=== PATIENT | male | born 1975 | race Caucasian/White ===

== ENCOUNTER 2016-07-07 20:43 | Emergency (ER) | payer OTHER ==
[~2016-07-07] VITALS: Ht 180.3 cm; Wt 119.0 kg
[~2016-07-07 20:43] MED LIST: AMPH10TA2 PO; BUPR8MIS SL; CLON1TAB3 PO; DIPH25CA65 PO; IBUP-1427 PO; LISI-461 PO; MELA1CAP9 PO; MULT-506 PO; ONDA8TAB6 PO; VENL150C PO
[2016-07-07 20:49] VITALS: TEMP 36.8; Ht 180.3 cm; Wt 119.0 kg
[2016-07-07 21:26] VITALS: O2SAT 100
[2016-07-07] MEDS ORDERED: MIRT30TA3 PO (21:29)
[2016-07-07] MEDS ORDERED: BUPR-83 PO (21:29)
[2016-07-07] MEDS ORDERED: HYDR50TA3 PO (21:29)
[2016-07-07] MEDS ORDERED: LISI-725 PO (21:29)
--- NOTE | 2016-07-07 21:31 | DIAGNOSTIC IMAGING REPORT ---
SINGLE VIEW CHEST CLINICAL HISTORY: Hypertension. FINDINGS: An AP, portable, upright chest radiograph is compared to study dated 08/20/2015. The examination is degraded by portable technique, large body habitus, and patient rotation. The cardiac silhouette is top normal for projection. The lungs and pleural spaces are clear noting minimal bibasilar atelectasis. No pneumothorax is seen. The bony thorax is grossly intact. IMPRESSION: No active disease in the chest. Electronically signed by: Jluis Jeff M.D. 07/07/2016 9:30 PM Dictated Date/Time: 07/07/2016 9:29 PM
[2016-07-07 22:10] LABS: BASO % 0.7 %; BASO ABS # 0.04 K/uL (0-0.2); COMPLETE YES; EOS % 4.9 %; HEMATOCRIT 40.3 % (42-52); IG% 0.7 %; LYMPH % 30.5 %; LYMPH ABS # 1.81 K/uL (1.2-3.4); MEAN CELL VOLUME 89.4 fL (80-100); MEAN CORPUSCULAR HEMOGLOBIN 29.9 pg (25-34); MEAN CORPUSCULAR HGB CONC 33.5 g/dl (32-36); MEAN PLATELET VOLUME 12.2 fL (7.4-10.4); MONO % 8.9 %; NEUT % 54.3 %; PLATELET COUNT 157 K/uL (130-400); RED BLOOD COUNT 4.51 M/uL (4.7-6.1); WHITE BLOOD COUNT 5.94 K/uL (4.8-10.8)
[2016-07-07 22:35] LABS: ALT/SGPT 74 U/L (12-78); BLOOD UREA NITROGEN 14 mg/dl (7-18); BUN/CREATININE RATIO 13.7 (10-20); CALCIUM 8.8 mg/dl (8.5-10.1); CARBON DIOXIDE 28 mmol/L (21-32); CHLORIDE 104 mmol/L (98-107); CREATININE 0.99 mg/dl (0.60-1.40); GLUCOSE 117 mg/dl (70-99)
[2016-07-07 22:39] LABS: POTASSIUM 4.1 mmol/L (3.5-5.1); SODIUM 141 mmol/L (136-145)
[2016-07-07 22:40] LABS: INR 0.9 (0.9-1.1); PARTIAL THROMBOPLASTIN RATIO 0.8; PROTHROMBIN TIME (PATIENT) 9.7 SECONDS (9.0-12.0)
[2016-07-07 22:41] LABS: ALKALINE PHOSPHATASE 88 U/L (45-117)
[2016-07-07 22:42] LABS: MANUAL MICROSCOPIC REQUIRED? NO; URINE APPEARANCE CLEAR (CLEAR); URINE BILIRUBIN NEG (NEG); URINE COLOR YELLOW; URINE NITRITE NEG (NEG); URINE SPECIFIC GRAVITY 1.015 (1.000-1.030); UROBILINOGEN NEG (NEG)
[2016-07-07 22:43] LABS: AST/SGOT 42 U/L (15-37)
[2016-07-07 22:47] LABS: REVIEW REQ? NO
[2016-07-07 23:32] VITALS: BP 162/99; PULSE 102; O2SAT 96
--- NOTE | 2016-07-07 23:33 | EMERGENCY ROOM VISIT NOTE ---
History Report prepared by Mitchell: Massiel Sol Under the Supervision of: Dr. Markell Sandoval M.D. First contact with patient: 21:04 Chief Complaint: HYPERTENSION Stated Complaint: HIGH BLOOD PRESSURE,RETAINING WATER/FLUIDS,NUMBNES History of Present Illness The patient is a 41 year old male who presents to the Emergency Room with complaints of constant hypertension for the past few months. The patient was incarcerated for the past 4 months and while he was there he states that he was eating a high sodium diet. He was diagnosed with hypertension and started on Lisinopril. The patient has been home for a week now. Yesterday he noticed swelling to his bilateral ankles. Today this swelling was much worse and spreading into his calves. He notes that he has gained 15 pounds over the past week. He feels like he is retaining water. He also notes headaches and generalized fatigue. He went to Urgent Care earlier today and was started on Hydrochlorothiazide. 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 Review of Systems See HPI for pertinent positives & negatives. A total of 10 systems reviewed and were otherwise negative. Past Medical & Surgical Medical Problems: (1) ADH disorder (2) Anxiety (3) Drug Mental Disorder Nec (4) Drug Withdrawal (5) H/O drug abuse Surgical Problems: (1) No significant past surgical history Family History Diabetes mellitus FH: cancer Hypertension Social History Smoking Status: Never Smoker Drug Use: cocaine, heroin, other Marital Status: in relationship Housing Status: lives with significant other Occupation Status: unemployed Current/Historical Medications Scheduled Buprenorphine Hcl-Naloxone Hcl (Suboxone 8-2 Mg), 8 MG SL BID Bupropion (Wellbutrin), 100 MG PO TID Clonidine Hcl (Catapres), 1 TAB PO BID Hydrochlorothiazide (Hctz), 50 MG PO DAILY Lisinopril (Zestril), 20 MG PO DAILY Mirtazapine (Remeron), 30 MG PO HS Venlafaxine Hcl (Effexor Xr), 150 MG PO DAILY Allergies Coded Allergies: No Known Allergies (Unverified , 08/31/15) Physical Exam Vital Signs Date Time Temp Pulse Resp B/P Pulse Ox O2 Delivery O2 Flow Rate FiO2 07/07/16 23:32 102 18 162/99 96 Room Air 07/07/16 22:44 106 18 157/85 96 Room Air 07/07/16 21:26 100 Room Air 07/07/16 21:25 100 Room Air 07/07/16 20:49 36.8 105 18 169/95 100 Room Air Physical Exam GENERAL: Patient is a healthy-appearing well-nourished 41 year old male. HEAD: Normocephalic atraumatic EYES: Ocular movements intact pupils equal and react to light OROPHARYNX mucous membranes are moist no exudates present no erythema or edema present NECK: Supple no nuchal rigidity CHEST: Good equal expansion LUNGS: Clear and equal to auscultation CARDIAC: Normal S1 and S2 ABDOMEN: Soft nontender no guarding BACK: No CVA tenderness EXTREMITIES: No pain upon palpation normal muscle strength in all groups. Bilateral lower extremity edema. NEURO: Patient is following commands is answering questions appropriately. Alert and oriented x3 Cranial Nerves 2-12 grossly intact Medical Decision & Procedures ER Provider Diagnostic Interpretation: Radiology results as stated below per my review and radiologist interpretation: SINGLE VIEW CHEST CLINICAL HISTORY: Hypertension. FINDINGS: An AP, portable, upright chest radiograph is compared to study dated 08/20/2015. The examination is degraded by portable technique, large body habitus, and patient rotation. The cardiac silhouette is top normal for projection. The lungs and pleural spaces are clear noting minimal bibasilar atelectasis. No pneumothorax is seen. The bony thorax is grossly intact. IMPRESSION: No active disease in the chest. Electronically signed by: Jluis Jeff M.D. 07/07/2016 9:30 PM Dictated Date/Time: 07/07/2016 9:29 PM US VENOUS BILATERAL LOWER EXTREMITIES: No evidence of DVT within the right or left lower extremity. Radiologist: Too Mendez MD Laboratory Results 07/07/16 21:54 Red Blood Count 4.51, Mean Corpuscular Volume 89.4, Mean Corpuscular Hemoglobin 29.9, Mean Corpuscular Hemoglobin Concent 33.5, Mean Platelet Volume 12.2, Neutrophils (%) (Auto) 54.3, Lymphocytes (%) (Auto) 30.5, Monocytes (%) (Auto) 8.9, Eosinophils (%) (Auto) 4.9, Basophils (%) (Auto) 0.7, Neutrophils # (Auto) 3.23, Lymphocytes # (Auto) 1.81, Monocytes # (Auto) 0.53, Eosinophils # (Auto) 0.29, Basophils # (Auto) 0.04 07/07/16 21:54 Test 07/07/16 21:40 07/07/16 21:54 Urine Color YELLOW Urine Appearance CLEAR (CLEAR) Urine pH 6.0 (4.5-7.5) Urine Specific Echo 1.015 (1.000-1.030) Urine Protein NEG (NEG) Urine Glucose (UA) NEG (NEG) Urine Ketones NEG (NEG) Urine Occult Blood NEG (NEG) Urine Nitrite NEG (NEG) Urine Bilirubin NEG (NEG) Urine Urobilinogen NEG (NEG) Urine Leukocyte Esterase NEG (NEG) White Blood Count 5.94 K/uL (4.8-10.8) Red Blood Count 4.51 M/uL (4.7-6.1) Hemoglobin 13.5 g/dL (14.0-18.0) Hematocrit 40.3 % (42-52) Mean Corpuscular Volume 89.4 fL (80-100) Mean Corpuscular Hemoglobin 29.9 pg (25-34) Mean Corpuscular Hemoglobin Concent 33.5 g/dl (32-36) Platelet Count 157 K/uL (130-400) Mean Platelet Volume 12.2 fL (7.4-10.4) Neutrophils (%) (Auto) 54.3 % Lymphocytes (%) (Auto) 30.5 % Monocytes (%) (Auto) 8.9 % Eosinophils (%) (Auto) 4.9 % Basophils (%) (Auto) 0.7 % Neutrophils # (Auto) 3.23 K/uL (1.4-6.5) Lymphocytes # (Auto) 1.81 K/uL (1.2-3.4) Monocytes # (Auto) 0.53 K/uL (0.11-0.59) Eosinophils # (Auto) 0.29 K/uL (0-0.5) Basophils # (Auto) 0.04 K/uL (0-0.2) RDW Standard Deviation 44.3 fL (36.4-46.3) RDW Coefficient of Variation 13.5 % (11.5-14.5) Immature Granulocyte % (Auto) 0.7 % Immature Granulocyte # (Auto) 0.04 K/uL (0.00-0.02) Prothrombin Time 9.7 SECONDS (9.0-12.0) Prothromb Time International Ratio 0.9 (0.9-1.1) Activated Partial Thromboplast Time 20.3 SECONDS (21.0-31.0) Partial Thromboplastin Ratio 0.8 Anion Gap 9.0 mmol/L (3-11) Est Creatinine Clear Calc Drug Dose 131.4 ml/min Estimated GFR () 110.7 Estimated GFR (Non- 95.5 BUN/Creatinine Ratio 13.7 (10-20) Calcium Level 8.8 mg/dl (8.5-10.1) Total Bilirubin 0.2 mg/dl (0.2-1) Direct Bilirubin < 0.1 mg/dl (0-0.2) Aspartate Amino Transf (AST/SGOT) 42 U/L (15-37) Alanine Aminotransferase (ALT/SGPT) 74 U/L (12-78) Alkaline Phosphatase 88 U/L (45-117) Pro-B-Type Natriuretic Peptide 18 pg/ml (0-450) Total Protein 6.9 gm/dl (6.4-8.2) Albumin 3.4 gm/dl (3.4-5.0) Lipase 107 U/L (73-393) Thyroid Stimulating Hormone (TSH) 2.150 uIu/ml (0.300-4.500) Labs reviewed by ED physician. Medications Administered Medications (Trade) Dose Ordered Sig/John Route Start Time Stop Time Status Last Admin Dose Admin Clonidine HCl (Catapres Tab) 0.1 mg NOW STAT PO 07/07/16 23:47 07/07/16 23:48 DC 07/07/16 23:58 0.1 MG Clonidine HCl (Catapres Tab) 0.1 mg NOW STAT PO 07/07/16 23:47 07/07/16 23:48 DC 07/07/16 23:58 0.1 MG Clonidine HCl (Catapres Tab) 0.1 mg NOW STAT PO 07/07/16 23:47 07/07/16 23:48 DC 07/07/16 23:58 0.1 MG ECG Indication: other Rate (beats per minute): 98 Rhythm: normal sinus Findings: no acute ischemic change, no ectopy, other (anterior infarct) ED Course 2103: Past medical records reviewed. The patient was evaluated in room B10. A complete history and physical examination was performed. 2343: I reassessed the patient at this time. He is feeling better and resting comfortably. I discussed the results and treatment plan with the patient. I answered all pertaining questions that he had. He expressed understanding and verbalized agreement. The patient will be discharged home. 2347: Clonidine HCl 0.1 mg PO, Clonidine HCl 0.1 mg PO, Clonidine HCl 0.1 mg PO Medical Decision Differential diagnosis: Etiologies such as benign hypertension, hypertensive emergency, cardiovascular pathology, pheochromocytoma, electrolyte abnormality, renal disease, endorgan damage, as well as others were entertained. This is a 41-year-old male who presents emergency department complaining of hypertension. The patient has been on Catapres reports that he had recently been taken off it. I suspect he has been having rebound hypertension due to this. For this reason the patient was given Catapres in the emergency department. He was given a short-term prescription for however stressed the need for follow-up with the patient's primary care physician. Patient has a normal normal ultrasounds of his legs and has no evidence of congestive heart failure on x-ray or laboratory work. Patient and significant other were in agreement with the treatment plan. Impression Primary Impression: Hypertension Scribe Attestation The scribe's documentation has been prepared under my direction and personally reviewed by me in its entirety. I confirm that the note above accurately reflects all work, treatment, procedures, and medical decision making performed by me. Departure Information Dispostion Home / Self-Care Prescriptions Clonidine Hcl (CATAPRES) 0.1 Mg Tab 1 TAB PO BID for 10 Days, #20 TAB Prov: Markell Sandoval MD 07/07/16 Referrals No Doctor, Assigned (PCP) Forms HOME CARE DOCUMENTATION FORM, IMPORTANT VISIT INFORMATION, WORK / SCHOOL INSTRUCTIONS Patient Instructions ED Hypertension Conf Out Of Control, My [facility] Additional Instructions NEED FOLLOW UP WITH A PCP You have been examined and treated today on an emergency basis only. This is not a substitute for, or an effort to provide, complete comprehensive medical care. It is impossible to recognize and treat all injuries or illnesses in a single emergency department visit. It is therefore important that you follow up closely with your PCP. Call as soon as possible for an appointment. Thank you for your time and consideration. I look forward to speaking with you again soon. Please don't hesitate to call us if you have any questions. Problem Qualifiers Primary Impression: Hypertension Hypertension type: essential hypertension Qualified Codes: I10 - Essential ( primary) hypertension
[2016-07-07] MEDS ORDERED: CLONIDINE HCL 0.1 MG TAB PO STA ×3 (23:47)
[2016-07-07] MEDS ORDERED: CLON0.1T12 PO (23:50)
--- NOTE | 2016-07-08 06:43 | DIAGNOSTIC IMAGING REPORT ---
BILATERAL LOWER EXTREMITY VENOUS DOPPLER CLINICAL HISTORY: Bilateral leg swelling. COMPARISON STUDY: No previous studies for comparison. TECHNIQUE: Sonography of the deep venous system of the bilateral lower extremities was performed. Compression and augmentation were evaluated. FINDINGS: The bilateral common femoral, superficial femoral and popliteal veins were compressible. Augmentation was normal. Flow was shown within the deep calf vessels. IMPRESSION: No evidence of deep venous thrombus within the bilateral lower extremities. Electronically signed by: Oliver Farley M.D. 07/08/2016 6:41 AM Dictated Date/Time: 07/08/2016 6:41 AM
== END 2016-07-08 00:04 | disposition home or self-care (01) ==
LOC: C.EDB 20:44
DX: I10 Essential (primary) hypertension (principal); F41.9 Anxiety disorder, unspecified; Z83.3 Family history of diabetes mellitus; Z82.49 Family history of ischemic heart disease and other diseases of the circulatory system; Z79.899 Other long term (current) drug therapy

== ENCOUNTER 2016-10-19 11:27 | Emergency (ER) | payer OTHER ==
[~2016-10-19] VITALS: Ht 180.3 cm; Wt 113.0 kg
[~2016-10-19 11:27] MED LIST changes: -AMPH10TA2 PO; +BUPR-83 PO; +CLON0.1T12 PO; -CLON1TAB3 PO; -DIPH25CA65 PO; +HYDR50TA3 PO; -IBUP-1427 PO; -LISI-461 PO; +LISI-725 PO; -MELA1CAP9 PO; +MIRT30TA3 PO; -MULT-506 PO; -ONDA8TAB6 PO
[2016-10-19 11:30] VITALS: TEMP 36.7; Ht 180.3 cm; Wt 113.0 kg
[2016-10-19] MEDS ORDERED: KETOROLAC TROMETHAMINE 30 MG/ML VIAL IM STA (12:52)
[2016-10-19] MEDS ORDERED: DIAZEPAM INJ 5 MG/ML 2 ML CARP IM STA (12:52)
--- NOTE | 2016-10-19 12:55 | EMERGENCY ROOM VISIT NOTE ---
ED Visit Note First contact with patient: 11:45 CHIEF COMPLAINT: Low back pain HISTORY OF PRESENT ILLNESS: This 41-year-old male patient presents to the emergency department with his complaining of pain in the low back which began yesterday afternoon patient states he has been constipated lately, was straining to move his bowels when he felt a pop in the left side of his back with some pain that he describes "like a taser shock to me." He states the pain has gotten progressively worse, radiating down his buttock and into his left lateral thigh. The pain was gradual in onset, is now constant and worse with movement. The patient notes the pain as burning, aching and a 8/10. The patient has taken ibuprofen with minimal relief of the pain. The patient denies any loss of control of their bowel or bladder functions. There has been no leg numbness or weakness, and no change in sensation. No nausea or vomiting or abdominal pain. No chest pain or shortness of breath. The patient has not had prior back injuries. No dysuria or increased urinary frequency. Patient has been ambulatory. Patient has past history of IV heroin abuse, currently treated with Suboxone. He denies any relapse of IV drug abuse. REVIEW OF SYSTEMS: A review of systems was performed with positives and pertinent negatives listed in the history of present illness. All other systems were reviewed and are negative. ALLERGIES: None MEDICATIONS: See chart PMH: See chart SOCIAL HISTORY: See chart PHYSICAL EXAM: VITALS: Vitals are noted on the nurse's note and reviewed by myself. Vital signs stable. GENERAL: Pleasant and cooperative, in no acute distress, nondiaphoretic, well- developed well-nourished. SKIN: The skin was without rashes, erythema, edema, or bruising. Capillary refill less than 2 seconds. NECK: Supple without nuchal rigidity. No cervical spine tenderness. No paraspinous muscle tenderness. HEART: Regular rate and rhythm without murmurs gallops or rubs. LUNGS: Clear to auscultation bilaterally without wheezes, rales or rhonchi. ABDOMEN: Positive bowel sounds x 4. Normal tympanic percussion. Soft, nontender, without masses or organomegaly. Watt sign negative. MUSCULOSKELETAL: No muscle atrophy, erythema, or edema noted of the back. There is no tenderness over the lumbar spinous processes. There is moderate tenderness over the lateral paraspinous muscles of the left lumbar spine. There is no tenderness over the thoracic spine paraspinous muscles. There are moderate muscle spasms present. The patient is slow to move around with maximum tenderness with bending over. Positive left straight leg raise test. NEURO: Patient was alert and oriented to person place and time. Normal sensation to light and sharp touch. Deep tendon reflexes 2+ in the lower extremities. Dorsalis pedis pulse 2+ bilaterally. Strength 5/5 and equal in the bilateral lower extremities. Patient pacing around the room, normal gait noted. EMERGENCY DEPARTMENT COURSE: I examined the patient. Differential diagnosis includes back sprain, strain, muscle spasm, disc herniation; less likely cauda equina, I do not suspect traumatic injury or epidural abscess. Patient has notable muscle spasm of the left lateral lumbar musculature, tender to palpation. No midline spinal tenderness, step-offs, crepitus. Normal neuro exam, normal strength and sensation in both legs, normal reflexes bilaterally, no saddle numbness, normal gait. Patient's pain brought on while straining to have a bowel movement, no significant trauma. I suspect straining of the muscle wall of the left side of the back. Patient treated with IM Toradol and Valium, with good improvement in his symptoms. Patient was provided with small Rx of Valium and instructed to follow closely with his PCP for follow up, he verbalized understanding and agreement. Problem List Medical Problems: (1) ADH disorder Status: Chronic (2) Anxiety Status: Chronic (3) H/O drug abuse Status: Chronic Surgical Problems: (1) No significant past surgical history Status: Chronic Current/Historical Medications Scheduled Buprenorphine Hcl-Naloxone Hcl (Suboxone 8-2 Mg), 8 MG SL BID Clonidine Hcl (Catapres), 1 TAB PO BID Diazepam (Valium), 5 MG PO QID Hydrochlorothiazide (Hctz), 50 MG PO DAILY Lisinopril (Zestril), 20 MG PO DAILY Allergies Coded Allergies: No Known Allergies (Unverified , 08/31/15) Vital Signs Date Time Temp Pulse Resp B/P Pulse Ox O2 Delivery O2 Flow Rate FiO2 10/19/16 13:46 89 18 109/62 98 10/19/16 11:30 36.7 100 16 134/81 98 Room Air Medications Administered Medications (Trade) Dose Ordered Sig/John Route Start Time Stop Time Status Last Admin Dose Admin Diazepam (Valium Inj) 10 mg NOW STAT IM 10/19/16 12:52 10/19/16 12:54 DC 10/19/16 13:05 10 MG Ketorolac Tromethamine (Toradol Inj) 60 mg STK-MED ONCE .ROUTE 10/19/16 13:01 10/19/16 13:02 DC 10/19/16 13:05 60 MG Departure Information Impression Primary Impression: Left-sided low back pain with sciatica Dispostion Home / Self-Care Condition GOOD Prescriptions Diazepam (Valium) 5 Mg Tab 5 MG PO QID for 3 Days, #12 TAB Prov: Teresa Marquez Lily, RECORDS MANAGEMENT MANAGER 10/19/16 Referrals No Doctor, Assigned (PCP) Patient Instructions My [facility] [employer] Additional Instructions Rest off your feet for 1 to 2 days, ice for 24 hrs then heat to the low back. See your own doctor or an orthopedist in 5-7 days if you are not improving. Ibuprofen 800 mg and Tylenol 1000 mg every 8 hours if needed for the pain. Valium every 6-8 hours as needed for muscle spasm. No driving or alcohol use while you are taking the Valium. Please return to the ER for any worsening problems, including problems with bowel or bladder function or if loss of sensation/movement of lower extremities. Work Instructions Return To Work: 2 days Specific Date: 10/21/2016 Additional Work Instructions: No restrictions Problem Qualifiers Primary Impression: Left-sided low back pain with sciatica Chronicity: acute Sciatica laterality: sciatica of left side Qualified Codes: M54.42 - Lumbago with sciatica, left side
[2016-10-19] MEDS ORDERED: KETOROLAC TROMETHAMINE 60 MG/2 ML VIAL ONE (13:01)
[2016-10-19] MEDS ORDERED: DIAZ-165 PO (13:37)
[2016-10-19 13:46] VITALS: BP 109/62; PULSE 89; O2SAT 98
== END 2016-10-19 13:48 | disposition home or self-care (01) ==
LOC: C.EDB 11:28 → C.EDD 13:48
DX: M54.42 Lumbago with sciatica, left side (principal); K59.00 Constipation, unspecified; F11.21 Opioid dependence, in remission; F90.9 Attention-deficit hyperactivity disorder, unspecified type; F41.9 Anxiety disorder, unspecified

== ENCOUNTER 2016-10-27 09:58 | Emergency (ER) | payer OTHER ==
[~2016-10-27] VITALS: Ht 180.3 cm; Wt 115.6 kg
[~2016-10-27 09:58] MED LIST changes: -BUPR-83 PO; -MIRT30TA3 PO; -VENL150C PO
[2016-10-27 10:01] VITALS: TEMP 36.7; Ht 180.3 cm; Wt 115.6 kg
[2016-10-27] MEDS ORDERED: KETOROLAC TROMETHAMINE 60 MG/2 ML VIAL IM STA (10:33)
--- NOTE | 2016-10-27 11:40 | DIAGNOSTIC IMAGING REPORT ---
LUMBAR SPINE 3 VIEWS HISTORY: lower back pain COMPARISON: None. FINDINGS: There is no fracture. No subluxation. Disc spaces are preserved. There is small endplate osteophytes seen throughout the lumbar spine. IMPRESSION: No fracture or subluxation within the lumbar spine. Minor degenerative changes. Electronically signed by: Gerhard Levy M.D. 10/27/2016 11:39 AM Dictated Date/Time: 10/27/2016 11:35 AM
[2016-10-27 11:41] VITALS: BP 145/74; PULSE 89; O2SAT 100
--- NOTE | 2016-10-27 15:35 | EMERGENCY ROOM VISIT NOTE ---
History Report prepared by Mitchell: Arnulfo Mathur Under the Supervision of: Dr. Patrice Pardo D.O. First contact with patient: 10:08 Chief Complaint: BACK PAIN Stated Complaint: BACK PAIN History of Present Illness The patient is a 41 year old male who presents to the Emergency Room with complaints of worsening low back pain that started yesterday. He says that he had been having back pain last week, and was seen here and was told it may be a pulled muscle. The patient states that the area was sore all week, but then yesterday he was picking something up off the back of a truck, and he felt like his lower back was going to collapse. Ever since then, he says that he has had 5 times worse pain than when he was here last week. The patient adds that he has had to push to urinate, and he has not had a bowel movement in 3 days. The patient notes that he has had back pain in the same spot before, but never this bad. He denies any fevers, or weakness/numbness in his legs. The patient denies any IV drug use. Pt is able to ambulate without difficulty. No fevers. Source of History: patient Onset: Yesterday Position: back (lower) Symptom Intensity: 5 times worse than when seen here last week Timing: worsening Associated Symptoms: + urinary symptoms (has to push to urinate), No fevers , No weakness (in legs), No numbness (in legs) Note: Associated symptoms: Low back pain for past week, but worsened yesterday. Unable to pass bowel movements for 3 days. Review of Systems See HPI for pertinent positives & negatives. A total of 10 systems reviewed and were otherwise negative. Past Medical & Surgical Medical Problems: (1) ADH disorder (2) Anxiety (3) Drug Mental Disorder Nec (4) Drug Withdrawal (5) H/O drug abuse Surgical Problems: (1) No significant past surgical history Family History Diabetes mellitus FH: cancer Hypertension Social History Smoking Status: Never Smoker Drug Use: cocaine, heroin, other Marital Status: in relationship Housing Status: lives with significant other Occupation Status: unemployed Current/Historical Medications Scheduled Buprenorphine Hcl-Naloxone Hcl (Suboxone 8-2 Mg), 8 MG SL BID Clonidine Hcl (Catapres), 1 TAB PO BID Hydrochlorothiazide (Hctz), 50 MG PO DAILY Lisinopril (Zestril), 20 MG PO DAILY Allergies Coded Allergies: No Known Allergies (Unverified , 10/27/16) Physical Exam Vital Signs Date Time Temp Pulse Resp B/P (MAP) Pulse Ox O2 Delivery O2 Flow Rate FiO2 10/27/16 11:41 89 16 145/74 100 Room Air 10/27/16 10:01 36.7 125 18 96 Room Air Physical Exam GENERAL: sitting up in bed, disheveled, no acute distress, nontoxic EYE EXAM: normal conjunctiva OROPHARYNX: no exudate, no erythema, lips, buccal mucosa, and tongue normal and mucous membranes are moist NECK: supple, no nuchal rigidity, no adenopathy, non-tender LUNGS: Clear to auscultation. Normal chest wall mechanics HEART: no murmurs, S1 normal and S2 normal ABDOMEN: abdomen soft, non-tender, normo-active bowel sounds, no masses, no rebound or guarding. BACK: Acute reproducible tenderness in lower lumbar paraspinal region tracking up to left SI joint. SKIN: no rashes and no bruising UPPER EXTREMITIES: upper extremities are grossly normal. LOWER EXTREMITIES: Flexion extension of hip, knee, ankle, and EHL 5/5 bilaterally. Able to walk on heels and toes. RECTAL: Good rectal tone. NEURO EXAM: Normal sensorium, cranial nerves II-XII grossly intact, normal speech, no gross weakness of arms. Medical Decision & Procedures ER Provider Diagnostic Interpretation: X-ray results as stated below per my review and the radiologist's interpretation : LUMBAR SPINE 3 VIEWS HISTORY: lower back pain COMPARISON: None. FINDINGS: There is no fracture. No subluxation. Disc spaces are preserved. There is small endplate osteophytes seen throughout the lumbar spine. IMPRESSION: No fracture or subluxation within the lumbar spine. Minor degenerative changes. Electronically signed by: Gerhard Levy M.D. 10/27/2016 11:39 AM Dictated Date/Time: 10/27/2016 11:35 AM Medications Administered Medications (Trade) Dose Ordered Sig/John Route Start Time Stop Time Status Last Admin Dose Admin Ketorolac Tromethamine (Toradol Inj) 60 mg NOW STAT IM 10/27/16 10:33 10/27/16 10:35 DC 10/27/16 11:00 60 MG ED Course ED COURSE: Vital signs were reviewed and showed hypertensive vitals. The patients medical record was reviewed The above diagnostic studies were performed and reviewed. ED treatments and interventions as stated above. 1023: The patient was evaluated in room A9B. A complete history and physical examination was performed. 1033: Ordered Toradol Inj 60 mg IM. 1045: Post-void residual was 8 ml's. 1145: Upon reevaluation, the patient is resting.I discussed my findings with the patient and he understands and agrees with the treatment plan. Based on the patients age, coexisting illnesses, exam and lab findings the decision to treat as an outpatient was made. The patient remained stable while under my care. The patient appeared well at the time of discharge. Medical Decision Differential diagnoses includes but is not limited to lumbar radiculopathy, muscle strain, facture, cauda equina, mass, and disc herniation. Medication Reconciliation: I attest that I have personally reviewed the patient' s current medication list. Blood pressure screening: Patient was found to have an elevated blood pressure and was referred to their primary doctor for recheck and further treatment. Patient is a 41-year-old male who presents the ER for left lower back pain which is acutely reproducible on exam. Appears to be muscle skeletal. He is completely neurologically intact. Able to ambulate without difficulty. Able to walk on heels and toes. Patellar and Achilles reflexes are intact. X-rays of the back showed no acute pathology. Patient was given IM Toradol and discharged to take Tylenol and Motrin. He had good rectal tone. There is no signs of cauda equina. Discussed with Pt concerning signs and symptoms to watch out for. Pt was instructed to follow up with their PCP and discussed with the patient their option to return to the ED at anytime for persistent or worsening symptoms. The appropriate anticipatory guidance and out-patient management, including indications for return to the emergency department, were explained at length to the patient and understood. Impression Primary Impression: Back pain Scribe Attestation The scribe's documentation has been prepared under my direction and personally reviewed by me in its entirety. I confirm that the note above accurately reflects all work, treatment, procedures, and medical decision making performed by me. Departure Information Dispostion Home / Self-Care Referrals No Doctor, Assigned (PCP) Patient Instructions Back Pain - [facility], My [facility] Additional Instructions Please follow up with your primary care doctor with in the next 24 hours. Any worsening of your symptoms, please return to the ED immediately. This includes fevers greater than 100.4, weakness or numbness in your legs, numbness in your groin, unable to urinate, unable to move your bowels, or any other concerning signs or symptoms from your standpoint. Please use Motrin Tylenol as needed for pain. Problem Qualifiers Primary Impression: Back pain Back pain location: back pain in unspecified location Chronicity: acute Back pain laterality: bilateral Qualified Codes: M54.9 - Dorsalgia, unspecified
== END 2016-10-27 12:03 | disposition home or self-care (01) ==
LOC: C.EDB 09:59 → C.EDA 12:03
DX: M54.5 Low back pain (principal); F41.9 Anxiety disorder, unspecified; F90.9 Attention-deficit hyperactivity disorder, unspecified type; Z79.899 Other long term (current) drug therapy; Z83.3 Family history of diabetes mellitus; Z80.9 Family history of malignant neoplasm, unspecified; Z82.49 Family history of ischemic heart disease and other diseases of the circulatory system

== ENCOUNTER 2017-01-08 01:50 | Emergency (ER) | payer OTHER ==
[~2017-01-08] VITALS: Ht 180.3 cm; Wt 119.7 kg
[2017-01-08 01:55] VITALS: TEMP 36.4; Ht 180.3 cm; Wt 119.7 kg
[2017-01-08] MEDS ORDERED: DiphenhydrAMINE HCL 50 MG/ML VIAL IV STA (02:06)
[2017-01-08] MEDS ORDERED: METOCLOPRAMIDE HCL INJ 5 MG/ML 2 ML VIAL IV STA (02:06)
[2017-01-08] MEDS ORDERED: SODIUM CHLORIDE 0.9% 1000ML 1,000 ML IV STA (02:06)
[2017-01-08] MEDS ORDERED: DICYCLOMINE HCL 20 MG TAB PO STA (02:06)
--- NOTE | 2017-01-08 02:16 | EMERGENCY ROOM VISIT NOTE ---
History Report prepared by Mitchell: Susi Judge Under the Supervision of: Dr. Erick Reid M.D. First contact with patient: 02:01 Chief Complaint: ALLERGIC REACTION Stated Complaint: ALLERGIC REACTION- MILK [place] Nursing Triage Summary: Patient ambulatory to triage with a steady and upright gait, states "I took some MOM to move my bowels and immediately, I started to have really bad abdominal cramps. I was in the bathroom trying to go for about 6 hours and was finally able to go. I was vomiting and nauseated. I got towels out and laid on the bathroom floor. I got to the point where I was dry heaving. My abdominal cramps are out of this world. I still feel like I need to move my bowels but I can't." History of Present Illness The patient is a 42 year old male who presents to the Emergency Room with complaints of an episode of an allergic reaction starting 8 hours ago. The patient states that he took MOM to have a bowel movement because he normally has one daily. He states that 20 minutes after taking it, he started having stomach cramping and vomiting. He currently rates his pain as a 10/10 in severity. He reports that he has been constantly vomiting and can't sleep because of it. The patient reports that he Googled it and noticed it was possibly a severe allergic reaction to the MOM, so he decided to come to the ED. He notes that he has had a bowel movement since taking it. The patient complains of a fever. He denies abdominal surgeries. He notes every time he takes MOM he becomes sick, but never to this extent. Source of History: patient Onset: 8 hours ago Position: other (global) Symptom Intensity: 10/10 Quality: cramping Timing: other (episode) Associated Symptoms: + fevers, + vomiting Note: The patient denies any abdominal surgeries. Review of Systems See HPI for pertinent positives & negatives. A total of 10 systems reviewed and were otherwise negative. Past Medical & Surgical Medical Problems: (1) ADH disorder (2) Anxiety (3) Drug Mental Disorder Nec (4) Drug Withdrawal (5) H/O drug abuse Surgical Problems: (1) No significant past surgical history Family History Diabetes mellitus FH: cancer Hypertension Social History Smoking Status: Never Smoker Drug Use: cocaine, heroin, other Marital Status: in relationship Housing Status: lives with significant other Occupation Status: unemployed Current/Historical Medications Scheduled Buprenorphine Hcl-Naloxone Hcl (Suboxone 8-2 Mg), 8 MG SL BID Hydrochlorothiazide (Hctz), 50 MG PO DAILY Lisinopril (Zestril), 20 MG PO DAILY Scheduled PRN Clonidine Hcl (Catapres), 1 TAB PO BID PRN for Hypertension Allergies Coded Allergies: Magnesium Hydroxide (Verified Adverse Reaction, Severe, GI SYMPTOMS, ) Physical Exam Vital Signs Date Time Temp Pulse Resp B/P (MAP) Pulse Ox O2 Delivery O2 Flow Rate FiO2 01/08/17 05:10 61 18 123/78 99 01/08/17 03:11 76 18 120/70 94 Room Air 01/08/17 01:55 100 Room Air 01/08/17 01:55 36.4 84 16 120/77 100 Room Air Physical Exam GENERAL: Patient is well appearing and in minimal distress. HEENT: No acute trauma, normocephalic atraumatic, mucous membranes moist, no nasal congestion, no scleral icterus. NECK: No stridor, no adenopathy, no meningismus, trachea is midline. LUNGS: No dyspnea. Clear to auscultation and equal bilaterally. No wheeze, no rhonchi. HEART: Regular rate and rhythm. No murmurs, rubs, gallops appreciated. ABDOMEN: Soft, nontender, bowel sounds positive, no masses appreciated, no peritonitis. BACK: No midline tenderness, no CVA tenderness EXTREMITIES: Normal motion all extremities, no cyanosis, no edema. NEUROLOGIC: Alert and oriented, no acute motor or sensory deficits, no focal weakness, cranial nerves grossly intact. SKIN: No rash, no jaundice, no diaphoresis. Medical Decision & Procedures ER Provider Diagnostic Interpretation: Radiology results and stated below per my review and radiologist interpretation: 4 VIEW ABDOMINAL OBSTRUCTION SERIES X-RAY: Findings: The results were interpreted by me. No evidence of acute obstruction. Stool present throughout the colon. No free air. CT ABDOMEN & PELVIS: Comparison with CT abdomen pelvis 08/02/11. Colitis involving the transverse colon, splenic flexure, descending colon, and sigmoid colon extending to the rectum. Consider infectious or inflammatory etiologies. No appendicitis or bowel obstruction. No free air or free fluid. Pancreas, kidneys, and gallbladder are normal. Radiologist: Ervin Colón M.D. Study ready at 03:35 and initial results transmitted at 04:45. Laboratory Results 8/15/17 02:28 Red Blood Count 4.42, Mean Corpuscular Volume 89.8, Mean Corpuscular Hemoglobin 30.3, Mean Corpuscular Hemoglobin Concent 33.8, Mean Platelet Volume 12.3, Neutrophils (%) (Auto) 79.6, Lymphocytes (%) (Auto) 11.4, Monocytes (%) (Auto) 7.1, Eosinophils (%) (Auto) 1.4, Basophils (%) (Auto) 0.3, Neutrophils # (Auto) 8.00, Lymphocytes # (Auto) 1.15, Monocytes # (Auto) 0.71, Eosinophils # (Auto) 0.14, Basophils # (Auto) 0.03 01/08/17 02:28 Test 01/08/17 02:28 01/08/17 03:14 White Blood Count 10.05 K/uL (4.8-10.8) Red Blood Count 4.42 M/uL (4.7-6.1) Hemoglobin 13.4 g/dL (14.0-18.0) Hematocrit 39.7 % (42-52) Mean Corpuscular Volume 89.8 fL (80-100) Mean Corpuscular Hemoglobin 30.3 pg (25-34) Mean Corpuscular Hemoglobin Concent 33.8 g/dl (32-36) Platelet Count 171 K/uL (130-400) Mean Platelet Volume 12.3 fL (7.4-10.4) Neutrophils (%) (Auto) 79.6 % Lymphocytes (%) (Auto) 11.4 % Monocytes (%) (Auto) 7.1 % Eosinophils (%) (Auto) 1.4 % Basophils (%) (Auto) 0.3 % Neutrophils # (Auto) 8.00 K/uL (1.4-6.5) Lymphocytes # (Auto) 1.15 K/uL (1.2-3.4) Monocytes # (Auto) 0.71 K/uL (0.11-0.59) Eosinophils # (Auto) 0.14 K/uL (0-0.5) Basophils # (Auto) 0.03 K/uL (0-0.2) RDW Standard Deviation 43.4 fL (36.4-46.3) RDW Coefficient of Variation 13.2 % (11.5-14.5) Immature Granulocyte % (Auto) 0.2 % Immature Granulocyte # (Auto) 0.02 K/uL (0.00-0.02) Anion Gap 4.0 mmol/L (3-11) Est Creatinine Clear Calc Drug Dose 117.5 ml/min Estimated GFR () 96.8 Estimated GFR (Non- 83.5 BUN/Creatinine Ratio 14.4 (10-20) Calcium Level 9.3 mg/dl (8.5-10.1) Total Bilirubin 0.4 mg/dl (0.2-1) Direct Bilirubin < 0.1 mg/dl (0-0.2) Aspartate Amino Transf (AST/SGOT) 26 U/L (15-37) Alanine Aminotransferase (ALT/SGPT) 41 U/L (12-78) Alkaline Phosphatase 102 U/L (45-117) Total Protein 7.7 gm/dl (6.4-8.2) Albumin 3.8 gm/dl (3.4-5.0) Lipase 90 U/L (73-393) Urine Color YELLOW Urine Appearance CLEAR (CLEAR) Urine pH 7.5 (4.5-7.5) Urine Specific [place] 1.018 (1.000-1.030) Urine Protein NEG (NEG) Urine Glucose (UA) NEG (NEG) Urine Ketones NEG (NEG) Urine Occult Blood NEG (NEG) Urine Nitrite NEG (NEG) Urine Bilirubin NEG (NEG) Urine Urobilinogen NEG (NEG) Urine Leukocyte Esterase NEG (NEG) Urine WBC (Auto) 0 /hpf (0-5) Urine RBC (Auto) 0-4 /hpf (0-4) Urine Hyaline Casts (Auto) 0 /lpf (0-5) Urine Epithelial Cells (Auto) 0-5 /lpf (0-5) Urine Bacteria (Auto) NEG (NEG) Laboratory results as reviewed by me. Medications Administered Medications (Trade) Dose Ordered Sig/John Route Start Time Stop Time Status Last Admin Dose Admin Sodium Chloride 1,000 ml @ 999 mls/hr Q1H1M STAT IV 01/08/17 02:06 01/08/17 03:06 DC 01/08/17 02:27 999 MLS/HR Dicyclomine HCl (Bentyl Tab) 20 mg NOW STAT PO 01/08/17 02:06 01/08/17 02:09 DC 01/08/17 02:40 20 MG Metoclopramide HCl (Reglan Inj) 10 mg NOW STAT IV 01/08/17 02:06 01/08/17 02:09 DC 01/08/17 02:28 10 MG Diphenhydramine HCl (Benadryl Inj) 25 mg NOW STAT IV 01/08/17 02:06 01/08/17 02:09 DC 01/08/17 02:27 25 MG Promethazine HCl (Phenergan 25MG Home Pack) 1 homepack UD ONCE PO 01/08/17 05:00 01/08/17 05:01 DC 01/08/17 05:07 1 HOMEPACK ED Course 0202: The patient was evaluated in room A11B. A complete history and physical exam was performed. 0206: Ordered Benadryl Inj 25 mg IV, Reglan Inj 10 mg IV, Bentyl Tab 20 mg PO, NSS 1000 ml @ 999 mls/hr IV. 0308: I reevaluated the patient and his lower abdomen still hurts even thought he was sleeping on evaluation. After discussing the risks of a Cat Scan, the patient wishes to continue. 0451: Discussed the patient's case with Dr. Radha CUMMINGS. He states he will follow up with him as an outpatient. 0456: Reevaluated the patient. The patient is comfortable with following up with GI and I advised him to stick to a light diet while increasing his fluid intake. Discussed results and discharge instructions: He verbalized understanding and agreement. The patient is ready for discharge. 0500: Ordered Promethazine HCl 1 homepack PO. Medical Decision Differential: Gastroenteritis, Food Borne, Esophageal Perforation, , Electrolyte Abnormality, Dehydration, Intraabdominal Infection, UTI/ Pyelonephritis, Bowel Obstruction, Biliary Pathology, amongst other pathology entertained. 42 yr old male with chronic bowel issues who notes he regularly takes MOM, but that it almost always makes him sick. This afternoon with much worse response than usual with diffuse lower abdominal pain, vomiting and diaphoresis. Given above and much more comfortable. Xrays unremarkable. Labs unremarkable with normal WBC. Patient awoken and still saying quite some discomfort. With continued pain felt further imaging warranted and patient wishing CT abdo/pelv. CT with diffuse colitis though no surgical findings. Exam without peritonitis. Patient notes chronic abdo issues and that he often feels constipated even though if no stool. I suspect he has underlying bowel inflammatory disease. He has had no diarrhea, fevers, wbc elevation nor tachycardia thus I think it less likely this is infectious, and regardless would not what to start abx without clear indication of what we'd be treating. No BM while here. Reviewed with GI who will follow up with him as outpatient. Reviewed with patient who agrees to outpt management. Stressed symptoms requiring RTED. Blood Pressure Screening Patient's blood pressure: Normal blood pressure Consults Time Called: [phone] Consulting Physician: Dr. Radha CUMMINGS Returned Call: [phone] Discussed the patient's case with Dr. Radha CUMMINGS. He states he will follow up with him as an outpatient. Impression Primary Impression: Colitis, acute Scribe Attestation The scribe's documentation has been prepared under my direction and personally reviewed by me in its entirety. I confirm that the note above accurately reflects all work, treatment, procedures, and medical decision making performed by me. Departure Information Dispostion Home / Self-Care Referrals Adi Augustine MD Forms HOME CARE DOCUMENTATION FORM, IMPORTANT VISIT INFORMATION Patient Instructions My [facility] Additional Instructions You were found to have Colitis. This is inflammation of your large bowel and can be for a variety of reasons. Keep to a light diet over the next few days, with increased fluids. Avoid spicy foods, large amounts of caffeine, alcohol, and fatty foods. Use Tylenol as needed for discomfort and Phenergan if needed for nausea. Return if worsening vomiting, pain, fevers, blood in stool, or other concerning symptoms. Follow up with Gastroenterology for further evaluation and treatment.
[2017-01-08] MEDS ORDERED: CLON0.1T12 PO (02:22)
[2017-01-08 02:39] LABS: BASO % 0.3 %; BASO ABS # 0.03 K/uL (0-0.2); COMPLETE YES; EOS % 1.4 %; HEMATOCRIT 39.7 % (42-52); IG% 0.2 %; LYMPH % 11.4 %; LYMPH ABS # 1.15 K/uL (1.2-3.4); MEAN CELL VOLUME 89.8 fL (80-100); MEAN CORPUSCULAR HEMOGLOBIN 30.3 pg (25-34); MEAN CORPUSCULAR HGB CONC 33.8 g/dl (32-36); MEAN PLATELET VOLUME 12.3 fL (7.4-10.4); MONO % 7.1 %; NEUT % 79.6 %; PLATELET COUNT 171 K/uL (130-400); RED BLOOD COUNT 4.42 M/uL (4.7-6.1); WHITE BLOOD COUNT 10.05 K/uL (4.8-10.8)
[2017-01-08 02:58] LABS: ALT/SGPT 41 U/L (12-78); AST/SGOT 26 U/L (15-37); BLOOD UREA NITROGEN 16 mg/dl (7-18); BUN/CREATININE RATIO 14.4 (10-20); CALCIUM 9.3 mg/dl (8.5-10.1); CARBON DIOXIDE 32 mmol/L (21-32); CHLORIDE 101 mmol/L (98-107); GLUCOSE 96 mg/dl (70-99); POTASSIUM 4.3 mmol/L (3.5-5.1); SODIUM 137 mmol/L (136-145)
[2017-01-08 03:01] LABS: ALKALINE PHOSPHATASE 102 U/L (45-117)
[2017-01-08] MEDS ORDERED: OPTIRAY 320 IV PRN (03:15)
[2017-01-08 03:23] LABS: MANUAL MICROSCOPIC REQUIRED? NO; REVIEW REQ? NO; URINE APPEARANCE CLEAR (CLEAR); URINE BILIRUBIN NEG (NEG); URINE COLOR YELLOW; URINE EPITHELIAL CELL AUTO 0-5 /lpf (0-5); URINE NITRITE NEG (NEG); URINE PH 7.5 (4.5-7.5); URINE SPECIFIC GRAVITY 1.018 (1.000-1.030); UROBILINOGEN NEG (NEG); ZZUR CULT IF INDIC CLEAN CATCH NO
[2017-01-08] MEDS ORDERED: PHENERGAN 25MG HOMEPACK PO ONE (05:00)
[2017-01-08 05:10] VITALS: BP 123/78; PULSE 61; O2SAT 99
--- NOTE | 2017-01-08 07:12 | DIAGNOSTIC IMAGING REPORT ---
CHEST AND ABDOMEN 2 VIEWS HISTORY: vomiting post laxative use COMPARISON: Chest 07/07/2016. FINDINGS: The lungs are clear. The cardiomediastinal silhouette is within normal limits. There is no pneumoperitoneum or pneumatosis. The bowel gas pattern is unremarkable. No evidence for bowel obstruction. No pathologic calcifications. IMPRESSION: No acute cardiopulmonary process. No evidence for bowel obstruction. Electronically signed by: Gerhard Levy M.D. 01/08/2017 7:11 AM Dictated Date/Time: 01/08/2017 7:10 AM
--- NOTE | 2017-01-08 07:28 | DIAGNOSTIC IMAGING REPORT ---
CT SCAN OF THE ABDOMEN AND PELVIS WITH IV CONTRAST CLINICAL HISTORY: Lower abdominal pain. Nausea and vomiting. COMPARISON STUDY: Abdominal CT dated 08/02/2011. TECHNIQUE: Following the IV administration of 119 cc of Optiray 320, CT scan of the abdomen and pelvis is performed from the lung bases to the proximal femora. Images are reviewed in the axial, sagittal, and coronal planes. IV contrast was administered without complication. Automated dose control exposure was utilized. A dose lowering technique was utilized adhering to the principles of ALARA. CT DOSE: 1229.88 mGy.cm FINDINGS: Lung bases: The heart is normal in size and without pericardial effusion. The lung bases are clear noting dependent atelectasis. There is a tiny hiatal hernia. Liver: The contrast-enhanced liver is enlarged, measuring 20.2 cm in length. The liver is otherwise normal in contour and attenuation. There is no intrahepatic biliary ductal dilatation. The hepatic veins and portal veins are patent. Gallbladder: Unremarkable. Spleen: The spleen is enlarged, measuring 14.2 cm in length. Pancreas: Atrophic for age. Adrenal glands: Unremarkable. Kidneys: The contrast enhanced kidneys are normal in size and without hydronephrosis. The kidneys enhance symmetrically. Abdominal vasculature: The abdominal aorta is normal in course and caliber. Bowel: The small bowel and colon are normal in course and caliber. Submucosal fat deposition is noted throughout the colon. There is mild mucosal edema seen involving the descending colon with faint pericolonic infiltration. The appearance is consistent with a mild colitis. The appendix is well-visualized and normal. Peritoneum: There is no intraperitoneal free air or abdominal ascites. There is a fat-containing umbilical hernia. Lymphadenopathy: None. Pelvic viscera: The bladder, prostate, and seminal vesicles are normal as imaged. There is a tiny fat-containing left inguinal hernia. Skeletal structures: No lytic or blastic lesions are seen. IMPRESSION: 1. Findings are consistent with a mild colitis of the left colon, likely on an infectious/inflammatory basis in this age group. 2. Hepatosplenomegaly. Electronically signed by: Jluis Jeff M.D. 01/08/2017 7:27 AM Dictated Date/Time: 01/08/2017 7:09 AM
[2017-01-08] MEDS ORDERED: BUPR-83 PO (17:41)
[2017-01-08] MEDS ORDERED: ALPR-411 PO (17:41)
[2017-01-08] MEDS ORDERED: VENL150C56 PO (17:41)
[2017-01-08] MEDS ORDERED: DICY20TA35 PO (19:35)
[2017-01-08] MEDS ORDERED: TRAM-10 PO (19:35)
[2017-01-08] MEDS ORDERED: SENN8.6C PO (19:53)
[2017-01-08] MEDS ORDERED: ONDA4TAB10 SL (19:53)
== END 2017-01-08 05:10 | disposition home or self-care (01) ==
LOC: C.EDB 01:51 → C.EDA 05:10
DX: K52.9 Noninfective gastroenteritis and colitis, unspecified (principal); F90.9 Attention-deficit hyperactivity disorder, unspecified type; F41.9 Anxiety disorder, unspecified; Z87.898 Personal history of other specified conditions; Z83.3 Family history of diabetes mellitus; Z80.9 Family history of malignant neoplasm, unspecified; Z82.49 Family history of ischemic heart disease and other diseases of the circulatory system; Z79.899 Other long term (current) drug therapy

== ENCOUNTER 2017-01-08 16:28 | Emergency (ER) | payer OTHER ==
[~2017-01-08] VITALS: Ht 180.3 cm; Wt 119.6 kg
[2017-01-08 16:40] VITALS: TEMP 36.7; Ht 180.3 cm; Wt 119.6 kg
[2017-01-08] MEDS ORDERED: VENL150C56 PO (17:41)
[2017-01-08] MEDS ORDERED: BUPR-83 PO (17:41)
[2017-01-08] MEDS ORDERED: ALPR-411 PO (17:41)
[2017-01-08] MEDS ORDERED: GI COCKTAIL PO STA (17:43)
[2017-01-08] MEDS ORDERED: SODIUM CHLORIDE 0.9% 1000ML 1,000 ML IV STA (17:43)
[2017-01-08] MEDS ORDERED: ONDANSETRON INJ 2 MG/ML 2 ML VIAL IV STA (17:43)
[2017-01-08] MEDS ORDERED: DICYCLOMINE HCL 10 MG/ML 2 ML AMP IM ONE (17:45)
[2017-01-08] MEDS ORDERED: ALUMINUM/MAGNESIUM SUSP 30 ML UDC ONE (18:31)
[2017-01-08] MEDS ORDERED: LIDOCAINE HCL 2% VISC SOLN 20 ML UDC ONE (18:31)
--- NOTE | 2017-01-08 18:33 | EMERGENCY ROOM VISIT NOTE ---
History Report prepared by Mitchell: Polly Loaiza Under the Supervision of: Dr. Chele Harris M.D. First contact with patient: 17:12 Chief Complaint: RECTAL BLEEDING Stated Complaint: STOMACH PAIN, RECTAL BLEEDING SEVERE Nursing Triage Summary: Pt verbalizes he was here last evening with severe stomach cramps, discharged and told upon discharge if he develops any blood in his stool to return. Today, pt developed rectal bleeding bright red in color and abdominal pain has been consistent since last evening. Abdominal pain 10/10. Vomiting for 24hrs, denies hematemesis. History of Present Illness The patient is a 42 year old white male with a past medical history of hemorrhoids and hypertension who presents to the ED with a cc of persistent rectal bleeding beginning this morning. Positive abdominal pain, nausea, dry heaving, and vomiting. He currently rates his discomfort as a 10/10 in severity. The patient states that he was evaluated last night for his abdominal pain and was told if he developed rectal bleeding he should return. He states that today he noticed bleeding from his rectum persistently. The patient states that his last colonoscopy was four years ago. He denies previous abdominal surgeries. Source of History: patient Onset: this morning Position: other (rectal) Symptom Intensity: 10/10 Quality: other (bleeding) Timing: other (persistent) Associated Symptoms: + nausea, + vomiting, + abdominal pain Review of Systems See HPI for pertinent positives and negatives. A total of ten systems were reviewed and were otherwise negative. Past Medical & Surgical Medical Problems: (1) ADH disorder (2) Anxiety (3) Drug Mental Disorder Nec (4) Drug Withdrawal (5) H/O drug abuse Surgical Problems: (1) No significant past surgical history Family History Diabetes mellitus FH: cancer Hypertension Social History Smoking Status: Never Smoker Drug Use: cocaine, heroin, other Marital Status: in relationship Housing Status: lives with significant other Occupation Status: unemployed Current/Historical Medications Scheduled Alprazolam (Xanax), 0.5 MG PO BID Buprenorphine Hcl-Naloxone Hcl (Suboxone 8-2 Mg), 8 MG SL BID Bupropion (Wellbutrin), 100 MG PO DAILY Clonidine Hcl (Catapres), 1 TAB PO BID Dicyclomine Hcl (Bentyl), 1 TAB PO TID Hydrochlorothiazide (Hctz), 50 MG PO DAILY Lisinopril (Zestril), 20 MG PO DAILY Ondasetron Odt (Zofran Odt), 4 MG SL Q6H Sennosides (Senna), 1 TAB PO QD Venlafaxine Hcl (Effexor Extended Rel), 150 MG PO DAILY Scheduled PRN Tramadol (Ultram), 50 MG PO Q8H PRN for Pain Allergies Coded Allergies: Magnesium Hydroxide (Verified Adverse Reaction, Severe, GI SYMPTOMS, ) Physical Exam Vital Signs Date Time Temp Pulse Resp B/P (MAP) Pulse Ox O2 Delivery O2 Flow Rate FiO2 01/08/17 20:26 83 18 112/74 99 01/08/17 19:31 79 18 120/70 99 Room Air 01/08/17 19:30 76 01/08/17 18:36 83 16 106/69 96 Room Air 01/08/17 16:40 36.7 105 18 113/69 97 Room Air Physical Exam GENERAL: Awake, alert, well-appearing, NAD HENT: Normocephalic, atraumatic. EYES: Normal conjunctiva. Sclera non-icteric. NECK: Supple. No nuchal rigidity. FROM. RESPIRATORY: CTAB, no rhonchi, wheezing, crackles CARDIAC: RRR, no MRG ABDOMEN: RLQ, LLQ, and suprapubic tend to palpation. Negative obturators and Psoas signs. No CVA tenderness. Soft, ND, BS+ MSK: No chest wall TTP, no LE edema NEURO: GCS 15, CN 2-12 intact, moves all 4s on command SKIN: No rash or jaundice noted. Medical Decision & Procedures Laboratory Results 01/08/17 18:25 Red Blood Count 4.18, Mean Corpuscular Volume 89.2, Mean Corpuscular Hemoglobin 30.9, Mean Corpuscular Hemoglobin Concent 34.6, Mean Platelet Volume 12.4, Neutrophils (%) (Auto) 70.1, Lymphocytes (%) (Auto) 19.2, Monocytes (%) (Auto) 8.3, Eosinophils (%) (Auto) 1.9, Basophils (%) (Auto) 0.3, Neutrophils # (Auto) 6.42, Lymphocytes # (Auto) 1.76, Monocytes # (Auto) 0.76, Eosinophils # (Auto) 0.17, Basophils # (Auto) 0.03 01/08/17 18:25 Test 01/08/17 17:50 01/08/17 18:25 01/08/17 18:26 Urine Color YELLOW Urine Appearance CLEAR (CLEAR) Urine pH 5.0 (4.5-7.5) Urine Specific [place] 1.020 (1.000-1.030) Urine Protein NEG (NEG) Urine Glucose (UA) NEG (NEG) Urine Ketones NEG (NEG) Urine Occult Blood NEG (NEG) Urine Nitrite NEG (NEG) Urine Bilirubin NEG (NEG) Urine Urobilinogen NEG (NEG) Urine Leukocyte Esterase NEG (NEG) White Blood Count 9.16 K/uL (4.8-10.8) Red Blood Count 4.18 M/uL (4.7-6.1) Hemoglobin 12.9 g/dL (14.0-18.0) Hematocrit 37.3 % (42-52) Mean Corpuscular Volume 89.2 fL (80-100) Mean Corpuscular Hemoglobin 30.9 pg (25-34) Mean Corpuscular Hemoglobin Concent 34.6 g/dl (32-36) Platelet Count 156 K/uL (130-400) Mean Platelet Volume 12.4 fL (7.4-10.4) Neutrophils (%) (Auto) 70.1 % Lymphocytes (%) (Auto) 19.2 % Monocytes (%) (Auto) 8.3 % Eosinophils (%) (Auto) 1.9 % Basophils (%) (Auto) 0.3 % Neutrophils # (Auto) 6.42 K/uL (1.4-6.5) Lymphocytes # (Auto) 1.76 K/uL (1.2-3.4) Monocytes # (Auto) 0.76 K/uL (0.11-0.59) Eosinophils # (Auto) 0.17 K/uL (0-0.5) Basophils # (Auto) 0.03 K/uL (0-0.2) RDW Standard Deviation 43.8 fL (36.4-46.3) RDW Coefficient of Variation 13.4 % (11.5-14.5) Immature Granulocyte % (Auto) 0.2 % Immature Granulocyte # (Auto) 0.02 K/uL (0.00-0.02) Anion Gap 3.0 mmol/L (3-11) Est Creatinine Clear Calc Drug Dose 130.5 ml/min Estimated GFR () 110.0 Estimated GFR (Non- 94.9 BUN/Creatinine Ratio 11.3 (10-20) Calcium Level 9.1 mg/dl (8.5-10.1) Total Bilirubin 0.2 mg/dl (0.2-1) Direct Bilirubin < 0.1 mg/dl (0-0.2) Aspartate Amino Transf (AST/SGOT) 20 U/L (15-37) Alanine Aminotransferase (ALT/SGPT) 34 U/L (12-78) Alkaline Phosphatase 92 U/L (45-117) Total Protein 7.1 gm/dl (6.4-8.2) Albumin 3.5 gm/dl (3.4-5.0) Lipase 85 U/L (73-393) Bedside Lactic Acid Venous 0.85 mmol/L (0.90-1.70) Laboratory results reviewed by me Medications Administered Medications (Trade) Dose Ordered Sig/John Route Start Time Stop Time Status Last Admin Dose Admin Ondansetron HCl (Zofran Inj) 4 mg NOW STAT IV 01/08/17 17:43 01/08/17 17:47 DC 01/08/17 18:34 4 MG Miscellaneous Medication (Gi Cocktail) 24 ml ONE STAT PO 01/08/17 17:43 01/08/17 17:47 DC 01/08/17 17:43 24 ML Dicyclomine HCl (Bentyl Inj) 20 mg NOW ONCE IM 01/08/17 17:45 01/08/17 17:47 DC 01/08/17 18:34 20 MG Sodium Chloride 1,000 ml @ 999 mls/hr Q1H1M STAT IV 01/08/17 17:43 01/08/17 18:43 DC 01/08/17 18:34 999 MLS/HR Metoclopramide HCl (Reglan Tab) 10 mg ONE STAT PO 01/08/17 19:48 01/08/17 19:52 DC 01/08/17 20:01 10 MG Acetaminophen (Tylenol Tab) 650 mg NOW STAT PO 01/08/17 19:48 01/08/17 19:52 DC 01/08/17 20:02 650 MG Ondansetron HCl (ZOFRAN ODT 4MG Home Pack) 1 homepack UD ONCE PO 01/08/17 20:00 01/08/17 20:01 DC 01/08/17 20:04 1 HOMEPACK Tramadol HCl (Ultram Home Pack) 1 homepack UD ONCE PO 01/08/17 20:00 01/08/17 20:01 DC 01/08/17 20:03 1 HOMEPACK ED Course 1732: The patient was evaluated in room B3B. A complete history and physical exam was performed. 1937: I reevaluated the patient and he is doing well. I discussed the exam findings with him and I discussed the treatment plan. He verbalized complete understanding and agreement. He is ready to go home. Medical Decision Triage Nursing notes reviewed. The patient's presentation and history were concerning for inflammatory bowel disease, Crohn's disease, colitis, infection, AVM, coagulopathy. The patient is a 42 year old white male with a past medical history of hemorrhoids and hypertension who presents to the ED with a cc of persistent rectal bleeding beginning this morning. Positive abdominal pain, nausea, dry heaving, and vomiting. Of note patient was recently seen earlier today. Return if he had blood in his stools. Patient noted that he had blood in the toilet bowl. Patient denied any shortness of breath and presyncope or syncope. Patient does not take any blood thinning medications. Patient has no prior history of inflammatory bowel disease in his family. We discussed that in taking the Suboxone may be related to his tenesmus. Patient's abdominal pain was mild. Patient had a negative UA. Patient's hemoglobin is fairly stable though not have any elevations in his white blood cell count. Stool studies were ordered however the patient did have a bowel movement here. Patient's pain was improved. Patient did have a CT of the abdomen and pelvis yesterday and given no major changes in his laboratory studies decision was made not to obtain additional imaging at this time. Patient's lactate was also normal. Patient was able to tolerate by mouth at the bedside in [place] improved. Patient was told again to follow-up with Dr. Sotelo screw supervisor who was called for follow up earlier this AM. Patient was told to increase his hydration as well as take senna and docusate and increase fiber in his diet. Patient was told that if he is unable to tolerate by mouth Albert for shortness of breath, syncope or profoundly return to the emergency department. Patient plan of care and patient was discharged home. Medication Reconcilliation Current Medication List: was personally reviewed by me Blood Pressure Screening Patient's blood pressure: Normal blood pressure Blood pressure disposition: Did not require urgent referral Impression Primary Impression: Constipation Additional Impressions: Colitis Abdominal pain Scribe Attestation The scribe's documentation has been prepared under my direction and personally reviewed by me in its entirety. I confirm that the note above accurately reflects all work, treatment, procedures, and medical decision making performed by me. Departure Information Dispostion Home / Self-Care Prescriptions Sennosides (SENNA) 8.6 Mg Cap 1 TAB PO QD, #15 TAB Prov: Chele Harris M.D. 01/08/17 Ondasetron Odt (ZOFRAN ODT) 4 Mg Tab 4 MG SL Q6H for Nausea, #6 TAB Prov: Chele Harris M.D. 01/08/17 Dicyclomine Hcl (BENTYL) 20 Mg Tab 1 TAB PO TID for 30 Days, #15 TAB Prov: Chele Harris M.D. 01/08/17 Tramadol (Ultram) 50 Mg Tab 50 MG PO Q8H Y for Pain, #14 TAB Prov: Chele Harris M.D. 01/08/17 Referrals No Doctor, Assigned (PCP) Adi Augustine MD Forms HOME CARE DOCUMENTATION FORM, IMPORTANT VISIT INFORMATION, WORK / SCHOOL INSTRUCTIONS Patient Instructions Abdominal Pain, Diet High Fiber, ED Constipation, My [facility] Additional Instructions Please return to the emergency department if you have worsening or recurrent symptoms not amenable to at-home treatment. Please call for a follow-up appointment with her primary care physician. Please take your medications as prescribed. If you have other concerns and/or complaints please feel free to also call your primary care physician's office or return the ED for further evaluation, management, and treatment. Work Instructions Return To Work: 1 day Specific Date: 01/10/17 Problem Qualifiers Primary Impression: Constipation Constipation type: unspecified constipation type Qualified Codes: K59.00 - Constipation, unspecified Additional Impressions: Abdominal pain Abdominal location: lower abdomen, unspecified Qualified Codes: R10.30 - Lower abdominal pain, unspecified
[2017-01-08 18:42] LABS: BASO % 0.3 %; BASO ABS # 0.03 K/uL (0-0.2); COMPLETE YES; EOS % 1.9 %; HEMATOCRIT 37.3 % (42-52); IG% 0.2 %; LYMPH % 19.2 %; LYMPH ABS # 1.76 K/uL (1.2-3.4); MEAN CELL VOLUME 89.2 fL (80-100); MEAN CORPUSCULAR HEMOGLOBIN 30.9 pg (25-34); MEAN CORPUSCULAR HGB CONC 34.6 g/dl (32-36); MEAN PLATELET VOLUME 12.4 fL (7.4-10.4); MONO % 8.3 %; NEUT % 70.1 %; PLATELET COUNT 156 K/uL (130-400); RED BLOOD COUNT 4.18 M/uL (4.7-6.1); WHITE BLOOD COUNT 9.16 K/uL (4.8-10.8)
[2017-01-08 18:45] LABS: URINE APPEARANCE CLEAR (CLEAR); URINE BILIRUBIN NEG (NEG); URINE COLOR YELLOW; URINE NITRITE NEG (NEG); UROBILINOGEN NEG (NEG); ZZUR CULT IF INDIC CLEAN CATCH NO
[2017-01-08 18:46] LABS: MANUAL MICROSCOPIC REQUIRED? NO; REVIEW REQ? NO
[2017-01-08 19:00] LABS: ALT/SGPT 34 U/L (12-78); BLOOD UREA NITROGEN 11 mg/dl (7-18); BUN/CREATININE RATIO 11.3 (10-20); CALCIUM 9.1 mg/dl (8.5-10.1); CARBON DIOXIDE 33 mmol/L (21-32); CHLORIDE 102 mmol/L (98-107); CREATININE 0.99 mg/dl (0.60-1.40); GLUCOSE 85 mg/dl (70-99); POTASSIUM 3.8 mmol/L (3.5-5.1); SODIUM 138 mmol/L (136-145)
[2017-01-08 19:02] LABS: ALKALINE PHOSPHATASE 92 U/L (45-117); AST/SGOT 20 U/L (15-37)
[2017-01-08] MEDS ORDERED: DICY20TA35 PO (19:35)
[2017-01-08] MEDS ORDERED: TRAM-10 PO (19:35)
[2017-01-08] MEDS ORDERED: ACETAMINOPHEN 325 MG TAB PO STA (19:48)
[2017-01-08] MEDS ORDERED: METOCLOPRAMIDE HCL 10 MG TAB PO STA (19:48)
[2017-01-08] MEDS ORDERED: ONDA4TAB10 SL (19:53)
[2017-01-08] MEDS ORDERED: SENN8.6C PO (19:53)
[2017-01-08] MEDS ORDERED: TRAMADOL HCL 50 MG HOME PACK PO ONE (20:00)
[2017-01-08] MEDS ORDERED: ONDANSETRON HOME PACK 4MG OD TAB PO ONE (20:00)
[2017-01-08 20:26] VITALS: BP 112/74; PULSE 83; O2SAT 99
== END 2017-01-08 20:26 | disposition home or self-care (01) ==
LOC: C.EDB 16:29
DX: K59.00 Constipation, unspecified (principal); K52.9 Noninfective gastroenteritis and colitis, unspecified; R10.30 Lower abdominal pain, unspecified; K62.5 Hemorrhage of anus and rectum; R11.2 Nausea with vomiting, unspecified; F41.9 Anxiety disorder, unspecified; Z79.899 Other long term (current) drug therapy; Z82.49 Family history of ischemic heart disease and other diseases of the circulatory system; Z83.3 Family history of diabetes mellitus

== ENCOUNTER 2017-05-22 10:47 | Emergency (ER) | payer OTHER ==
[~2017-05-22] VITALS: Ht 180.3 cm; Wt 114.5 kg
[~2017-05-22 10:47] MED LIST changes: +ALPR-411 PO; +BUPR-83 PO; +ONDA4TAB10 SL; +SENN8.6C PO; +TRAM-10 PO; +VENL150C56 PO
[2017-05-22 10:50] VITALS: TEMP 36.6; Ht 180.3 cm; Wt 114.5 kg
[2017-05-22] MEDS ORDERED: MoRPHine SULFATE 4 MG/ML 1 ML CARP\\VIAL IV STA (12:01)
[2017-05-22] MEDS: ACETAMINOPHEN 500 MG TAB PO STA ×2 (12:01→12:22)
[2017-05-22] MEDS ORDERED: ONDANSETRON INJ 2 MG/ML 2 ML VIAL IV STA (12:01)
[2017-05-22] MEDS ORDERED: KETOROLAC TROMETHAMINE 30 MG/ML VIAL IV STA (12:01)
[2017-05-22 12:14] LABS: BASO % 0.6 %; BASO ABS # 0.07 K/uL (0-0.2); COMPLETE YES; EOS % 1.6 %; HEMATOCRIT 35.3 % (42-52); IG% 0.3 %; LYMPH % 25.9 %; LYMPH ABS # 3.06 K/uL (1.2-3.4); MEAN CELL VOLUME 87.2 fL (80-100); MEAN CORPUSCULAR HEMOGLOBIN 29.6 pg (25-34); MEAN PLATELET VOLUME 11.6 fL (7.4-10.4); MONO % 9.5 %; NEUT % 62.1 %; PLATELET COUNT 209 K/uL (130-400); RED BLOOD COUNT 4.05 M/uL (4.7-6.1); WHITE BLOOD COUNT 11.83 K/uL (4.8-10.8)
--- NOTE | 2017-05-22 12:33 | EMERGENCY ROOM VISIT NOTE ---
History Report prepared by Mitchell: Sofia Keys Under the Supervision of: Dr. Chele Harris M.D. First contact with patient: 12:00 Chief Complaint: INFECTION Stated Complaint: INFECTION ON TOP OF R FOOT,SEVERE PAIN Nursing Triage Summary: PT states two days ago was using a "metal grinder and working on metal, a piece of the metal got stuck in the top of my right foot. I pulled it out and tried to drain the area, it has just gotten worse and worse the pain is awful and it is swollen and red and I have had a fever on and off." PT right foot very swollen, red and warm to touch, hard bump noted, no drainage from area at this time. History of Present Illness The patient is a 42 year old male with a past medical history of hypertension who presents to the ED with a cc of a persistent right foot infection beginning 3 days ago. The patient notes that he noticed some puss coming from his foot. Positive right foot pain. Negative IV drugs, noting he does occasionally smoke marijuana and meth. Source of History: patient Onset: 3 days ago Position: foot (right) Quality: other (leg infection ) Timing: other (persistent) Review of Systems See HPI for pertinent positives and negatives. A total of ten systems were reviewed and were otherwise negative. Past Medical & Surgical Medical Problems: (1) ADH disorder (2) Anxiety (3) Drug Mental Disorder Nec (4) Drug Withdrawal (5) H/O drug abuse Surgical Problems: (1) No significant past surgical history Family History Diabetes mellitus FH: cancer Hypertension Social History Smoking Status: Never Smoker Drug Use: cocaine, heroin, other Marital Status: in relationship Housing Status: lives with significant other Occupation Status: unemployed Current/Historical Medications Scheduled Alprazolam (Xanax), 0.5 MG PO BID Bupropion (Wellbutrin), 100 MG PO DAILY Cephalexin Monohydrate (Keflex), 500 MG PO QID Clindamycin Hcl (Cleocin), 450 MG PO TID Clonidine Hcl (Catapres), 1 TAB PO BID Hydrochlorothiazide (Hctz), 50 MG PO DAILY Lisinopril (Zestril), 20 MG PO DAILY Venlafaxine Hcl (Effexor Extended Rel), 150 MG PO DAILY Miscellaneous Medications Buprenorphine Hcl-Naloxone Hcl (Suboxone 8-2 Mg), 8 MG SL Allergies Coded Allergies: Magnesium Hydroxide (Verified Adverse Reaction, Severe, GI SYMPTOMS, 05/22) Physical Exam Vital Signs Date Time Temp Pulse Resp B/P (MAP) Pulse Ox O2 Delivery O2 Flow Rate FiO2 05/22/17 15:00 110 20 143/79 93 05/22/17 13:07 106 05/22/17 13:04 120 18 121/75 96 Room Air 05/22/17 10:50 36.6 120 18 138/90 98 Room Air Physical Exam GENERAL: Awake, alert, well-appearing, NAD HENT: Normocephalic, atraumatic. EYES: Normal conjunctiva. Sclera non-icteric. NECK: Supple. No nuchal rigidity. FROM. RESPIRATORY: CTAB, no rhonchi, wheezing, crackles CARDIAC: Tachycardic rate, irregular rhythm. No MRG ABDOMEN: Soft, NTND, BS+ MSK: No chest wall TTP, no LE edema NEURO: GCS 15, CN 2-12 intact, moves all 4s on command SKIN: 3 by 2cm of blanching erythema, calor, and TTP over right distal foot proximal to toes. No rash or jaundice noted. Medical Decision & Procedures ER Provider Diagnostic Interpretation: Radiology results as stated below per my review and radiologist interpretation: R FOOT MIN 3 VIEWS ROUTINE CLINICAL HISTORY: 42 years-old Male presenting with cellulitis. TECHNIQUE: Frontal, oblique, and lateral views of the right foot were obtained. COMPARISON: 08/25/2006. FINDINGS: Soft tissue swelling over the dorsum of the forefoot. No radiographic evidence of periosteal reaction or osseous erosion suggest osteomyelitis. No acute fracture or malalignment. No subcutaneous emphysema. IMPRESSION: Soft tissue swelling over the dorsum of the forefoot could be compatible with cellulitis. No radiographic evidence of osteomyelitis. Electronically signed by: Antwon Up M.D. 05/22/2017 12:54 PM Dictated Date/Time: 05/22/2017 12:52 PM Laboratory Results 05/22/17 12:01 Red Blood Count 4.05, Mean Corpuscular Volume 87.2, Mean Corpuscular Hemoglobin 29.6, Mean Corpuscular Hemoglobin Concent 34.0, Mean Platelet Volume 11.6, Neutrophils (%) (Auto) 62.1, Lymphocytes (%) (Auto) 25.9, Monocytes (%) (Auto) 9.5, Eosinophils (%) (Auto) 1.6, Basophils (%) (Auto) 0.6, Neutrophils # (Auto) 7.36, Lymphocytes # (Auto) 3.06, Monocytes # (Auto) 1.12, Eosinophils # (Auto) 0.19, Basophils # (Auto) 0.07 05/22/17 12:01 Test 05/22/17 12:01 05/22/17 12:30 White Blood Count 11.83 K/uL (4.8-10.8) Red Blood Count 4.05 M/uL (4.7-6.1) Hemoglobin 12.0 g/dL (14.0-18.0) Hematocrit 35.3 % (42-52) Mean Corpuscular Volume 87.2 fL (80-100) Mean Corpuscular Hemoglobin 29.6 pg (25-34) Mean Corpuscular Hemoglobin Concent 34.0 g/dl (32-36) Platelet Count 209 K/uL (130-400) Mean Platelet Volume 11.6 fL (7.4-10.4) Neutrophils (%) (Auto) 62.1 % Lymphocytes (%) (Auto) 25.9 % Monocytes (%) (Auto) 9.5 % Eosinophils (%) (Auto) 1.6 % Basophils (%) (Auto) 0.6 % Neutrophils # (Auto) 7.36 K/uL (1.4-6.5) Lymphocytes # (Auto) 3.06 K/uL (1.2-3.4) Monocytes # (Auto) 1.12 K/uL (0.11-0.59) Eosinophils # (Auto) 0.19 K/uL (0-0.5) Basophils # (Auto) 0.07 K/uL (0-0.2) RDW Standard Deviation 40.3 fL (36.4-46.3) RDW Coefficient of Variation 12.6 % (11.5-14.5) Immature Granulocyte % (Auto) 0.3 % Immature Granulocyte # (Auto) 0.03 K/uL (0.00-0.02) Anion Gap 8.0 mmol/L (3-11) Est Creatinine Clear Calc Drug Dose 112.8 ml/min Estimated GFR () 94.7 Estimated GFR (Non- 81.7 BUN/Creatinine Ratio 20.8 (10-20) Calcium Level 9.0 mg/dl (8.5-10.1) Total Bilirubin 0.8 mg/dl (0.2-1) Direct Bilirubin 0.2 mg/dl (0-0.2) Aspartate Amino Transf (AST/SGOT) 27 U/L (15-37) Alanine Aminotransferase (ALT/SGPT) 31 U/L (12-78) Alkaline Phosphatase 85 U/L (45-117) Total Protein 7.8 gm/dl (6.4-8.2) Albumin 3.8 gm/dl (3.4-5.0) Lipase 105 U/L (73-393) Urine Color YELLOW Urine Appearance CLEAR (CLEAR) Urine pH 5.0 (4.5-7.5) Urine Specific [place] 1.025 (1.000-1.030) Urine Protein NEG (NEG) Urine Glucose (UA) NEG (NEG) Urine Ketones NEG (NEG) Urine Occult Blood NEG (NEG) Urine Nitrite NEG (NEG) Urine Bilirubin NEG (NEG) Urine Urobilinogen NEG (NEG) Urine Leukocyte Esterase NEG (NEG) Laboratory results reviewed by me Medications Administered Medications (Trade) Dose Ordered Sig/John Route Start Time Stop Time Status Last Admin Dose Admin Ondansetron HCl (Zofran Inj) 4 mg NOW STAT IV 05/22/17 12:01 05/22/17 12:02 DC 05/22/17 12:21 4 MG Ketorolac Tromethamine (Toradol Inj) 30 mg NOW STAT IV 05/22/17 12:01 05/22/17 12:02 DC 05/22/17 12:21 30 MG Acetaminophen (Tylenol Tab) 1,000 mg NOW STAT PO 05/22/17 12:01 05/22/17 12:02 DC 05/22/17 12:01 1,000 MG Morphine Sulfate (MoRPHine SULFATE INJ) 4 mg NOW STAT IV 05/22/17 12:01 05/22/17 12:02 DC 05/22/17 12:21 4 MG Clindamycin Phosphate 900 mg/ Dextrose 106 ml @ 100 mls/hr ONE ONCE IV 05/22/17 12:45 05/22/17 13:48 DC 05/22/17 13:01 100 MLS/HR Cephalexin Monohydrate (Keflex Cap) 500 mg NOW ONCE PO 05/22/17 12:45 05/22/17 12:46 DC 05/22/17 13:00 500 MG Diphtheria/ Pertussis/Tetanus Vacc (Adacel Inj) 0.5 ml ONCE ONCE IM. 05/22/17 13:30 05/22/17 13:31 DC 05/22/17 15:00 0.5 ML Potassium Chloride (Klor-Con M10) 40 meq STK-MED ONCE .ROUTE 05/22/17 14:51 05/22/17 14:52 DC 05/22/17 14:59 40 MEQ ECG Indication: other (foot infection) Rate (beats per minute): 107 Rhythm: sinus tachycardia Findings: other (normal intervals and axis, no other STS changes or TWI) ED Course 1227: The patient was evaluated in room C11. A complete history and physical exam was performed. Encountered for smoking cessation counseling. 1321: I reevaluated the patient, who was resting comfortably. 1410: I reevaluated the patient. Discussed results and discharge instructions: He verbalized understanding and agreement. The patient is ready for discharge. Medical Decision The patient is a 42 year old male with a past medical history of hypertension who presents to the ED with a cc of a persistent right foot infection beginning 3 days ago. Differential diagnosis: Etiologies such as cellulitis, abscess, MRSA infection, DVT, necrotizing fasciitis, dermatitis, drug eruption, as well as others were entertained. Patient was seen and evaluated the bedside. Patient states that he was using a metal grinder when something may have struck his right foot. Patient noted a fair amount of pain and redness. Patient states he did try to inject a syringe and remove anything that was in the subcutaneous tissue. Patient denies removing anything. Patient does have a known history of meth use. Patient denies any IV drug abuse. Patient did have blood work that was completed along with an EKG and foot film. Foot film was negative for osteo-. Patient white blood cell count of 11. Patient did have potassium 2.8 which was repleted. Patient' s urinalysis negative. Patient was given Adacel. Patient's EKG showed normal sinus rhythm with a rate of 107 without any ischemic changes. I believe the patient is suitable for outpatient follow-up and treatment. Patient was given by mouth antibiotics as an outpatient. Patient was given strict return precautions and follow-up instructions. Patient was given strict follow-up, discharge, and return precautions. All questions were answered. Patient was deemed suitable for outpatient follow-up at this time. Patient agreed with the plan of care and was safely discharged home. Medication Reconcilliation Current Medication List: was personally reviewed by me Blood Pressure Screening Patient's blood pressure: Elevated blood pressure Blood pressure disposition: Referred to PCP Impression Primary Impression: Anemia Additional Impressions: Hypokalemia Cellulitis of foot Scribe Attestation The scribe's documentation has been prepared under my direction and personally reviewed by me in its entirety. I confirm that the note above accurately reflects all work, treatment, procedures, and medical decision making performed by me. Departure Information Dispostion Home / Self-Care Prescriptions Cephalexin Monohydrate (Keflex) 500 Mg Cap 500 MG PO QID for 7 Days, #28 CAP Prov: Chele Harris M.D. 05/22/17 Clindamycin Hcl (CLEOCIN) 150 Mg Cap 450 MG PO TID for 7 Days, #63 CAP Prov: Chele Harris M.D. 05/22/17 Referrals Ang Stover M.D. (PCP) Forms HOME CARE DOCUMENTATION FORM, IMPORTANT VISIT INFORMATION, WORK / SCHOOL INSTRUCTIONS Patient Instructions Cellulitis Dc, ED Drug Abuse General, ED Smoking Cessation, [facility] Additional Instructions Please return to the emergency department if you have worsening or recurrent symptoms not amenable to at-home treatment. Please call for a follow-up appointment with her primary care physician. Please take your medications as prescribed. If you have other concerns and/or complaints please feel free to also call your primary care physician's office or return the ED for further evaluation, management, and treatment. Please follow-up with her primary care physician. He may try warm soaks to the area. Please do not try to open the area. Continue to take her antibiotics as prescribed. Please consider absence from substance abuse as well as tobacco. You received narcotic or benzodiazepene medication while in the emergency room today. This is an addictive medication that may cause drowziness as well as constipation. Do not drive, operate heavy machinery, or drink alcohol under the influence of this medication. You may take 600 mg Ibuprofen every 6 hours as needed for pain with food for no more than 2 consecutive days. You may take tylenol 1000 mg every 6 hours as needed for pain. You may take motrin and tylenol separately or at the same time. Take your medications as prescribed. If taking an antibiotic consider taking a probiotic and/or eating yogurt, but at the least, please take with food as it can cause upset stomach. You have been examined and treated today on an emergency basis only. This is not a substitute for, or an effort to provide, complete comprehensive medical care. It is impossible to recognize and treat all injuries or illnesses in a single emergency department visit. It is therefore important that you follow up closely with [facility], your PCP, and/or your specialist(s). Call as soon as possible for an appointment. Thank you for your time and consideration. I look forward to speaking with you again soon. Please don't hesitate to call us if you have any questions. Problem Qualifiers Primary Impression: Anemia Anemia type: unspecified type Qualified Codes: D64.9 - Anemia, unspecified
[2017-05-22 12:35] LABS: BUN/CREATININE RATIO 20.8 (10-20); CREATININE 1.12 mg/dl (0.60-1.40); POTASSIUM 2.8 mmol/L (3.5-5.1)
[2017-05-22] MEDS ORDERED: CEPHALEXIN MONOHYDRATE 250 MG CAP PO ONE (12:45)
[2017-05-22] MEDS ORDERED: CLINDAMYCIN IV 900 MG in DEXTROSE 5% 100ML 100 ML IV ONE (12:45)
--- NOTE | 2017-05-22 12:55 | DIAGNOSTIC IMAGING REPORT ---
R FOOT MIN 3 VIEWS ROUTINE CLINICAL HISTORY: 42 years-old Male presenting with cellulitis. TECHNIQUE: Frontal, oblique, and lateral views of the right foot were obtained. COMPARISON: 08/25/2006. FINDINGS: Soft tissue swelling over the dorsum of the forefoot. No radiographic evidence of periosteal reaction or osseous erosion suggest osteomyelitis. No acute fracture or malalignment. No subcutaneous emphysema. IMPRESSION: Soft tissue swelling over the dorsum of the forefoot could be compatible with cellulitis. No radiographic evidence of osteomyelitis. Electronically signed by: Antwon Up M.D. 05/22/2017 12:54 PM Dictated Date/Time: 05/22/2017 12:52 PM
[2017-05-22 13:05] LABS: URINE APPEARANCE CLEAR (CLEAR); URINE BILIRUBIN NEG (NEG); URINE COLOR YELLOW; URINE NITRITE NEG (NEG); URINE SPECIFIC GRAVITY 1.025 (1.000-1.030); UROBILINOGEN NEG (NEG); ZZUR CULT IF INDIC CLEAN CATCH NO
[2017-05-22 13:15] LABS: MANUAL MICROSCOPIC REQUIRED? NO; REVIEW REQ? NO
[2017-05-22] MEDS ORDERED: POTASSIUM CHLORIDE 20 MEQ TABCR PO STA (13:22)
[2017-05-22] MEDS ORDERED: DIPHTHERIA/TETANUS/PERTUSSIS 0.5 ML SYR/VIAL IM. ONE (13:30)
[2017-05-22] MEDS ORDERED: CLIN150C PO (14:04)
[2017-05-22] MEDS ORDERED: CEPH500C PO (14:04)
[2017-05-22] MEDS ORDERED: POTASSIUM CHLORIDE 10 MEQ TABCR ONE (14:51)
[2017-05-22 15:00] VITALS: BP 143/79; PULSE 110; O2SAT 93
== END 2017-05-22 15:00 | disposition home or self-care (01) ==
LOC: C.EDB 10:48 → C.EDC 15:00
DX: D64.9 Anemia, unspecified (principal); E87.6 Hypokalemia; L03.115 Cellulitis of right lower limb; I10 Essential (primary) hypertension; F12.10 Cannabis abuse, uncomplicated; F15.10 Other stimulant abuse, uncomplicated; F14.10 Cocaine abuse, uncomplicated; F11.10 Opioid abuse, uncomplicated; F90.9 Attention-deficit hyperactivity disorder, unspecified type; F41.9 Anxiety disorder, unspecified; Z83.3 Family history of diabetes mellitus; Z82.49 Family history of ischemic heart disease and other diseases of the circulatory system; Z23 Encounter for immunization

== ENCOUNTER 2017-05-25 14:28 | Inpatient (IN) | payer OTHER ==
[~2017-05-25] VITALS: Ht 180.3 cm; Wt 95.0 kg
[~2017-05-25 14:28] MED LIST changes: +CEPH500C PO; +CLIN150C PO; -ONDA4TAB10 SL; -SENN8.6C PO; -TRAM-10 PO
[2017-05-25] MEDS ORDERED: LORAZEPAM 2 MG/ML 1 ML VIAL IV STA ×2 (14:40→16:32)
[2017-05-25] MEDS ORDERED: VANCOMYCIN 1GM/270ML NSS IV STA (14:40)
[2017-05-25] MEDS ORDERED: CEFEPIME IV 2,000 MG in DEXTROSE 5% 100ML 100 ML IV STA (14:40)
[2017-05-25] MEDS ORDERED: ONDANSETRON INJ 2 MG/ML 2 ML VIAL IV STA (14:40)
[2017-05-25] MEDS ORDERED: SODIUM CHLORIDE 0.9% 1000ML 1,000 ML IV ONE (14:40)
[2017-05-25] MEDS ORDERED: GELATIN SPONGE 12-7MM ONE (14:54)
--- NOTE | 2017-05-25 14:54 | EMERGENCY ROOM VISIT NOTE ---
History Report prepared by Mitchell: Ayaz Diaz Under the Supervision of: Dr. Jluis Hunter M.D. First contact with patient: 14:36 Chief Complaint: INFECTION Stated Complaint: RIGHT FOOT INFECTION,CUT OFF TIP OF FINGER Nursing Triage Summary: pt is here with right foot pain and lac to left finger pt states that his foot is infected History of Present Illness The patient is a 42 year old male who presents to the Emergency Room with complaints of worsening right foot pain that began 6 days ago. He rates his pain as a 10/10 in severity. The patient states that 6 days ago he went into the garage with his sandals on. He reports that the next day his right foot became red and swollen. The patient states that he noticed pus was in the reddened area, which caused him to use a needle to pop it. He reports that he put a sock on and notes that the foot worsened and he has been experiencing fevers. The patient states that four days ago, he came here to the ED and was put on antibiotics. He reports that he also went to the [facility] where they gave him stronger antibiotics. The patient states that they told him , that if the foot worsened, he needs to come to the ED. He states that he has been taking Bactrim, Clindamycin, and Keflex. The patient states that the antibiotics have been causing him to experience diarrhea. The patient states that his foot still worsened this morning and the redness spread. He states that he was cutting paper and was nervous about his foot, which caused him to cut his second finger on his left hand two hours ago. The patient states that his finger is bleeding but is not currently painful. He states that his tetanus is up to date. Source of History: patient Onset: 6 days ago Position: foot (right) Symptom Intensity: 10/10 Quality: other (red and swollen) Timing: worsening Modifying Factors (Relieving): other (Keflex, Clindamyocin, Bactrim) Associated Symptoms: + fevers, + diarrhea, No chills Review of Systems See HPI for pertinent positives & negatives. A total of 10 systems reviewed and were otherwise negative. Past Medical & Surgical Medical Problems: (1) ADH disorder (2) Anxiety (3) Drug Mental Disorder Nec (4) Drug Withdrawal (5) H/O drug abuse Surgical Problems: (1) No significant past surgical history Family History Diabetes mellitus FH: cancer Hypertension Social History Smoking Status: Never Smoker Drug Use: cocaine, heroin, other Marital Status: in relationship Housing Status: lives with significant other Occupation Status: unemployed Current/Historical Medications Scheduled Bupropion (Wellbutrin), 100 MG PO DAILY Cephalexin Monohydrate (Keflex), 500 MG PO QID Clindamycin Hcl (Cleocin), 450 MG PO TID Clonidine Hcl (Catapres), 0.3 MG PO BID Hydrochlorothiazide (Hctz), 50 MG PO DAILY Lisinopril (Zestril), 20 MG PO DAILY Venlafaxine Hcl (Effexor Extended Rel), 150 MG PO Q2D Venlafaxine Hcl (Effexor Xr), 1 CAP PO Q2D Allergies Coded Allergies: Uncoded Nonscreenable Allergen (Verified Allergy, Unknown, WOOL CAUSES HIVES, 05/25/17) Magnesium Hydroxide (Verified Adverse Reaction, Severe, GI SYMPTOMS, 05/25) Physical Exam Vital Signs Date Time Temp Pulse Resp B/P (MAP) Pulse Ox O2 Delivery O2 Flow Rate FiO2 05/25/17 16:37 124 05/25/17 16:22 122 17 153/88 97 Room Air 05/25/17 15:41 98 Room Air 05/25/17 14:30 36.9 144 16 156/74 98 Physical Exam GENERAL: Patient is in no acute distress. Anxious. HEENT: No acute trauma, normocephalic atraumatic, mucous membranes moist, no nasal congestion, no scleral icterus. NECK: No stridor, no adenopathy, no meningismus, trachea is midline. LUNGS: Clear to auscultation bilaterally, no wheeze, no rhonchi, breath sounds equal. HEART: Tachycardic, regular, no murmur. ABDOMEN: Soft, nontender, bowel sounds positive, no hernias, no peritonitis. EXTREMITIES: Evulsion of skin to the very distal second left finger along the radial aspect. No laceration that can be repaired. No major nail involvement. Oozing venous blood. Right foot and leg is edematous compared to the left. There is erythema about the foot especially in the area of the first MTP. Redness is spreading up his leg. No drainage. Warmth present. NEUROLOGIC: Oriented x 3, no acute motor or sensory deficits, no focal weakness. SKIN: No rash, no jaundice, no diaphoresis. Medical Decision & Procedures ER Provider Diagnostic Interpretation: Radiology results as stated below per my review and radiologist interpretation: R LOWER EXTREMITY WITHOUT CLINICAL HISTORY: 42 years-old Male presenting with poss osteo foot--no response antibiotics. TECHNIQUE: Multidetector CT of the right foot was performed without the use of intravenous contrast. IV contrast: None. A dose lowering technique was used consistent with the principles of ALARA (as low as reasonably achievable). COMPARISON: Plain radiographs of the right foot from 05/22/2017. CT DOSE (mGy.cm): The estimated cumulative dose is 237.55 mGy.cm. FINDINGS: Belly Dump Driver topogram: Unremarkable. Diffuse subcutaneous infiltration and swelling along the dorsum of the foot extending from the forefoot to the ankle. Allowing for noncontrast technique, no focal fluid collection is apparent. The deeper fascial planes are largely spared. No osseous erosion or periosteal reaction. No focal osteopenia. No acute fracture or malalignment. No degenerative change. IMPRESSION: No CT evidence of osteomyelitis. Diffuse soft tissue swelling could represent cellulitis in the appropriate clinical setting. If there is continuing clinical concern for osteomyelitis, MR is more sensitive for this diagnosis. Electronically signed by: Antwon Up M.D. 05/25/2017 4:20 PM Dictated Date/Time: 05/25/2017 4:16 PM CHEST ONE VIEW PORTABLE CLINICAL HISTORY: 42 years-old Male presenting with Sepsis. TECHNIQUE: Portable upright AP view of the chest was obtained. COMPARISON: 01/08/2017. FINDINGS: Cardiomediastinal silhouette normal. Lungs and pleural spaces clear. Osseous structures normal. Upper abdomen normal. IMPRESSION: 1. No acute cardiopulmonary disease. Electronically signed by: Antwon Up M.D. 05/25/2017 3:29 PM Dictated Date/Time: 05/25/2017 3:28 PM Laboratory Results 05/25/17 15:36 Red Blood Count 3.69, Mean Corpuscular Volume 86.4, Mean Corpuscular Hemoglobin 29.8, Mean Corpuscular Hemoglobin Concent 34.5, Mean Platelet Volume 11.7, Neutrophils (%) (Auto) 77.8, Lymphocytes (%) (Auto) 12.8, Monocytes (%) (Auto) 8.0, Eosinophils (%) (Auto) 0.7, Basophils (%) (Auto) 0.3, Neutrophils # (Auto) 8.79, Lymphocytes # (Auto) 1.45, Monocytes # (Auto) 0.90, Eosinophils # (Auto) 0.08, Basophils # (Auto) 0.03 05/25/17 15:00 Test 05/25/17 15:00 05/25/17 15:36 05/25/17 15:40 Prothrombin Time 10.1 SECONDS (9.0-12.0) Prothromb Time International Ratio 1.0 (0.9-1.1) Activated Partial Thromboplast Time 27.4 SECONDS (21.0-31.0) Partial Thromboplastin Ratio 1.1 Anion Gap 6.0 mmol/L (3-11) Est Creatinine Clear Calc Drug Dose 112.1 ml/min Estimated GFR () 104.8 Estimated GFR (Non- 90.4 BUN/Creatinine Ratio 15.4 (10-20) Calcium Level 9.0 mg/dl (8.5-10.1) Total Bilirubin 0.2 mg/dl (0.2-1) Aspartate Amino Transf (AST/SGOT) 16 U/L (15-37) Alanine Aminotransferase (ALT/SGPT) 26 U/L (12-78) Alkaline Phosphatase 82 U/L (45-117) Total Protein 7.6 gm/dl (6.4-8.2) Albumin 3.2 gm/dl (3.4-5.0) Globulin 4.4 gm/dl (2.5-4.0) Albumin/Globulin Ratio 0.7 (0.9-2) White Blood Count 11.29 K/uL (4.8-10.8) Red Blood Count 3.69 M/uL (4.7-6.1) Hemoglobin 11.0 g/dL (14.0-18.0) Hematocrit 31.9 % (42-52) Mean Corpuscular Volume 86.4 fL (80-100) Mean Corpuscular Hemoglobin 29.8 pg (25-34) Mean Corpuscular Hemoglobin Concent 34.5 g/dl (32-36) Platelet Count 195 K/uL (130-400) Mean Platelet Volume 11.7 fL (7.4-10.4) Neutrophils (%) (Auto) 77.8 % Lymphocytes (%) (Auto) 12.8 % Monocytes (%) (Auto) 8.0 % Eosinophils (%) (Auto) 0.7 % Basophils (%) (Auto) 0.3 % Neutrophils # (Auto) 8.79 K/uL (1.4-6.5) Lymphocytes # (Auto) 1.45 K/uL (1.2-3.4) Monocytes # (Auto) 0.90 K/uL (0.11-0.59) Eosinophils # (Auto) 0.08 K/uL (0-0.5) Basophils # (Auto) 0.03 K/uL (0-0.2) RDW Standard Deviation 39.6 fL (36.4-46.3) RDW Coefficient of Variation 12.4 % (11.5-14.5) Immature Granulocyte % (Auto) 0.4 % Immature Granulocyte # (Auto) 0.04 K/uL (0.00-0.02) Bedside Lactic Acid Venous 1.04 mmol/L (0.90-1.70) Laboratory results reviewed by me. Medications Administered Medications (Trade) Dose Ordered Sig/John Route Start Time Stop Time Status Last Admin Dose Admin Sodium Chloride 1,000 ml @ 999 mls/hr Q1H1M ONCE IV 05/25/17 14:40 05/25/17 15:40 DC 05/25/17 14:40 999 MLS/HR Vancomycin HCl (Vancomycin 1gm/ 270ml Nss) 1 gm ONE STAT IV 05/25/17 14:40 05/25/17 14:45 DC 05/25/17 14:40 1 GM Cefepime HCl 2000 mg/Dextrose 112.5 ml @ 200 mls/hr ONE STAT IV 05/25/17 14:40 05/25/17 15:13 DC 05/25/17 14:40 200 MLS/HR Morphine Sulfate (MoRPHine SULFATE INJ) 4 mg Q15M PRN IV 05/25/17 14:45 05/25/17 18:16 DC 05/25/17 16:25 4 MG Ondansetron HCl (Zofran Inj) 4 mg NOW STAT IV 05/25/17 14:40 05/25/17 14:45 DC 05/25/17 14:40 4 MG Lorazepam (Ativan Inj) 0.5 mg NOW STAT IV 05/25/17 14:40 05/25/17 14:45 DC 05/25/17 14:40 0.5 MG Gelatin (Surgifoam Sponge 12-7MM (SMALL)) 1 ea STK-MED ONCE .ROUTE 05/25/17 14:54 05/25/17 14:55 DC 05/25/17 14:54 1 EA Sodium Chloride 1,000 ml @ 999 mls/hr Q1H1M STAT IV 05/25/17 16:25 05/25/17 17:25 DC 05/25/17 16:25 999 MLS/HR Lorazepam (Ativan Inj) 1 mg NOW STAT IV 05/25/17 16:32 05/25/17 16:33 DC 05/25/17 16:38 1 MG Ketorolac Tromethamine (Toradol Inj) 30 mg Q6H PRN IV 05/25/17 16:45 05/26/17 23:45 05/25/17 17:50 30 MG ECG Indication: tachycardia Rate (beats per minute): 123 Rhythm: sinus tachycardia Findings: no acute ischemic change, no ectopy ED Course 1437: The patient was evaluated in room A09B. A complete history and physical exam was performed. 1440: Ordered Ativan Injection 0.5 mg IV, Zofran Injection 4 mg IV, Cefepime HCl 2000 mg/Dextrose 112.5 ml @ 200 mls/hr IV, Vancomycin HCl 1 gm IV, Sodium Chloride 1000 ml @ 999 mls/hr IV. 1445: Ordered Morphine Sulfate 4 mg IV. 1454: Ordered Gelatin 1 each IV. 1622: Reevaluated the patient. Discussed results and treatment plan. He agrees to the plan and will be further evaluated. 1625: Ordered Sodium Chloride 1000 ml @ 999 mls/hr IV. 1632: Ordered Ativan Injection 1 mg IV. 1635: I discussed the patient's case with Dr. Ruiz, [facility] Hospitalist. He understands the patient's condition and agrees to accept the patient. The patient will be further evaluated. Medical Decision The patient is a 42 year old male who presents to the Emergency Room with complaints of worsening right foot pain that began 6 days ago. Differential diagnoses considered include sepsis, osteomyelitis, bacteremia, anemia, electrolyte imbalance, dehydration, and failed outpatient treatment. There is a mild leukocytosis, this is consistent with infection. A mild anemia was also noted. No significant electrolyte abnormality, kidney failure or hepatitis. Lactic acid level was not elevated making severe sepsis less likely. Chest film did not show pneumonia. Blood cultures are pending. Right foot CT did not show evidence for osteomyelitis, cellulitis was noted. The patient is failing outpatient treatment for his right foot cellulitis. He did receive IV saline, IV morphine and IV Zofran. He was given IV cefepime and IV vancomycin. He received some IV Ativan for anxiety. The patient requires a hospital stay. He may require surgical intervention if not improving on IV antibiotics. His heart rate has improved somewhat with treatment although he remains tachycardic. I spoke to the patient and case management. The on-call hospitalist was consulted. Of note, the injury to the left second finger is an avulsion injury, this should heal spontaneously, no reason for suturing. Medication Reconcilliation Current Medication List: was personally reviewed by me Blood Pressure Screening Patient's blood pressure: Elevated blood pressure Blood pressure disposition: Elevated BP felt to be situational Consults Time Called: 1635 Consulting Physician: Dr. Ruiz, [facility] Hospitalist Returned Call: 1635 I discussed the patient's case with Dr. Ruiz, [facility] Hospitalist. He understands the patient's condition and agrees to accept the patient. The patient will be further evaluated. Impression Primary Impression: Cellulitis of right foot Additional Impressions: Failure of outpatient treatment SIRS (systemic inflammatory response syndrome) Scribe Attestation The scribe's documentation has been prepared under my direction and personally reviewed by me in its entirety. I confirm that the note above accurately reflects all work, treatment, procedures, and medical decision making performed by me. Departure Information Dispostion Being Evaluated By Hospitalist Referrals Ang Stover M.D. (PCP) Patient Instructions My [facility] Problem Qualifiers
[2017-05-25] MEDS: MoRPHine SULFATE 4 MG/ML 1 ML CARP\\VIAL IV PRN ×2 (15:09→16:25)
--- NOTE | 2017-05-25 15:30 | DIAGNOSTIC IMAGING REPORT ---
CHEST ONE VIEW PORTABLE CLINICAL HISTORY: 42 years-old Male presenting with Sepsis. TECHNIQUE: Portable upright AP view of the chest was obtained. COMPARISON: 01/08/2017. FINDINGS: Cardiomediastinal silhouette normal. Lungs and pleural spaces clear. Osseous structures normal. Upper abdomen normal. IMPRESSION: 1. No acute cardiopulmonary disease. Electronically signed by: Antwon Up M.D. 05/25/2017 3:29 PM Dictated Date/Time: 05/25/2017 3:28 PM
[2017-05-25 15:53] LABS: PTT PATIENT 27.4 SECONDS (21.0-31.0)
[2017-05-25 15:59] LABS: BASO % 0.3 %; BASO ABS # 0.03 K/uL (0-0.2); EOS % 0.7 %; EOS ABS # 0.08 K/uL (0-0.5); HEMATOCRIT 31.9 % (42-52); IG# 0.04 K/uL (0.00-0.02); LYMPH % 12.8 %; LYMPH ABS # 1.45 K/uL (1.2-3.4); MEAN CELL VOLUME 86.4 fL (80-100); MEAN CORPUSCULAR HEMOGLOBIN 29.8 pg (25-34); MEAN CORPUSCULAR HGB CONC 34.5 g/dl (32-36); MEAN PLATELET VOLUME 11.7 fL (7.4-10.4); NEUT % 77.8 %; NEUT ABS # 8.79 K/uL (1.4-6.5); PLATELET COUNT 195 K/uL (130-400); RED CELL DISTRIBUTION WIDTH CV 12.4 % (11.5-14.5); RED CELL DISTRIBUTION WIDTH SD 39.6 fL (36.4-46.3); WHITE BLOOD COUNT 11.29 K/uL (4.8-10.8)
[2017-05-25 16:04] LABS: ALBUMIN 3.2 gm/dl (3.4-5.0); CREATININE 1.03 mg/dl (0.60-1.40); POTASSIUM 3.2 mmol/L (3.5-5.1)
[2017-05-25 16:06] LABS: TOTAL PROTEIN 7.6 gm/dl (6.4-8.2)
--- NOTE | 2017-05-25 16:21 | DIAGNOSTIC IMAGING REPORT ---
R LOWER EXTREMITY WITHOUT CLINICAL HISTORY: 42 years-old Male presenting with poss osteo foot--no response antibiotics. TECHNIQUE: Multidetector CT of the right foot was performed without the use of intravenous contrast. IV contrast: None. A dose lowering technique was used consistent with the principles of ALARA (as low as reasonably achievable). COMPARISON: Plain radiographs of the right foot from 05/22/2017. CT DOSE (mGy.cm): The estimated cumulative dose is 237.55 mGy.cm. FINDINGS: Dulser topogram: Unremarkable. Diffuse subcutaneous infiltration and swelling along the dorsum of the foot extending from the forefoot to the ankle. Allowing for noncontrast technique, no focal fluid collection is apparent. The deeper fascial planes are largely spared. No osseous erosion or periosteal reaction. No focal osteopenia. No acute fracture or malalignment. No degenerative change. IMPRESSION: No CT evidence of osteomyelitis. Diffuse soft tissue swelling could represent cellulitis in the appropriate clinical setting. If there is continuing clinical concern for osteomyelitis, MR is more sensitive for this diagnosis. Electronically signed by: Antwon Up M.D. 05/25/2017 4:20 PM Dictated Date/Time: 05/25/2017 4:16 PM
[2017-05-25] MEDS ORDERED: SODIUM CHLORIDE 0.9% 1000ML 1,000 ML IV STA (16:25)
[2017-05-25] MEDS ORDERED: CLON0.3T PO (16:30)
[2017-05-25] MEDS ORDERED: VENL75CA PO (16:30)
--- NOTE | 2017-05-25 16:42 | History and Physical ---
History & Physical Date & Time of Service: May 25, 2017 at 16:35 Chief Complaint: Right Foot Infection,[place] Tip Of Finger Primary Care Physician: Ang Stover M.D. History of Present Illness Source: patient 42 y/o M Hx opiate abuse, depression, HTN - developed pain and swelling of the dorsal aspect of his R foot 5 days prior following trauma. He states that he had tried to pop an apparent blister with a needle when it first occurred. He presented to the ER 05/22 and was initially placed on Keflex and DCd. He visited [facility] 2 days later and was placed on Clindamycin. Despite antibiotic use, the pain and swelling have progressed and the inflammation has spread. The pt denies rigors or fevers. He denies any recent IV drug use. Incidentally, while making food today, he cut the tip of his L mid finger, although this does not appear infected. Past Medical/Surgical History 1) Opiate abuse - IVDU - states he recently DCd Suboxone therapy 2) Hypertension 3) Questionable history of hep C - this is listed in the record - not confirmed by labs - pt states he had an elevation in his LFTs which returned to normal and was not due to hepatitis 4) Depression Family History Diabetes mellitus FH: cancer Hypertension Social History Smoking Status: Never Smoker Drug Use: cocaine, heroin, other Marital Status: in relationship Housing status: lives alone Occupational Status: unemployed Immunizations History of Influenza Vaccine: No History of Tetanus Vaccine?: Unknown History of Pneumococcal: No History of Hepatitis B Vaccine: No Multi-Drug Resistant Organisms History of MDRO: No Allergies Coded Allergies: Uncoded Nonscreenable Allergen (Verified Allergy, Unknown, WOOL CAUSES HIVES, 05/25/17) Magnesium Hydroxide (Verified Adverse Reaction, Severe, GI SYMPTOMS, 05/25) Home Medications Scheduled Bupropion (Wellbutrin), 100 MG PO DAILY Cephalexin Monohydrate (Keflex), 500 MG PO QID Clindamycin Hcl (Cleocin), 450 MG PO TID Clonidine Hcl (Catapres), 0.3 MG PO BID Hydrochlorothiazide (Hctz), 50 MG PO DAILY Lisinopril (Zestril), 20 MG PO DAILY Venlafaxine Hcl (Effexor Extended Rel), 150 MG PO Q2D Venlafaxine Hcl (Effexor Xr), 1 CAP PO Q2D Review of Systems Constitutional: No fever, No chills Eyes: No worsening of vision ENT: No hearing loss, No nasal symptoms Respiratory: No cough, No sputum, No wheezing Cardiovascular: No chest pain Abdomen: No pain Musculoskeletal: + problem reported (Pain in toe ), No joint pain Genitourinary - Male: No hematuria, No dysuria Neurologic: No memory loss, No paralysis, No weakness Psychiatric: No depression symptoms Endocrine: No fatigue Hematologic / Lymphatic: No abnormal bleeding/bruising Integumentary: + problem reported (redness, infalmmation and pain of the dorsal aspect of the R foot - cut of tip of finger on L hand) Physical Exam Vital Signs Date Time Temp Pulse Resp B/P (MAP) Pulse Ox O2 Delivery O2 Flow Rate FiO2 05/25/17 16:22 122 17 153/88 97 Room Air 05/25/17 15:41 98 Room Air 05/25/17 14:30 36.9 144 16 156/74 98 General Appearance: WD/WN, no apparent distress Head: normocephalic Eyes: normal inspection ENT: normal ENT inspection, pharynx normal Neck: supple, no JVD Respiratory/Chest: chest non-tender, lungs clear, normal breath sounds Cardiovascular: regular rate, rhythm, no edema, no gallop Abdomen/GI: normal bowel sounds, non tender, soft Back: normal inspection, no CVA tenderness Extremities/Musculoskelatal: no calf tenderness, normal capillary refill, + pertinent finding (Cellulitis and apparent abscess of dorsal aspect of R foot - significant pain to palpation - extends to ankle medially and laterally) Neurologic/Psych: 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 as tested, no motor/sensory deficits, alert Skin: + pertinent finding (Cellulitis and apparent abscess of dorsal aspect of R foot - significant pain to palpation - extends to ankle medially and laterally ) Diagnostics Laboratory Results Results Past 24 Hours Test 05/25/17 15:00 05/25/17 15:36 05/25/17 15:40 Range/Units Prothrombin Time 10.1 9.0-12.0 SECONDS Prothromb Time International Ratio 1.0 0.9-1.1 Activated Partial Thromboplast Time 27.4 21.0-31.0 SECONDS Partial Thromboplastin Ratio 1.1 Sodium Level 134 136-145 mmol/L Potassium Level 3.2 3.5-5.1 mmol/L Chloride Level 98 98-107 mmol/L Carbon Dioxide Level 30 21-32 mmol/L Anion Gap 6.0 3-11 mmol/L Blood Urea Nitrogen 16 7-18 mg/dl Creatinine 1.03 0.60-1.40 mg/dl Est Creatinine Clear Calc Drug Dose 112.1 ml/min Estimated GFR () 104.8 Estimated GFR (Non- 90.4 BUN/Creatinine Ratio 15.4 10-20 Random Glucose 102 70-99 mg/dl Calcium Level 9.0 8.5-10.1 mg/dl Total Bilirubin 0.2 0.2-1 mg/dl Aspartate Amino Transf (AST/SGOT) 16 15-37 U/L Alanine Aminotransferase (ALT/SGPT) 26 12-78 U/L Alkaline Phosphatase 82 45-117 U/L Total Protein 7.6 6.4-8.2 gm/dl Albumin 3.2 3.4-5.0 gm/dl Globulin 4.4 2.5-4.0 gm/dl Albumin/Globulin Ratio 0.7 0.9-2 White Blood Count 11.29 4.8-10.8 K/uL Red Blood Count 3.69 4.7-6.1 M/uL Hemoglobin 11.0 14.0-18.0 g/dL Hematocrit 31.9 42-52 % Mean Corpuscular Volume 86.4 80-100 fL Mean Corpuscular Hemoglobin 29.8 25-34 pg Mean Corpuscular Hemoglobin Concent 34.5 32-36 g/dl Platelet Count 195 130-400 K/uL Mean Platelet Volume 11.7 7.4-10.4 fL Neutrophils (%) (Auto) 77.8 % Lymphocytes (%) (Auto) 12.8 % Monocytes (%) (Auto) 8.0 % Eosinophils (%) (Auto) 0.7 % Basophils (%) (Auto) 0.3 % Neutrophils # (Auto) 8.79 1.4-6.5 K/uL Lymphocytes # (Auto) 1.45 1.2-3.4 K/uL Monocytes # (Auto) 0.90 0.11-0.59 K/uL Eosinophils # (Auto) 0.08 0-0.5 K/uL Basophils # (Auto) 0.03 0-0.2 K/uL RDW Standard Deviation 39.6 36.4-46.3 fL RDW Coefficient of Variation 12.4 11.5-14.5 % Immature Granulocyte % (Auto) 0.4 % Immature Granulocyte # (Auto) 0.04 0.00-0.02 K/uL Bedside Lactic Acid Venous 1.04 0.90-1.70 mmol/L Microbiology Results 05/25/17 Blood Culture, Received Pending 05/25/17 Blood Culture, Received Pending Diagnostic Radiology CT foot: No CT evidence of osteomyelitis. Diffuse soft tissue swelling could represent cellulitis in the appropriate clinical setting. If there is continuing clinical concern for osteomyelitis, MR is more sensitive for this diagnosis. Impression Assessment and Plan 42 y/o M Hx opiate abuse, depression, HTN - developed pain and swelling of the dorsal aspect of his R foot 5 days prior following trauma. He states that he had tried to pop an apparent blister with a needle when it first occurred. He presented to the ER 05/22 and was initially placed on Keflex and DCd. He visited [facility] 2 days later and was placed on Clindamycin. Despite antibiotic use, the pain and swelling have progressed and the inflammation has spread. The pt denies rigors or fevers. He denies any recent IV drug use. Incidentally, while making food today, he cut the tip of his L mid finger, although this does not appear infected. 1) Cellulitis and abscess of dorsal aspect of R foot - placed on Vanc and Ceftriaxone - area delineated - ortho service contacted as the pt may require debridement. NPO after midnight. 2) Depression - cont Venlafaxine, Bupropion. 3) HTN - cont Clonidine, Lisinopril, HCTZ. 4) Opiate abuse - it would be prudent to avoid narcotic use in this pt as possible - he states he does not currently take any drugs and recently DCd Suboxone therapy. Full code, Heparin prophylaxis - hold AM dose Total time for this admit including review of labs, meds, imaging, records - discussion with pt and ER attending - 33 min Level of Care Med/Surg Resuscitation Status FULL RESUSCITATION VTE Prophylaxis Given or contraindicated: Unfractionated heparin SQ
[2017-05-25] MEDS ORDERED: TRAMADOL HCL 50 MG TAB PO PRN (17:15)
[2017-05-25] MEDS ORDERED: HEPARIN SOD 5000 UNIT/0.5 ML CARP SQ SCH (17:15)
[2017-05-25] MEDS ORDERED: ALUMINUM/MAGNESIUM/SIMETH (MAALOX MAX) 30 ML UDC PO PRN (17:15)
[2017-05-25] MEDS ORDERED: POLYETHYLENE (MIRALAX) 17 GM PACK PO PRN (17:15)
[2017-05-25] MEDS ORDERED: ACETAMINOPHEN 325 MG TAB PO PRN (17:15)
[2017-05-25] MEDS: KETOROLAC TROMETHAMINE 30 MG/ML VIAL IV PRN ×2 (17:50→23:51)
[2017-05-25 18:15] VITALS: BP 133/77; PULSE 122; TEMP 37.5; O2SAT 97
[2017-05-25] MEDS ORDERED: IV FLUIDS COMPLETED PRN (18:15)
[2017-05-25] MEDS ORDERED: VANCOMYCIN CONSULT ACTIVE PRN (18:30)
[2017-05-25] MEDS ORDERED: VANCOMYCIN INJ 1,500 MG in SODIUM CHLORIDE 0.9% 500ML 500 ML IV SCH (18:30)
[2017-05-25 18:37] VITALS: BP 133/77; PULSE 122; TEMP 37.5; O2SAT 97; Ht 180.3 cm; Wt 95.0 kg
[2017-05-25] MEDS ORDERED: HEPARIN SOD 5000 UNIT/0.5 ML CARP SQ ONE (19:00)
[2017-05-25] MEDS: NSS + 20MEQ KCL 1000ML 1,000 ML IV SCH (19:24)
--- NOTE | 2017-05-25 19:31 | Pharmacy Progress Note ---
Pharmacy Abx Initial Consult Date of Service May 25, 2017. Pharmacy Dosing Scope Date of Consult: 05/25/17 Consultation requested by: Dr. Ruiz Pharmacy is consulted to initiate Vancomycin IV dosing therapy for cellulitis, order appropriate labs and adjust drug dose/frequency. Subjective The patient is a 42 year old male admitted on May 25, 2017 at 17:13. Objective Height (Feet): 5 Height (Inches): 11.00 Weight (Kilograms): 95.000 Vital Signs (Past 12Hrs) Vital Signs Past 12 Hours Date Time Temp Pulse Resp B/P (MAP) Pulse Ox O2 Delivery O2 Flow Rate FiO2 05/25/17 18:37 37.5 122 18 133/77 97 Room Air 05/25/17 17:28 135 20 153/88 95 Room Air 05/25/17 16:37 124 05/25/17 16:22 122 17 153/88 97 Room Air 05/25/17 15:41 98 Room Air 05/25/17 14:30 36.9 144 16 156/74 98 Lab Results (24Hrs) Laboratory Tests (24 Hours) Test 05/25/17 15:36 White Blood Count 11.29 K/uL (4.8-10.8) H Red Blood Count 3.69 M/uL (4.7-6.1) L Hemoglobin 11.0 g/dL (14.0-18.0) L Hematocrit 31.9 % (42-52) L Mean Corpuscular Volume 86.4 fL (80-100) Mean Corpuscular Hemoglobin 29.8 pg (25-34) Mean Corpuscular Hemoglobin Concent 34.5 g/dl (32-36) Platelet Count 195 K/uL (130-400) Mean Platelet Volume 11.7 fL (7.4-10.4) H Neutrophils (%) (Auto) 77.8 % Lymphocytes (%) (Auto) 12.8 % Monocytes (%) (Auto) 8.0 % Eosinophils (%) (Auto) 0.7 % Basophils (%) (Auto) 0.3 % Neutrophils # (Auto) 8.79 K/uL (1.4-6.5) H Lymphocytes # (Auto) 1.45 K/uL (1.2-3.4) Monocytes # (Auto) 0.90 K/uL (0.11-0.59) H Eosinophils # (Auto) 0.08 K/uL (0-0.5) Basophils # (Auto) 0.03 K/uL (0-0.2) Micro Results Date/Time Source Procedure Growth Status 05/25/17 15:00 Blood Blood Culture Pending Received 05/25/17 15:00 Blood Blood Culture Pending Received Risk Factors for Resistance * Antimicrobial use within the last 90 days: * 05/22/17 [facility] ER: Keflex * 05/23/17 (?) [facility] ER: Clindamycin Assessment & Plan Assessment 42 year old male * h/o IV drug abuse * failed out patient antimicrobial therapy (Keflex and Clindamycin) for cellulitis Plan Pharmacy has been consulted for treatment of cellulitis Vancomycin IV * Loading dose: 1000 mg x 1 dose in the ED PLUS 1500mg once admitted (25 mg/kg ) * Maintenance dose: 1500 mg IV (15 mg/kg) every 10 hours * Estimated P'kinetic levels: ke= 0.0974/hr, t1/2= 7 hrs * Goal trough level for cellulitis : ~15 mcg/mL * Trough level ordered for 05/27/17 ~30 minutes before the 4th maintenance dose. Pharmacy will continue to follow and will adjust dose/frequency as necessary. Thank you.
[2017-05-25] MEDS ORDERED: NURSING VERBAL MED ORDER ONE (19:45)
[2017-05-25] MEDS: TRAMADOL HCL 50 MG TAB PO PRN ×2 (19:50→23:52)
[2017-05-25] MEDS ORDERED: VANCOMYCIN INJ 1,000 MG in SODIUM CHLORIDE 0.9% 250ML 250 ML IV SCH (21:00)
[2017-05-25] MEDS: CLONIDINE HCL 0.3 MG TAB PO SCH (21:55)
[2017-05-25 22:54] VITALS: BP 138/90; PULSE 119; TEMP 37; O2SAT 97
[2017-05-25] MEDS: ZOLPIDEM TARTRATE 5 MG TAB PO PRN (23:52)
[2017-05-26] VITALS (10 sets, daily range): BP systolic 135–169; BP diastolic 77–107; PULSE 88–125; TEMP 36.3–37; O2SAT 96–99
[2017-05-26] MEDS: ZOLPIDEM TARTRATE 5 MG TAB PO PRN (00:30)
[2017-05-26] MEDS: NSS + 20MEQ KCL 1000ML 1,000 ML IV SCH (02:24)
[2017-05-26] MEDS: CEFTRIAXONE SOD INJ 1 GM in DEXTROSE 5% ADD-VANTAGE 50ML 50 ML IV SCH (02:25)
[2017-05-26] MEDS: ONDANSETRON INJ 2 MG/ML 2 ML VIAL IV PRN ×3 (03:27→21:47)
[2017-05-26] MEDS: VANCOMYCIN INJ 1,500 MG in SODIUM CHLORIDE 0.9% 500ML 500 ML IV SCH ×2 (04:00→14:03)
[2017-05-26 05:44] LABS: CREATININE 0.98 mg/dl (0.60-1.40)
[2017-05-26] MEDS: KETOROLAC TROMETHAMINE 30 MG/ML VIAL IV PRN ×3 (06:07→21:47)
--- NOTE | 2017-05-26 07:55 | History & Physical Bridge Note ---
H&P Re-Evaluation Bridge Note: I have examined the patient, reviewed the History & Physical and in the interval since the performance of the History & Physical I have noted the following changes of clinical significance: Will need I and D foot today. NPO.
--- NOTE | 2017-05-26 08:01 | Orthopedic Consultation ---
Orthopedic Consultation Date of Consultation: May 26, 2017. Attending Physician: Boyd Ruiz M.D. (Waqas Jain,P.A.) History of Present Illness C/o right foot "pimple" around Renny time on the top of his foot. Patient uses his own pin and syringe to try to drain it. Became increasingly worse. A couple days ago he noticed a significant change and increase in swelling, redness and pain. He reported to the ER and was given anitbx, he reported back again and was admitted under medical service for in patient treatment. (Waqas Jain,P.A.) Past Medical/Surgical History Medical Problems: (1) Abdominal pain Status: Acute (2) Anemia Status: Acute (3) Back pain Status: Acute (4) Cellulitis of foot Status: Acute (5) Cellulitis of right foot Status: Acute (6) Colitis Status: Acute (7) Colitis, acute Status: Acute (8) Constipation Status: Acute (9) Dehydration Status: Acute (10) Failure of outpatient treatment Status: Acute (11) Fungemia Status: Acute (12) Hypertension Status: Acute (13) Hypokalemia Status: Acute (14) Left-sided low back pain with sciatica Status: Acute (15) SIRS (systemic inflammatory response syndrome) Status: Acute - History of substance abuse. (Waqas Jain,P.A.) Family History Diabetes mellitus FH: cancer Hypertension (Waqas Jain,P.A.) Diabetes mellitus FH: cancer Hypertension (Mane GarciaD.Tarun) Social History Smoking Status: Never Smoker Alcohol Use: occasionally Drug Use: cocaine, heroin, other Marital Status: in relationship Housing Status: lives with significant other Occupation Status: unemployed (Waqas Jain,P.A.) Allergies Coded Allergies: Uncoded Nonscreenable Allergen (Verified Allergy, Unknown, WOOL CAUSES HIVES, 05/25/17) Magnesium Hydroxide (Verified Adverse Reaction, Severe, GI SYMPTOMS, 05/25) Home Medications Scheduled Bupropion (Wellbutrin), 100 MG PO DAILY Cephalexin Monohydrate (Keflex), 500 MG PO QID Clindamycin Hcl (Cleocin), 450 MG PO TID Clonidine Hcl (Catapres), 0.3 MG PO BID Hydrochlorothiazide (Hctz), 50 MG PO DAILY Lisinopril (Zestril), 20 MG PO DAILY Venlafaxine Hcl (Effexor Extended Rel), 150 MG PO Q2D Venlafaxine Hcl (Effexor Xr), 1 CAP PO Q2D Current Inpatient Medications Current Inpatient Medications Medications (Trade) Dose Ordered Sig/John Route Start Time Stop Time Status Last Admin Dose Admin Bupropion HCl (Wellbutrin Tab) 100 mg DAILY PO 05/26/17 09:00 06/25/17 08:59 Clonidine HCl (Catapres Tab) 0.3 mg BID PO 05/25/17 21:00 06/24/17 20:59 05/25/17 21:55 0.3 MG Hydrochlorothiazide (Hydrochlorothiazide Tab) 50 mg DAILY PO 05/26/17 09:00 06/25/17 08:59 Lisinopril (Zestril Tab) 20 mg DAILY PO 05/26/17 09:00 06/25/17 08:59 Venlafaxine HCl (effeXOR EXTENDED REL CAP) 75 mg DAILY PO 05/26/17 09:00 06/25/17 08:59 Ketorolac Tromethamine (Toradol Inj) 30 mg Q6H PRN IV 05/25/17 16:45 05/26/17 23:45 05/26/17 06:07 30 MG Potassium Chloride/Sodium Chloride 1,000 ml @ 125 mls/hr Q8H IV 05/25/17 18:45 05/26/17 10:44 05/26/17 02:24 125 MLS/HR Ceftriaxone Sodium 1 gm/ Dextrose 50 ml @ 100 mls/hr Q24H IV 05/26/17 02:00 06/05/17 01:59 05/26/17 02:25 100 MLS/HR Acetaminophen (Tylenol Tab) 650 mg Q4H PRN PO 05/25/17 17:15 06/24/17 17:14 Al Hydrox/Mg Hydrox/Simethicone (Maalox Max Susp) 15 ml Q4H PRN PO 05/25/17 17:15 06/24/17 17:14 Polyethylene (Miralax Powder Packet) 17 gm DAILY PRN PO 05/25/17 17:15 06/24/17 17:14 Zolpidem Tartrate (Ambien Tab) 5 mg HSZ PRN PO 05/25/17 17:15 06/24/17 17:14 05/26/17 00:30 5 MG Ondansetron HCl (Zofran Inj) 4 mg Q6H PRN IV 05/25/17 17:15 06/24/17 17:14 05/26/17 03:27 4 MG Miscellaneous (Iv Fluids Completed) 1 ea PRN PRN N/A 05/25/17 18:15 05/25/18 18:14 Vancomycin HCl (Consult) 1 ea UD PRN N/A 05/25/17 18:30 06/24/17 18:29 Vancomycin HCl 1500 mg/Sodium Chloride 530 ml @ 200 mls/hr Q10H IV 05/26/17 04:00 06/04/17 13:59 05/26/17 04:00 200 MLS/HR Tramadol HCl (Ultram Tab) `1-2 tabs for pain 1 tab ... Q4H PRN PO 05/25/17 19:45 06/24/17 19:44 05/25/17 23:52 100 MG (Waqas Jain.,P.A.) Review of Systems Musculoskeletal: + joint pain, + muscle pain, + swelling (Waqas Jain.,P.A.) Physical Exam Date Time Temp Pulse Resp B/P (MAP) Pulse Ox O2 Delivery O2 Flow Rate FiO2 05/26/17 06:56 36.9 103 18 145/77 (99) 96 Room Air 05/25/17 23:55 Room Air 05/25/17 22:54 37.0 119 15 138/90 (106) 97 Room Air 05/25/17 18:37 37.5 122 18 133/77 97 Room Air 05/25/17 18:15 Room Air 05/25/17 18:15 37.5 122 18 133/77 (95) 97 Room Air 05/25/17 17:28 135 20 153/88 95 Room Air 05/25/17 16:37 124 05/25/17 16:22 122 17 153/88 97 Room Air 05/25/17 15:41 98 Room Air 05/25/17 14:30 36.9 144 16 156/74 98 General Appearance: WD/WN, no apparent distress Head: normocephalic, atraumatic Eyes: normal inspection, PERRL, EOMI ENT: hearing grossly normal Neck: supple, no adenopathy Respiratory/Chest: lungs clear, normal breath sounds Cardiovascular: regular rate, rhythm, no murmur Abdomen/GI: normal bowel sounds, non tender, soft Extremities/Musculoskelatal: + swelling (Right foot with dorsal cellulitis, Swelling and fluid accumulation great toe area, no drainage, skin in tact. Toes mobile, sesation in tact. Pulses in tact.) (Waqas JainP.ASarina) Laboratory Results Last 24 Hours Test 05/25/17 15:00 05/25/17 15:36 05/25/17 15:40 05/26/17 00:16 Prothrombin Time 10.1 SECONDS Prothromb Time International Ratio 1.0 Activated Partial Thromboplast Time 27.4 SECONDS Partial Thromboplastin Ratio 1.1 Sodium Level 134 mmol/L Potassium Level 3.2 mmol/L Chloride Level 98 mmol/L Carbon Dioxide Level 30 mmol/L Anion Gap 6.0 mmol/L Blood Urea Nitrogen 16 mg/dl Creatinine 1.03 mg/dl Est Creatinine Clear Calc Drug Dose 112.1 ml/min Estimated GFR () 104.8 Estimated GFR (Non- 90.4 BUN/Creatinine Ratio 15.4 Random Glucose 102 mg/dl Calcium Level 9.0 mg/dl Total Bilirubin 0.2 mg/dl Aspartate Amino Transf (AST/SGOT) 16 U/L Alanine Aminotransferase (ALT/SGPT) 26 U/L Alkaline Phosphatase 82 U/L Total Protein 7.6 gm/dl Albumin 3.2 gm/dl Globulin 4.4 gm/dl Albumin/Globulin Ratio 0.7 White Blood Count 11.29 K/uL Red Blood Count 3.69 M/uL Hemoglobin 11.0 g/dL Hematocrit 31.9 % Mean Corpuscular Volume 86.4 fL Mean Corpuscular Hemoglobin 29.8 pg Mean Corpuscular Hemoglobin Concent 34.5 g/dl Platelet Count 195 K/uL Mean Platelet Volume 11.7 fL Neutrophils (%) (Auto) 77.8 % Lymphocytes (%) (Auto) 12.8 % Monocytes (%) (Auto) 8.0 % Eosinophils (%) (Auto) 0.7 % Basophils (%) (Auto) 0.3 % Neutrophils # (Auto) 8.79 K/uL Lymphocytes # (Auto) 1.45 K/uL Monocytes # (Auto) 0.90 K/uL Eosinophils # (Auto) 0.08 K/uL Basophils # (Auto) 0.03 K/uL RDW Standard Deviation 39.6 fL RDW Coefficient of Variation 12.4 % Immature Granulocyte % (Auto) 0.4 % Immature Granulocyte # (Auto) 0.04 K/uL Bedside Lactic Acid Venous 1.04 mmol/L Urine Color YELLOW Urine Appearance CLEAR Urine pH 6.5 Urine Specific [place] 1.009 Urine Protein NEG Urine Glucose (UA) NEG Urine Ketones NEG Urine Occult Blood NEG Urine Nitrite NEG Urine Bilirubin NEG Urine Urobilinogen NEG Urine Leukocyte Esterase NEG Urine WBC (Auto) 0 /hpf Urine RBC (Auto) 0-4 /hpf Urine Hyaline Casts (Auto) 0 /lpf Urine Epithelial Cells (Auto) 0-5 /lpf Urine Bacteria (Auto) NEG Urine Opiates Screen POS Urine Methadone, Qualitative NEG Urine Barbiturates NEG Urine Phencyclidine (PCP) Level NEG Ur Amphetamine/Methamphetamine POS MDMA (Ecstasy) Screen POS Urine Benzodiazepines Screen NEG Urine Cocaine Metabolite NEG Urine Marijuana (THC) NEG Test 05/26/17 05:04 Creatinine 0.98 mg/dl Est Creatinine Clear Calc Drug Dose 117.9 ml/min Estimated GFR () 111.3 Estimated GFR (Non- 96.1 (Waqas Jain.,P.A.) Assessment & Plan Right Foot cellulitis CT shows diffuse tissue swelling, no sign of ostoemylitis Will have NPO for surgical I&D per Dr. Garcia. (Waqas Jain.,P.A.)
[2017-05-26] MEDS: CLONIDINE HCL 0.3 MG TAB PO SCH ×3 (08:09→21:41)
[2017-05-26] MEDS: VENLAFAXINE HCL XR 75 MG CAPXR PO SCH ×2 (08:09→12:59)
[2017-05-26] MEDS: LISINOPRIL 20 MG TAB PO SCH ×2 (08:10→12:58)
[2017-05-26] MEDS ORDERED: BUPIVACAINE 0.5 % 5 MG/1 ML MPF 30ML VIAL ONE (08:26)
[2017-05-26] MEDS ORDERED: BACITRACIN 50000 UNIT VIAL ONE (08:26)
[2017-05-26] MEDS ORDERED: FENTANYL CITRATE INJ 50 MCG/1 ML 2 ML VIAL ONE ×4 (08:55→10:31)
[2017-05-26] MEDS ORDERED: DEXAMETHASONE SOD INJ 4 MG/ML VIAL ONE (08:55)
[2017-05-26] MEDS ORDERED: PROPOFOL IV EMULSION 10 MG/ML 20 ML VIAL IV ONE (08:55)
[2017-05-26] MEDS ORDERED: MIDAZOLAM HCL 1 MG/ML 2ML VIAL ONE (08:55)
[2017-05-26] MEDS ORDERED: LIDOCAINE HCL 2% 2 ML VIAL (20MG/ML) ONE (08:55)
[2017-05-26] MEDS ORDERED: ONDANSETRON INJ 2 MG/ML 2 ML VIAL ONE (08:55)
[2017-05-26] MEDS ORDERED: HYDROCHLOROTHIAZIDE 50 MG TAB PO SCH (09:00)
[2017-05-26 09:12] LABS: BASO % 0.5 %; BASO ABS # 0.04 K/uL (0-0.2); EOS % 1.5 %; EOS ABS # 0.12 K/uL (0-0.5); HEMATOCRIT 31.6 % (42-52); HEMOGLOBIN 10.6 g/dL (14.0-18.0); IG# 0.04 K/uL (0.00-0.02); LYMPH % 21.3 %; LYMPH ABS # 1.69 K/uL (1.2-3.4); MEAN CELL VOLUME 87.1 fL (80-100); MEAN CORPUSCULAR HEMOGLOBIN 29.2 pg (25-34); MEAN CORPUSCULAR HGB CONC 33.5 g/dl (32-36); MEAN PLATELET VOLUME 11.8 fL (7.4-10.4); MONO ABS # 0.63 K/uL (0.11-0.59); NEUT % 68.2 %; PLATELET COUNT 198 K/uL (130-400); RED CELL DISTRIBUTION WIDTH CV 12.5 % (11.5-14.5); RED CELL DISTRIBUTION WIDTH SD 40.3 fL (36.4-46.3); WHITE BLOOD COUNT 7.92 K/uL (4.8-10.8)
[2017-05-26] MEDS ORDERED: EpHEDrine SULFATE INJ 50 MG/ML AMP IV PRN (09:15)
[2017-05-26] MEDS ORDERED: ATROPINE SULFATE 0.1 MG/ML 5ML SYR IV PRN (09:15)
[2017-05-26] MEDS ORDERED: ONDANSETRON INJ 2 MG/ML 2 ML VIAL IV PRN (09:15)
[2017-05-26] MEDS ORDERED: ACETAMINOPHEN 1000 MG/100 ML IV IV ONE (09:20)
[2017-05-26] MEDS ORDERED: KETAMINE HCL INJ 50 MG/ML 10 ML VIAL ONE (09:26)
[2017-05-26] MEDS ORDERED: ROCURONIUM BROMIDE 10 MG/ML 5 ML VIAL IV ONE (09:28)
[2017-05-26] MEDS ORDERED: SUCCINYLCHOLINE CHLORIDE 20 MG/ML 10 ML VIAL IV ONE (09:28)
[2017-05-26 09:35] LABS: CALCIUM 8.5 mg/dl (8.5-10.1); CREATININE 0.96 mg/dl (0.60-1.40); POTASSIUM 3.8 mmol/L (3.5-5.1)
[2017-05-26] MEDS: FENTANYL CITRATE INJ 50 MCG/1 ML 2 ML VIAL IV PRN ×4 (10:30→10:45)
--- NOTE | 2017-05-26 10:40 | [facility] Post Operative Brief Note ---
Immediate Operative Summary Operative Date May 26, 2017. Pre-Operative Diagnosis Right Foot Abscesses x 2 separate sites, Suppurative tenosynovitis Extensor Hallucis Longus Tendon Post-Operative Diagnosis Right Foot Abscesses x 2 separate sites, Suppurative tenosynovitis Extensor Hallucis Longus Tendon Procedure(s) Performed 1. Incision and Drainage Right Foot Abcesses x 2 separate incisions 2. Debridement and tenosynovectomy of Extensor Hallucis Longus Tendon Surgeon Dr. Mane Garcia Sat Act Instructor Surgeon(s) none Estimated Blood Loss 3ml Findings See dict Specimens Culture 1) Right foot abscess for gram stain, culture and sensitivity, anaerobic and aerobic Drains 1/4" iodoform x 2 Anesthesia GETT w/ local Complication(s) None Disposition Recovery Room / PACU
[2017-05-26] MEDS ORDERED: HYDROmorphone INJ 1 MG/ML SYR ONE (10:51)
[2017-05-26] MEDS: HYDROmorphone INJ 1 MG/ML SYR IV PRN ×2 (10:51→10:56)
--- NOTE | 2017-05-26 11:15 | Anesthesiology Progress Note ---
Anesthesia Post Op Note Date & Time May 26, 2017 at 11:15 Vital Signs Pain Intensity: 4 Vital Signs Past 12 Hours Date Time Temp Pulse Resp B/P (MAP) Pulse Ox O2 Delivery O2 Flow Rate FiO2 05/26/17 11:05 36.8 93 16 132/91 97 Room Air 05/26/17 10:55 93 16 126/90 99 Room Air 05/26/17 10:45 100 16 139/89 100 Oxymask 10 05/26/17 10:35 99 16 133/88 100 Oxymask 10 05/26/17 10:26 37.0 97 16 125/94 100 Oxymask 10 05/26/17 07:25 Room Air 05/26/17 06:56 36.9 103 18 145/77 (99) 96 Room Air 05/25/17 23:55 Room Air Notes Mental Status: alert / awake / arousable, participated in evaluation Pt Amnestic to Procedure: Yes Nausea / Vomiting: adequately controlled Pain: adequately controlled Airway Patency, RR, SpO2: stable & adequate BP & HR: stable & adequate Hydration State: stable & adequate Anesthetic Complications: no major complications apparent
--- NOTE | 2017-05-26 12:21 | OPERATIVE REPORT ---
DATE OF OPERATION: 05/26/2017 PREOPERATIVE DIAGNOSES: 1. Right foot abscesses in 2 separate locations. 2. Suppurative tenosynovitis in the extensor hallucis longus tendon. POSTOPERATIVE DIAGNOSES: Same. PROCEDURES: 1. Incision and drainage of right foot abscesses at 2 separate locations with 2 separate incisions. 2. Debridement and tenosynovectomy of the extensor hallucis longus tendon. SURGEON: Dr. Garcia. PARAOPTOMETRIC: None. ANESTHESIA: General endotracheal tube with local anesthetic. SPECIMENS: Aerobic, anaerobic, Gram stain from the right medial foot. DRAINS: 1/4-inch iodoform gauze x2. COMPLICATIONS: None. BLOOD LOSS: 3 mL PERTINENT HISTORY: This is a 42-year-old man who claims that he had redness, swelling and pain related to a pimple on his right foot. It worsened over the last several days of increasing pain. As an outpatient, he returned to the Emergency Department yesterday and was then admitted to the hospitalist service on IV antibiotics with consultation made for orthopedics. The patient has had a history of IV drug use in the past and has not indicated that this was related to a skin popping or foot injection. The patient had clear formation of an abscess on the dorsal and medial aspect of the right foot. The patient was then scheduled for surgery as indicated. All potential risks, benefits, complications, alternatives, rehab, potential for incomplete relief of symptoms, need for further surgery, DVT, PE, , persistent pain, swelling, scarring, weakness, neurovascular injury, loss of function, stiffness, possible need for further surgery and amputation was discussed with the patient. The patient decided to proceed with the procedure as indicated. DESCRIPTION OF PROCEDURE: The patient was taken to the operative suite and placed supine on the operating room table. After review of the consent and identification of proper operative site, the patient was anesthetized, and endotracheal tube was placed. The right lower extremity was then sterilely prepped and draped in usual fashion. The limb was elevated and then an Esmarch tourniquet was applied over sterile surgical towel at the level of the ankle. There was no exsanguination performed due to the nature of the foot infection. Next, the abscess along the medial forefoot adjacent to the first metatarsophalangeal joint was then incised with a 15-blade scalpel. This abscess pocket was then evacuated and cultured with aerobic, anaerobic and Gram stain specimens and sent to laboratory. Significant amount of purulent fluid was noted along the medial aspect of the foot. Next, a second incision was made on the dorsum of the foot proximal to mid proximal to the first metatarsophalangeal joint. It was also adjacent to the extensor hallucis longus. The incision was deepened through the subcutaneous tissue. Significant abscess fluid was then encountered and then evacuated with suction. Next, there was direct contact with the extensor hallucis longus tendon, which was visualized and noted to be hypertrophic suppurative tenosynovitis. Rongeur was then used to perform tenosynovectomy and extensor hallucis longus was then carefully debrided of any necrotic-appearing tissue. Once this was completed, rongeur was then used to debride any devitalized tissue along the medial incision site. The tissue was debrided along the dorsal incision site and then a pulsatile lavage with 6 liters of fluid and bacitracin was then used to cleanse the medial incision and the dorsal incision until clear. Once this was completed, top gloves and top sheet were changed. Two 1/4-inch iodoform gauze drains were then packed in the medial incision and the dorsal incisions separately respectively. These were passed through a small stab incision proximal to the incisions. Next, the incisions were then loosely closed using interrupted 4-0 nylon sutures and then a sterile lightly compressive dressing was applied overwrapped with an Freedom wrap. Postop sheet was applied. The tourniquet was released. The patient was then awakened after local anesthetic was injected proximal to the incision sites, approximately 20 mL of 0.5% Marcaine plain. The patient was then awakened and taken to recovery in stable condition. I attest to the content of the Intraoperative Record and any orders documented therein. Any exception s are noted below.
[2017-05-26] MEDS: TRAMADOL HCL 50 MG TAB PO PRN (14:25)
--- NOTE | 2017-05-26 14:28 | Hospitalist Progress Note ---
Hospitalist Progress Note Date of Service May 26, 2017. Subjective Pt evaluation today including: conversation w/ patient, conversation w/ family () Pt very anxious, worried that his pain won't be adequately treated because of his known substance abuse history. Feels like people treat him differently because of that. Currently his pain is ok as he received IV Dilaudid after surgery and also likely due to receiving Marcaine injected into foot at end of surgery as per report. He admits he continues to use illicit drus including illegally obtained Suboxone , also Adderall, speed. No longer uses IV heroin or any IV drugs. Claims that either he or his brother used a needle and syringe to "dig in and suck out" pus from his foot abscess a few days ago. He knows he shouldn't use drugs and should get healthier, but then says it's "just recreational." Doesn't think he needs rehab. Very anxious, had loose stool this AM he thinks because of anxiety, but no true diarrhea. No CP, no SOB, no abd pain, no N/V, no itching All Other Systems: Reviewed and Negative Objective Vital Signs Date Time Temp Pulse Resp B/P (MAP) Pulse Ox O2 Delivery O2 Flow Rate FiO2 05/26/17 13:44 99 Room Air 05/26/17 13:35 37.0 122 18 135/81 (99) 96 Room Air 05/26/17 12:32 96 18 169/96 (120) 97 Room Air 05/26/17 12:04 105 18 168/107 (127) 97 Room Air 05/26/17 11:38 37.0 88 18 141/85 (103) 99 Room Air 05/26/17 11:35 Room Air 05/26/17 11:15 36.8 92 16 136/97 97 Room Air 05/26/17 11:05 36.8 93 16 132/91 97 Room Air 05/26/17 10:55 93 16 126/90 99 Room Air 05/26/17 10:45 100 16 139/89 100 Oxymask 10 05/26/17 10:35 99 16 133/88 100 Oxymask 10 05/26/17 10:26 37.0 97 16 125/94 100 Oxymask 10 05/26/17 07:25 Room Air 05/26/17 06:56 36.9 103 18 145/77 (99) 96 Room Air 05/25/17 23:55 Room Air 05/25/17 22:54 37.0 119 15 138/90 (106) 97 Room Air 05/25/17 18:37 37.5 122 18 133/77 97 Room Air 05/25/17 18:15 Room Air 05/25/17 18:15 37.5 122 18 133/77 (95) 97 Room Air 05/25/17 17:28 135 20 153/88 95 Room Air 05/25/17 16:37 124 05/25/17 16:22 122 17 153/88 97 Room Air 05/25/17 15:41 98 Room Air 05/25/17 14:30 36.9 144 16 156/74 98 Physical Exam General Appearance: WD/WN, + pertinent finding (overweight, rapid speech, mildly diaphoretic) Eyes: normal inspection, EOMI, sclerae normal ENT: hearing grossly normal Neck: trachea midline Respiratory/Chest: lungs clear, normal breath sounds, no respiratory distress, no accessory muscle use Cardiovascular: no edema, no gallop, no murmur, + tachycardia (mild, reg rhythm ) Abdomen: normal bowel sounds, non tender, soft, no organomegaly Extremities: no pedal edema, no calf tenderness, + pertinent finding (right foot in dressing and MARIAH wrap not removed post-op) Neurologic/Psychiatric: alert, oriented x 3, + pertinent finding (anxious) Skin: + rash (on upper back, maculopapular, erythematous), + diaphoresis Laboratory Results Last 24 Hours Test 05/25/17 15:00 05/25/17 15:36 05/25/17 15:40 05/26/17 00:16 Prothrombin Time 10.1 SECONDS Prothromb Time International Ratio 1.0 Activated Partial Thromboplast Time 27.4 SECONDS Partial Thromboplastin Ratio 1.1 Sodium Level 134 mmol/L Potassium Level 3.2 mmol/L Chloride Level 98 mmol/L Carbon Dioxide Level 30 mmol/L Anion Gap 6.0 mmol/L Blood Urea Nitrogen 16 mg/dl Creatinine 1.03 mg/dl Est Creatinine Clear Calc Drug Dose 112.1 ml/min Estimated GFR () 104.8 Estimated GFR (Non- 90.4 BUN/Creatinine Ratio 15.4 Random Glucose 102 mg/dl Calcium Level 9.0 mg/dl Total Bilirubin 0.2 mg/dl Aspartate Amino Transf (AST/SGOT) 16 U/L Alanine Aminotransferase (ALT/SGPT) 26 U/L Alkaline Phosphatase 82 U/L Total Protein 7.6 gm/dl Albumin 3.2 gm/dl Globulin 4.4 gm/dl Albumin/Globulin Ratio 0.7 White Blood Count 11.29 K/uL Red Blood Count 3.69 M/uL Hemoglobin 11.0 g/dL Hematocrit 31.9 % Mean Corpuscular Volume 86.4 fL Mean Corpuscular Hemoglobin 29.8 pg Mean Corpuscular Hemoglobin Concent 34.5 g/dl Platelet Count 195 K/uL Mean Platelet Volume 11.7 fL Neutrophils (%) (Auto) 77.8 % Lymphocytes (%) (Auto) 12.8 % Monocytes (%) (Auto) 8.0 % Eosinophils (%) (Auto) 0.7 % Basophils (%) (Auto) 0.3 % Neutrophils # (Auto) 8.79 K/uL Lymphocytes # (Auto) 1.45 K/uL Monocytes # (Auto) 0.90 K/uL Eosinophils # (Auto) 0.08 K/uL Basophils # (Auto) 0.03 K/uL RDW Standard Deviation 39.6 fL RDW Coefficient of Variation 12.4 % Immature Granulocyte % (Auto) 0.4 % Immature Granulocyte # (Auto) 0.04 K/uL Bedside Lactic Acid Venous 1.04 mmol/L Urine Color YELLOW Urine Appearance CLEAR Urine pH 6.5 Urine Specific [place] 1.009 Urine Protein NEG Urine Glucose (UA) NEG Urine Ketones NEG Urine Occult Blood NEG Urine Nitrite NEG Urine Bilirubin NEG Urine Urobilinogen NEG Urine Leukocyte Esterase NEG Urine WBC (Auto) 0 /hpf Urine RBC (Auto) 0-4 /hpf Urine Hyaline Casts (Auto) 0 /lpf Urine Epithelial Cells (Auto) 0-5 /lpf Urine Bacteria (Auto) NEG Urine Opiates Screen POS Urine Methadone, Qualitative NEG Urine Barbiturates NEG Urine Phencyclidine (PCP) Level NEG Ur Amphetamine/Methamphetamine POS MDMA (Ecstasy) Screen POS Urine Benzodiazepines Screen NEG Urine Cocaine Metabolite NEG Urine Marijuana (THC) NEG Test 05/26/17 05:03 05/26/17 05:04 White Blood Count 7.92 K/uL Red Blood Count 3.63 M/uL Hemoglobin 10.6 g/dL Hematocrit 31.6 % Mean Corpuscular Volume 87.1 fL Mean Corpuscular Hemoglobin 29.2 pg Mean Corpuscular Hemoglobin Concent 33.5 g/dl Platelet Count 198 K/uL Mean Platelet Volume 11.8 fL Neutrophils (%) (Auto) 68.2 % Lymphocytes (%) (Auto) 21.3 % Monocytes (%) (Auto) 8.0 % Eosinophils (%) (Auto) 1.5 % Basophils (%) (Auto) 0.5 % Neutrophils # (Auto) 5.40 K/uL Lymphocytes # (Auto) 1.69 K/uL Monocytes # (Auto) 0.63 K/uL Eosinophils # (Auto) 0.12 K/uL Basophils # (Auto) 0.04 K/uL RDW Standard Deviation 40.3 fL RDW Coefficient of Variation 12.5 % Immature Granulocyte % (Auto) 0.5 % Immature Granulocyte # (Auto) 0.04 K/uL Sodium Level 138 mmol/L Potassium Level 3.8 mmol/L Chloride Level 104 mmol/L Carbon Dioxide Level 28 mmol/L Anion Gap 6.0 mmol/L Blood Urea Nitrogen 13 mg/dl Creatinine 0.96 mg/dl 0.98 mg/dl Est Creatinine Clear Calc Drug Dose 120.3 ml/min 117.9 ml/min Estimated GFR () 114.1 111.3 Estimated GFR (Non- 98.5 96.1 BUN/Creatinine Ratio 13.7 Random Glucose 101 mg/dl Calcium Level 8.5 mg/dl Assessment and Plan Pt is a 42 y/o male with a h/o polysubstance abuse to include opiates and IV drugs, fungemia, depression/anxiety, and HTN, who developed pain and swelling of the dorsal aspect of his R foot 5 days prior following trauma. He states that he had tried to pop an apparent blister with a needle when it first occurred. He presented to the ER 05/22 and was initially placed on Keflex and DCd. He visited [facility] 2 days later and was placed on Clindamycin. Despite antibiotic use, the pain and swelling have progressed and the inflammation has spread. He reports having a fever at home, but none documented here. He denies any recent IV drug use. Incidentally, he cut the tip of his L mid finger the day of admission with a pair of scissors while cutting paper. 1) Cellulitis and abscesses x 2 of dorsal aspect of R foot/EHL suppurative tenosynovitis - now s/p I&D and tenosynovectomy by Orthopedics 05/26. Suspicious for IV drug abuse injection site which pt adamantly denies. Has a h/ o fungemia -continue Vanc and Ceftriaxone -follow BCxs and wound cxs collected intraoperatively -Appreciate Orthopedic management -will need Wound Care follow up -ok for acute pain control pos-op with IV Dilaudid (says due to h/o drug use, has high tolerance), tramadol with close monitoring 2) Depression/Anxiety/Polysubstance abuse -quite significant and inadequately treated. He has a therapist he sees once monthly or as needed in between visits. Admits to using drugs possibly to help with anxiey and also for "recreational use" to "get away." UDS positive here for opiates,amphetamines, and ecstasy (likely false positive from Wellbutrin), but received opiates here in ER. Does admit to abusing illicit amphetamines, illicit Suboxone. - cont Venlafaxine, Bupropion--> would benefit from increased dose but will defer to PCP managing -lorazepam po prn anxiety while here -advised on cessation from all illicit substances -needs close Psychiatric follow up and encouraged drug rehab after discharge 3) HTN - elevated in setting of pain and anxiety -cont Clonidine, Lisinopril -holding HCTZ today in setting of recent surgery , receiving post-op IVFs Proph-heparin SQ whn ok with Ortho Dispo- to home when medically stable Full code
[2017-05-26] MEDS: HYDROmorphone INJ 0.5 MG/0.5 ML SYR IV PRN ×2 (16:21→20:18)
--- NOTE | 2017-05-26 17:53 | Medical Consult ---
Consultation Date of Consultation: May 26, 2017. Attending Physician: Caprice Dimas MD Reason for Consultation: Right foot infection, status post I&D History of Present Illness 42-year-old male with history of IV drug abuse, prior episode of fungemia, who presented emergency room with 5 day history of progressively worsening right foot pain and swelling. Patient reports that he developed a small blister on the foot which he tried to pop with a needle, and subsequently developed evidence of progressively worsening infection. He bench he came to the emergency department where he was found to have evidence of abscess of the foot , and has now undergone surgical debridement and drainage.Operative cultures and Gram stain are pending. Patient currently without fever. Currently being treated with vancomycin and ceftriaxone. Has been tolerating antibiotic without apparent difficulty. Past Medical/Surgical History Medical Problems: (1) Abdominal pain Status: Acute (2) Anemia Status: Acute (3) Back pain Status: Acute (4) Cellulitis of foot Status: Acute (5) Cellulitis of right foot Status: Acute (6) Colitis Status: Acute (7) Colitis, acute Status: Acute (8) Constipation Status: Acute (9) Dehydration Status: Acute (10) Failure of outpatient treatment Status: Acute (11) Fungemia Status: Acute (12) Hypertension Status: Acute (13) Hypokalemia Status: Acute (14) Left-sided low back pain with sciatica Status: Acute (15) SIRS (systemic inflammatory response syndrome) Status: Acute Medical Problems: (1) ADH disorder (2) Anxiety (3) Drug Mental Disorder Nec (4) Drug Withdrawal (5) H/O drug abuse Surgical Problems: (1) No significant past surgical history Family History Diabetes mellitus FH: cancer Hypertension Social History Smoking Status: Never Smoker Alcohol Use: occasionally Drug Use: cocaine, heroin, other Marital Status: in relationship Housing Status: lives with significant other Occupation Status: unemployed Allergies Coded Allergies: Uncoded Nonscreenable Allergen (Verified Allergy, Unknown, WOOL CAUSES HIVES, 05/25/17) Magnesium Hydroxide (Verified Adverse Reaction, Severe, GI SYMPTOMS, 05/25) Current Inpatient Medications Current Inpatient Medications Medications (Trade) Dose Ordered Sig/John Route Start Time Stop Time Status Last Admin Dose Admin Bupropion HCl (Wellbutrin Tab) 100 mg DAILY PO 05/26/17 09:00 06/25/17 08:59 05/26/17 12:58 100 MG Clonidine HCl (Catapres Tab) 0.3 mg BID PO 05/25/17 21:00 06/24/17 20:59 05/26/17 12:57 0.3 MG Lisinopril (Zestril Tab) 20 mg DAILY PO 05/26/17 09:00 06/25/17 08:59 05/26/17 12:58 20 MG Venlafaxine HCl (effeXOR EXTENDED REL CAP) 75 mg DAILY PO 05/26/17 09:00 06/25/17 08:59 05/26/17 12:59 75 MG Ketorolac Tromethamine (Toradol Inj) 30 mg Q6H PRN IV 05/25/17 16:45 05/26/17 23:45 05/26/17 14:25 30 MG Ceftriaxone Sodium 1 gm/ Dextrose 50 ml @ 100 mls/hr Q24H IV 05/26/17 02:00 06/05/17 01:59 05/26/17 02:25 100 MLS/HR Acetaminophen (Tylenol Tab) 650 mg Q4H PRN PO 05/25/17 17:15 06/24/17 17:14 Al Hydrox/Mg Hydrox/Simethicone (Maalox Max Susp) 15 ml Q4H PRN PO 05/25/17 17:15 06/24/17 17:14 Polyethylene (Miralax Powder Packet) 17 gm DAILY PRN PO 05/25/17 17:15 06/24/17 17:14 Zolpidem Tartrate (Ambien Tab) 5 mg HSZ PRN PO 05/25/17 17:15 06/24/17 17:14 05/26/17 00:30 5 MG Ondansetron HCl (Zofran Inj) 4 mg Q6H PRN IV 05/25/17 17:15 06/24/17 17:14 05/26/17 13:16 4 MG Miscellaneous (Iv Fluids Completed) 1 ea PRN PRN N/A 05/25/17 18:15 05/25/18 18:14 Vancomycin HCl (Consult) 1 ea UD PRN N/A 05/25/17 18:30 06/24/17 18:29 Vancomycin HCl 1500 mg/Sodium Chloride 530 ml @ 200 mls/hr Q10H IV 05/26/17 04:00 06/04/17 13:59 05/26/17 14:03 200 MLS/HR Tramadol HCl (Ultram Tab) `1-2 tabs for pain 1 tab ... Q4H PRN PO 05/25/17 19:45 06/24/17 19:44 05/26/17 14:25 100 MG Hydromorphone HCl (Dilaudid Inj) 0.5 mg Q2H PRN IV 05/26/17 14:15 06/09/17 14:14 05/26/17 16:21 0.5 MG Lorazepam (Ativan Tab) 0.5 mg Q6 PRN PO 05/26/17 14:15 06/25/17 14:14 Review of Systems All systems were reviewed and are negative except as per HPI Physical Exam Date Time Temp Pulse Resp B/P (MAP) Pulse Ox O2 Delivery O2 Flow Rate FiO2 05/26/17 15:04 36.3 114 18 169/106 (127) 97 Room Air 05/26/17 14:31 36.3 106 16 162/100 (120) 97 Room Air 05/26/17 13:44 99 Room Air 05/26/17 13:35 37.0 122 18 135/81 (99) 96 Room Air 05/26/17 12:32 96 18 169/96 (120) 97 Room Air 05/26/17 12:04 105 18 168/107 (127) 97 Room Air 05/26/17 11:38 37.0 88 18 141/85 (103) 99 Room Air 05/26/17 11:35 Room Air 05/26/17 11:15 36.8 92 16 136/97 97 Room Air 05/26/17 11:05 36.8 93 16 132/91 97 Room Air 05/26/17 10:55 93 16 126/90 99 Room Air 05/26/17 10:45 100 16 139/89 100 Oxymask 10 05/26/17 10:35 99 16 133/88 100 Oxymask 10 05/26/17 10:26 37.0 97 16 125/94 100 Oxymask 10 05/26/17 07:25 Room Air 05/26/17 06:56 36.9 103 18 145/77 (99) 96 Room Air 05/25/17 23:55 Room Air 05/25/17 22:54 37.0 119 15 138/90 (106) 97 Room Air 05/25/17 18:37 37.5 122 18 133/77 97 Room Air 05/25/17 18:15 Room Air 05/25/17 18:15 37.5 122 18 133/77 (95) 97 Room Air General Appearance: WD/WN, no apparent distress Head: normocephalic, atraumatic Eyes: normal inspection, EOMI, sclerae normal ENT: normal ENT inspection, pharynx normal Neck: supple, no adenopathy, thyroid normal, trachea midline Respiratory/Chest: chest non-tender, lungs clear, normal breath sounds, no respiratory distress Cardiovascular: regular rate, rhythm, no gallop, no murmur Abdomen/GI: normal bowel sounds, non tender, soft, no organomegaly Back: normal inspection, no CVA tenderness Extremities/Musculoskelatal: no calf tenderness, normal capillary refill Neurologic/Psych: alert, oriented x 3 Skin: normal color, no rash, + pertinent finding (Bandage laceration left index finger, right foot surgical dressing intact) Lymphatic: no adenopathy Laboratory Results Date/Time Source Procedure Growth Status 05/26/17 09:40 Abscess Foot Right Gram Stain Pending Received 05/26/17 09:40 Abscess Foot Right Bacterial Culture Pending Received Last 24 Hours Test 05/26/17 00:16 05/26/17 05:03 05/26/17 05:04 Urine Color YELLOW Urine Appearance CLEAR Urine pH 6.5 Urine Specific [place] 1.009 Urine Protein NEG Urine Glucose (UA) NEG Urine Ketones NEG Urine Occult Blood NEG Urine Nitrite NEG Urine Bilirubin NEG Urine Urobilinogen NEG Urine Leukocyte Esterase NEG Urine WBC (Auto) 0 /hpf Urine RBC (Auto) 0-4 /hpf Urine Hyaline Casts (Auto) 0 /lpf Urine Epithelial Cells (Auto) 0-5 /lpf Urine Bacteria (Auto) NEG Urine Opiates Screen POS Urine Methadone, Qualitative NEG Urine Barbiturates NEG Urine Phencyclidine (PCP) Level NEG Ur Amphetamine/Methamphetamine POS MDMA (Ecstasy) Screen POS Urine Benzodiazepines Screen NEG Urine Cocaine Metabolite NEG Urine Marijuana (THC) NEG White Blood Count 7.92 K/uL Red Blood Count 3.63 M/uL Hemoglobin 10.6 g/dL Hematocrit 31.6 % Mean Corpuscular Volume 87.1 fL Mean Corpuscular Hemoglobin 29.2 pg Mean Corpuscular Hemoglobin Concent 33.5 g/dl Platelet Count 198 K/uL Mean Platelet Volume 11.8 fL Neutrophils (%) (Auto) 68.2 % Lymphocytes (%) (Auto) 21.3 % Monocytes (%) (Auto) 8.0 % Eosinophils (%) (Auto) 1.5 % Basophils (%) (Auto) 0.5 % Neutrophils # (Auto) 5.40 K/uL Lymphocytes # (Auto) 1.69 K/uL Monocytes # (Auto) 0.63 K/uL Eosinophils # (Auto) 0.12 K/uL Basophils # (Auto) 0.04 K/uL RDW Standard Deviation 40.3 fL RDW Coefficient of Variation 12.5 % Immature Granulocyte % (Auto) 0.5 % Immature Granulocyte # (Auto) 0.04 K/uL Sodium Level 138 mmol/L Potassium Level 3.8 mmol/L Chloride Level 104 mmol/L Carbon Dioxide Level 28 mmol/L Anion Gap 6.0 mmol/L Blood Urea Nitrogen 13 mg/dl Creatinine 0.96 mg/dl 0.98 mg/dl Est Creatinine Clear Calc Drug Dose 120.3 ml/min 117.9 ml/min Estimated GFR () 114.1 111.3 Estimated GFR (Non- 98.5 96.1 BUN/Creatinine Ratio 13.7 Random Glucose 101 mg/dl Calcium Level 8.5 mg/dl Assessment & Plan Right foot abscess in the setting of possible IV drug abuse and local injection , cultures are pending. Current therapy with vancomycin and ceftriaxone pending final culture results. Will adjust once these are available. Will follow.
[2017-05-26] MEDS: LORAZEPAM 0.5 MG TAB PO PRN (20:15)
[2017-05-27] MEDS: VANCOMYCIN INJ 1,500 MG in SODIUM CHLORIDE 0.9% 500ML 500 ML IV SCH ×3 (00:24→21:19)
[2017-05-27] MEDS: HYDROmorphone INJ 0.5 MG/0.5 ML SYR IV PRN ×4 (00:25→16:17)
[2017-05-27] MEDS: CEFTRIAXONE SOD INJ 1 GM in DEXTROSE 5% ADD-VANTAGE 50ML 50 ML IV SCH (02:48)
[2017-05-27] MEDS: LORAZEPAM 0.5 MG TAB PO PRN ×3 (03:01→18:04)
[2017-05-27 03:05] VITALS: BP 129/87; PULSE 100; TEMP 36.7; O2SAT 97
[2017-05-27 06:18] LABS: BASO % 0.1 %; BASO ABS # 0.01 K/uL (0-0.2); HEMATOCRIT 30.8 % (42-52); HEMOGLOBIN 10.4 g/dL (14.0-18.0); IG# 0.03 K/uL (0.00-0.02); LYMPH % 9.2 %; LYMPH ABS # 1.06 K/uL (1.2-3.4); MEAN CELL VOLUME 87.7 fL (80-100); MEAN CORPUSCULAR HEMOGLOBIN 29.6 pg (25-34); MEAN CORPUSCULAR HGB CONC 33.8 g/dl (32-36); MEAN PLATELET VOLUME 11.9 fL (7.4-10.4); MONO % 7.2 %; MONO ABS # 0.83 K/uL (0.11-0.59); NEUT % 83.2 %; NEUT ABS # 9.62 K/uL (1.4-6.5); PLATELET COUNT 232 K/uL (130-400); RED CELL DISTRIBUTION WIDTH CV 12.8 % (11.5-14.5); WHITE BLOOD COUNT 11.55 K/uL (4.8-10.8)
[2017-05-27 06:43] LABS: CALCIUM 8.8 mg/dl (8.5-10.1); CREATININE 1.12 mg/dl (0.60-1.40); POTASSIUM 3.8 mmol/L (3.5-5.1)
[2017-05-27 07:39] VITALS: BP 109/70; PULSE 75; TEMP 35.7; O2SAT 97
[2017-05-27] MEDS: CLONIDINE HCL 0.3 MG TAB PO SCH ×2 (08:52→21:20)
[2017-05-27] MEDS: VENLAFAXINE HCL XR 75 MG CAPXR PO SCH (08:52)
[2017-05-27] MEDS: LISINOPRIL 20 MG TAB PO SCH (08:52)
[2017-05-27] MEDS ORDERED: VANCOMYCIN TROUGH ONE (09:30)
[2017-05-27] MEDS: TRAMADOL HCL 50 MG TAB PO PRN (09:50)
--- NOTE | 2017-05-27 10:27 | Orthopedic Progress Note ---
Orthopedic Progress Note Date of Service May 27, 2017. Subjective Post OP Day: 1 Reports: feeling well, pain controlled w PO medications, Denies: complaints, chest pain, SOB, nausea / vomiting, light headedness, calf pain Objective calves soft nontender, N/V intact, capillary refill less than 2 sec., dressing C /D/I, A&O x3, toes mobile Date Time Temp Pulse Resp B/P (MAP) Pulse Ox O2 Delivery O2 Flow Rate FiO2 05/27/17 07:39 35.7 75 17 109/70 (83) 97 Room Air 05/27/17 03:05 36.7 100 16 129/87 (101) 97 Room Air 05/27/17 00:25 Room Air 05/26/17 23:15 36.6 102 18 138/88 (105) 97 Room Air 05/26/17 19:19 36.6 125 18 143/79 (100) 97 Room Air 05/26/17 16:00 Room Air 05/26/17 15:04 36.3 114 18 169/106 (127) 97 Room Air 05/26/17 14:31 36.3 106 16 162/100 (120) 97 Room Air 05/26/17 13:44 99 Room Air 05/26/17 13:35 37.0 122 18 135/81 (99) 96 Room Air 05/26/17 12:32 96 18 169/96 (120) 97 Room Air 05/26/17 12:04 105 18 168/107 (127) 97 Room Air 05/26/17 11:38 37.0 88 18 141/85 (103) 99 Room Air 05/26/17 11:35 Room Air 05/26/17 11:15 36.8 92 16 136/97 97 Room Air 05/26/17 11:05 36.8 93 16 132/91 97 Room Air 05/26/17 10:55 93 16 126/90 99 Room Air 05/26/17 10:45 100 16 139/89 100 Oxymask 10 05/26/17 10:35 99 16 133/88 100 Oxymask 10 05/26/17 10:26 37.0 97 16 125/94 100 Oxymask 10 Laboratory Results 24 Hours: Test 05/27/17 05:11 White Blood Count 11.55 K/uL Red Blood Count 3.51 M/uL Hemoglobin 10.4 g/dL Hematocrit 30.8 % Mean Corpuscular Volume 87.7 fL Mean Corpuscular Hemoglobin 29.6 pg Mean Corpuscular Hemoglobin Concent 33.8 g/dl Platelet Count 232 K/uL Mean Platelet Volume 11.9 fL Neutrophils (%) (Auto) 83.2 % Lymphocytes (%) (Auto) 9.2 % Monocytes (%) (Auto) 7.2 % Eosinophils (%) (Auto) 0.0 % Basophils (%) (Auto) 0.1 % Neutrophils # (Auto) 9.62 K/uL Lymphocytes # (Auto) 1.06 K/uL Monocytes # (Auto) 0.83 K/uL Eosinophils # (Auto) 0.00 K/uL Basophils # (Auto) 0.01 K/uL Assessment & Plan Assessment: POD #1, Right Foot I&D abscess X2 locations(16) 1) Abdominal pain Status: Acute (2) Anemia Status: Acute (3) Back pain Status: Acute (4) Cellulitis of foot Status: Acute (5) Cellulitis of right foot Status: Acute (6) Colitis Status: Acute (7) Colitis, acute Status: Acute (8) Constipation Status: Acute (9) Dehydration Status: Acute (10) Failure of outpatient treatment Status: Acute (11) Fungemia Status: Acute (12) Hypertension Status: Acute (13) Hypokalemia Status: Acute (14) Left-sided low back pain with sciatica Status: Acute (15) SIRS (systemic inflammatory response syndrome) Status: Acute (16) IV drug Abuse Plan: PT/ OT- Heel touch weight bearing Await final cultures, Gram Stain- Gram pos cocci, Cultures Pending. Appreciate ID input- On [place]ard As per Medicine.
[2017-05-27] MEDS: ONDANSETRON INJ 2 MG/ML 2 ML VIAL IV PRN (11:30)
[2017-05-27 15:56] VITALS: BP 164/99; PULSE 84; TEMP 36.5; O2SAT 95
--- NOTE | 2017-05-27 17:45 | Hospitalist Progress Note ---
Hospitalist Progress Note Date of Service May 27, 2017. Subjective Pt evaluation today including: conversation w/ patient Patient reports pain in his foot is worse today-explain the this could be because the Glenny wore off from yesterday. RN reports he frequently asked for Dilaudid and Ativan and wants them given at the same time. Afebrile Psychiatric: + anxiety, + substance abuse All Other Systems: Reviewed and Negative Objective Vital Signs Date Time Temp Pulse Resp B/P (MAP) Pulse Ox O2 Delivery O2 Flow Rate FiO2 05/27/17 15:56 36.5 84 18 164/99 (120) 95 Room Air 05/27/17 08:15 Room Air 05/27/17 07:39 35.7 75 17 109/70 (83) 97 Room Air 05/27/17 03:05 36.7 100 16 129/87 (101) 97 Room Air 05/27/17 00:25 Room Air 05/26/17 23:15 36.6 102 18 138/88 (105) 97 Room Air 05/26/17 19:19 36.6 125 18 143/79 (100) 97 Room Air Physical Exam General Appearance: WD/WN, no apparent distress (sleeping when I walked in the room, but then complained of significant pain in his foot a few minutes later) Eyes: normal inspection, sclerae normal ENT: hearing grossly normal Neck: trachea midline Respiratory/Chest: lungs clear, normal breath sounds, no respiratory distress, no accessory muscle use Cardiovascular: regular rate, rhythm, no gallop, no murmur Abdomen: normal bowel sounds, non tender, soft Extremities: no calf tenderness, + pertinent finding (right foot and ankle remain wrapped in dressing and Freedom bandage not removed; left index finger dressing removed and lateral portion with superficial wound approximately 0.75 X0.75 cm that is nonbleeding, no erythema or drainage) Neurologic/Psychiatric: alert, normal mood/affect Skin: normal color, no rash, + diaphoresis Laboratory Results Last 24 Hours Test 05/27/17 05:11 05/27/17 09:17 05/27/17 10:00 White Blood Count 11.55 K/uL Red Blood Count 3.51 M/uL Hemoglobin 10.4 g/dL Hematocrit 30.8 % Mean Corpuscular Volume 87.7 fL Mean Corpuscular Hemoglobin 29.6 pg Mean Corpuscular Hemoglobin Concent 33.8 g/dl Platelet Count 232 K/uL Mean Platelet Volume 11.9 fL Neutrophils (%) (Auto) 83.2 % Lymphocytes (%) (Auto) 9.2 % Monocytes (%) (Auto) 7.2 % Eosinophils (%) (Auto) 0.0 % Basophils (%) (Auto) 0.1 % Neutrophils # (Auto) 9.62 K/uL Lymphocytes # (Auto) 1.06 K/uL Monocytes # (Auto) 0.83 K/uL Eosinophils # (Auto) 0.00 K/uL Basophils # (Auto) 0.01 K/uL RDW Standard Deviation 41.0 fL RDW Coefficient of Variation 12.8 % Immature Granulocyte % (Auto) 0.3 % Immature Granulocyte # (Auto) 0.03 K/uL Sodium Level 140 mmol/L Potassium Level 3.8 mmol/L Chloride Level 106 mmol/L Carbon Dioxide Level 25 mmol/L Anion Gap 9.0 mmol/L Blood Urea Nitrogen 23 mg/dl Creatinine 1.12 mg/dl Est Creatinine Clear Calc Drug Dose 103.1 ml/min Estimated GFR () 94.7 Estimated GFR (Non- 81.7 BUN/Creatinine Ratio 20.4 Random Glucose 144 mg/dl Calcium Level 8.8 mg/dl Vancomycin Level Trough 15.5 mcg/ml Urine Opiates Screen POS Urine Methadone, Qualitative NEG Urine Barbiturates NEG Urine Phencyclidine (PCP) Level NEG Ur Amphetamine/Methamphetamine POS MDMA (Ecstasy) Screen POS Urine Benzodiazepines Screen POS Urine Cocaine Metabolite NEG Urine Marijuana (THC) NEG Assessment and Plan Pt is a 42 y/o male with a h/o polysubstance abuse to include opiates and IV drugs, fungemia, depression/anxiety, and HTN, who developed pain and swelling of the dorsal aspect of his R foot 5 days prior following trauma. He states that he had tried to pop an apparent blister with a needle when it first occurred. He presented to the ER 05/22 and was initially placed on Keflex and DCd. He visited [facility] 2 days later and was placed on Clindamycin. Despite antibiotic use, the pain and swelling have progressed and the inflammation has spread. He reports having a fever at home, but none documented here. He denies any recent IV drug use. Incidentally, he cut the tip of his L mid finger the day of admission with a pair of scissors while cutting paper. 1) Cellulitis and abscesses x 2 of dorsal aspect of R foot/EHL suppurative tenosynovitis - now s/p I&D and tenosynovectomy by Orthopedics 05/26. Suspicious for IV drug abuse injection site which pt adamantly denies. Has a h/ o fungemia Gram stain with rare GPC, no growth in culture so far -continue Vanc and Ceftriaxone -follow BCxs and wound cxs collected intraoperatively -Appreciate Orthopedic management -will need Wound Care follow up -ok for acute pain control pos-op with IV Dilaudid (says due to h/o drug use, has high tolerance); patient states that tramadol doesn't work for him -plan to switch to by mouth pain meds and the next 1-2 days prior to discharge 2) Depression/Anxiety/Polysubstance abuse -quite significant and inadequately treated likely secondary to patient choice. He has a therapist he sees once monthly or as needed in between visits. Admits to using drugs possibly to help with anxiety and also for "recreational use" to "get away." He is in denial that he has a significant substance abuse problem. UDS positive here for opiates,amphetamines, and ecstasy (likely false positive from Wellbutrin), but received opiates here in ER. Does admit to abusing illicit amphetamines, illicit Suboxone. Repeat urine drug screen was done for suspicions as per nursing of patient's spouse bringing outside medications in for the patient although this has not been proven. That urine drug screen is consistent with medications he is getting here plus amphetamines still positive which patient does admit to abusing prior to admission - cont Venlafaxine, Bupropion--> would benefit from increased dose but will defer to PCP managing -lorazepam po prn anxiety while here -advised on cessation from all illicit substances -needs close Psychiatric follow up and encouraged drug rehab after discharge 3) HTN - elevated in setting of pain and anxiety -cont Clonidine, Lisinopril -Previously holding HCTZ in setting of recent surgery, but can restart in the morning 4) left index finger finger wound-appears to be healing well, no signs of infection -Advised nurse to redress wound with Adaptic, gauze, and Coban wrap daily after cleansing Proph-heparin SQ when ok with Ortho Dispo- to home when medically stable Full code
[2017-05-27] MEDS ORDERED: NALOXONE HCL 0.4 MG/1 ML VIAL/CARP IV PRN (18:30)
[2017-05-27 20:12] VITALS: PULSE 96; O2SAT 99
[2017-05-27] MEDS: OXYCODONE/ACETAMINOPHEN 5-325 TAB PO PRN (21:20)
[2017-05-27 21:30] VITALS: PULSE 91; O2SAT 96
[2017-05-27 22:47] VITALS: BP 150/95; PULSE 77; TEMP 36.4; O2SAT 97
[2017-05-27] MEDS: KETOROLAC TROMETHAMINE 30 MG/ML VIAL IV PRN (23:19)
[2017-05-28] MEDS: CEFTRIAXONE SOD INJ 1 GM in DEXTROSE 5% ADD-VANTAGE 50ML 50 ML IV SCH (00:45)
[2017-05-28 02:25] VITALS: PULSE 62; O2SAT 98
[2017-05-28] MEDS: OXYCODONE/ACETAMINOPHEN 5-325 TAB PO PRN ×5 (02:29→20:14)
[2017-05-28] MEDS: VANCOMYCIN INJ 1,500 MG in SODIUM CHLORIDE 0.9% 500ML 500 ML IV SCH ×2 (05:42→15:48)
[2017-05-28] MEDS: KETOROLAC TROMETHAMINE 30 MG/ML VIAL IV PRN ×3 (05:47→18:42)
[2017-05-28 06:19] LABS: BASO % 0.5 %; BASO ABS # 0.03 K/uL (0-0.2); EOS % 1.8 %; EOS ABS # 0.11 K/uL (0-0.5); HEMATOCRIT 30.7 % (42-52); HEMOGLOBIN 9.9 g/dL (14.0-18.0); IG# 0.06 K/uL (0.00-0.02); LYMPH ABS # 2.06 K/uL (1.2-3.4); MEAN CELL VOLUME 88.7 fL (80-100); MEAN CORPUSCULAR HEMOGLOBIN 28.6 pg (25-34); MEAN CORPUSCULAR HGB CONC 32.2 g/dl (32-36); MONO % 6.9 %; MONO ABS # 0.43 K/uL (0.11-0.59); NEUT % 56.8 %; NEUT ABS # 3.56 K/uL (1.4-6.5); PLATELET COUNT 203 K/uL (130-400); RED CELL DISTRIBUTION WIDTH CV 12.8 % (11.5-14.5); RED CELL DISTRIBUTION WIDTH SD 41.6 fL (36.4-46.3); WHITE BLOOD COUNT 6.25 K/uL (4.8-10.8)
[2017-05-28 06:40] LABS: CALCIUM 8.3 mg/dl (8.5-10.1); CREATININE 1.07 mg/dl (0.60-1.40); POTASSIUM 3.5 mmol/L (3.5-5.1)
[2017-05-28 07:33] VITALS: BP 150/99; PULSE 70; TEMP 36.5; O2SAT 99
[2017-05-28] MEDS: CLONIDINE HCL 0.3 MG TAB PO SCH ×2 (07:46→21:23)
[2017-05-28] MEDS: LISINOPRIL 20 MG TAB PO SCH (07:47)
[2017-05-28] MEDS: HYDROCHLOROTHIAZIDE 50 MG TAB PO SCH (07:56)
[2017-05-28] MEDS: VENLAFAXINE HCL XR 150 MG CAPXR PO SCH (07:57)
--- NOTE | 2017-05-28 09:51 | Infectious Disease Progress Nt ---
Progress Note Date of Service May 28, 2017. Subjective Pt evaluation today including: conversation w/ patient, conversation w/ family , physical exam, chart review, lab review, review of studies, conversation w/ [employer] consultant, review of inpatient medication list Patient feeling better today with less pain in his right foot. Able to move toes better. No fever. Tolerating antibiotics without apparent difficulty. Operative cultures are pending, Gram stain shows gram-positive cocci. All Other Systems: Reviewed and Negative Medications Current Inpatient Medications Medications (Trade) Dose Ordered Sig/John Route Start Time Stop Time Status Last Admin Dose Admin Bupropion HCl (Wellbutrin Tab) 100 mg DAILY PO 05/26/17 09:00 06/25/17 08:59 05/28/17 07:45 100 MG Clonidine HCl (Catapres Tab) 0.3 mg BID PO 05/25/17 21:00 06/24/17 20:59 05/28/17 07:46 0.3 MG Lisinopril (Zestril Tab) 20 mg DAILY PO 05/26/17 09:00 06/25/17 08:59 05/28/17 07:47 20 MG Ceftriaxone Sodium 1 gm/ Dextrose 50 ml @ 100 mls/hr Q24H IV 05/26/17 02:00 06/05/17 01:59 05/28/17 00:45 100 MLS/HR Acetaminophen (Tylenol Tab) 650 mg Q4H PRN PO 05/25/17 17:15 06/24/17 17:14 05/27/17 12:26 650 MG Al Hydrox/Mg Hydrox/Simethicone (Maalox Max Susp) 15 ml Q4H PRN PO 05/25/17 17:15 06/24/17 17:14 Polyethylene (Miralax Powder Packet) 17 gm DAILY PRN PO 05/25/17 17:15 06/24/17 17:14 Zolpidem Tartrate (Ambien Tab) 5 mg HSZ PRN PO 05/25/17 17:15 06/24/17 17:14 05/26/17 00:30 5 MG Ondansetron HCl (Zofran Inj) 4 mg Q6H PRN IV 05/25/17 17:15 06/24/17 17:14 05/27/17 11:30 4 MG Miscellaneous (Iv Fluids Completed) 1 ea PRN PRN N/A 05/25/17 18:15 05/25/18 18:14 Vancomycin HCl (Consult) 1 ea UD PRN N/A 05/25/17 18:30 06/24/17 18:29 Vancomycin HCl 1500 mg/Sodium Chloride 530 ml @ 200 mls/hr Q10H IV 05/26/17 04:00 06/04/17 13:59 05/28/17 05:42 200 MLS/HR Venlafaxine HCl (effeXOR EXTENDED REL CAP) 75 mg Q2D@0900 PO 05/29/17 09:00 06/28/17 08:59 Venlafaxine HCl (effeXOR EXTENDED REL CAP) 150 mg Q2D@0900 PO 05/28/17 09:00 06/27/17 08:59 05/28/17 07:57 150 MG Hydrochlorothiazide (Hydrochlorothiazide Tab) 50 mg QAM PO 05/28/17 09:00 06/27/17 08:59 05/28/17 07:56 50 MG Oxycodone/ Acetaminophen (Percocet 5-325mg Tab) `1-2 tabs for pain 1 tab ... Q4H PRN PO 05/27/17 18:15 06/10/17 18:14 05/28/17 07:42 2 TAB Ketorolac Tromethamine (Toradol Inj) 30 mg Q6H PRN IV 05/27/17 18:15 05/30/17 18:14 05/28/17 05:47 30 MG Naloxone HCl (Narcan Inj) 0.4 mg Q1H PRN IV 05/27/17 18:30 06/26/17 18:29 Objective Vital Signs Date Time Temp Pulse Resp B/P (MAP) Pulse Ox O2 Delivery O2 Flow Rate FiO2 05/28/17 07:40 Room Air 05/28/17 07:33 36.5 70 12 150/99 (116) 99 Room Air 05/28/17 02:25 62 14 98 Room Air 05/27/17 23:15 Room Air 05/27/17 22:47 36.4 77 16 150/95 (113) 97 Room Air 05/27/17 21:30 91 96 Room Air 05/27/17 20:12 96 99 Room Air 05/27/17 16:00 Room Air 05/27/17 15:56 36.5 84 18 164/99 (120) 95 Room Air Physical Exam General Appearance: WD/WN, no apparent distress Eyes: normal inspection, EOMI, sclerae normal ENT: normal ENT inspection, pharynx normal Neck: supple, no adenopathy, thyroid normal, trachea midline Respiratory/Chest: chest non-tender, lungs clear, normal breath sounds, no respiratory distress Cardiovascular: regular rate, rhythm, no gallop, no murmur Abdomen: normal bowel sounds, non tender, soft, no organomegaly Extremities: non-tender, no calf tenderness, normal capillary refill Neurologic/Psychiatric: alert, oriented x 3 Skin: normal color, no rash, + pertinent finding (Surgical dressing intact right foot) Lymphatic: no adenopathy Laboratory Results RUN DATE: 05/28/17 [facility] LAB PAGE 1 RUN TIME: 0842 Specimen Inquiry PATIENT: LORRIE CARLOS LOC: [place] U # : [id number] AGE/SX: 42/M ROOM: [facility] REG : 05/26/[address]: Caprice Dimas MD : 1975 BED: 2 DIS : STATUS: ADM IN TLOC: SPEC #: [id number] PHILIP: 05/26/17 STATUS: RES REQ #: [id number] RECD: 05/26/17-1037 [facility] DR: Caprice Dimas MD SOURCE: ABSCESS ENTR: 05/26/17-[address]: Mane Garcia D.O. SPDESC: FOOT RIGHT Boyd Ruiz M.D. Patterson, Jennifer., D.O. Wiedemer, Joseph P. M.D. ORDERED: AER/MAURO CULTSMR Procedure Result Verified Site GRAM STAIN Final 05/27/17-07 RESULT MODERATE POLYS RARE GRAM POSITIVE COCCI OR AER/MAURO CULT Preliminary 05/28/17-0842 <No reportable results for this procedure> Last 24 Hours Test 05/27/17 10:00 05/28/17 05:58 Urine Opiates Screen POS Urine Methadone, Qualitative NEG Urine Barbiturates NEG Urine Phencyclidine (PCP) Level NEG Ur Amphetamine/Methamphetamine POS MDMA (Ecstasy) Screen POS Urine Benzodiazepines Screen POS Urine Cocaine Metabolite NEG Urine Marijuana (THC) NEG White Blood Count 6.25 K/uL Red Blood Count 3.46 M/uL Hemoglobin 9.9 g/dL Hematocrit 30.7 % Mean Corpuscular Volume 88.7 fL Mean Corpuscular Hemoglobin 28.6 pg Mean Corpuscular Hemoglobin Concent 32.2 g/dl Platelet Count 203 K/uL Mean Platelet Volume 11.0 fL Neutrophils (%) (Auto) 56.8 % Lymphocytes (%) (Auto) 33.0 % Monocytes (%) (Auto) 6.9 % Eosinophils (%) (Auto) 1.8 % Basophils (%) (Auto) 0.5 % Neutrophils # (Auto) 3.56 K/uL Lymphocytes # (Auto) 2.06 K/uL Monocytes # (Auto) 0.43 K/uL Eosinophils # (Auto) 0.11 K/uL Basophils # (Auto) 0.03 K/uL RDW Standard Deviation 41.6 fL RDW Coefficient of Variation 12.8 % Immature Granulocyte % (Auto) 1.0 % Immature Granulocyte # (Auto) 0.06 K/uL Sodium Level 140 mmol/L Potassium Level 3.5 mmol/L Chloride Level 110 mmol/L Carbon Dioxide Level 25 mmol/L Anion Gap 5.0 mmol/L Blood Urea Nitrogen 21 mg/dl Creatinine 1.07 mg/dl Est Creatinine Clear Calc Drug Dose 107.9 ml/min Estimated GFR () 100.1 Estimated GFR (Non- 86.4 BUN/Creatinine Ratio 19.2 Random Glucose 108 mg/dl Calcium Level 8.3 mg/dl Assessment and Plan Right foot abscess in the setting of possible IV drug abuse and local injection , cultures are pending, Gram stain suggestive of possible staph infection. Patient should continue on present antibiotic therapy and will follow clinical response determined length of IV antibiotic therapy as well as need for further surgery. Will follow.
--- NOTE | 2017-05-28 13:27 | Orthopedic Progress Note ---
Orthopedic Progress Note Date of Service May 28, 2017. Subjective Post OP Day: 2 Reports: feeling well, Denies: complaints Objective calves soft nontender Foot dressing removed. Dorsum of foot and medial aspect with moderate erythema. Pt has 2 wounds noted. One on the dorsum of the foot which has little to no drainage noted. Medial wound with mild drainage. There are 2 strands of iodiform packing noted, one going into the dorsal wound and one into the medial wound. 6" of packing were removed from each. Wounds redressed. Date Time Temp Pulse Resp B/P (MAP) Pulse Ox O2 Delivery O2 Flow Rate FiO2 05/28/17 07:40 Room Air 05/28/17 07:33 36.5 70 12 150/99 (116) 99 Room Air 05/28/17 02:25 62 14 98 Room Air 05/27/17 23:15 Room Air 05/27/17 22:47 36.4 77 16 150/95 (113) 97 Room Air 05/27/17 21:30 91 96 Room Air 05/27/17 20:12 96 99 Room Air 05/27/17 16:00 Room Air 05/27/17 15:56 36.5 84 18 164/99 (120) 95 Room Air Laboratory Results 24 Hours: Test 05/28/17 05:58 White Blood Count 6.25 K/uL Red Blood Count 3.46 M/uL Hemoglobin 9.9 g/dL Hematocrit 30.7 % Mean Corpuscular Volume 88.7 fL Mean Corpuscular Hemoglobin 28.6 pg Mean Corpuscular Hemoglobin Concent 32.2 g/dl Platelet Count 203 K/uL Mean Platelet Volume 11.0 fL Neutrophils (%) (Auto) 56.8 % Lymphocytes (%) (Auto) 33.0 % Monocytes (%) (Auto) 6.9 % Eosinophils (%) (Auto) 1.8 % Basophils (%) (Auto) 0.5 % Neutrophils # (Auto) 3.56 K/uL Lymphocytes # (Auto) 2.06 K/uL Monocytes # (Auto) 0.43 K/uL Eosinophils # (Auto) 0.11 K/uL Basophils # (Auto) 0.03 K/uL Additional Notes: RUN DATE: 05/28/17 [facility] LAB PAGE 1 RUN TIME: 1237 Specimen Inquiry PATIENT: LORRIE CARLOS LOC: [place] U # : [id number] AGE/SX: 42/M ROOM: [facility] REG : 05/26/[address]: Caprice Dimas MD : 1975 BED: 2 DIS : STATUS: ADM IN TLOC: SPEC #: [id number] PHILIP: 05/26/17 STATUS: RES REQ #: [id number] RECD: 05/26/17-[address]: Caprice Dimas MD SOURCE: ABSCESS ENTR: 05/26/17-[address] [facility] [address]: Mane Garcia D.O. SPDESC: FOOT RIGHT Boyd Ruiz M.D. Patterson, Jennifer., D.O. Wiedemer, Joseph P. M.D. ORDERED: AER/MAURO CULTSMR Procedure Result Verified Site GRAM STAIN Final 05/27/17 RESULT MODERATE POLYS RARE GRAM POSITIVE COCCI OR AER/MAURO CULT Preliminary 05/28/17-8826 Organism 1 GAMMA STREP NOT ENTEROCOCCUS QUANITY FEW SENS NO SENSITIVITY TO FOLLOW Organism 2 MARY ALBICANS QUANITY RARE SENS NO SENSITIVITY TO FOLLOW Assessment & Plan Assessment: POD #1, Right Foot I&D abscess X2 locations(16) 1) Abdominal pain Status: Acute (2) Anemia Status: Acute (3) Back pain Status: Acute (4) Cellulitis of foot Status: Acute (5) Cellulitis of right foot Status: Acute (6) Colitis Status: Acute (7) Colitis, acute Status: Acute (8) Constipation Status: Acute (9) Dehydration Status: Acute (10) Failure of outpatient treatment Status: Acute (11) Fungemia Status: Acute (12) Hypertension Status: Acute (13) Hypokalemia Status: Acute (14) Left-sided low back pain with sciatica Status: Acute (15) SIRS (systemic inflammatory response syndrome) Status: Acute (16) IV drug Abuse Plan: PT/ OT- Heel touch weight bearing Await final cultures - Currently showing Gamma Strep and Mary Appreciate ID input- On Vanco and Rocephin As per Medicine.
--- NOTE | 2017-05-28 14:34 | Progress Note ---
Subjective Date of Service: May 28, 2017. Subjective Pt evaluation today including: conversation w/ patient, conversation w/ family , physical exam Patient states that he will not take any drugs that are not prescribed by me while he is in the hopsital. He however, no longer wants a 1 to 1 in the room. He states that if there is any suspicion that he is taking a drug then he will not argue. Problem List Medical Problems: (1) Abdominal pain Status: Acute (2) Anemia Status: Acute (3) Back pain Status: Acute (4) Cellulitis of foot Status: Acute (5) Cellulitis of right foot Status: Acute (6) Colitis Status: Acute (7) Colitis, acute Status: Acute (8) Constipation Status: Acute (9) Dehydration Status: Acute (10) Failure of outpatient treatment Status: Acute (11) Fungemia Status: Acute (12) Hypertension Status: Acute (13) Hypokalemia Status: Acute (14) Left-sided low back pain with sciatica Status: Acute (15) SIRS (systemic inflammatory response syndrome) Status: Acute Review of Systems Constitutional: No fever, No chills ENT: No hearing loss, No unusual epistaxis Respiratory: No cough, No sputum Abdomen: No pain, No nausea Psychiatric: No depression symptoms, No anhedonism Endo: No fatigue Skin: No rash, No itch All Other Systems: Reviewed and Negative Medications Current Inpatient Medications Medications (Trade) Dose Ordered Sig/John Route Start Time Stop Time Status Last Admin Dose Admin Bupropion HCl (Wellbutrin Tab) 100 mg DAILY PO 05/26/17 09:00 06/25/17 08:59 05/28/17 07:45 100 MG Clonidine HCl (Catapres Tab) 0.3 mg BID PO 05/25/17 21:00 06/24/17 20:59 05/28/17 21:23 0.3 MG Lisinopril (Zestril Tab) 20 mg DAILY PO 05/26/17 09:00 06/25/17 08:59 05/28/17 07:47 20 MG Ceftriaxone Sodium 1 gm/ Dextrose 50 ml @ 100 mls/hr Q24H IV 05/26/17 02:00 06/05/17 01:59 05/28/17 00:45 100 MLS/HR Acetaminophen (Tylenol Tab) 650 mg Q4H PRN PO 05/25/17 17:15 1/29/18 17:14 05/27/17 12:26 650 MG Al Hydrox/Mg Hydrox/Simethicone (Maalox Max Susp) 15 ml Q4H PRN PO 05/25/17 17:15 06/24/17 17:14 Polyethylene (Miralax Powder Packet) 17 gm DAILY PRN PO 05/25/17 17:15 06/24/17 17:14 Zolpidem Tartrate (Ambien Tab) 5 mg HSZ PRN PO 05/25/17 17:15 06/24/17 17:14 05/26/17 00:30 5 MG Ondansetron HCl (Zofran Inj) 4 mg Q6H PRN IV 05/25/17 17:15 06/24/17 17:14 05/27/17 11:30 4 MG Miscellaneous (Iv Fluids Completed) 1 ea PRN PRN N/A 05/25/17 18:15 05/25/18 18:14 Vancomycin HCl (Consult) 1 ea UD PRN N/A 05/25/17 18:30 06/24/17 18:29 Vancomycin HCl 1500 mg/Sodium Chloride 530 ml @ 200 mls/hr Q10H IV 05/26/17 04:00 06/04/17 13:59 05/28/17 15:48 200 MLS/HR Venlafaxine HCl (effeXOR EXTENDED REL CAP) 75 mg Q2D@0900 PO 05/29/17 09:00 06/28/17 08:59 Venlafaxine HCl (effeXOR EXTENDED REL CAP) 150 mg Q2D@0900 PO 05/28/17 09:00 06/27/17 08:59 05/28/17 07:57 150 MG Hydrochlorothiazide (Hydrochlorothiazide Tab) 50 mg QAM PO 05/28/17 09:00 06/27/17 08:59 05/28/17 07:56 50 MG Oxycodone/ Acetaminophen (Percocet 5-325mg Tab) `1-2 tabs for pain 1 tab ... Q4H PRN PO 05/27/17 18:15 06/10/17 18:14 05/28/17 20:14 2 TAB Ketorolac Tromethamine (Toradol Inj) 30 mg Q6H PRN IV 05/27/17 18:15 1/4/18 18:14 05/28/17 18:42 30 MG Naloxone HCl (Narcan Inj) 0.4 mg Q1H PRN IV 05/27/17 18:30 06/26/17 18:29 Objective Vital Signs Date Time Temp Pulse Resp B/P (MAP) Pulse Ox O2 Delivery O2 Flow Rate FiO2 05/28/17 07:40 Room Air 05/28/17 07:33 36.5 70 12 150/99 (116) 99 Room Air 05/28/17 02:25 62 14 98 Room Air 05/27/17 23:15 Room Air 05/27/17 22:47 36.4 77 16 150/95 (113) 97 Room Air 05/27/17 21:30 91 96 Room Air 05/27/17 20:12 96 99 Room Air 05/27/17 16:00 Room Air 05/27/17 15:56 36.5 84 18 164/99 (120) 95 Room Air Physical Exam Comments: General Appearance: WD/WN, no apparent distress (sleeping when I walked in the room, but then complained of significant pain in his foot a few minutes later) Eyes: normal inspection, sclerae normal ENT: hearing grossly normal Neck: trachea midline Respiratory/Chest: lungs clear, normal breath sounds, no respiratory distress, no accessory muscle use Cardiovascular: regular rate, rhythm, no gallop, no murmur Abdomen: normal bowel sounds, non tender, soft Extremities: no calf tenderness, + pertinent finding (right foot and ankle remain wrapped in dressing and Freedom bandage not removed; left index finger dressing removed and lateral portion with superficial wound approximately 0.75 X0.75 cm that is nonbleeding, no erythema or drainage) Neurologic/Psychiatric: alert, normal mood/affect Skin: normal color, no rash, + diaphoresis Laboratory Results Last 24 Hours Test 05/28/17 05:58 White Blood Count 6.25 K/uL Red Blood Count 3.46 M/uL Hemoglobin 9.9 g/dL Hematocrit 30.7 % Mean Corpuscular Volume 88.7 fL Mean Corpuscular Hemoglobin 28.6 pg Mean Corpuscular Hemoglobin Concent 32.2 g/dl Platelet Count 203 K/uL Mean Platelet Volume 11.0 fL Neutrophils (%) (Auto) 56.8 % Lymphocytes (%) (Auto) 33.0 % Monocytes (%) (Auto) 6.9 % Eosinophils (%) (Auto) 1.8 % Basophils (%) (Auto) 0.5 % Neutrophils # (Auto) 3.56 K/uL Lymphocytes # (Auto) 2.06 K/uL Monocytes # (Auto) 0.43 K/uL Eosinophils # (Auto) 0.11 K/uL Basophils # (Auto) 0.03 K/uL RDW Standard Deviation 41.6 fL RDW Coefficient of Variation 12.8 % Immature Granulocyte % (Auto) 1.0 % Immature Granulocyte # (Auto) 0.06 K/uL Sodium Level 140 mmol/L Potassium Level 3.5 mmol/L Chloride Level 110 mmol/L Carbon Dioxide Level 25 mmol/L Anion Gap 5.0 mmol/L Blood Urea Nitrogen 21 mg/dl Creatinine 1.07 mg/dl Est Creatinine Clear Calc Drug Dose 107.9 ml/min Estimated GFR () 100.1 Estimated GFR (Non- 86.4 BUN/Creatinine Ratio 19.2 Random Glucose 108 mg/dl Calcium Level 8.3 mg/dl Assessment and Plan Pt is a 42 y/o male with a h/o polysubstance abuse to include opiates and IV drugs, fungemia, depression/anxiety, and HTN, who developed pain and swelling of the dorsal aspect of his R foot 5 days prior following trauma. He states that he had tried to pop an apparent blister with a needle when it first occurred. He presented to the ER 05/22 and was initially placed on Keflex and DCd. He visited [facility] 2 days later and was placed on Clindamycin. Despite antibiotic use, the pain and swelling have progressed and the inflammation has spread. He reports having a fever at home, but none documented here. He denies any recent IV drug use. Incidentally, he cut the tip of his L mid finger the day of admission with a pair of scissors while cutting paper. 1) Cellulitis and abscesses x 2 of dorsal aspect of R foot/EHL suppurative tenosynovitis - now s/p I&D and tenosynovectomy by Orthopedics 05/26. Suspicious for IV drug abuse injection site which pt adamantly denies. Has a h/ o fungemia Final cultures are pending Will continue Vanc and Ceftriaxone -Appreciate Orthopedic management -Ortho changed dressing today. -will need Wound Care follow up 2) Depression/Anxiety/Polysubstance abuse -concern that patient is taking meds from his spouse such as illicit drugs. However, will dc 1 too 1 today. If patient becomes lethargic or if there is any suspicion that patient takes a drug while in the hospital. Then will renew the 1 to 1. - cont Venlafaxine, Bupropion--> would benefit from increased dose but will defer to PCP managing -lorazepam po prn anxiety while here -advised on cessation from all illicit substances -needs close Psychiatric follow up and encouraged drug rehab after discharge 3) HTN -cont Clonidine, Lisinopril, hctz 4) left index finger finger wound-appears to be healing well, no signs of infection -Advised nurse to redress wound with Adaptic, gauze, and Coban wrap daily after cleansing Proph-heparin SQ when ok with Ortho Dispo- to home when medically stable Full code
[2017-05-28 15:55] VITALS: BP 143/89; O2SAT 97
[2017-05-28 17:04] VITALS: BP 135/78; PULSE 91; TEMP 36.4; O2SAT 98
[2017-05-28 21:21] VITALS: BP 146/96; PULSE 88; O2SAT 99
[2017-05-28 22:55] VITALS: BP 150/98; PULSE 66; TEMP 36.3; O2SAT 99
[2017-05-29] MEDS: KETOROLAC TROMETHAMINE 30 MG/ML VIAL IV PRN ×3 (01:04→18:28)
[2017-05-29] MEDS: CEFTRIAXONE SOD INJ 1 GM in DEXTROSE 5% ADD-VANTAGE 50ML 50 ML IV SCH (01:08)
[2017-05-29] MEDS: VANCOMYCIN INJ 1,500 MG in SODIUM CHLORIDE 0.9% 500ML 500 ML IV SCH ×3 (01:48→21:34)
[2017-05-29] MEDS: OXYCODONE/ACETAMINOPHEN 5-325 TAB PO PRN ×4 (04:35→18:28)
[2017-05-29 06:56] VITALS: BP 123/74; PULSE 58; TEMP 36.1; O2SAT 99
[2017-05-29] MEDS: LISINOPRIL 20 MG TAB PO SCH (08:28)
[2017-05-29] MEDS: HYDROCHLOROTHIAZIDE 50 MG TAB PO SCH (08:28)
[2017-05-29] MEDS: VENLAFAXINE HCL XR 75 MG CAPXR PO SCH (08:28)
[2017-05-29] MEDS: CLONIDINE HCL 0.3 MG TAB PO SCH ×2 (08:28→20:46)
--- NOTE | 2017-05-29 10:38 | Infectious Disease Progress Nt ---
Progress Note Date of Service May 29, 2017. Subjective Pt evaluation today including: conversation w/ patient, conversation w/ family , physical exam, chart review, lab review, review of studies, conversation w/ instructional design consultant, review of inpatient medication list Still with severe pain in foot. Remains afebrile. Cultures have grown Streptococcus and Mary albicans. All Other Systems: Reviewed and Negative Medications Current Inpatient Medications Medications (Trade) Dose Ordered Sig/John Route Start Time Stop Time Status Last Admin Dose Admin Bupropion HCl (Wellbutrin Tab) 100 mg DAILY PO 05/26/17 09:00 06/25/17 08:59 05/29/17 08:29 100 MG Clonidine HCl (Catapres Tab) 0.3 mg BID PO 05/25/17 21:00 06/24/17 20:59 05/29/17 08:28 0.3 MG Lisinopril (Zestril Tab) 20 mg DAILY PO 05/26/17 09:00 06/25/17 08:59 05/29/17 08:28 20 MG Ceftriaxone Sodium 1 gm/ Dextrose 50 ml @ 100 mls/hr Q24H IV 05/26/17 02:00 06/05/17 01:59 05/29/17 01:08 100 MLS/HR Acetaminophen (Tylenol Tab) 650 mg Q4H PRN PO 05/25/17 17:15 06/24/17 17:14 05/27/17 12:26 650 MG Al Hydrox/Mg Hydrox/Simethicone (Maalox Max Susp) 15 ml Q4H PRN PO 05/25/17 17:15 06/24/17 17:14 Polyethylene (Miralax Powder Packet) 17 gm DAILY PRN PO 05/25/17 17:15 06/24/17 17:14 Zolpidem Tartrate (Ambien Tab) 5 mg HSZ PRN PO 05/25/17 17:15 06/24/17 17:14 05/26/17 00:30 5 MG Ondansetron HCl (Zofran Inj) 4 mg Q6H PRN IV 05/25/17 17:15 06/24/17 17:14 05/27/17 11:30 4 MG Miscellaneous (Iv Fluids Completed) 1 ea PRN PRN N/A 05/25/17 18:15 05/25/18 18:14 Vancomycin HCl (Consult) 1 ea UD PRN N/A 05/25/17 18:30 06/24/17 18:29 Vancomycin HCl 1500 mg/Sodium Chloride 530 ml @ 200 mls/hr Q10H IV 05/26/17 04:00 06/04/17 13:59 05/29/17 01:48 200 MLS/HR Venlafaxine HCl (effeXOR EXTENDED REL CAP) 75 mg Q2D@0900 PO 05/29/17 09:00 06/28/17 08:59 05/29/17 08:28 75 MG Venlafaxine HCl (effeXOR EXTENDED REL CAP) 150 mg Q2D@0900 PO 05/28/17 09:00 06/27/17 08:59 05/28/17 07:57 150 MG Hydrochlorothiazide (Hydrochlorothiazide Tab) 50 mg QAM PO 05/28/17 09:00 06/27/17 08:59 05/29/17 08:28 50 MG Oxycodone/ Acetaminophen (Percocet 5-325mg Tab) `1-2 tabs for pain 1 tab ... Q4H PRN PO 05/27/17 18:15 06/10/17 18:14 05/29/17 09:45 2 TAB Ketorolac Tromethamine (Toradol Inj) 30 mg Q6H PRN IV 05/27/17 18:15 05/30/17 18:14 05/29/17 08:32 30 MG Naloxone HCl (Narcan Inj) 0.4 mg Q1H PRN IV 05/27/17 18:30 06/26/17 18:29 Objective Vital Signs Date Time Temp Pulse Resp B/P (MAP) Pulse Ox O2 Delivery O2 Flow Rate FiO2 05/29/17 07:05 Room Air 05/29/17 06:56 36.1 58 18 123/74 (90) 99 Room Air 05/28/17 23:15 Room Air 05/28/17 22:55 36.3 66 18 150/98 (115) 99 Room Air 05/28/17 21:21 88 146/96 (113) 99 Room Air 05/28/17 17:04 36.4 91 18 135/78 (97) 98 Room Air 05/28/17 16:00 Room Air 05/28/17 15:55 18 143/89 (107) 97 Room Air Physical Exam General Appearance: WD/WN, no apparent distress Eyes: normal inspection, sclerae normal ENT: normal ENT inspection, pharynx normal Neck: supple, no adenopathy, trachea midline Respiratory/Chest: chest non-tender, lungs clear, normal breath sounds, no respiratory distress Cardiovascular: regular rate, rhythm, no gallop, no murmur Abdomen: normal bowel sounds, non tender, soft, no organomegaly Extremities: non-tender, no calf tenderness Neurologic/Psychiatric: alert, oriented x 3 Skin: normal color, no rash, + pertinent finding (Surgical dressing intact ) Laboratory Results RUN DATE: 05/28/17 [facility] LAB PAGE 1 RUN TIME: 1237 Specimen Inquiry PATIENT: LORRIE CARLOS LOC: ELVIE # : [id number] AGE/SX: 42/M ROOM: [facility] REG : 05/26/[address]: Caprice Dimas MD : 1975 BED: 2 DIS : STATUS: ADM IN TLOC: SPEC #: [id number] PHILIP: 05/26/17 STATUS: RES REQ #: [id number] RECD: 05/26/17-[address] [facility] [address]: Caprice Dimas MD SOURCE: ABSCESS ENTR: 05/26/17 [facility] DR: Maen Garcia D.O. [facility]: FOOT RIGHT Boyd Ruiz M.D. Patterson, Jennifer., D.O. Wiedemer,Ang Neri M.D. ORDERED: AER/MAURO CULTSMR Procedure Result Verified Site GRAM STAIN Final 05/27/17 RESULT MODERATE POLYS RARE GRAM POSITIVE COCCI OR AER/MAURO CULT Preliminary 05/28/17-1236 Organism 1 GAMMA STREP NOT ENTEROCOCCUS QUANITY FEW SENS NO SENSITIVITY TO FOLLOW Organism 2 MARY ALBICANS QUANITY RARE SENS NO SENSITIVITY TO FOLLOW Assessment and Plan Right foot abscess in the setting of possible IV drug abuse and local injection , status post incision and drainage with cultures growing strep and Amry albicans. I have added fluconazole to his regimen, would continue other antibiotics for now pending final culture results. Would like to avoid sending patient home on IV antibiotics given his previous history of drug abuse, and likely will be able to treat with Augmentin if no other pathogens identified.
[2017-05-29] MEDS ORDERED: FLUCONAZOLE 100 MG TAB PO SCH (11:00)
[2017-05-29] MEDS ORDERED: NURSING VERBAL MED ORDER ONE (11:30)
--- NOTE | 2017-05-29 11:54 | Orthopedic Progress Note ---
Orthopedic Progress Note Date of Service May 29, 2017. Subjective Post OP Day: 3 Reports: feeling well, Denies: complaints Objective Dressing removed. Erythema improved. Swelling down. Remainder of packing removed. Mild amount of purulent drainage from the medial incision area. Redressed with adaptic, 4x4's and kerlix/braden. Date Time Temp Pulse Resp B/P (MAP) Pulse Ox O2 Delivery O2 Flow Rate FiO2 05/29/17 07:05 Room Air 05/29/17 06:56 36.1 58 18 123/74 (90) 99 Room Air 05/28/17 23:15 Room Air 05/28/17 22:55 36.3 66 18 150/98 (115) 99 Room Air 05/28/17 21:21 88 146/96 (113) 99 Room Air 05/28/17 17:04 36.4 91 18 135/78 (97) 98 Room Air 05/28/17 16:00 Room Air 05/28/17 15:55 18 143/89 (107) 97 Room Air Assessment & Plan Assessment: POD 3, Right Foot I&D abscess X2 locations(16) 1) Abdominal pain Status: Acute (2) Anemia Status: Acute (3) Back pain Status: Acute (4) Cellulitis of foot Status: Acute (5) Cellulitis of right foot Status: Acute (6) Colitis Status: Acute (7) Colitis, acute Status: Acute (8) Constipation Status: Acute (9) Dehydration Status: Acute (10) Failure of outpatient treatment Status: Acute (11) Fungemia Status: Acute (12) Hypertension Status: Acute (13) Hypokalemia Status: Acute (14) Left-sided low back pain with sciatica Status: Acute (15) SIRS (systemic inflammatory response syndrome) Status: Acute (16) IV drug Abuse Plan: Improving overall. Will need another 24 -48 hours of IV antibx. Will discuss with Dr Garcia. Medial wound may need debrided again. Will recheck tomorrow. PT/ OT- Heel touch weight bearing Await final cultures - Currently showing Gamma Strep and Mary Appreciate ID input- On Vanco and Fluconazole As per Medicine.
--- NOTE | 2017-05-29 13:18 | Pharmacy Progress Note ---
Pharmacy Antibiotic Prog Note Date of Service May 29, 2017. Subjective The patient is currently receiving vancomycin 1500 mg IV every 10 hours. The patient is currently on day # 5 of vancomycin IV therapy. Objective Height (Feet): 5 Height (Inches): 11.00 Weight (Kilograms): 95.000 Levels: Item Value Date Time Vancomycin Level Trough 15.5 mcg/ml 05/27/17 0917 Previous dose hung 05/27 @00. Micro Results: 05/25/17 blood x2 NGTD 05/26 abscess foot- gamma strep nonenterococcus, Mary albicans Recent Pertinent Medications Item Value Date Time Fluconazole 200 mg 05/29/17 1100 (Diflucan Tab) QAM/PO Vancomycin HCl 530 ml @ 200 mls/hr 05/26/17 0400 1500 mg/Sodium Q10H/IV 05/29/17 1138 Chloride Ceftriaxone 50 ml @ 100 mls/hr 05/26/17 0200 Sodium 1 gm/ Q24H/IV 05/29/17 0108 Dextrose Assessment & Plan This drug level is: Therapeutic. Continue same dose and recheck trough in a few days to monitor for accumulation Continue vancomycin 1500 mg IV every 10 hours. Goal trough level estimate: between 15-20 mcg/mL. Trough has been ordered for: 05/30/17 before 0800 dose. Pharmacy will continue to follow and will adjust dose/frequency as necessary. Thank you
[2017-05-29 15:25] VITALS: BP 130/82; PULSE 83; TEMP 36.5; O2SAT 100
[2017-05-29] MEDS ORDERED: NURSING DECISION MEDICATION ORDER SCH (15:45)
[2017-05-29] MEDS ORDERED: COUGH DROP (SUGAR FREE) LOZ 24 LOZ/1 BOX PO PRN (16:15)
--- NOTE | 2017-05-29 22:28 | Progress Note ---
Subjective Date of Service: May 29, 2017. Subjective Pt evaluation today including: conversation w/ patient, physical exam Patient reports feeling well. He has no complaints today. Problem List Medical Problems: (1) Abdominal pain Status: Acute (2) Anemia Status: Acute (3) Back pain Status: Acute (4) Cellulitis of foot Status: Acute (5) Cellulitis of right foot Status: Acute (6) Colitis Status: Acute (7) Colitis, acute Status: Acute (8) Constipation Status: Acute (9) Dehydration Status: Acute (10) Failure of outpatient treatment Status: Acute (11) Fungemia Status: Acute (12) Hypertension Status: Acute (13) Hypokalemia Status: Acute (14) Left-sided low back pain with sciatica Status: Acute (15) SIRS (systemic inflammatory response syndrome) Status: Acute Review of Systems Constitutional: No fever, No chills Respiratory: No cough, No sputum Cardiac: No chest pain, No orthopnea Abdomen: No pain, No nausea Neurologic: No memory loss, No paralysis Psychiatric: No depression symptoms Heme: No abnormal bleeding/bruising Endo: No fatigue Skin: No rash, No itch All Other Systems: Reviewed and Negative Medications Current Inpatient Medications Medications (Trade) Dose Ordered Sig/John Route Start Time Stop Time Status Last Admin Dose Admin Bupropion HCl (Wellbutrin Tab) 100 mg DAILY PO 05/26/17 09:00 06/25/17 08:59 05/30/17 08:24 100 MG Clonidine HCl (Catapres Tab) 0.3 mg BID PO 05/25/17 21:00 06/24/17 20:59 05/30/17 08:24 0.3 MG Lisinopril (Zestril Tab) 20 mg DAILY PO 05/26/17 09:00 06/25/17 08:59 05/30/17 08:25 20 MG Acetaminophen (Tylenol Tab) 650 mg Q4H PRN PO 05/25/17 17:15 06/24/17 17:14 05/27/17 12:26 650 MG Al Hydrox/Mg Hydrox/Simethicone (Maalox Max Susp) 15 ml Q4H PRN PO 05/25/17 17:15 06/24/17 17:14 Polyethylene (Miralax Powder Packet) 17 gm DAILY PRN PO 05/25/17 17:15 06/24/17 17:14 Zolpidem Tartrate (Ambien Tab) 5 mg HSZ PRN PO 05/25/17 17:15 06/24/17 17:14 05/26/17 00:30 5 MG Ondansetron HCl (Zofran Inj) 4 mg Q6H PRN IV 05/25/17 17:15 06/24/17 17:14 05/30/17 03:39 4 MG Miscellaneous (Iv Fluids Completed) 1 ea PRN PRN N/A 05/25/17 18:15 05/25/18 18:14 Vancomycin HCl (Consult) 1 ea UD PRN N/A 05/25/17 18:30 06/24/17 18:29 Vancomycin HCl 1500 mg/Sodium Chloride 530 ml @ 200 mls/hr Q10H IV 05/26/17 04:00 06/04/17 13:59 05/30/17 08:24 200 MLS/HR Venlafaxine HCl (effeXOR EXTENDED REL CAP) 75 mg Q2D@0900 PO 05/29/17 09:00 06/28/17 08:59 05/29/17 08:28 75 MG Venlafaxine HCl (effeXOR EXTENDED REL CAP) 150 mg Q2D@0900 PO 05/28/17 09:00 06/27/17 08:59 05/30/17 08:25 150 MG Hydrochlorothiazide (Hydrochlorothiazide Tab) 50 mg QAM PO 05/28/17 09:00 06/27/17 08:59 05/30/17 08:25 50 MG Oxycodone/ Acetaminophen (Percocet 5-325mg Tab) `1-2 tabs for pain 1 tab ... Q4H PRN PO 05/27/17 18:15 06/10/17 18:14 05/30/17 06:00 2 TAB Ketorolac Tromethamine (Toradol Inj) 30 mg Q6H PRN IV 05/27/17 18:15 05/30/17 18:14 05/30/17 03:39 30 MG Naloxone HCl (Narcan Inj) 0.4 mg Q1H PRN IV 05/27/17 18:30 06/26/17 18:29 Fluconazole (Diflucan Tab) 200 mg QAM PO 05/29/17 11:00 06/08/17 10:59 Future Hold Menthol (Nice Mini) 1 mini PRN PRN PO 05/29/17 16:15 06/28/17 16:14 05/29/17 16:06 1 MINI Objective Vital Signs Date Time Temp Pulse Resp B/P (MAP) Pulse Ox O2 Delivery O2 Flow Rate FiO2 05/29/17 15:28 Room Air 05/29/17 15:25 36.5 83 20 130/82 (98) 100 Room Air 05/29/17 07:05 Room Air 05/29/17 06:56 36.1 58 18 123/74 (90) 99 Room Air 05/28/17 23:15 Room Air 05/28/17 22:55 36.3 66 18 150/98 (115) 99 Room Air Physical Exam Comments: General Appearance: WD/WN, no apparent distress (sleeping when I walked in the room, but then complained of significant pain in his foot a few minutes later) Eyes: normal inspection, sclerae normal ENT: hearing grossly normal Neck: trachea midline Respiratory/Chest: lungs clear, normal breath sounds, no respiratory distress, no accessory muscle use Cardiovascular: regular rate, rhythm, no gallop, no murmur Abdomen: normal bowel sounds, non tender, soft Extremities: no calf tenderness, + pertinent finding (right foot and ankle remain wrapped in dressing and Freedom bandage not removed; left index finger dressing removed and lateral portion with superficial wound approximately 0.75 X0.75 cm that is nonbleeding, no erythema or drainage) Neurologic/Psychiatric: alert, normal mood/affect Skin: normal color, no rash, Assessment and Plan Pt is a 42 y/o male with a h/o polysubstance abuse to include opiates and IV drugs, fungemia, depression/anxiety, and HTN, who developed pain and swelling of the dorsal aspect of his R foot 5 days prior following trauma. He states that he had tried to pop an apparent blister with a needle when it first occurred. He presented to the ER 05/22 and was initially placed on Keflex and DCd. He visited [facility] 2 days later and was placed on Clindamycin. Despite antibiotic use, the pain and swelling have progressed and the inflammation has spread. He reports having a fever at home, but none documented here. He denies any recent IV drug use. Incidentally, he cut the tip of his L mid finger the day of admission with a pair of scissors while cutting paper. 1) Cellulitis and abscesses x 2 of dorsal aspect of R foot/EHL suppurative tenosynovitis - now s/p I&D and tenosynovectomy by Orthopedics 05/26. Suspicious for IV drug abuse injection site which pt adamantly denies. Has a h/ o fungemia Final cultures are pending If remains negative, will dc on oral antibiotics. antifungal medicine added due to positive culture. I appreciate ID recomendations Will continue Vanc and Ceftriaxone -Appreciate Orthopedic management -Ortho changed dressing today. -will need Wound Care follow up as outpatient. 2) Depression/Anxiety/Polysubstance abuse -concern that patient is taking meds from his spouse such as illicit drugs. However, to was dc'ed yesterday. Patient has not become lethargic over the past 24 hours. will continue to monitor If patient becomes lethargic or if there is any suspicion that patient takes a drug while in the hospital. Then will renew the . - cont Venlafaxine, Bupropion--> would benefit from increased dose but will defer to PCP managing -lorazepam po prn anxiety while here -advised on cessation from all illicit substances -needs close Psychiatric follow up and encouraged drug rehab after discharge 3) HTN -cont Clonidine, Lisinopril, hctz 4) left index finger finger wound-appears to be healing well, no signs of infection -Advised nurse to redress wound with Adaptic, gauze, and Coban wrap daily after cleansing Proph-heparin SQ when ok with Ortho Dispo- to home when medically stable Full code Continued [facility] stay due to: multiple IV medications needed
[2017-05-29 22:48] VITALS: BP 146/91; PULSE 76; TEMP 36.6; O2SAT 99
[2017-05-30] MEDS: OXYCODONE/ACETAMINOPHEN 5-325 TAB PO PRN ×4 (00:28→19:35)
[2017-05-30] MEDS: ONDANSETRON INJ 2 MG/ML 2 ML VIAL IV PRN ×2 (03:39→14:23)
[2017-05-30] MEDS: KETOROLAC TROMETHAMINE 30 MG/ML VIAL IV PRN ×2 (03:39→10:20)
[2017-05-30 07:16] VITALS: BP 162/97; PULSE 77; TEMP 36.9; O2SAT 98
[2017-05-30] MEDS ORDERED: VANCOMYCIN TROUGH ONE (07:30)
[2017-05-30 08:05] LABS: CREATININE 1.27 mg/dl (0.60-1.40)
[2017-05-30] MEDS: VANCOMYCIN INJ 1,500 MG in SODIUM CHLORIDE 0.9% 500ML 500 ML IV SCH (08:24)
[2017-05-30] MEDS: CLONIDINE HCL 0.3 MG TAB PO SCH ×2 (08:24→21:08)
[2017-05-30] MEDS: HYDROCHLOROTHIAZIDE 50 MG TAB PO SCH (08:25)
[2017-05-30] MEDS: LISINOPRIL 20 MG TAB PO SCH (08:25)
[2017-05-30] MEDS: VENLAFAXINE HCL XR 150 MG CAPXR PO SCH (08:25)
--- NOTE | 2017-05-30 10:25 | Orthopedic Progress Note ---
Orthopedic Progress Note Date of Service May 30, 2017. Subjective Post OP Day: 4 Reports: feeling well, pain controlled w PO medications, Denies: complaints, chest pain, SOB, nausea / vomiting, light headedness, calf pain Objective Mild erythema over the foot but improved since yesterday. There is purulent drainage coming from the medial incision. Dorsal incision has mild serous drainage. Toes were mobile. New dressing applied of adaptic, 4x4, Kerlix wrap and MARIAH. Date Time Temp Pulse Resp B/P (MAP) Pulse Ox O2 Delivery O2 Flow Rate FiO2 05/30/17 08:00 Room Air 05/30/17 07:16 36.9 77 16 162/97 (118) 98 Room Air 05/30/17 00:30 Room Air 05/29/17 22:48 36.6 76 20 146/91 (109) 99 Room Air 05/29/17 15:28 Room Air 05/29/17 15:25 36.5 83 20 130/82 (98) 100 Room Air Assessment & Plan Assessment: POD 4, Right Foot I&D abscess X2 locations(16) 1) Abdominal pain Status: Acute (2) Anemia Status: Acute (3) Back pain Status: Acute (4) Cellulitis of foot Status: Acute (5) Cellulitis of right foot Status: Acute (6) Colitis Status: Acute (7) Colitis, acute Status: Acute (8) Constipation Status: Acute (9) Dehydration Status: Acute (10) Failure of outpatient treatment Status: Acute (11) Fungemia Status: Acute (12) Hypertension Status: Acute (13) Hypokalemia Status: Acute (14) Left-sided low back pain with sciatica Status: Acute (15) SIRS (systemic inflammatory response syndrome) Status: Acute (16) IV drug Abuse Plan: Improving overall. Incision to be discussed with Dr Garcia. Medial wound may need debrided again. PT/ OT- Heel touch weight bearing Final cultures - Currently showing Gamma Strep and Mary Appreciate ID input- On Vanco and Fluconazole As per Medicine.
[2017-05-30 13:00] VITALS: BP 139/88; PULSE 77
[2017-05-30] MEDS: CEFAZOLIN IV 2,000 MG in SYRINGE 0 ML IV SCH ×2 (14:14→21:28)
[2017-05-30 16:00] VITALS: BP 115/88; PULSE 112; TEMP 37.1; O2SAT 99
[2017-05-30] MEDS ORDERED: NURSING VERBAL MED ORDER ONE (19:45)
[2017-05-30] MEDS: KETOROLAC TROMETHAMINE 30 MG/ML VIAL IV. PRN (20:15)
--- NOTE | 2017-05-30 20:23 | Infectious Disease Progress Nt ---
Progress Note Date of Service May 30, 2017. Subjective Pt evaluation today including: conversation w/ patient, conversation w/ family , physical exam, chart review, lab review, review of studies, conversation w/ actuarial consultant, review of inpatient medication list Patient offering no new complaints today. Feeling better with less discomfort. Has developed new lesion on foot with probable need for repeat incision and drainage. Remains afebrile. Tolerating his antibiotic without apparent difficulty. All Other Systems: Reviewed and Negative Medications Current Inpatient Medications Medications (Trade) Dose Ordered Sig/John Route Start Time Stop Time Status Last Admin Dose Admin Bupropion HCl (Wellbutrin Tab) 100 mg DAILY PO 05/26/17 09:00 06/25/17 08:59 05/30/17 08:24 100 MG Clonidine HCl (Catapres Tab) 0.3 mg BID PO 05/25/17 21:00 06/24/17 20:59 05/30/17 08:24 0.3 MG Lisinopril (Zestril Tab) 20 mg DAILY PO 05/26/17 09:00 06/25/17 08:59 05/30/17 08:25 20 MG Acetaminophen (Tylenol Tab) 650 mg Q4H PRN PO 05/25/17 17:15 06/24/17 17:14 05/27/17 12:26 650 MG Al Hydrox/Mg Hydrox/Simethicone (Maalox Max Susp) 15 ml Q4H PRN PO 05/25/17 17:15 06/24/17 17:14 Polyethylene (Miralax Powder Packet) 17 gm DAILY PRN PO 05/25/17 17:15 06/24/17 17:14 Zolpidem Tartrate (Ambien Tab) 5 mg HSZ PRN PO 05/25/17 17:15 06/24/17 17:14 05/26/17 00:30 5 MG Ondansetron HCl (Zofran Inj) 4 mg Q6H PRN IV 05/25/17 17:15 06/24/17 17:14 05/30/17 14:23 4 MG Miscellaneous (Iv Fluids Completed) 1 ea PRN PRN N/A 05/25/17 18:15 05/25/18 18:14 Venlafaxine HCl (effeXOR EXTENDED REL CAP) 75 mg Q2D@0900 PO 05/29/17 09:00 06/28/17 08:59 05/29/17 08:28 75 MG Venlafaxine HCl (effeXOR EXTENDED REL CAP) 150 mg Q2D@0900 PO 05/28/17 09:00 06/27/17 08:59 05/30/17 08:25 150 MG Hydrochlorothiazide (Hydrochlorothiazide Tab) 50 mg QAM PO 05/28/17 09:00 06/27/17 08:59 05/30/17 08:25 50 MG Oxycodone/ Acetaminophen (Percocet 5-325mg Tab) `1-2 tabs for pain 1 tab ... Q4H PRN PO 05/27/17 18:15 06/10/17 18:14 05/30/17 19:35 2 TAB Naloxone HCl (Narcan Inj) 0.4 mg Q1H PRN IV 05/27/17 18:30 06/26/17 18:29 Fluconazole (Diflucan Tab) 200 mg QAM PO 05/29/17 11:00 06/08/17 10:59 Future Hold Menthol (Nice Mini) 1 mini PRN PRN PO 05/29/17 16:15 06/28/17 16:14 05/29/17 16:06 1 MINI Cefazolin Sodium 2000 mg/Syringe 10 ml @ 2.5 mls/min Q8 IV 05/30/17 14:00 06/05/17 13:59 05/30/17 14:14 2.5 MLS/MIN Ketorolac Tromethamine (Toradol Inj) 30 mg Q6H PRN IV. 05/30/17 20:00 06/04/17 19:59 05/30/17 20:15 30 MG Objective Vital Signs Date Time Temp Pulse Resp B/P (MAP) Pulse Ox O2 Delivery O2 Flow Rate FiO2 05/30/17 16:20 Room Air 05/30/17 16:00 37.1 112 16 115/88 (97) 99 Room Air 05/30/17 13:00 77 139/88 (105) 05/30/17 08:00 Room Air 05/30/17 07:16 36.9 77 16 162/97 (118) 98 Room Air 05/30/17 00:30 Room Air 05/29/17 22:48 36.6 76 20 146/91 (109) 99 Room Air Physical Exam General Appearance: WD/WN, no apparent distress Eyes: normal inspection, sclerae normal ENT: normal ENT inspection, pharynx normal Neck: supple, no adenopathy, thyroid normal, trachea midline Respiratory/Chest: chest non-tender, lungs clear, normal breath sounds, no respiratory distress Cardiovascular: regular rate, rhythm, no gallop, no murmur Abdomen: normal bowel sounds, non tender, soft, no organomegaly Extremities: non-tender, no calf tenderness Neurologic/Psychiatric: alert, oriented x 3 Skin: normal color, no rash, + pertinent finding (Dressing intact right foot) Lymphatic: no adenopathy Laboratory Results RUN DATE: 05/31/17 [facility] LAB PAGE 1 RUN TIME: 1323 Specimen Inquiry PATIENT: LORRIE CARLOS LOC: W U # : [id number] AGE/SX: 42/M ROOM: [facility] REG : 05/26/[address]: Jonnathan Avila M.D. : 1975 BED: 2 DIS : STATUS: ADM IN TLOC: SPEC #: [id number] PHILIP: 05/26/17 STATUS: PELON REQ #: [id number] RECD: 05/26/17-[address] [facility] [address]: Caprice Dimas MD SOURCE: ABSCESS ENTR: 05/26/[address] [facility] [address]: Mane Garcia [facility]. [facility] Boyd Ruiz M.D. Patterson, Jennifer., D.O. Wiedemer, Joseph P. M.D. ORDERED: AER/MAURO CULTSMR Procedure Result Verified Site GRAM STAIN Final 05/27/17 RESULT MODERATE POLYS RARE GRAM POSITIVE COCCI OR AER/MAURO CULT Final 05/31/17-1323 Organism 1 GAMMA STREP NOT ENTEROCOCCUS QUANITY FEW SENS NO SENSITIVITY TO FOLLOW ANAS NO ANAEROBES ISOLATED. Organism 2 MARY ALBICANS QUANITY RARE SENS NO SENSITIVITY TO FOLLOW Last 24 Hours Test 05/30/17 07:18 Creatinine 1.27 mg/dl Est Creatinine Clear Calc Drug Dose 90.9 ml/min Estimated GFR () 81.4 Estimated GFR (Non- 70.2 Vancomycin Level Trough 20.3 mcg/ml Assessment and Plan Right foot abscess in the setting of possible IV drug abuse and local injection , status post incision and drainage with cultures growing strep and Mary albicans. Vancomycin changed to IV cefazolin. Will likely require repeat incision and drainage. Will follow.
--- NOTE | 2017-05-30 22:28 | Progress Note ---
Subjective Date of Service: May 30, 2017. Subjective Pt evaluation today including: conversation w/ patient, physical exam Patient reports feeling well. Patient is aware that a new lesion is on his foot that will likely need to be incised and drained. Patient denies any fever, chills, nausea, vomiting. Problem List Medical Problems: (1) Abdominal pain Status: Acute (2) Anemia Status: Acute (3) Back pain Status: Acute (4) Cellulitis of foot Status: Acute (5) Cellulitis of right foot Status: Acute (6) Colitis Status: Acute (7) Colitis, acute Status: Acute (8) Constipation Status: Acute (9) Dehydration Status: Acute (10) Failure of outpatient treatment Status: Acute (11) Fungemia Status: Acute (12) Hypertension Status: Acute (13) Hypokalemia Status: Acute (14) Left-sided low back pain with sciatica Status: Acute (15) SIRS (systemic inflammatory response syndrome) Status: Acute Review of Systems Constitutional: No fever, No chills Respiratory: No cough, No sputum Cardiac: No chest pain, No orthopnea Abdomen: No pain, No nausea Musculoskeletal: + joint pain Psychiatric: No depression symptoms Heme: No abnormal bleeding/bruising Endo: No fatigue Skin: No rash, No itch All Other Systems: Reviewed and Negative Medications Current Inpatient Medications Medications (Trade) Dose Ordered Sig/John Route Start Time Stop Time Status Last Admin Dose Admin Bupropion HCl (Wellbutrin Tab) 100 mg DAILY PO 05/26/17 09:00 06/25/17 08:59 05/30/17 08:24 100 MG Clonidine HCl (Catapres Tab) 0.3 mg BID PO 05/25/17 21:00 06/24/17 20:59 05/30/17 21:08 0.3 MG Lisinopril (Zestril Tab) 20 mg DAILY PO 05/26/17 09:00 06/25/17 08:59 05/30/17 08:25 20 MG Acetaminophen (Tylenol Tab) 650 mg Q4H PRN PO 05/25/17 17:15 06/24/17 17:14 05/27/17 12:26 650 MG Al Hydrox/Mg Hydrox/Simethicone (Maalox Max Susp) 15 ml Q4H PRN PO 05/25/17 17:15 06/24/17 17:14 Polyethylene (Miralax Powder Packet) 17 gm DAILY PRN PO 05/25/17 17:15 06/24/17 17:14 Zolpidem Tartrate (Ambien Tab) 5 mg HSZ PRN PO 05/25/17 17:15 06/24/17 17:14 05/26/17 00:30 5 MG Ondansetron HCl (Zofran Inj) 4 mg Q6H PRN IV 05/25/17 17:15 06/24/17 17:14 05/30/17 14:23 4 MG Miscellaneous (Iv Fluids Completed) 1 ea PRN PRN N/A 05/25/17 18:15 05/25/18 18:14 Venlafaxine HCl (effeXOR EXTENDED REL CAP) 75 mg Q2D@0900 PO 05/29/17 09:00 06/28/17 08:59 05/29/17 08:28 75 MG Venlafaxine HCl (effeXOR EXTENDED REL CAP) 150 mg Q2D@0900 PO 05/28/17 09:00 06/27/17 08:59 05/30/17 08:25 150 MG Hydrochlorothiazide (Hydrochlorothiazide Tab) 50 mg QAM PO 05/28/17 09:00 06/27/17 08:59 05/30/17 08:25 50 MG Oxycodone/ Acetaminophen (Percocet 5-325mg Tab) `1-2 tabs for pain 1 tab ... Q4H PRN PO 05/27/17 18:15 06/10/17 18:14 05/30/17 19:35 2 TAB Naloxone HCl (Narcan Inj) 0.4 mg Q1H PRN IV 05/27/17 18:30 06/26/17 18:29 Fluconazole (Diflucan Tab) 200 mg QAM PO 05/29/17 11:00 06/08/17 10:59 Future Hold Menthol (Nice Mini) 1 mini PRN PRN PO 05/29/17 16:15 06/28/17 16:14 05/29/17 16:06 1 MINI Cefazolin Sodium 2000 mg/Syringe 10 ml @ 2.5 mls/min Q8 IV 05/30/17 14:00 06/05/17 13:59 05/31/17 06:34 2.5 MLS/MIN Ketorolac Tromethamine (Toradol Inj) 30 mg Q6H PRN IV. 05/30/17 20:00 06/04/17 19:59 05/31/17 06:34 30 MG Objective Vital Signs Date Time Temp Pulse Resp B/P (MAP) Pulse Ox O2 Delivery O2 Flow Rate FiO2 05/30/17 16:20 Room Air 05/30/17 16:00 37.1 112 16 115/88 (97) 99 Room Air 05/30/17 13:00 77 139/88 (105) 05/30/17 08:00 Room Air 05/30/17 07:16 36.9 77 16 162/97 (118) 98 Room Air 05/30/17 00:30 Room Air 05/29/17 22:48 36.6 76 20 146/91 (109) 99 Room Air Physical Exam Comments: General Appearance: WD/WN, no apparent distress (sleeping when I walked in the room, but then complained of significant pain in his foot a few minutes later) Eyes: normal inspection, sclerae normal ENT: hearing grossly normal Neck: trachea midline Respiratory/Chest: lungs clear, normal breath sounds, no respiratory distress, no accessory muscle use Cardiovascular: regular rate, rhythm, no gallop, no murmur Abdomen: normal bowel sounds, non tender, soft Extremities: no calf tenderness, + pertinent finding (right foot and ankle remain wrapped in dressing and Freedom bandage not removed; left index finger dressing removed and lateral portion with superficial wound approximately 0.75 X0.75 cm that is nonbleeding, no erythema or drainage) Neurologic/Psychiatric: alert, normal mood/affect Skin: normal color, no rash, Laboratory Results Last 24 Hours Test 05/30/17 07:18 Creatinine 1.27 mg/dl Est Creatinine Clear Calc Drug Dose 90.9 ml/min Estimated GFR () 81.4 Estimated GFR (Non- 70.2 Vancomycin Level Trough 20.3 mcg/ml Assessment and Plan Pt is a 42 y/o male with a h/o polysubstance abuse to include opiates and IV drugs, fungemia, depression/anxiety, and HTN, who developed pain and swelling of the dorsal aspect of his R foot 5 days prior following trauma. He states that he had tried to pop an apparent blister with a needle when it first occurred. He presented to the ER 05/22 and was initially placed on Keflex and DCd. He visited [facility] 2 days later and was placed on Clindamycin. Despite antibiotic use, the pain and swelling have progressed and the inflammation has spread. He reports having a fever at home, but none documented here. He denies any recent IV drug use. Incidentally, he cut the tip of his L mid finger the day of admission with a pair of scissors while cutting paper. 1) Cellulitis and abscesses x 2 of dorsal aspect of R foot/EHL suppurative tenosynovitis - now s/p I&D and tenosynovectomy by Orthopedics 05/26. Suspicious for IV drug abuse injection site which pt adamantly denies. Has a h/ o fungemia -Patient requires I and D due to new abscess forming. He is scheduled tomorrow. Final cultures are pending If remains negative, will dc on oral antibiotics. antifungal medicine added due to positive culture, but then was held. Not sure as to why. will discuss with ID. I appreciate ID recomendations Will continue Vanc and Ceftriaxone -Appreciate Orthopedic management -Ortho changed dressing today. -will need Wound Care follow up as outpatient. 2) Depression/Anxiety/Polysubstance abuse -concern that patient is taking meds from his spouse such as illicit drugs. However,1 to 1 was dc'ed yesterday. Patient has not become lethargic over the past 24 hours. will continue to monitor If patient becomes lethargic or if there is any suspicion that patient takes a drug while in the hospital. Then will renew the 1 to 1. - cont Venlafaxine, Bupropion--> would benefit from increased dose but will defer to PCP managing -lorazepam po prn anxiety while here -advised on cessation from all illicit substances -needs close Psychiatric follow up and encouraged drug rehab after discharge 3) HTN -cont Clonidine, Lisinopril, hctz 4) left index finger finger wound-appears to be healing well, no signs of infection -Advised nurse to redress wound with Adaptic, gauze, and Coban wrap daily after cleansing Proph-heparin SQ when ok with Ortho Dispo- to home when medically stable Full code Continued [facility] stay due to: multiple IV medications needed
[2017-05-30 23:10] VITALS: BP 138/96; PULSE 89; TEMP 37.1; O2SAT 98
[2017-05-31] MEDS: CEFAZOLIN IV 2,000 MG in SYRINGE 0 ML IV SCH ×3 (06:34→21:14)
[2017-05-31] MEDS: KETOROLAC TROMETHAMINE 30 MG/ML VIAL IV. PRN ×3 (06:34→21:14)
[2017-05-31 07:06] VITALS: BP 118/84; PULSE 92; TEMP 36.6; O2SAT 99
[2017-05-31 07:43] LABS: BASO % 0.4 %; BASO ABS # 0.03 K/uL (0-0.2); EOS % 1.9 %; EOS ABS # 0.16 K/uL (0-0.5); HEMATOCRIT 36.5 % (42-52); HEMOGLOBIN 12.1 g/dL (14.0-18.0); IG# 0.03 K/uL (0.00-0.02); LYMPH % 22.6 %; LYMPH ABS # 1.86 K/uL (1.2-3.4); MEAN CELL VOLUME 87.3 fL (80-100); MEAN CORPUSCULAR HEMOGLOBIN 28.9 pg (25-34); MEAN CORPUSCULAR HGB CONC 33.2 g/dl (32-36); MEAN PLATELET VOLUME 11.3 fL (7.4-10.4); MONO % 9.1 %; MONO ABS # 0.75 K/uL (0.11-0.59); NEUT % 65.6 %; NEUT ABS # 5.39 K/uL (1.4-6.5); PLATELET COUNT 278 K/uL (130-400); RED CELL DISTRIBUTION WIDTH CV 12.9 % (11.5-14.5); RED CELL DISTRIBUTION WIDTH SD 41.1 fL (36.4-46.3); WHITE BLOOD COUNT 8.22 K/uL (4.8-10.8)
[2017-05-31 08:08] LABS: CALCIUM 9.5 mg/dl (8.5-10.1); CREATININE 1.35 mg/dl (0.60-1.40); POTASSIUM 4.4 mmol/L (3.5-5.1)
[2017-05-31] MEDS: VENLAFAXINE HCL XR 75 MG CAPXR PO SCH (08:59)
[2017-05-31] MEDS: CLONIDINE HCL 0.3 MG TAB PO SCH ×2 (08:59→21:12)
[2017-05-31] MEDS: HYDROCHLOROTHIAZIDE 50 MG TAB PO SCH (09:00)
[2017-05-31] MEDS: LISINOPRIL 20 MG TAB PO SCH (09:00)
--- NOTE | 2017-05-31 10:31 | History & Physical Bridge Note ---
H&P Re-Evaluation Bridge Note: I have examined the patient, reviewed the History & Physical and in the interval since the performance of the History & Physical I have noted the following changes of clinical significance: Will require repeat I and D foot today. NPO.
[2017-05-31] MEDS ORDERED: CASPOFUNGIN INJ 70 MG in SODIUM CHLORIDE 0.9% 250ML 250 ML IV ONE (13:45)
[2017-05-31 15:49] VITALS: BP 143/87; PULSE 60; TEMP 36.3; O2SAT 100
[2017-05-31] MEDS ORDERED: PROPOFOL IV EMULSION 10 MG/ML 20 ML VIAL IV ONE ×2 (16:55→18:13)
[2017-05-31] MEDS ORDERED: MIDAZOLAM HCL 1 MG/ML 2ML VIAL ONE (16:55)
[2017-05-31] MEDS ORDERED: FENTANYL CITRATE INJ 50 MCG/1 ML 2 ML VIAL ONE ×2 (16:55→18:03)
[2017-05-31] MEDS ORDERED: ONDANSETRON INJ 2 MG/ML 2 ML VIAL ONE (16:55)
[2017-05-31] MEDS ORDERED: LIDOCAINE HCL 2% 2 ML VIAL (20MG/ML) ONE (16:55)
[2017-05-31] MEDS ORDERED: BUPIVACAINE 0.5 % 5 MG/1 ML MPF 30ML VIAL ONE (17:23)
[2017-05-31] MEDS ORDERED: BACITRACIN 50000 UNIT VIAL ONE (17:23)
--- NOTE | 2017-05-31 17:35 | Infectious Disease Progress Nt ---
Progress Note Date of Service May 31, 2017. Subjective Pt evaluation today including: conversation w/ patient, conversation w/ family , physical exam, chart review, lab review, review of studies, conversation w/ gift consultant, review of inpatient medication list Patient still complaining of right foot pain. Awaiting repeat incision and drainage. Remains afebrile. All Other Systems: Reviewed and Negative Medications Current Inpatient Medications Medications (Trade) Dose Ordered Sig/John Route Start Time Stop Time Status Last Admin Dose Admin Bupropion HCl (Wellbutrin Tab) 100 mg DAILY PO 05/26/17 09:00 06/25/17 08:59 05/30/17 08:24 100 MG Clonidine HCl (Catapres Tab) 0.3 mg BID PO 05/25/17 21:00 06/24/17 20:59 05/30/17 21:08 0.3 MG Lisinopril (Zestril Tab) 20 mg DAILY PO 05/26/17 09:00 06/25/17 08:59 05/30/17 08:25 20 MG Acetaminophen (Tylenol Tab) 650 mg Q4H PRN PO 05/25/17 17:15 06/24/17 17:14 05/27/17 12:26 650 MG Al Hydrox/Mg Hydrox/Simethicone (Maalox Max Susp) 15 ml Q4H PRN PO 05/25/17 17:15 06/24/17 17:14 Polyethylene (Miralax Powder Packet) 17 gm DAILY PRN PO 05/25/17 17:15 06/24/17 17:14 Zolpidem Tartrate (Ambien Tab) 5 mg HSZ PRN PO 05/25/17 17:15 06/24/17 17:14 05/26/17 00:30 5 MG Ondansetron HCl (Zofran Inj) 4 mg Q6H PRN IV 05/25/17 17:15 06/24/17 17:14 05/30/17 14:23 4 MG Miscellaneous (Iv Fluids Completed) 1 ea PRN PRN N/A 05/25/17 18:15 05/25/18 18:14 Venlafaxine HCl (effeXOR EXTENDED REL CAP) 75 mg Q2D@0900 PO 05/29/17 09:00 06/28/17 08:59 05/29/17 08:28 75 MG Venlafaxine HCl (effeXOR EXTENDED REL CAP) 150 mg Q2D@0900 PO 05/28/17 09:00 06/27/17 08:59 05/30/17 08:25 150 MG Hydrochlorothiazide (Hydrochlorothiazide Tab) 50 mg QAM PO 05/28/17 09:00 06/27/17 08:59 05/30/17 08:25 50 MG Oxycodone/ Acetaminophen (Percocet 5-325mg Tab) `1-2 tabs for pain 1 tab ... Q4H PRN PO 05/27/17 18:15 06/10/17 18:14 05/30/17 19:35 2 TAB Naloxone HCl (Narcan Inj) 0.4 mg Q1H PRN IV 05/27/17 18:30 06/26/17 18:29 Fluconazole (Diflucan Tab) 200 mg QAM PO 05/29/17 11:00 06/08/17 10:59 Future Hold Menthol (Nice Mini) 1 mini PRN PRN PO 05/29/17 16:15 06/28/17 16:14 05/29/17 16:06 1 MINI Cefazolin Sodium 2000 mg/Syringe 10 ml @ 2.5 mls/min Q8 IV 05/30/17 14:00 06/05/17 13:59 05/31/17 13:20 2.5 MLS/MIN Ketorolac Tromethamine (Toradol Inj) 30 mg Q6H PRN IV. 05/30/17 20:00 06/04/17 19:59 05/31/17 14:14 30 MG Caspofungin 50 mg/ Sodium Chloride 260 ml @ 250 mls/hr DAILY@1300 IV 06/01/17 13:00 07/13/17 12:59 Objective Vital Signs Date Time Temp Pulse Resp B/P (MAP) Pulse Ox O2 Delivery O2 Flow Rate FiO2 05/31/17 16:38 36.7 61 22 138/93 (108) 100 Room Air 05/31/17 15:49 36.3 60 22 143/87 (105) 100 Room Air 05/31/17 08:00 Room Air 05/31/17 07:06 36.6 92 20 118/84 (95) 99 Room Air 05/31/17 00:10 Room Air 05/30/17 23:10 37.1 89 16 138/96 (110) 98 Room Air Physical Exam General Appearance: WD/WN, no apparent distress Eyes: normal inspection, EOMI, sclerae normal ENT: normal ENT inspection, pharynx normal Neck: supple, no adenopathy, thyroid normal, trachea midline Respiratory/Chest: chest non-tender, lungs clear, normal breath sounds, no respiratory distress Cardiovascular: regular rate, rhythm, no gallop, no murmur Abdomen: normal bowel sounds, non tender, soft, no organomegaly Extremities: non-tender, no calf tenderness Neurologic/Psychiatric: alert, oriented x 3 Skin: normal color, no rash, + pertinent finding (Dressing intact right foot) Lymphatic: no adenopathy Laboratory Results Last 24 Hours Test 05/31/17 06:54 White Blood Count 8.22 K/uL Red Blood Count 4.18 M/uL Hemoglobin 12.1 g/dL Hematocrit 36.5 % Mean Corpuscular Volume 87.3 fL Mean Corpuscular Hemoglobin 28.9 pg Mean Corpuscular Hemoglobin Concent 33.2 g/dl Platelet Count 278 K/uL Mean Platelet Volume 11.3 fL Neutrophils (%) (Auto) 65.6 % Lymphocytes (%) (Auto) 22.6 % Monocytes (%) (Auto) 9.1 % Eosinophils (%) (Auto) 1.9 % Basophils (%) (Auto) 0.4 % Neutrophils # (Auto) 5.39 K/uL Lymphocytes # (Auto) 1.86 K/uL Monocytes # (Auto) 0.75 K/uL Eosinophils # (Auto) 0.16 K/uL Basophils # (Auto) 0.03 K/uL RDW Standard Deviation 41.1 fL RDW Coefficient of Variation 12.9 % Immature Granulocyte % (Auto) 0.4 % Immature Granulocyte # (Auto) 0.03 K/uL Sodium Level 136 mmol/L Potassium Level 4.4 mmol/L Chloride Level 103 mmol/L Carbon Dioxide Level 26 mmol/L Anion Gap 7.0 mmol/L Blood Urea Nitrogen 15 mg/dl Creatinine 1.35 mg/dl Est Creatinine Clear Calc Drug Dose 85.6 ml/min Estimated GFR () 75.6 Estimated GFR (Non- 65.2 BUN/Creatinine Ratio 11.3 Random Glucose 127 mg/dl Calcium Level 9.5 mg/dl Chemistry Specimen Hemolysis Assessment and Plan Right foot abscess in the setting of possible IV drug abuse and local injection , status post incision and drainage with cultures growing strep and Mary albicans. Vancomycin changed to IV cefazolin. Caspofungin added for Mary infection. Await repeat incision and drainage. Will follow.
[2017-05-31] MEDS ORDERED: ATROPINE SULFATE 0.1 MG/ML 5ML SYR IV PRN (17:45)
[2017-05-31] MEDS ORDERED: EpHEDrine SULFATE INJ 50 MG/ML AMP IV PRN (17:45)
[2017-05-31] MEDS ORDERED: PROMETHAZINE HCL INJ 6.25 MG in SODIUM CHLORIDE 0.9% 50ML 50 ML IV PRN (17:45)
[2017-05-31] MEDS ORDERED: HYDROmorphone INJ 1 MG/ML SYR IV PRN (17:45)
[2017-05-31] MEDS ORDERED: ONDANSETRON INJ 2 MG/ML 2 ML VIAL IV PRN (17:45)
--- NOTE | 2017-05-31 18:44 | [facility] Post Operative Brief Note ---
Immediate Operative Summary Operative Date May 31, 2017. Pre-Operative Diagnosis Right foot recurrent abscess 1st MTP joint, Recurrent abscess dorsal foot, Infectious tenosynovitis EHL tendon Post-Operative Diagnosis same, infectious tenosynovitis of the EHL Procedure(s) Performed Repeat irrigation and debridement of abscess right first metatarsalphalangeal joint, repeat irrigation and debridement dorsal foot, and recurrent debridement of right foot EHL tendon Surgeon Dr. Lily Garcia Chief Operating Officer Surgeon(s) none Estimated Blood Loss 1ml Findings See Dict Specimens no specimen per surgeon Drains Iodoform gauze x 2 Anesthesia GLMA w/ local Complication(s) None Disposition Recovery Room / PACU
[2017-05-31] MEDS: FENTANYL CITRATE INJ 50 MCG/1 ML 2 ML VIAL IV PRN ×4 (18:53→19:14)
--- NOTE | 2017-05-31 19:20 | Anesthesiology Progress Note ---
Anesthesia Post Op Note Date & Time May 31, 2017 at 19:20 Vital Signs Pain Intensity: 5 Vital Signs Past 12 Hours Date Time Temp Pulse Resp B/P (MAP) Pulse Ox O2 Delivery O2 Flow Rate FiO2 05/31/17 19:15 77 17 134/92 100 Nasal Cannula 2 05/31/17 19:05 73 18 151/106 100 Oxymask 10 05/31/17 18:55 85 24 146/102 100 Oxymask 10 05/31/17 18:48 36.5 86 12 152/99 100 Oxymask 10 05/31/17 16:38 36.7 61 22 138/93 (108) 100 Room Air 05/31/17 15:49 36.3 60 22 143/87 (105) 100 Room Air 05/31/17 15:20 Room Air 05/31/17 08:00 Room Air Notes Mental Status: alert / awake / arousable, participated in evaluation Pt Amnestic to Procedure: Yes Nausea / Vomiting: adequately controlled Pain: adequately controlled Airway Patency, RR, SpO2: stable & adequate BP & HR: stable & adequate Hydration State: stable & adequate Anesthetic Complications: no major complications apparent
[2017-05-31 19:50] VITALS: BP 123/84; PULSE 78; TEMP 36.4; O2SAT 95
[2017-05-31 20:35] VITALS: BP 140/98; PULSE 81; TEMP 36.4; O2SAT 100
[2017-05-31] MEDS: OXYCODONE/ACETAMINOPHEN 5-325 TAB PO PRN (21:16)
[2017-05-31 21:52] VITALS: BP 139/86; PULSE 82; TEMP 36.4; O2SAT 98
--- NOTE | 2017-05-31 22:32 | Progress Note ---
Subjective Date of Service: May 31, 2017. Subjective Pt evaluation today including: conversation w/ patient, physical exam Patient examined at 11:00 before procedure. Patient reports feeling well. Patient denies any nausea vomiting. Patient reports that his pain medicine is adequate. Problem List Medical Problems: (1) Abdominal pain Status: Acute (2) Anemia Status: Acute (3) Back pain Status: Acute (4) Cellulitis of foot Status: Acute (5) Cellulitis of right foot Status: Acute (6) Colitis Status: Acute (7) Colitis, acute Status: Acute (8) Constipation Status: Acute (9) Dehydration Status: Acute (10) Failure of outpatient treatment Status: Acute (11) Fungemia Status: Acute (12) Hypertension Status: Acute (13) Hypokalemia Status: Acute (14) Left-sided low back pain with sciatica Status: Acute (15) SIRS (systemic inflammatory response syndrome) Status: Acute Review of Systems Constitutional: No fever, No chills Respiratory: No cough, No sputum Cardiac: No chest pain, No orthopnea Abdomen: No pain, No nausea Musculoskeletal: No joint pain Neurologic: No memory loss, No paralysis Psychiatric: No depression symptoms Endo: No fatigue Skin: No rash, No itch All Other Systems: Reviewed and Negative Medications Current Inpatient Medications Medications (Trade) Dose Ordered Sig/John Route Start Time Stop Time Status Last Admin Dose Admin Bupropion HCl (Wellbutrin Tab) 100 mg DAILY PO 05/26/17 09:00 06/25/17 08:59 05/30/17 08:24 100 MG Clonidine HCl (Catapres Tab) 0.3 mg BID PO 05/25/17 21:00 06/24/17 20:59 05/31/17 21:12 0.3 MG Lisinopril (Zestril Tab) 20 mg DAILY PO 05/26/17 09:00 06/25/17 08:59 05/30/17 08:25 20 MG Acetaminophen (Tylenol Tab) 650 mg Q4H PRN PO 05/25/17 17:15 06/24/17 17:14 05/27/17 12:26 650 MG Al Hydrox/Mg Hydrox/Simethicone (Maalox Max Susp) 15 ml Q4H PRN PO 05/25/17 17:15 06/24/17 17:14 Polyethylene (Miralax Powder Packet) 17 gm DAILY PRN PO 05/25/17 17:15 06/24/17 17:14 Zolpidem Tartrate (Ambien Tab) 5 mg HSZ PRN PO 05/25/17 17:15 06/24/17 17:14 05/26/17 00:30 5 MG Ondansetron HCl (Zofran Inj) 4 mg Q6H PRN IV 05/25/17 17:15 06/24/17 17:14 05/30/17 14:23 4 MG Miscellaneous (Iv Fluids Completed) 1 ea PRN PRN N/A 05/25/17 18:15 05/25/18 18:14 Venlafaxine HCl (effeXOR EXTENDED REL CAP) 75 mg Q2D@0900 PO 05/29/17 09:00 06/28/17 08:59 05/29/17 08:28 75 MG Venlafaxine HCl (effeXOR EXTENDED REL CAP) 150 mg Q2D@0900 PO 05/28/17 09:00 06/27/17 08:59 05/30/17 08:25 150 MG Hydrochlorothiazide (Hydrochlorothiazide Tab) 50 mg QAM PO 05/28/17 09:00 06/27/17 08:59 05/30/17 08:25 50 MG Oxycodone/ Acetaminophen (Percocet 5-325mg Tab) `1-2 tabs for pain 1 tab ... Q4H PRN PO 05/27/17 18:15 06/10/17 18:14 05/31/17 21:16 2 TAB Naloxone HCl (Narcan Inj) 0.4 mg Q1H PRN IV 05/27/17 18:30 06/26/17 18:29 Fluconazole (Diflucan Tab) 200 mg QAM PO 05/29/17 11:00 06/08/17 10:59 Future Hold Menthol (Nice Mini) 1 mini PRN PRN PO 05/29/17 16:15 06/28/17 16:14 05/29/17 16:06 1 MINI Cefazolin Sodium 2000 mg/Syringe 10 ml @ 2.5 mls/min Q8 IV 05/30/17 14:00 06/05/17 13:59 05/31/17 21:14 2.5 MLS/MIN Ketorolac Tromethamine (Toradol Inj) 30 mg Q6H PRN IV. 05/30/17 20:00 06/04/17 19:59 05/31/17 21:14 30 MG Caspofungin 50 mg/ Sodium Chloride 260 ml @ 250 mls/hr DAILY@1300 IV 06/01/17 13:00 07/13/17 12:59 Fentanyl Citrate (Fentanyl Inj) 50 mcg Q5M PRN IV 05/31/17 17:45 05/31/17 22:45 05/31/17 19:14 50 MCG Hydromorphone HCl (Dilaudid Inj) 0.5 mg Q5M PRN IV 05/31/17 17:45 05/31/17 22:45 Ondansetron HCl (Zofran Inj) 4 mg ONE PRN IV 05/31/17 17:45 05/31/17 22:45 Promethazine HCl 6.25 mg/Sodium Chloride 50.25 ml @ 202 mls/hr ONE PRN IV 05/31/17 17:45 05/31/17 22:45 Ephedrine Sulfate (EpHEDrine SULFATE INJ) 5 mg Q5M PRN IV 05/31/17 17:45 05/31/17 22:45 Atropine Sulfate (Atropine Sulfate 0.1mg/ml Inj) 0.5 mg Q1M PRN IV 05/31/17 17:45 05/31/17 22:45 Objective Vital Signs Date Time Temp Pulse Resp B/P (MAP) Pulse Ox O2 Delivery O2 Flow Rate FiO2 05/31/17 21:52 36.4 82 18 139/86 (103) 98 Room Air 05/31/17 20:35 36.4 81 18 140/98 (112) 100 Nasal Cannula 2.0 05/31/17 19:50 Nasal Cannula 2.0 05/31/17 19:50 36.4 78 18 123/84 (97) 95 Nasal Cannula 2.0 05/31/17 19:35 73 13 125/88 99 Nasal Cannula 2 05/31/17 19:25 36.3 78 16 130/90 99 Nasal Cannula 2 05/31/17 19:15 77 17 134/92 100 Nasal Cannula 2 05/31/17 19:05 73 18 151/106 100 Oxymask 10 05/31/17 18:55 85 24 146/102 100 Oxymask 10 05/31/17 18:48 36.5 86 12 152/99 100 Oxymask 10 05/31/17 16:38 36.7 61 22 138/93 (108) 100 Room Air 05/31/17 15:49 36.3 60 22 143/87 (105) 100 Room Air 05/31/17 15:20 Room Air 05/31/17 08:00 Room Air 05/31/17 07:06 36.6 92 20 118/84 (95) 99 Room Air 05/31/17 00:10 Room Air 05/30/17 23:10 37.1 89 16 138/96 (110) 98 Room Air Physical Exam Comments: General Appearance: WD/WN, no apparent distress (sleeping when I walked in the room, but then complained of significant pain in his foot a few minutes later) Eyes: normal inspection, sclerae normal ENT: hearing grossly normal Neck: trachea midline Respiratory/Chest: lungs clear, normal breath sounds, no respiratory distress, no accessory muscle use Cardiovascular: regular rate, rhythm, no gallop, no murmur Abdomen: normal bowel sounds, non tender, soft Extremities: no calf tenderness, + pertinent finding (right foot and ankle remain wrapped in dressing and Freedom bandage not removed; left index finger dressing removed and lateral portion with superficial wound approximately 0.75 X0.75 cm that is nonbleeding, no erythema or drainage) Neurologic/Psychiatric: alert, normal mood/affect Skin: normal color, no rash, Laboratory Results Last 24 Hours Test 05/31/17 06:54 White Blood Count 8.22 K/uL Red Blood Count 4.18 M/uL Hemoglobin 12.1 g/dL Hematocrit 36.5 % Mean Corpuscular Volume 87.3 fL Mean Corpuscular Hemoglobin 28.9 pg Mean Corpuscular Hemoglobin Concent 33.2 g/dl Platelet Count 278 K/uL Mean Platelet Volume 11.3 fL Neutrophils (%) (Auto) 65.6 % Lymphocytes (%) (Auto) 22.6 % Monocytes (%) (Auto) 9.1 % Eosinophils (%) (Auto) 1.9 % Basophils (%) (Auto) 0.4 % Neutrophils # (Auto) 5.39 K/uL Lymphocytes # (Auto) 1.86 K/uL Monocytes # (Auto) 0.75 K/uL Eosinophils # (Auto) 0.16 K/uL Basophils # (Auto) 0.03 K/uL RDW Standard Deviation 41.1 fL RDW Coefficient of Variation 12.9 % Immature Granulocyte % (Auto) 0.4 % Immature Granulocyte # (Auto) 0.03 K/uL Sodium Level 136 mmol/L Potassium Level 4.4 mmol/L Chloride Level 103 mmol/L Carbon Dioxide Level 26 mmol/L Anion Gap 7.0 mmol/L Blood Urea Nitrogen 15 mg/dl Creatinine 1.35 mg/dl Est Creatinine Clear Calc Drug Dose 85.6 ml/min Estimated GFR () 75.6 Estimated GFR (Non- 65.2 BUN/Creatinine Ratio 11.3 Random Glucose 127 mg/dl Calcium Level 9.5 mg/dl Chemistry Specimen Hemolysis Assessment and Plan Pt is a 42 y/o male with a h/o polysubstance abuse to include opiates and IV drugs, fungemia, depression/anxiety, and HTN, who developed pain and swelling of the dorsal aspect of his R foot 5 days prior following trauma. He states that he had tried to pop an apparent blister with a needle when it first occurred. He presented to the ER 05/22 and was initially placed on Keflex and DCd. He visited [facility] 2 days later and was placed on Clindamycin. Despite antibiotic use, the pain and swelling have progressed and the inflammation has spread. He reports having a fever at home, but none documented here. He denies any recent IV drug use. Incidentally, he cut the tip of his L mid finger the day of admission with a pair of scissors while cutting paper. 1) Cellulitis and abscesses x 2 of dorsal aspect of R foot/EHL suppurative tenosynovitis - now s/p I&D and tenosynovectomy by Orthopedics 05/26. Suspicious for IV drug abuse injection site which pt adamantly denies. Has a h/ o fungemia -Patient requires I and D due to new abscess forming. He is scheduled today Final cultures are pending If remains negative, will dc on oral antibiotics. caspofungin was added today I appreciate ID recomendations Will continue Vanc and Ceftriaxone -Appreciate Orthopedic management -Ortho changed dressing today. -will need Wound Care follow up as outpatient. 2) Depression/Anxiety/Polysubstance abuse -concern that patient is taking meds from his spouse such as illicit drugs. However,1 to 1 was dc'ed Patient has not become lethargic since removal of to . will continue to monitor If patient becomes lethargic or if there is any suspicion that patient takes a drug while in the hospital. Then will renew the to . - cont Venlafaxine, Bupropion--> would benefit from increased dose but will defer to PCP managing -lorazepam po prn anxiety while here -advised on cessation from all illicit substances -needs close Psychiatric follow up and encouraged drug rehab after discharge 3) HTN -cont Clonidine, Lisinopril, hctz 4) left index finger finger wound-appears to be healing well, no signs of infection -Advised nurse to redress wound with Adaptic, gauze, and Coban wrap daily after cleansing Proph-heparin SQ when ok with Ortho Dispo- to home when medically stable Full code Continued [facility] stay due to: multiple IV medications needed
[2017-05-31 22:57] VITALS: BP 129/89; PULSE 66; TEMP 36.7; O2SAT 97
[2017-06-01] MEDS: OXYCODONE/ACETAMINOPHEN 5-325 TAB PO PRN ×2 (01:56→10:26)
[2017-06-01] MEDS: ONDANSETRON INJ 2 MG/ML 2 ML VIAL IV PRN ×2 (02:02→19:02)
[2017-06-01 02:07] VITALS: BP 125/84; PULSE 84; TEMP 36.7; O2SAT 98
--- NOTE | 2017-06-01 03:53 | OPERATIVE REPORT ---
DATE OF OPERATION: 05/31/2017 PREOPERATIVE DIAGNOSES: 1. Recurrent abscess right foot first metatarsophalangeal joint. 2. Recurrent abscess dorsal foot. 3. Infectious tenosynovitis of the extensor hallucis longus tendon. POSTOPERATIVE DIAGNOSES: Same. PROCEDURES: 1. Repeat irrigation and debridement right foot with evacuation of first metatarsophalangeal abscess. 2. Repeat irrigation and debridement of the dorsal foot. 3. Debridement extensor hallucis longus tendon. SURGEON: Mane Garcia DO MEDIA/INSTRUCTIONAL DESIGNER: None. ANESTHESIA: General LMA with local. SPECIMENS: None. DRAINS: Iodoform gauze x2. COMPLICATIONS: None. BLOOD LOSS: 2 mL. PERTINENT HISTORY: This is a 42-year-old gentleman who developed an abscess of his right foot. He had 2 separate abscess sites which were incised and drained and packing was placed. He had debridement of his extensor hallucis longus tendon. ____ IV antibiotics and the packing had been pulled. Still had areas of purulence in the dorsum of the foot and also the first metatarsophalangeal region of the medial foot. He was then scheduled for repeat irrigation and debridement as noted. All potential risks, benefits, complications, alternatives, rehab, potential for incomplete relief of symptoms, need for further surgery, DVT, PE, , persistent pain, swelling, scarring, weakness, neurovascular injury, wound complications, and loss of function were discussed with patient. The patient decided to proceed with the procedure as indicated. DESCRIPTION OF PROCEDURE: The patient was taken to the operative suite and placed supine on the operating room table. I reviewed the consent and identification of proper operative site. The patient was anesthetized, LMA was placed. Tourniquet was placed high on the right thigh over cast padding; however, the pneumatic tourniquet was not used during the case. Next, the right lower extremity was then sterilely prepped and draped in the usual fashion, elevated and partially exsanguinated from the hindfoot extending proximally and a 4-inch Esmarch bandage was placed over sterile surgical towel at the level of the ankle. Next, the sutures were removed from the dorsum of the foot and also from the medial aspect of the foot noted to be purulent discharge and drainage from the medial incision site and also from the dorsal incision site. Noted to be marked improvement in swelling with reduction of cellulitis and erythema, however these areas of abscess were persistent. Next, after sutures were removed with hemostat and scissors, the incisions are open. There was noted to have necrotic tissue along the medial aspect of the foot. This area of necrosis was resected with a 15 blade scalpel followed by use of a curette to curettage the first metatarsophalangeal joint capsule and the fascia and skin. Next, the attention was then directed toward the dorsum of the foot. At which point, the incision was then carefully opened with a tenotomy scissors, revealing the extensor hallucis longus. There was noted to be infectious tenosynovitis surrounding the extensor hallucis longus. At this point, a rongeur was then used to perform a tenosynovectomy and debride the residual tendon. The majority of the tendon was noted to be intact. Next, curette was then used to curettage the skin and subcutaneous tissue and fascia. Next, a 3 liter bag of sterile normal saline with bacitracin was used as a pulsatile lavage to lavage the dorsal and medial incisions until clear. Once this was completed, the top sheet and top gloves were changed followed by placement of two 0.25 inch iodoform gauze drains, one on the dorsum of the foot and one along the medial aspect of the foot, extending to the small stab incisions proximal to the incision. This was followed by closure of the incisions with interrupted 3-0 and 4-0 nylon sutures and application of sterile compressive dressing consisting of Xeroform gauze, sterile 4 x 4's, ABD pad, Webril and Freedom wrap. The tourniquet was released. The local anesthetic was injected in a partial ankle block fashion with 0.5% Marcaine plain followed by application of Freedom wrap. Tourniquet was released. The patient was awakened and taken to recovery in stable condition. I attest to the content of the Intraoperative Record and any orders documented therein. Any exception s are noted below.
[2017-06-01] MEDS: KETOROLAC TROMETHAMINE 30 MG/ML VIAL IV. PRN ×4 (04:16→23:37)
[2017-06-01] MEDS: CEFAZOLIN IV 2,000 MG in SYRINGE 0 ML IV SCH ×4 (05:43→21:48)
[2017-06-01 07:04] LABS: CREATININE 1.24 mg/dl (0.60-1.40)
--- NOTE | 2017-06-01 07:09 | Orthopedic Progress Note ---
Orthopedic Progress Note Date of Service Jun 01, 2017. Subjective Post OP Day: 1 (s/p repeat I&D Right foot) Reports: feeling well, pain controlled w PO medications, Denies: complaints, chest pain, SOB, nausea / vomiting, light headedness, calf pain Objective calves soft nontender, N/V intact, capillary refill less than 2 sec., dressing C /D/I, A&O x3, toes mobile Date Time Temp Pulse Resp B/P (MAP) Pulse Ox O2 Delivery O2 Flow Rate FiO2 06/01/17 02:07 36.7 84 14 125/84 (98) 98 Room Air 05/31/17 23:47 Room Air 05/31/17 22:57 36.7 66 14 129/89 (102) 97 Room Air 05/31/17 21:52 36.4 82 18 139/86 (103) 98 Room Air 05/31/17 20:35 36.4 81 18 140/98 (112) 100 Nasal Cannula 2.0 05/31/17 19:50 Nasal Cannula 2.0 05/31/17 19:50 36.4 78 18 123/84 (97) 95 Nasal Cannula 2.0 05/31/17 19:35 73 13 125/88 99 Nasal Cannula 2 05/31/17 19:25 36.3 78 16 130/90 99 Nasal Cannula 2 05/31/17 19:15 77 17 134/92 100 Nasal Cannula 2 05/31/17 19:05 73 18 151/106 100 Oxymask 10 05/31/17 18:55 85 24 146/102 100 Oxymask 10 05/31/17 18:48 36.5 86 12 152/99 100 Oxymask 10 05/31/17 16:38 36.7 61 22 138/93 (108) 100 Room Air 05/31/17 15:49 36.3 60 22 143/87 (105) 100 Room Air 05/31/17 15:20 Room Air 05/31/17 08:00 Room Air Assessment & Plan Assessment: 1. Recurrent abscess right foot first metatarsophalangeal joint. 2. Recurrent abscess dorsal foot. 3. Infectious tenosynovitis of the extensor hallucis longus tendon. POD #1 s/p 1. Repeat irrigation and debridement right foot with evacuation of first metatarsophalangeal abscess. 2. Repeat irrigation and debridement of the dorsal foot. 3. Debridement extensor hallucis longus tendon. POD 5, from initial Right Foot I&D abscess X2 locations(16) history of IV drug Abuse Plan: will leave dressing and packing in until tomorrow, remove some of packing tomorrow, cont to ice/elevate for pain/swelling Appreciate ID input- On Vanco and Fluconazole As per Medicine.
[2017-06-01 07:49] VITALS: BP 106/69; PULSE 93; TEMP 36.5; O2SAT 99
[2017-06-01] MEDS: CLONIDINE HCL 0.3 MG TAB PO SCH ×2 (10:12→21:48)
[2017-06-01] MEDS: LISINOPRIL 20 MG TAB PO SCH (10:13)
[2017-06-01] MEDS: VENLAFAXINE HCL XR 150 MG CAPXR PO SCH (10:13)
[2017-06-01] MEDS: HYDROCHLOROTHIAZIDE 50 MG TAB PO SCH (10:13)
[2017-06-01 11:57] VITALS: BP 122/81; PULSE 93; TEMP 36.4; O2SAT 100
[2017-06-01] MEDS: CASPOFUNGIN INJ 50 MG in SODIUM CHLORIDE 0.9% 250ML 250 ML IV SCH (12:52)
[2017-06-01] MEDS: OXYCODONE HCL IR 5 MG TAB (IMMEDIATE RELEASE) PO PRN ×3 (14:06→22:35)
[2017-06-01 15:00] VITALS: BP 99/70; PULSE 98; O2SAT 97
--- NOTE | 2017-06-01 21:07 | Progress Note ---
Subjective Date of Service: Jun 01, 2017. Subjective No new complaints. Problem List Medical Problems: (1) Abdominal pain Status: Acute (2) Anemia Status: Acute (3) Back pain Status: Acute (4) Cellulitis of foot Status: Acute (5) Cellulitis of right foot Status: Acute (6) Colitis Status: Acute (7) Colitis, acute Status: Acute (8) Constipation Status: Acute (9) Dehydration Status: Acute (10) Failure of outpatient treatment Status: Acute (11) Fungemia Status: Acute (12) Hypertension Status: Acute (13) Hypokalemia Status: Acute (14) Left-sided low back pain with sciatica Status: Acute (15) SIRS (systemic inflammatory response syndrome) Status: Acute Review of Systems Constitutional: No fever, No chills ENT: No hearing loss Respiratory: No cough, No sputum Cardiac: No chest pain Abdomen: No pain, No nausea Neurologic: No memory loss, No paralysis Psychiatric: No depression symptoms, No anhedonism Endo: No fatigue Skin: No rash, No itch All Other Systems: Reviewed and Negative Medications Current Inpatient Medications Medications (Trade) Dose Ordered Sig/John Route Start Time Stop Time Status Last Admin Dose Admin Bupropion HCl (Wellbutrin Tab) 100 mg DAILY PO 05/26/17 09:00 06/25/17 08:59 06/02/17 09:53 100 MG Clonidine HCl (Catapres Tab) 0.3 mg BID PO 05/25/17 21:00 06/24/17 20:59 06/02/17 21:10 0.3 MG Lisinopril (Zestril Tab) 20 mg DAILY PO 05/26/17 09:00 06/25/17 08:59 06/02/17 08:52 20 MG Acetaminophen (Tylenol Tab) 650 mg Q4H PRN PO 05/25/17 17:15 06/24/17 17:14 05/27/17 12:26 650 MG Al Hydrox/Mg Hydrox/Simethicone (Maalox Max Susp) 15 ml Q4H PRN PO 05/25/17 17:15 06/24/17 17:14 Polyethylene (Miralax Powder Packet) 17 gm DAILY PRN PO 05/25/17 17:15 06/24/17 17:14 06/02/17 09:02 17 GM Zolpidem Tartrate (Ambien Tab) 5 mg HSZ PRN PO 05/25/17 17:15 06/24/17 17:14 05/26/17 00:30 5 MG Ondansetron HCl (Zofran Inj) 4 mg Q6H PRN IV 05/25/17 17:15 06/24/17 17:14 06/02/17 21:11 4 MG Miscellaneous (Iv Fluids Completed) 1 ea PRN PRN N/A 05/25/17 18:15 05/25/18 18:14 Venlafaxine HCl (effeXOR EXTENDED REL CAP) 75 mg Q2D@0900 PO 05/29/17 09:00 06/28/17 08:59 06/02/17 08:51 75 MG Venlafaxine HCl (effeXOR EXTENDED REL CAP) 150 mg Q2D@0900 PO 05/28/17 09:00 06/27/17 08:59 06/01/17 10:13 150 MG Hydrochlorothiazide (Hydrochlorothiazide Tab) 50 mg QAM PO 05/28/17 09:00 06/27/17 08:59 06/02/17 08:51 50 MG Naloxone HCl (Narcan Inj) 0.4 mg Q1H PRN IV 05/27/17 18:30 06/26/17 18:29 Fluconazole (Diflucan Tab) 200 mg QAM PO 05/29/17 11:00 06/08/17 10:59 Future Hold Menthol (Nice Mini) 1 mini PRN PRN PO 05/29/17 16:15 06/28/17 16:14 05/29/17 16:06 1 MINI Cefazolin Sodium 2000 mg/Syringe 10 ml @ 2.5 mls/min Q8 IV 05/30/17 14:00 06/05/17 13:59 06/03/17 05:55 2.5 MLS/MIN Ketorolac Tromethamine (Toradol Inj) 30 mg Q6H PRN IV. 05/30/17 20:00 06/04/17 19:59 06/03/17 05:55 30 MG Caspofungin 50 mg/ Sodium Chloride 260 ml @ 250 mls/hr DAILY@1300 IV 06/01/17 13:00 07/13/17 12:59 06/02/17 13:02 250 MLS/HR Oxycodone HCl (Roxicodone Immediate Rel Tab) `1-2 tabs for pain 1 tab ... Q4H PRN PO 06/01/17 11:15 06/15/17 11:14 06/03/17 06:59 10 MG Objective Vital Signs Date Time Temp Pulse Resp B/P (MAP) Pulse Ox O2 Delivery O2 Flow Rate FiO2 06/01/17 15:20 Room Air 06/01/17 15:00 98 20 99/70 (80) 97 Room Air 06/01/17 11:57 36.4 93 17 122/81 (95) 100 Room Air 06/01/17 09:15 Room Air 06/01/17 07:49 36.5 93 16 106/69 (81) 99 Room Air 06/01/17 02:07 36.7 84 14 125/84 (98) 98 Room Air 05/31/17 23:47 Room Air 05/31/17 22:57 36.7 66 14 129/89 (102) 97 Room Air 05/31/17 21:52 36.4 82 18 139/86 (103) 98 Room Air Physical Exam Comments: General Appearance: WD/WN, no apparent distress (sleeping when I walked in the room, but then complained of significant pain in his foot a few minutes later) Eyes: normal inspection, sclerae normal ENT: hearing grossly normal Neck: trachea midline Respiratory/Chest: lungs clear, normal breath sounds, no respiratory distress, no accessory muscle use Cardiovascular: regular rate, rhythm, no gallop, no murmur Abdomen: normal bowel sounds, non tender, soft Extremities: no calf tenderness, + pertinent finding (right foot and ankle remain wrapped in dressing and Freedom bandage not removed; left index finger dressing removed and lateral portion with superficial wound approximately 0.75 X0.75 cm that is nonbleeding, no erythema or drainage) Neurologic/Psychiatric: alert, normal mood/affect Skin: normal color, no rash, Laboratory Results Last 24 Hours Test 06/01/17 05:49 Creatinine 1.24 mg/dl Est Creatinine Clear Calc Drug Dose 93.1 ml/min Estimated GFR () 83.8 Estimated GFR (Non- 72.3 Assessment and Plan Pt is a 42 y/o male with a h/o polysubstance abuse to include opiates and IV drugs, fungemia, depression/anxiety, and HTN, who developed pain and swelling of the dorsal aspect of his R foot 5 days prior following trauma. He states that he had tried to pop an apparent blister with a needle when it first occurred. He presented to the ER 05/22 and was initially placed on Keflex and DCd. He visited [facility] 2 days later and was placed on Clindamycin. Despite antibiotic use, the pain and swelling have progressed and the inflammation has spread. He reports having a fever at home, but none documented here. He denies any recent IV drug use. Incidentally, he cut the tip of his L mid finger the day of admission with a pair of scissors while cutting paper. 1) Cellulitis and abscesses x 2 of dorsal aspect of R foot/EHL suppurative tenosynovitis - now s/p I&D and tenosynovectomy by Orthopedics 05/26. Suspicious for IV drug abuse injection site which pt adamantly denies. Has a h/ o fungemia -Patient required I and D due to new abscess forming yesterday Final cultures showed gamma strep and marito Given recent surgery will need to continue to monitor foot for more purulent discharge. I appreciate ID recomendations Will continue Vanc and Ceftriaxone, caspofungin -Appreciate Orthopedic management -Ortho changed dressing today. -will need Wound Care follow up as outpatient. 2) Depression/Anxiety/Polysubstance abuse -concern that patient is taking meds from his spouse such as illicit drugs. However,1 to 1 was mn'ed Patient has not become lethargic since removal of 1 to 1. will continue to monitor If patient becomes lethargic or if there is any suspicion that patient takes a drug while in the hospital. Then will renew the 1 to 1. - cont Venlafaxine, Bupropion--> would benefit from increased dose but will defer to PCP managing -lorazepam po prn anxiety while here -advised on cessation from all illicit substances -needs close Psychiatric follow up and encouraged drug rehab after discharge 3) HTN -cont Clonidine, Lisinopril, hctz 4) left index finger finger wound-appears to be healing well, no signs of infection -Advised nurse to redress wound with Adaptic, gauze, and Coban wrap daily after cleansing Proph-heparin SQ when ok with Ortho Dispo- to home when medically stable Full code Continued [facility] stay due to: multiple IV medications needed
[2017-06-01 23:25] VITALS: BP 123/72; PULSE 59; TEMP 36.3; O2SAT 97
[2017-06-02] MEDS: OXYCODONE HCL IR 5 MG TAB (IMMEDIATE RELEASE) PO PRN ×5 (02:29→21:11)
[2017-06-02] MEDS: CEFAZOLIN IV 2,000 MG in SYRINGE 0 ML IV SCH ×3 (05:37→22:30)
[2017-06-02 07:42] VITALS: BP 117/81; PULSE 60; TEMP 36.4; O2SAT 95
[2017-06-02] MEDS: KETOROLAC TROMETHAMINE 30 MG/ML VIAL IV. PRN ×3 (08:48→22:38)
[2017-06-02] MEDS: VENLAFAXINE HCL XR 75 MG CAPXR PO SCH (08:51)
[2017-06-02] MEDS: HYDROCHLOROTHIAZIDE 50 MG TAB PO SCH (08:51)
[2017-06-02] MEDS: CLONIDINE HCL 0.3 MG TAB PO SCH ×2 (08:51→21:10)
[2017-06-02] MEDS: LISINOPRIL 20 MG TAB PO SCH (08:52)
--- NOTE | 2017-06-02 10:51 | Progress Note ---
Orthopedic SOAP Note Subjective Date of Service: Jun 02, 2017. Additional Notes: having pain in foot doesn't feel pain meds effective Problem List Medical Problems: (1) Abdominal pain Status: Acute (2) Anemia Status: Acute (3) Back pain Status: Acute (4) Cellulitis of foot Status: Acute (5) Cellulitis of right foot Status: Acute (6) Colitis Status: Acute (7) Colitis, acute Status: Acute (8) Constipation Status: Acute (9) Dehydration Status: Acute (10) Failure of outpatient treatment Status: Acute (11) Fungemia Status: Acute (12) Hypertension Status: Acute (13) Hypokalemia Status: Acute (14) Left-sided low back pain with sciatica Status: Acute (15) SIRS (systemic inflammatory response syndrome) Status: Acute Objective N/V intact, toes mobile packing in wound , some pus still in central incision,erythema minimal,sutures intact Date Time Temp Pulse Resp B/P (MAP) Pulse Ox O2 Delivery O2 Flow Rate FiO2 06/02/17 10:39 Room Air 06/02/17 07:42 36.4 60 16 117/81 (93) 95 Room Air 06/01/17 23:25 36.3 59 16 123/72 (89) 97 Room Air 06/01/17 23:20 Room Air 06/01/17 15:20 Room Air 06/01/17 15:00 98 20 99/70 (80) 97 Room Air 06/01/17 11:57 36.4 93 17 122/81 (95) 100 Room Air Assessment 1. Recurrent abscess right foot first metatarsophalangeal joint. 2. Recurrent abscess dorsal foot. 3. Infectious tenosynovitis of the extensor hallucis longus tendon. POD #2 s/p 1. Repeat irrigation and debridement right foot with evacuation of first metatarsophalangeal abscess. 2. Repeat irrigation and debridement of the dorsal foot. 3. Debridement extensor hallucis longus tendon. POD 5, from initial Right Foot I&D abscess X2 locations(16) history of IV drug Abuse,packing advanced .new dressing applied, some pus expressed from dorsal incision. continue IV antibiotics advance more packing tomorrow. Plan will leave dressing and packing in until tomorrow, remove some of packing tomorrow, cont to ice/elevate for pain/swelling Appreciate ID input- On Vanco and Fluconazole As per Medicine.
[2017-06-02] MEDS: ONDANSETRON INJ 2 MG/ML 2 ML VIAL IV PRN ×2 (11:42→21:11)
[2017-06-02] MEDS: CASPOFUNGIN INJ 50 MG in SODIUM CHLORIDE 0.9% 250ML 250 ML IV SCH (13:02)
[2017-06-02 15:16] VITALS: BP 110/78; PULSE 79; TEMP 36.8; O2SAT 96
--- NOTE | 2017-06-02 22:21 | Progress Note ---
Subjective Date of Service: Jun 02, 2017. Subjective Despite telling ortho his pain is not being managed well. he states that he is happy with the pain medicine and does not want anything changed today. No new complaints. Problem List Medical Problems: (1) Abdominal pain Status: Acute (2) Anemia Status: Acute (3) Back pain Status: Acute (4) Cellulitis of foot Status: Acute (5) Cellulitis of right foot Status: Acute (6) Colitis Status: Acute (7) Colitis, acute Status: Acute (8) Constipation Status: Acute (9) Dehydration Status: Acute (10) Failure of outpatient treatment Status: Acute (11) Fungemia Status: Acute (12) Hypertension Status: Acute (13) Hypokalemia Status: Acute (14) Left-sided low back pain with sciatica Status: Acute (15) SIRS (systemic inflammatory response syndrome) Status: Acute Review of Systems Constitutional: No fever, No chills Respiratory: No cough, No sputum Cardiac: No chest pain, No orthopnea Abdomen: No pain, No nausea Neurologic: No memory loss, No paralysis Psychiatric: No depression symptoms, No anhedonism Heme: No abnormal bleeding/bruising All Other Systems: Reviewed and Negative Medications Current Inpatient Medications Medications (Trade) Dose Ordered Sig/John Route Start Time Stop Time Status Last Admin Dose Admin Bupropion HCl (Wellbutrin Tab) 100 mg DAILY PO 05/26/17 09:00 06/25/17 08:59 06/02/17 09:53 100 MG Clonidine HCl (Catapres Tab) 0.3 mg BID PO 05/25/17 21:00 06/24/17 20:59 06/02/17 21:10 0.3 MG Lisinopril (Zestril Tab) 20 mg DAILY PO 05/26/17 09:00 06/25/17 08:59 06/02/17 08:52 20 MG Acetaminophen (Tylenol Tab) 650 mg Q4H PRN PO 05/25/17 17:15 06/24/17 17:14 05/27/17 12:26 650 MG Al Hydrox/Mg Hydrox/Simethicone (Maalox Max Susp) 15 ml Q4H PRN PO 05/25/17 17:15 06/24/17 17:14 Polyethylene (Miralax Powder Packet) 17 gm DAILY PRN PO 05/25/17 17:15 06/24/17 17:14 06/02/17 09:02 17 GM Zolpidem Tartrate (Ambien Tab) 5 mg HSZ PRN PO 05/25/17 17:15 06/24/17 17:14 05/26/17 00:30 5 MG Ondansetron HCl (Zofran Inj) 4 mg Q6H PRN IV 05/25/17 17:15 06/24/17 17:14 06/02/17 21:11 4 MG Miscellaneous (Iv Fluids Completed) 1 ea PRN PRN N/A 05/25/17 18:15 05/25/18 18:14 Venlafaxine HCl (effeXOR EXTENDED REL CAP) 75 mg Q2D@0900 PO 05/29/17 09:00 06/28/17 08:59 06/02/17 08:51 75 MG Venlafaxine HCl (effeXOR EXTENDED REL CAP) 150 mg Q2D@0900 PO 05/28/17 09:00 06/27/17 08:59 06/01/17 10:13 150 MG Hydrochlorothiazide (Hydrochlorothiazide Tab) 50 mg QAM PO 05/28/17 09:00 06/27/17 08:59 06/02/17 08:51 50 MG Naloxone HCl (Narcan Inj) 0.4 mg Q1H PRN IV 05/27/17 18:30 06/26/17 18:29 Fluconazole (Diflucan Tab) 200 mg QAM PO 05/29/17 11:00 06/08/17 10:59 Future Hold Menthol (Nice Mini) 1 mini PRN PRN PO 05/29/17 16:15 06/28/17 16:14 05/29/17 16:06 1 MINI Cefazolin Sodium 2000 mg/Syringe 10 ml @ 2.5 mls/min Q8 IV 05/30/17 14:00 06/05/17 13:59 06/03/17 05:55 2.5 MLS/MIN Ketorolac Tromethamine (Toradol Inj) 30 mg Q6H PRN IV. 05/30/17 20:00 06/04/17 19:59 06/03/17 05:55 30 MG Caspofungin 50 mg/ Sodium Chloride 260 ml @ 250 mls/hr DAILY@1300 IV 06/01/17 13:00 07/13/17 12:59 06/02/17 13:02 250 MLS/HR Oxycodone HCl (Roxicodone Immediate Rel Tab) `1-2 tabs for pain 1 tab ... Q4H PRN PO 06/01/17 11:15 06/15/17 11:14 06/03/17 06:59 10 MG Objective Vital Signs Date Time Temp Pulse Resp B/P (MAP) Pulse Ox O2 Delivery O2 Flow Rate FiO2 06/02/17 15:16 36.8 79 18 110/78 (89) 96 Room Air 06/02/17 15:10 Room Air 06/02/17 10:39 Room Air 06/02/17 07:42 36.4 60 16 117/81 (93) 95 Room Air 06/01/17 23:25 36.3 59 16 123/72 (89) 97 Room Air 06/01/17 23:20 Room Air Physical Exam Comments: General Appearance: WD/WN, no apparent distress (sleeping when I walked in the room, but then complained of significant pain in his foot a few minutes later) Eyes: normal inspection, sclerae normal ENT: hearing grossly normal Neck: trachea midline Respiratory/Chest: lungs clear, normal breath sounds, no respiratory distress, no accessory muscle use Cardiovascular: regular rate, rhythm, no gallop, no murmur Abdomen: normal bowel sounds, non tender, soft Extremities: no calf tenderness, + pertinent finding (right foot and ankle remain wrapped in dressing and Freedom bandage not removed) Neurologic/Psychiatric: alert, normal mood/affect Skin: normal color, no rash, Assessment and Plan Pt is a 42 y/o male with a h/o polysubstance abuse to include opiates and IV drugs, fungemia, depression/anxiety, and HTN, who developed pain and swelling of the dorsal aspect of his R foot 5 days prior following trauma. He states that he had tried to pop an apparent blister with a needle when it first occurred. He presented to the ER 05/22 and was initially placed on Keflex and DCd. He visited [facility] 2 days later and was placed on Clindamycin. Despite antibiotic use, the pain and swelling have progressed and the inflammation has spread. He reports having a fever at home, but none documented here. He denies any recent IV drug use. Incidentally, he cut the tip of his L mid finger the day of admission with a pair of scissors while cutting paper. 1) Cellulitis and abscesses x 2 of dorsal aspect of R foot/EHL suppurative tenosynovitis - now s/p I&D and tenosynovectomy by Orthopedics 05/26. Suspicious for IV drug abuse injection site which pt adamantly denies. Has a h/ o fungemia -Patient required I and D due to Recurrent abscess right foot first metatarsophalangeal joint and Recurrent abscess dorsal foot. -Patient also had Infectious tenosynovitis of the extensor hallucis longus tendon. Final cultures showed gamma strep and marito Given recent surgery will need to continue to monitor foot for more purulent discharge. I appreciate ID recomendations Will continue Vanc and Ceftriaxone, caspofungin -Appreciate Orthopedic management -Ortho changed dressing today. -will need Wound Care follow up as outpatient. -Percocet was d/c and patient now on oxycodone. 2) Depression/Anxiety/Polysubstance abuse -concern that patient is taking meds from his spouse such as illicit drugs. However,1 to 1 was ne'ed Patient has not become lethargic since removal of 1 to 1. will continue to monitor If patient becomes lethargic or if there is any suspicion that patient takes a drug while in the hospital. Then will renew the 1 to 1. - cont Venlafaxine, Bupropion--> would benefit from increased dose but will defer to PCP managing -lorazepam po prn anxiety while here -advised on cessation from all illicit substances -needs close Psychiatric follow up and encouraged drug rehab after discharge 3) HTN -cont Clonidine, Lisinopril, hctz 4) left index finger finger wound-appears to be healing well, no signs of infection -Advised nurse to redress wound with Adaptic, gauze, and Coban wrap daily after cleansing Proph-heparin SQ when ok with Ortho Dispo- to home when medically stable Full code Continued [facility] stay due to: multiple IV medications needed
[2017-06-02 22:59] VITALS: BP 101/69; PULSE 71; TEMP 36.7; O2SAT 99
[2017-06-03] MEDS: OXYCODONE HCL IR 5 MG TAB (IMMEDIATE RELEASE) PO PRN ×3 (02:24→11:26)
[2017-06-03] MEDS: CEFAZOLIN IV 2,000 MG in SYRINGE 0 ML IV SCH (05:55)
[2017-06-03] MEDS: KETOROLAC TROMETHAMINE 30 MG/ML VIAL IV. PRN (05:55)
[2017-06-03 06:48] VITALS: BP 95/59; PULSE 107; TEMP 36.2; O2SAT 98
--- NOTE | 2017-06-03 07:36 | Anesthesiology Progress Note ---
Anesthesia Post Op Note Date & Time Jun 03, 2017 at 07:35 Vital Signs Pain Intensity: 6.0 Vital Signs Past 12 Hours Date Time Temp Pulse Resp B/P (MAP) Pulse Ox O2 Delivery O2 Flow Rate FiO2 06/03/17 06:48 36.2 107 20 95/59 (71) 98 Room Air 06/02/17 23:15 Room Air 06/02/17 22:59 36.7 71 14 101/69 (80) 99 Room Air Notes Mental Status: alert / awake / arousable, participated in evaluation Pt Amnestic to Procedure: Yes Nausea / Vomiting: adequately controlled Pain: adequately controlled Airway Patency, RR, SpO2: stable & adequate BP & HR: stable & adequate Hydration State: stable & adequate Anesthetic Complications: no major complications apparent
[2017-06-03 08:01] VITALS: BP 98/63; PULSE 66
--- NOTE | 2017-06-03 08:31 | Orthopedic Progress Note ---
Orthopedic Progress Note Date of Service Jun 03, 2017. Subjective Post OP Day: 3 Reports: feeling well, pain controlled w PO medications, Denies: complaints, calf pain Objective calves soft nontender, N/V intact, capillary refill less than 2 sec., dressing C /D/I, incision C/D/I, A&O x3, toes mobile Dorsal right foot: 2 incision are well approximated. Very mild purulence from the more lateral incision. Little erythema at the foot. Marked improvement vs. previous lines put on the skin. Very little swelling. Packing sites are clean and without drainage after removal of the packing. Date Time Temp Pulse Resp B/P (MAP) Pulse Ox O2 Delivery O2 Flow Rate FiO2 06/03/17 08:01 66 98/63 (75) 06/03/17 07:50 Room Air 06/03/17 06:48 36.2 107 20 95/59 (71) 98 Room Air 06/02/17 23:15 Room Air 06/02/17 22:59 36.7 71 14 101/69 (80) 99 Room Air 06/02/17 15:16 36.8 79 18 110/78 (89) 96 Room Air 06/02/17 15:10 Room Air 06/02/17 10:39 Room Air Laboratory Results 24 Hours: Test 06/03/17 08:16 Assessment & Plan Assessment: POD #3 s/p 1. Repeat irrigation and debridement right foot with evacuation of first metatarsophalangeal abscess. 2. Repeat irrigation and debridement of the dorsal foot. 3. Debridement extensor hallucis longus tendon. POD 5, from initial Right Foot I&D abscess X2 locations(16) history of IV drug Abuse,packing removed. New dressing applied, some pus expressed from dorsal incision. continue IV antibiotics. Plan: Dressing changed today with very thin pieces of adaptic cut to the size of the incisions. Appreciate ID input- On Vanco and Fluconazole As per Medicine. Patient is OK to d/c from an ortho standpoint. Will sign off and plan on a 1 week follow up in the office for a wound check.
--- NOTE | 2017-06-03 08:32 | Consultant Recommendations ---
Performance Test Consultant Recommendations Date of Service Jun 03, 2017. Performance Test Consultant Recommendations ACTIVITY RECOMMENDATIONS: Limitations: Heel weight bearing only if able to tolerate. SPECIAL CARE INSTRUCTIONS: * Some drainage onto the dressing is normal and is no cause for alarm. * Some swelling is natural especially after walking. * When resting, keep your foot elevated above the level of your heart. * Call [facility] if you notice: -Increased drainage -Fever over 101 degrees F -Severe constant pain BANDAGE: * Leave bandage/cast in place unless otherwise directed. * Keep bandage/cast dry at all times. FOLLOW UP VISIT WITH DR. BERUMEN If appointment is not already scheduled: Please call [facility] after you get home today to schedule a follow-up appointment for [address] Berumen at .
[2017-06-03] MEDS: VENLAFAXINE HCL XR 150 MG CAPXR PO SCH (08:51)
[2017-06-03] MEDS: HYDROCHLOROTHIAZIDE 50 MG TAB PO SCH (08:52)
[2017-06-03] MEDS: LISINOPRIL 20 MG TAB PO SCH (08:52)
[2017-06-03] MEDS: CLONIDINE HCL 0.3 MG TAB PO SCH (08:52)
[2017-06-03 09:08] LABS: BASO % 0.4 %; BASO ABS # 0.03 K/uL (0-0.2); EOS % 2.5 %; EOS ABS # 0.17 K/uL (0-0.5); HEMOGLOBIN 12.5 g/dL (14.0-18.0); IG# 0.02 K/uL (0.00-0.02); LYMPH ABS # 2.13 K/uL (1.2-3.4); MEAN CELL VOLUME 88.8 fL (80-100); MEAN CORPUSCULAR HEMOGLOBIN 29.2 pg (25-34); MEAN CORPUSCULAR HGB CONC 32.9 g/dl (32-36); MEAN PLATELET VOLUME 10.9 fL (7.4-10.4); MONO % 7.8 %; MONO ABS # 0.54 K/uL (0.11-0.59); NEUT ABS # 3.99 K/uL (1.4-6.5); PLATELET COUNT 233 K/uL (130-400); RED CELL DISTRIBUTION WIDTH CV 13.3 % (11.5-14.5); RED CELL DISTRIBUTION WIDTH SD 42.5 fL (36.4-46.3); WHITE BLOOD COUNT 6.88 K/uL (4.8-10.8)
[2017-06-03 09:28] LABS: ALBUMIN 3.4 gm/dl (3.4-5.0); ALT/SGPT 16 U/L (12-78); AST/SGOT 12 U/L (15-37); BLOOD UREA NITROGEN 20 mg/dl (7-18); CALCIUM 9.4 mg/dl (8.5-10.1); CARBON DIOXIDE 28 mmol/L (21-32); CREATININE 1.52 mg/dl (0.60-1.40); GLUCOSE 82 mg/dl (70-99); POTASSIUM 3.9 mmol/L (3.5-5.1); SODIUM 136 mmol/L (136-145)
[2017-06-03 09:31] LABS: ALKALINE PHOSPHATASE 85 U/L (45-117); TOTAL PROTEIN 7.4 gm/dl (6.4-8.2)
--- NOTE | 2017-06-03 10:09 | Infectious Disease Progress Nt ---
Progress Note Date of Service Jun 03, 2017. Subjective Pt evaluation today including: conversation w/ patient, conversation w/ family , physical exam, lab review, review of studies, conversation w/ career consultant, review of inpatient medication list Patient offers no new complaints today. Remains afebrile. Pain controlled. Wound healing appropriately according to surgery. All Other Systems: Reviewed and Negative Medications Current Inpatient Medications Medications (Trade) Dose Ordered Sig/John Route Start Time Stop Time Status Last Admin Dose Admin Bupropion HCl (Wellbutrin Tab) 100 mg DAILY PO 05/26/17 09:00 06/25/17 08:59 06/03/17 08:51 100 MG Clonidine HCl (Catapres Tab) 0.3 mg BID PO 05/25/17 21:00 06/24/17 20:59 06/03/17 08:52 0.3 MG Lisinopril (Zestril Tab) 20 mg DAILY PO 05/26/17 09:00 06/25/17 08:59 06/03/17 08:52 20 MG Acetaminophen (Tylenol Tab) 650 mg Q4H PRN PO 05/25/17 17:15 06/24/17 17:14 05/27/17 12:26 650 MG Al Hydrox/Mg Hydrox/Simethicone (Maalox Max Susp) 15 ml Q4H PRN PO 05/25/17 17:15 06/24/17 17:14 Polyethylene (Miralax Powder Packet) 17 gm DAILY PRN PO 05/25/17 17:15 06/24/17 17:14 06/02/17 09:02 17 GM Zolpidem Tartrate (Ambien Tab) 5 mg HSZ PRN PO 05/25/17 17:15 06/24/17 17:14 05/26/17 00:30 5 MG Ondansetron HCl (Zofran Inj) 4 mg Q6H PRN IV 05/25/17 17:15 06/24/17 17:14 06/02/17 21:11 4 MG Miscellaneous (Iv Fluids Completed) 1 ea PRN PRN N/A 05/25/17 18:15 05/25/18 18:14 Venlafaxine HCl (effeXOR EXTENDED REL CAP) 75 mg Q2D@0900 PO 05/29/17 09:00 06/28/17 08:59 06/02/17 08:51 75 MG Venlafaxine HCl (effeXOR EXTENDED REL CAP) 150 mg Q2D@0900 PO 05/28/17 09:00 06/27/17 08:59 06/03/17 08:51 150 MG Hydrochlorothiazide (Hydrochlorothiazide Tab) 50 mg QAM PO 05/28/17 09:00 06/27/17 08:59 06/03/17 08:52 50 MG Naloxone HCl (Narcan Inj) 0.4 mg Q1H PRN IV 05/27/17 18:30 06/26/17 18:29 Fluconazole (Diflucan Tab) 200 mg QAM PO 05/29/17 11:00 06/08/17 10:59 Future Hold Menthol (Nice Effie) 1 effie PRN PRN PO 05/29/17 16:15 06/28/17 16:14 05/29/17 16:06 1 EFFIE Cefazolin Sodium 2000 mg/Syringe 10 ml @ 2.5 mls/min Q8 IV 05/30/17 14:00 06/05/17 13:59 06/03/17 05:55 2.5 MLS/MIN Ketorolac Tromethamine (Toradol Inj) 30 mg Q6H PRN IV. 05/30/17 20:00 06/04/17 19:59 06/03/17 05:55 30 MG Caspofungin 50 mg/ Sodium Chloride 260 ml @ 250 mls/hr DAILY@1300 IV 06/01/17 13:00 07/13/17 12:59 06/02/17 13:02 250 MLS/HR Oxycodone HCl (Roxicodone Immediate Rel Tab) `1-2 tabs for pain 1 tab ... Q4H PRN PO 06/01/17 11:15 06/15/17 11:14 06/03/17 06:59 10 MG Objective Vital Signs Date Time Temp Pulse Resp B/P (MAP) Pulse Ox O2 Delivery O2 Flow Rate FiO2 06/03/17 08:01 66 98/63 (75) 06/03/17 07:50 Room Air 06/03/17 06:48 36.2 107 20 95/59 (71) 98 Room Air 06/02/17 23:15 Room Air 06/02/17 22:59 36.7 71 14 101/69 (80) 99 Room Air 06/02/17 15:16 36.8 79 18 110/78 (89) 96 Room Air 06/02/17 15:10 Room Air 06/02/17 10:39 Room Air Physical Exam General Appearance: WD/WN, no apparent distress Eyes: normal inspection, EOMI, sclerae normal ENT: normal ENT inspection, pharynx normal Neck: supple, no adenopathy, thyroid normal, trachea midline Respiratory/Chest: chest non-tender, lungs clear, normal breath sounds, no respiratory distress Cardiovascular: regular rate, rhythm, no gallop, no murmur Abdomen: normal bowel sounds, non tender, soft, no organomegaly Extremities: non-tender, no calf tenderness Neurologic/Psychiatric: alert, oriented x 3 Skin: normal color, no rash, + pertinent finding (Dressing intact right foot) Lymphatic: no adenopathy Laboratory Results Last 24 Hours Test 06/03/17 08:48 White Blood Count 6.88 K/uL Red Blood Count 4.28 M/uL Hemoglobin 12.5 g/dL Hematocrit 38.0 % Mean Corpuscular Volume 88.8 fL Mean Corpuscular Hemoglobin 29.2 pg Mean Corpuscular Hemoglobin Concent 32.9 g/dl Platelet Count 233 K/uL Mean Platelet Volume 10.9 fL Neutrophils (%) (Auto) 58.0 % Lymphocytes (%) (Auto) 31.0 % Monocytes (%) (Auto) 7.8 % Eosinophils (%) (Auto) 2.5 % Basophils (%) (Auto) 0.4 % Neutrophils # (Auto) 3.99 K/uL Lymphocytes # (Auto) 2.13 K/uL Monocytes # (Auto) 0.54 K/uL Eosinophils # (Auto) 0.17 K/uL Basophils # (Auto) 0.03 K/uL RDW Standard Deviation 42.5 fL RDW Coefficient of Variation 13.3 % Immature Granulocyte % (Auto) 0.3 % Immature Granulocyte # (Auto) 0.02 K/uL Sodium Level 136 mmol/L Potassium Level 3.9 mmol/L Chloride Level 104 mmol/L Carbon Dioxide Level 28 mmol/L Anion Gap 4.0 mmol/L Blood Urea Nitrogen 20 mg/dl Creatinine 1.52 mg/dl Est Creatinine Clear Calc Drug Dose 76.0 ml/min Estimated GFR () 65.5 Estimated GFR (Non- 56.5 BUN/Creatinine Ratio 12.8 Random Glucose 82 mg/dl Calcium Level 9.4 mg/dl Magnesium Level 2.1 mg/dl Total Bilirubin 0.2 mg/dl Direct Bilirubin < 0.1 mg/dl Aspartate Amino Transf (AST/SGOT) 12 U/L Alanine Aminotransferase (ALT/SGPT) 16 U/L Alkaline Phosphatase 85 U/L Total Protein 7.4 gm/dl Albumin 3.4 gm/dl Assessment and Plan Right foot abscess in the setting of possible IV drug abuse and local injection , status post incision and drainage x 2, with cultures growing methicillin sensitive Staph aureus. Given improvement, think the patient can be transitioned to oral antibiotic and recommend cephalexin 500 milligrams q.i.d. for 2 weeks with follow-up visit then to determine need for further therapy.
[2017-06-03] MEDS ORDERED: CEPH-571 PO ×2 (10:10→11:33)
[2017-06-03] MEDS ORDERED: RXC5 PO (10:25)
--- NOTE | 2017-06-03 10:29 | Discharge Instructions ---
Discharge Instructions Date of Service Jun 03, 2017. Admission Reason for Admission: Cellulitis and abscess Of Right Foot Discharge Discharge Diagnosis / Problem: Cellulitis and abscess of right foot Discharge Goals Goal(s): Decrease discomfort, Improve function, Improve disease control, Learn about illness, Diagnostic testing, Therapeutic intervention, Prevent Disease Progression Activity Recommendations Activity Limitations: resume your previous activity . Instructions / Follow-Up Instructions / Follow-Up Right foot cellulitis (infection): Keflex 500 mg four times a day until prescription is completed It is VERY IMPORTANT you continue entire course of antibiotic regardless of improvement Roxicodone 5 mg every 4 hours as needed for pain control STOP Hydrochlorothiazide medication Resume all other regular home medications as prescribed It is HIGHLY recommended you discontinue all use of illegal substance. Continue outpatient therapy/treatment as scheduled. FOLLOW-UPS: Please follow-up with your PCP within 5-7 days Please follow-up with Infectious disease within 2 weeks Follow-up with Orthopedics within 1 week Please follow-up/keep all of your subspecialty appointments Current Hospital Diet Patient's current hospital diet: AHA Diet (Heart Healthy) Discharge Diet Recommended Diet: AHA Diet (Heart Healthy) Procedures Procedures Performed: Repeat irrigation and debridement of abscess right first metatarsalphalangeal joint, repeat irrigation and debridement dorsal foot, and recurrent debridement of right foot EHL tendon Pending Studies Studies pending at discharge: no Medical Emergencies . Who to Call and When: Medical Emergencies: If at any time you feel your situation is an emergency, please call 911 immediately. . Non-Emergent Contact Non-Emergency issues call your: Primary Care Provider, Specialist (Orthopedics ) Call Non-Emergent contact if: you have a fever, your pain is not controlled, your pain is worsening, your pain is unusual for you, your pain is concerning you, wound has increased drainage, wound has increased redness, wound has increased pain, you have any medication questions . . "Provider Documentation" section prepared by Mone Block. . Manager Inside Recommendations Manager Inside Recommendations: ACTIVITY RECOMMENDATIONS: Limitations: Heel weight bearing only if able to tolerate. SPECIAL CARE INSTRUCTIONS: * Some drainage onto the dressing is normal and is no cause for alarm. * Some swelling is natural especially after walking. * When resting, keep your foot elevated above the level of your heart. * Call [facility] if you notice: -Increased drainage -Fever over 101 degrees F -Severe constant pain BANDAGE: * Leave bandage/cast in place unless otherwise directed. * Keep bandage/cast dry at all times. FOLLOW UP VISIT WITH DR. BERUMEN If appointment is not already scheduled: Please call [facility] after you get home today to schedule a follow-up appointment for [address] Berumen at . VTE Core Measure Inpt VTE Proph given/why not?: Unfractionated heparin SQ [place] Drug Monitoring Program Search Results: patient reviewed within database, no issues identified
--- NOTE | 2017-06-03 10:44 | Discharge Summary ---
Discharge Summary Date of Service Jun 03, 2017. Discharge Summary Admission Date: May 26, 2017 at 09:59 Discharge Date: Jun 03, 2017 Discharge Disposition: Home Principal Diagnosis: Right foot cellutitis Problems/Secondary Diagnoses: R foot Cellulitis and abscesses x2 of dorsal aspect of R foot/EHL suppurative tenosynovitis s/p I&D on 05/26 and 06/01 Depression anxiety polysubstance abuse HTN Mild hypokalemia Acute renal insufficiency Immunizations: Have You Had Influenza Vaccine: No History of Tetanus Vaccine?: Unknown History of Pneumococcal: No History of Hepatitis B Vaccine: No Procedures: DICTATED BY: Mane Garcia D.O. DATE OF OPERATION: 05/26/2017 PREOPERATIVE DIAGNOSES: 1. Right foot abscesses in 2 separate locations. 2. Suppurative tenosynovitis in the extensor hallucis longus tendon. POSTOPERATIVE DIAGNOSES: Same. PROCEDURES: 1. Incision and drainage of right foot abscesses at 2 separate locations with 2 separate incisions. 2. Debridement and tenosynovectomy of the extensor hallucis longus tendon. SURGEON: Dr. Garcia. GRINDER SET UP OPERATOR CENTERLESS: None. ANESTHESIA: General endotracheal tube with local anesthetic. SPECIMENS: Aerobic, anaerobic, Gram stain from the right medial foot. DRAINS: 1/4-inch iodoform gauze x2. COMPLICATIONS: None. BLOOD LOSS: 3 mL DICTATED BY: Mane Garcia D.O. DATE OF OPERATION: 05/31/2017 PREOPERATIVE DIAGNOSES: 1. Recurrent abscess right foot first metatarsophalangeal joint. 2. Recurrent abscess dorsal foot. 3. Infectious tenosynovitis of the extensor hallucis longus tendon. POSTOPERATIVE DIAGNOSES: Same. PROCEDURES: 1. Repeat irrigation and debridement right foot with evacuation of first metatarsophalangeal abscess. 2. Repeat irrigation and debridement of the dorsal foot. 3. Debridement extensor hallucis longus tendon. SURGEON: Mane Garcia DO GRINDER SET UP OPERATOR CENTERLESS: None. ANESTHESIA: General LMA with local. SPECIMENS: None. DRAINS: Iodoform gauze x2. COMPLICATIONS: None. BLOOD LOSS: 2 mL. R LOWER EXTREMITY WITHOUT CLINICAL HISTORY: 42 years-old Male presenting with poss osteo foot--no response antibiotics. TECHNIQUE: Multidetector CT of the right foot was performed without the use of intravenous contrast. IV contrast: None. A dose lowering technique was used consistent with the principles of ALARA (as low as reasonably achievable). COMPARISON: Plain radiographs of the right foot from 05/22/2017. CT DOSE (mGy.cm): The estimated cumulative dose is 237.55 mGy.cm. FINDINGS: Transport Assistant topogram: Unremarkable. Diffuse subcutaneous infiltration and swelling along the dorsum of the foot extending from the forefoot to the ankle. Allowing for noncontrast technique, no focal fluid collection is apparent. The deeper fascial planes are largely spared. No osseous erosion or periosteal reaction. No focal osteopenia. No acute fracture or malalignment. No degenerative change. IMPRESSION: No CT evidence of osteomyelitis. Diffuse soft tissue swelling could represent cellulitis in the appropriate clinical setting. If there is continuing clinical concern for osteomyelitis, MR is more sensitive for this diagnosis. Electronically signed by: Antwon Up M.D. 05/25/2017 4:20 PM Dictated Date/Time: 05/25/2017 4:16 PM The status of this report is Signed. Draft = Not yet reviewed or approved by Radiologist. Signed = Reviewed and approved by Radiologist. CHEST ONE VIEW PORTABLE CLINICAL HISTORY: 42 years-old Male presenting with Sepsis. TECHNIQUE: Portable upright AP view of the chest was obtained. COMPARISON: 01/08/2017. FINDINGS: Cardiomediastinal silhouette normal. Lungs and pleural spaces clear. Osseous structures normal. Upper abdomen normal. IMPRESSION: 1. No acute cardiopulmonary disease. Electronically signed by: Antwon Up M.D. 05/25/2017 3:29 PM Dictated Date/Time: 05/25/2017 3:28 PM The status of this report is Signed. Draft = Not yet reviewed or approved by Radiologist. Signed = Reviewed and approved by Radiologist. Consultations: Orthopedics- Dr. Garcia Infectious disease- Dr. Curtis Medication Reconciliation New Medications: Cephalexin (Keflex) 500 Mg Cap 1 CAP PO QID for 14 Days, #56 CAP Oxycodone HCl (Oxycodone HCl) 5 Mg Tab 5 MG PO Q4H PRN for moderate to severe pain for 3 Days, #12 TAB Continued Medications: Bupropion (Wellbutrin) 100 Mg Tab 100 MG PO DAILY, TAB Clonidine Hcl (Catapres) 0.3 Mg Tab 0.3 MG PO BID, TAB Lisinopril (Zestril) 20 Mg Tab 20 MG PO DAILY, TAB Venlafaxine Hcl (Effexor Extended Rel) 150 Mg Cap 150 MG PO Q2D Venlafaxine Hcl (Effexor Xr) 75 Mg Cap 1 CAP PO Q2D for 30 Days, CAP Discontinued Medications: Hydrochlorothiazide (Hctz) 50 Mg Tab 50 MG PO DAILY, TAB Discharge Exam Review of Systems: Constitutional: No fever, No chills, No sweats, No weakness, No fatigue ENT: No hearing loss Respiratory: No cough, No shortness of breath, No hemoptysis Cardiovascular: No chest pain, No edema, No palpitations Abdomen: No pain, No nausea, No vomiting, No diarrhea, No constipation Musculoskeletal: + joint pain (R foot), + muscle pain (R foot ), No swelling , No calf pain Genitourinary - Male: No hematuria, No dysuria Neurologic: No weakness, No numbness/tingling Psychiatric: No depression symptoms Endocrine: No fatigue Hematologic / Lymphatic: No abnormal bleeding/bruising Integumentary: No rash, No itch, No new/changing skin lesions Physical Exam: General Appearance: no apparent distress Eyes: normal inspection, PERRL ENT: hearing grossly normal Neck: supple Respiratory/Chest: lungs clear, no respiratory distress, no accessory muscle use Cardiovascular: regular rate, rhythm Abdomen / GI: normal bowel sounds, non tender, soft Extremities: no calf tenderness, no pedal edema, + pertinent finding (R foot in clean dressing/walking boot ) Neurologic/Psychiatric: alert, normal mood/affect, oriented x 3 Skin: normal color, warm/dry, no rash Hospital Course Admission H&P: 42 y/o M Hx opiate abuse, depression, HTN - developed pain and swelling of the dorsal aspect of his R foot 5 days prior following trauma. He states that he had tried to pop an apparent blister with a needle when it first occurred. He presented to the ER 05/22 and was initially placed on Keflex and DCd. He visited [facility] 2 days later and was placed on Clindamycin. Despite antibiotic use, the pain and swelling have progressed and the inflammation has spread. The pt denies rigors or fevers. He denies any recent IV drug use. Incidentally, while making food today, he cut the tip of his L mid finger, although this does not appear infected. Physical Exam Vital Signs Date Time Temp Pulse Resp B/P (MAP) Pulse Ox O2 Delivery O2 Flow Rate FiO2 05/25/17 16:22 122 17 153/88 97 Room Air 05/25/17 15:41 98 Room Air 05/25/17 14:30 36.9 144 16 156/74 98 General Appearance: WD/WN, no apparent distress Head: normocephalic Eyes: normal inspection ENT: normal ENT inspection, pharynx normal Neck: supple, no JVD Respiratory/Chest: chest non-tender, lungs clear, normal breath sounds Cardiovascular: regular rate, rhythm, no edema, no gallop Abdomen/GI: normal bowel sounds, non tender, soft Back: normal inspection, no CVA tenderness Extremities/Musculoskelatal: no calf tenderness, normal capillary refill, + pertinent finding (Cellulitis and apparent abscess of dorsal aspect of R foot - significant pain to palpation - extends to ankle medially and laterally) Neurologic/Psych: 411 directory assistance operator II-XII nml as tested, no motor/sensory deficits, alert Skin: + pertinent finding (Cellulitis and apparent abscess of dorsal aspect of R foot - significant pain to palpation - extends to ankle medially and laterally ) Hospital Course: R foot Cellulitis and abscesses x2 of dorsal aspect of R foot/EHL suppurative tenosynovitis s/p I&D on 05/26 and 05/31: - Admitted to med/surg - Initially on IV Vancomycin + Rocephin- transitioned to IV Cefazolin- discussed w/ ID, Keflex 500 mg QID x2 weeks at discharge - Wound culture growing Mary albicans- treated w/ IV Caspofungin- discussed w / ID, no antifungal at discharge - BCx- NG - Pain control w/ IV Toradol + Roxicodone- will given Roxicodone x3 days PRN for pain control at discharge - Orthopedics following- recommend f/u in 1 week - ID following- recommend f/u in 2 weeks Depression, anxiety, polysubstance abuse: - Continue Venlafaxine and Bupropion - Ativan PRN while inpatient - Advised on cessation from all illicit substances - Encourage psychiatric f/u and drug rehab at discharge- denies need/want for setup prior to discharge HTN: - Continue Clonidine and Lisinopril - HCTZ discontinued due to low/normal BPs and and hypokalemia at admission Mild hypokalemia at 3.2- RESOLVED: Replaced w/ IVF + KCL supplement DVT prophylaxis: TEDs/SCDs, ambulation Code Status: LEVEL I, FULL Dispo: Discharge to home Total Time Spent: Greater than 30 minutes This includes examination of the patient, discharge planning, medication reconciliation, and communication with other providers. Discharge Instructions Please refer to the electronic Patient Visit Report (Discharge Instructions) for additional information. Follow-Up Please follow-up with your PCP within 5-7 days Please follow-up with ID within 2 weeks Follow-up with Orthopedics within 1 week Please follow-up/keep all of your subspecialty appointments Additional Copies To Ang Stover M.D. Reviewed: Pt Seen/Exam by Me History Physician Steel Crane Operator Supervision Note: I interviewed and examined the patient. Discussed with LINDSAY Block and agree with findings and plan as documented in the note. Any exceptions or clarifications are listed here: Feeling much improved, swelling in foot down, remains afebrile. Is committed to not using illicit drugs after discharge, and plans on following up with his drug abuse counselor. Vitals reviewed NAD, AAOx3 RRR no mgr CTAB no wcr Abd +BS soft NT ND Ext rt foot in dressing and post-op shoe no removed, no erythema, no edema in legs bilat 1) Cellulitis and abscesses x 2 of dorsal aspect of R foot/EHL suppurative tenosynovitis - now s/p I&D and tenosynovectomy by Orthopedics 05/26 and repeat on 04/30. -dc to [facility] on po keflex as above, f/u with ID and Ortho in 1 week 2) Depression/Anxiety/Polysubstance abuse -quite significant and inadequately treated likely secondary to patient choice. He has a therapist he sees once monthly or as needed in between visits. Admits to using drugs possibly to help with anxiety and also for "recreational use" to "get away." He is in denial that he has a significant substance abuse problem. UDS positive here for opiates,amphetamines, and ecstasy (likely false positive from Wellbutrin), but received opiates here in ER. Does admit to abusing illicit amphetamines. - cont Venlafaxine, Bupropion--> would benefit from increased dose but will defer to PCP managing -advised on cessation from all illicit substances -needs close Psychiatric follow up and encouraged drug rehab after discharge 3) HTN - elevated in setting of pain and anxiety, then low normal at time of discharge with mild rise in bench worker after restarting HCTZ -cont Clonidine, Lisinopril -dc HCTZ and f/u with repeat BMP in 1 week with PCP -advised cessation of illicit amphetamines as can contribute to HTN and tachycardia Stable for discharge to home today Documented By: Caprice Dimas
[2017-06-03 11:17] VITALS: BP 98/63; PULSE 66; TEMP 36.2; O2SAT 98
== END 2017-06-03 14:00 | disposition home or self-care (01) | DRG 580 ==
LOC: C.EDB 14:29 → C.MSW 17:13 → ENRESERV 17:48 → OBSVTOIN 05-26 09:59 → EEVIPCON 05-26 09:59 → ENRESERV 05-27 18:28 → CANRESERV 05-27 18:28 → CANBEDREQ 05-27 19:02
PROVIDERS: ADMIT Internal Medicine; ATTEND Family Medicine
PROC: 0LBV0ZZ Excision of Right Foot Tendon, Open Approach (ICD-10-PCS; principal; 2017-05-26 08:30)
PROC: 0S9M0ZZ Drainage of Right Metatarsal-Phalangeal Joint, Open Approach (ICD-10-PCS; principal; 2017-05-26 08:30)
PROC: 0J9Q0ZZ Drainage of Right Foot Subcutaneous Tissue and Fascia, Open Approach (ICD-10-PCS; principal; 2017-05-26 08:30)
PROC: 0S9M0ZZ Drainage of Right Metatarsal-Phalangeal Joint, Open Approach (ICD-10-PCS; 2017-05-31)
PROC: 0LBV0ZZ Excision of Right Foot Tendon, Open Approach (ICD-10-PCS; 2017-05-31)
PROC: 0J9Q0ZZ Drainage of Right Foot Subcutaneous Tissue and Fascia, Open Approach (ICD-10-PCS; 2017-05-31)
DX: L02.611 Cutaneous abscess of right foot (principal); L03.115 Cellulitis of right lower limb; M00.271 Other streptococcal arthritis, right ankle and foot; B95.5 Unspecified streptococcus as the cause of diseases classified elsewhere; B37.9 Candidiasis, unspecified; X78.8XXA Intentional self-harm by other sharp object, initial encounter; F32.9 Major depressive disorder, single episode, unspecified; F41.9 Anxiety disorder, unspecified; F15.10 Other stimulant abuse, uncomplicated; F11.10 Opioid abuse, uncomplicated; I10 Essential (primary) hypertension; S61.203A Unspecified open wound of left middle finger without damage to nail, initial encounter; W27.2XXA Contact with scissors, initial encounter; Z79.899 Other long term (current) drug therapy; Z83.3 Family history of diabetes mellitus; Z82.49 Family history of ischemic heart disease and other diseases of the circulatory system

== ENCOUNTER 2017-07-30 14:52 | Inpatient (IN) | payer OTHER ==
[~2017-07-30] VITALS: Ht 180.3 cm; Wt 111.2 kg
[~2017-07-30 14:52] MED LIST changes: -ALPR-411 PO; -BUPR-83 PO; -BUPR8MIS SL; +CEPH-571 PO; -CEPH500C PO; -CLIN150C PO; -CLON0.1T12 PO; -HYDR50TA3 PO; -LISI-725 PO; +RXC5 PO; -VENL150C56 PO; +VENL75CA PO
[2017-07-30] MEDS: XYLOCAINE 1%/SOD BICARB 20 ML VIAL INFIL STA ×2 (15:10→15:40)
[2017-07-30] MEDS ORDERED: CEFTRIAXONE SOD INJ 1 GM ADDVIAL IV STA (15:10)
--- NOTE | 2017-07-30 15:18 | EMERGENCY ROOM VISIT NOTE ---
ED Visit Note First contact with patient: 15:01 CHIEF COMPLAINT: Infection of the medial left ankle HISTORY OF PRESENT ILLNESS: This 42-year-old male patient presents to the emergency department, ambulatory, approximately 4 days after they noticed a hard , red, tender area of the medial ankle. It is slowly getting larger, more painful and tender. No fever, chills, or loss of appetite. There has been no drainage from the area. The patient does admit to a superficial open wound in the area prior to infection. They rate the pain as severe and 7/10. Tetanus shot is up to date. They have tried opening the wound himself with a "brand-new " utility knife without success. The patient states the pain was too great that he was unable to cut deep enough to relieve the pressure.. The patient is not diabetic. The patient has history of subcutaneous abscesses in the right arm in the past. Note the patient states he had RIGHT foot/ankle surgery several months ago. Because of this, he has been favoring his LEFT foot, therefore causing this infection of the LEFT foot (opposite of surgery). The patient was initially unclear in triage of the affected foot and history. REVIEW OF SYSTEMS: A 10 system review of systems was performed with positives and pertinent negatives listed in the history of present illness. All other systems were reviewed and are negative. ALLERGIES: Tylenol, magnesium MEDICATIONS: Suboxone PMH: Right foot surgery SOCIAL HISTORY: The patient lives locally with family. He denies drug, alcohol , tobacco use. PHYSICAL EXAM: Vital Signs: Reviewed Nurse's notes, vital signs stable. GENERAL : This is a 42-year-old white male, no acute distress, non toxic in appearance, well-developed well-nourished. SKIN: There is an erythematous indurated area on the medial left ankle which measures about 2 cm in diameter. It is fluctuant but there is no pointing or drainage. There is a zone of inflammation around it but no lymphangitis. There are superficial lacerations overlying the abscess, which the patient states are from his attempts at drainage at home. Capillary refill less than 2 seconds. MUSCULOSKELETAL: There is mild limitation of the range of motion of the ankle due to swelling and pain. RADIOLOGY: LEFT ANKLE 3 VIEWS CLINICAL HISTORY: Abscess and cellulitis. FINDINGS: 3 views of the left ankle are compared to study dated 02/09/2006. The skeletal structures are well mineralized. No fracture is seen. The ankle mortise is intact. There is no bony erosion or periostitis. No joint effusion is identified. Soft tissue edema is present around the ankle, greatest medially. IMPRESSION: Soft tissue swelling with no acute bony abnormality. Electronically signed by: Jluis Jeff M.D. 07/30/2017 3:31 PM Dictated Date/Time: 07/30/2017 3:30 PM EMERGENCY DEPARTMENT COURSE: I examined the patient. X-rays ordered and reviewed by myself and radiologist as above. The infection does not appear to be into the ankle joint. IV access obtained, labs drawn. The patient was given 1 g Rocephin IV. Verbal consent was obtained to perform the procedure. After saline and Betadine cleansing and 5 mL of 1% buffered lidocaine anesthesia, the abscess was incised with a number 11 scalpel blade. A large amount of purulent material was released with more expressed by pressure. A swab was obtained for culture. The abscess cavity was further probed with a needle salesperson driver and the deep pocket expressed. The abscess cavity was then copiously irrigated with sterile saline under pressure. The area was then packed with bacitracin soaked packing. The area was cleaned with sterile saline and dressed with bacitracin and a bulky bandage. The patient did request crutches to help with ambulation. Labs reviewed, and I did note elevated white blood cell count of 13.1 left shift. Patient's CRP is elevated at 9.5. Creatinine elevated 1.42. With these findings, in addition to the patient's hypotension and tachycardia, the patient meets admission criteria for SIRS. I consulted with Dr. Garcia regarding the patient condition and abscess. He recommended hospitalist admission for sepsis and IV antibiotics and orthopedic consult. The patient is agreeable to admission. I discussed the case with Dr. Ruiz, who is agreeable to inpatient management. Please see his dictation for further management and care. After discussion with the patient and his current medication list with me, he did inform the nurse that he does take HTN medications, and did take Catapres and lisinopril approximately 2 hours prior to arrival in the emergency department, so suspects the hypertension is related to these medications. I informed the patient that with the elevated white blood cell count and tachycardia, that I still recommend inpatient evaluation for IV antibiotics. I attest that I have personally reviewed the patient's current medication list. Patient was found to have normal blood pressure on screening and does not require follow-up. DIFFERENTIAL DIAGNOSIS: Abscess, cellulitis, SIRS, sepsis, septic joint, septic arthritis, malignancy, and others DIAGNOSIS: Abscess of the medial left ankle Problem List Medical Problems: (1) ADH disorder Status: Chronic (2) Anxiety Status: Chronic (3) H/O drug abuse Status: Chronic Surgical Problems: (1) No significant past surgical history Status: Chronic Current/Historical Medications Scheduled Bupropion (Wellbutrin), 100 MG PO DAILY Clonidine Hcl (Catapres), 0.3 MG PO BID Lisinopril (Zestril), 20 MG PO DAILY Venlafaxine Hcl (Effexor Extended Rel), 150 MG PO DAILY Allergies Coded Allergies: Uncoded Nonscreenable Allergen (Verified Allergy, Unknown, WOOL CAUSES HIVES, 05/25/17) Magnesium Hydroxide (Verified Adverse Reaction, Intermediate, GI SYMPTOMS , 05/29/17) Vital Signs Date Time Temp Pulse Resp B/P (MAP) Pulse Ox O2 Delivery O2 Flow Rate FiO2 07/30/17 16:23 37.2 92 18 94/53 98 Room Air 07/30/17 14:58 36.9 110 17 94/60 96 Room Air Laboratory Results 07/30/17 15:30 Red Blood Count 4.64, Mean Corpuscular Volume 85.6, Mean Corpuscular Hemoglobin 29.1, Mean Corpuscular Hemoglobin Concent 34.0, Mean Platelet Volume 12.2, Neutrophils (%) (Auto) 79.9, Lymphocytes (%) (Auto) 11.1, Monocytes (%) (Auto) 7.4, Eosinophils (%) (Auto) 1.1, Basophils (%) (Auto) 0.2, Neutrophils # (Auto) 10.50, Lymphocytes # (Auto) 1.46, Monocytes # (Auto) 0.97, Eosinophils # (Auto) 0.15, Basophils # (Auto) 0.03 07/30/17 15:30 Test 07/30/17 15:30 White Blood Count 13.15 K/uL (4.8-10.8) Red Blood Count 4.64 M/uL (4.7-6.1) Hemoglobin 13.5 g/dL (14.0-18.0) Hematocrit 39.7 % (42-52) Mean Corpuscular Volume 85.6 fL (80-100) Mean Corpuscular Hemoglobin 29.1 pg (25-34) Mean Corpuscular Hemoglobin Concent 34.0 g/dl (32-36) Platelet Count 193 K/uL (130-400) Mean Platelet Volume 12.2 fL (7.4-10.4) Neutrophils (%) (Auto) 79.9 % Lymphocytes (%) (Auto) 11.1 % Monocytes (%) (Auto) 7.4 % Eosinophils (%) (Auto) 1.1 % Basophils (%) (Auto) 0.2 % Neutrophils # (Auto) 10.50 K/uL (1.4-6.5) Lymphocytes # (Auto) 1.46 K/uL (1.2-3.4) Monocytes # (Auto) 0.97 K/uL (0.11-0.59) Eosinophils # (Auto) 0.15 K/uL (0-0.5) Basophils # (Auto) 0.03 K/uL (0-0.2) RDW Standard Deviation 43.3 fL (36.4-46.3) RDW Coefficient of Variation 13.8 % (11.5-14.5) Immature Granulocyte % (Auto) 0.3 % Immature Granulocyte # (Auto) 0.04 K/uL (0.00-0.02) Anion Gap 7.0 mmol/L (3-11) Est Creatinine Clear Calc Drug Dose 87.7 ml/min Estimated GFR () 71.1 Estimated GFR (Non- 61.3 BUN/Creatinine Ratio 13.4 (10-20) Calcium Level 9.3 mg/dl (8.5-10.1) C-Reactive Protein 9.54 mg/dl (0-0.29) Medications Administered Medications (Trade) Dose Ordered Sig/John Route Start Time Stop Time Status Last Admin Dose Admin Ceftriaxone Sodium (Rocephin Inj) 1 gm NOW STAT IV 07/30/17 15:10 07/30/17 15:13 DC 07/30/17 15:41 1 GM Departure Information Referrals Ang Stover M.D. (PCP) Patient Instructions [facility]
--- NOTE | 2017-07-30 15:32 | DIAGNOSTIC IMAGING REPORT ---
LEFT ANKLE 3 VIEWS CLINICAL HISTORY: Abscess and cellulitis. FINDINGS: 3 views of the left ankle are compared to study dated 02/09/2006. The skeletal structures are well mineralized. No fracture is seen. The ankle mortise is intact. There is no bony erosion or periostitis. No joint effusion is identified. Soft tissue edema is present around the ankle, greatest medially. IMPRESSION: Soft tissue swelling with no acute bony abnormality. Electronically signed by: Jluis Jeff M.D. 07/30/2017 3:31 PM Dictated Date/Time: 07/30/2017 3:30 PM
[2017-07-30 15:48] LABS: BASO % 0.2 %; BASO ABS # 0.03 K/uL (0-0.2); EOS % 1.1 %; EOS ABS # 0.15 K/uL (0-0.5); HEMATOCRIT 39.7 % (42-52); HEMOGLOBIN 13.5 g/dL (14.0-18.0); IG# 0.04 K/uL (0.00-0.02); LYMPH % 11.1 %; LYMPH ABS # 1.46 K/uL (1.2-3.4); MEAN CELL VOLUME 85.6 fL (80-100); MEAN CORPUSCULAR HEMOGLOBIN 29.1 pg (25-34); MEAN PLATELET VOLUME 12.2 fL (7.4-10.4); MONO % 7.4 %; MONO ABS # 0.97 K/uL (0.11-0.59); NEUT % 79.9 %; PLATELET COUNT 193 K/uL (130-400); RED CELL DISTRIBUTION WIDTH CV 13.8 % (11.5-14.5); RED CELL DISTRIBUTION WIDTH SD 43.3 fL (36.4-46.3); WHITE BLOOD COUNT 13.15 K/uL (4.8-10.8)
[2017-07-30 16:12] LABS: CALCIUM 9.3 mg/dl (8.5-10.1); CREATININE 1.42 mg/dl (0.60-1.40); POTASSIUM 4.3 mmol/L (3.5-5.1)
[2017-07-30] MEDS ORDERED: CLON0.3T PO (16:30)
[2017-07-30] MEDS ORDERED: MAGNESIUM HYDROXIDE SUSP 30 ML UDC PO PRN (16:45)
[2017-07-30] MEDS ORDERED: VANCOMYCIN CONSULT ACTIVE PRN (16:45)
[2017-07-30] MEDS ORDERED: POLYETHYLENE (MIRALAX) 17 GM PACK PO PRN (16:45)
[2017-07-30] MEDS ORDERED: ALUMINUM/MAGNESIUM/SIMETH (MAALOX MAX) 30 ML UDC PO PRN (16:45)
[2017-07-30] MEDS ORDERED: ONDANSETRON INJ 2 MG/ML 2 ML VIAL IV PRN (16:45)
--- NOTE | 2017-07-30 17:08 | History and Physical ---
History & Physical Date & Time of Service: Jul 30, 2017 at 16:45 Chief Complaint: Left Ankle Soreness, Needs Drained Primary Care Physician: Ang Stover M.D. History of Present Illness Source: patient 42 y/o M Hx IV opiate abuse, depression, HTN, recent admission for R foot cellulitis and tenosynovitis requiring extensive surgical debridement. Developed pain and swelling of the Medial malleolus of his L foot over the past 3 days. A moderate sized abscess with associated cellulitis was noted on arrival to the ER. The abscess was drained. Considering his recent history, he is admitted for IV antibiotics and ortho evaluation. He may have had a fever at home. Initial labs are notable for Leukocytosis and mild MARY. The pt denies recent IV drug use and states that he is currently on Suboxone. During a recent admission he had also denied IVDU. As it turned out, he was having relatives or friends bring drugs into the hospital for him and injecting in his room. Past Medical/Surgical History 1) Opiate abuse - IVDU 2) Hypertension 3) Questionable history of hep C - this is listed in the record - not confirmed by labs - pt states he had an elevation in his LFTs which returned to normal and was not due to hepatitis 4) Depression 5) R foot Cellulitis and abscesses x 2 of dorsal aspect of R foot/EHL suppurative tenosynovitis 05/25 - I&D on 05/26 and 06/01 - Gram (+) cocci - species not confirmed on wound culture 6) Smoker 7) MARY during previous admission - resolved prior to DC Family History Diabetes mellitus FH: cancer Hypertension Social History Smokes daily - amount varies - denies ETOH - denies current IVDU - (heroin use) - IVDU was confirmed during previous admission Smoking Status: Current Some Day Smoker Drug Use: cocaine, heroin, other Marital Status: in relationship Housing status: lives alone Occupational Status: unemployed Immunizations History of Influenza Vaccine: No History of Tetanus Vaccine?: Unknown History of Pneumococcal: No History of Hepatitis B Vaccine: No Allergies Coded Allergies: Uncoded Nonscreenable Allergen (Verified Allergy, Unknown, WOOL CAUSES HIVES, 05/25/17) Magnesium Hydroxide (Verified Adverse Reaction, Intermediate, GI SYMPTOMS , 05/29/17) Home Medications Scheduled Buprenorphine Hcl-Naloxone Hcl (Suboxone 8-2 Mg), 1 TAB SL BID Bupropion (Wellbutrin), 100 MG PO DAILY Clonidine Hcl (Catapres), 0.3 MG PO BID Gabapentin (Neurontin), 100 MG PO TID Lisinopril (Zestril), 20 MG PO DAILY Venlafaxine Hcl (Effexor Extended Rel), 150 MG PO DAILY Review of Systems Constitutional: + fever, No chills, No sweats Eyes: No worsening of vision ENT: No hearing loss, No unusual epistaxis, No nasal symptoms Respiratory: No cough, No sputum, No wheezing Cardiovascular: No chest pain Abdomen: No pain, No nausea, No vomiting Musculoskeletal: + joint pain (Pain over med malleolus at infection site) Genitourinary - Male: No hematuria, No dysuria, No urinary frequency Neurologic: No memory loss, No paralysis, No weakness Psychiatric: No depression symptoms Endocrine: No fatigue Hematologic / Lymphatic: No abnormal bleeding/bruising Integumentary: + rash (inflammation - LLE) Physical Exam Vital Signs Date Time Temp Pulse Resp B/P (MAP) Pulse Ox O2 Delivery O2 Flow Rate FiO2 07/30/17 16:23 37.2 92 18 94/53 98 Room Air 07/30/17 14:58 36.9 110 17 94/60 96 Room Air General Appearance: + pertinent finding (Overweight, young male in no distress) Eyes: normal inspection ENT: pharynx normal Neck: supple, thyroid normal Respiratory/Chest: chest non-tender, lungs clear, normal breath sounds Cardiovascular: regular rate, rhythm, no edema, no gallop Abdomen/GI: normal bowel sounds, non tender, soft Back: normal inspection, no CVA tenderness Extremities/Musculoskelatal: + swelling, + pertinent finding (Erythema and abscess over L lmed malleolus - cellulitis extends in a circumfrential pattern - abscess drained and packed) Neurologic/Psych: fence builder II-XII nml as tested, no motor/sensory deficits, alert, oriented x 3 Skin: + pertinent finding (erythema, swelling, abscess LLE as above) Diagnostics Laboratory Results Results Past 24 Hours Test 07/30/17 15:30 Range/Units White Blood Count 13.15 4.8-10.8 K/uL Red Blood Count 4.64 4.7-6.1 M/uL Hemoglobin 13.5 14.0-18.0 g/dL Hematocrit 39.7 42-52 % Mean Corpuscular Volume 85.6 80-100 fL Mean Corpuscular Hemoglobin 29.1 25-34 pg Mean Corpuscular Hemoglobin Concent 34.0 32-36 g/dl Platelet Count 193 130-400 K/uL Mean Platelet Volume 12.2 7.4-10.4 fL Neutrophils (%) (Auto) 79.9 % Lymphocytes (%) (Auto) 11.1 % Monocytes (%) (Auto) 7.4 % Eosinophils (%) (Auto) 1.1 % Basophils (%) (Auto) 0.2 % Neutrophils # (Auto) 10.50 1.4-6.5 K/uL Lymphocytes # (Auto) 1.46 1.2-3.4 K/uL Monocytes # (Auto) 0.97 0.11-0.59 K/uL Eosinophils # (Auto) 0.15 0-0.5 K/uL Basophils # (Auto) 0.03 0-0.2 K/uL RDW Standard Deviation 43.3 36.4-46.3 fL RDW Coefficient of Variation 13.8 11.5-14.5 % Immature Granulocyte % (Auto) 0.3 % Immature Granulocyte # (Auto) 0.04 0.00-0.02 K/uL Sodium Level 135 136-145 mmol/L Potassium Level 4.3 3.5-5.1 mmol/L Chloride Level 103 98-107 mmol/L Carbon Dioxide Level 26 21-32 mmol/L Anion Gap 7.0 3-11 mmol/L Blood Urea Nitrogen 19 7-18 mg/dl Creatinine 1.42 0.60-1.40 mg/dl Est Creatinine Clear Calc Drug Dose 87.7 ml/min Estimated GFR () 71.1 Estimated GFR (Non- 61.3 BUN/Creatinine Ratio 13.4 10-20 Random Glucose 123 70-99 mg/dl Calcium Level 9.3 8.5-10.1 mg/dl C-Reactive Protein 9.54 0-0.29 mg/dl Microbiology Results 07/30/17 Gram Stain, Received Pending 07/30/17 Wound Culture, Received Pending Diagnostic Radiology XR ankle: Soft tissue swelling with no acute bony abnormality. Impression Assessment and Plan 42 y/o M Hx IV opiate abuse, depression, HTN, recent admission for R foot cellulitis and tenosynovitis requiring extensive surgical debridement. Developed pain and swelling of the medial malleolus of his L foot over the past 3 days. A moderate sized abscess with associated cellulitis was noted on arrival to the ER. The abscess was drained. Considering his recent history, he is admitted for IV antibiotics and ortho evaluation. He may have had a fever at home. Initial labs are notable for Leukocytosis and mild MARY. The pt denies recent IV drug use and states that he is currently on Suboxone. During a recent admission he had also denied IVDU. As it turned out, he was having relatives or friends bring drugs into the hospital for him and injecting in his room. 1) Abscess - placed on Vanc/Clinda pending culture results. Ortho consulted. 2) MARY - mild - IVF provided - will repeat labs AM 3) IVDU - states he is on Suboxone currently - We have requested a UDS considering recent history. He will be evaluated by mental health for Suboxone maintenance. 4) HTN - BP is borderline low on admission - Clonidine and Lisinopril are held - Clonidine will be provided PRN - can restart Lisinopril when MARY resolves if BP stable. There is no evidence of sepsis to account for his low BP. Full code - Heparin prophylaxis Total time for this admit including review of labs, meds, imaging, records - discussion with pt and ER atteding - 34 min Resuscitation Status VTE Prophylaxis Will order VTE Prophylaxis: Yes
[2017-07-30] MEDS ORDERED: IV FLUIDS COMPLETED PRN (17:15)
[2017-07-30] MEDS ORDERED: VANCOMYCIN INJ 2,500 MG in SODIUM CHLORIDE 0.9% 500ML 500 ML IV STA (17:15)
[2017-07-30] MEDS ORDERED: CLONIDINE HCL 0.1 MG TAB PO PRN (17:15)
[2017-07-30] MEDS ORDERED: VENL150C56 PO (17:41)
[2017-07-30] MEDS ORDERED: BUPR-83 PO (17:41)
[2017-07-30 18:03] VITALS: BP 100/67; PULSE 86; TEMP 36.8; O2SAT 96; BMI 34.2
[2017-07-30 18:21] LABS: HEMATOCRIT 39.1 % (42-52); HEMOGLOBIN 13.2 g/dL (14.0-18.0); MEAN CORPUSCULAR HEMOGLOBIN 28.7 pg (25-34); MEAN CORPUSCULAR HGB CONC 33.8 g/dl (32-36); MEAN PLATELET VOLUME 11.8 fL (7.4-10.4); PLATELET COUNT 199 K/uL (130-400); RED CELL DISTRIBUTION WIDTH CV 13.7 % (11.5-14.5); RED CELL DISTRIBUTION WIDTH SD 42.5 fL (36.4-46.3); WHITE BLOOD COUNT 13.24 K/uL (4.8-10.8)
[2017-07-30 18:34] LABS: INR 0.9 (0.9-1.1)
[2017-07-30] MEDS: SODIUM CHLORIDE 0.9% 1000ML 1,000 ML IV SCH (18:37)
[2017-07-30] MEDS: CLINDAMYCIN IV 600 MG in DEXTROSE 5% 50ML 50 ML IV SCH (18:39)
[2017-07-30] MEDS: LACTOBACILLUS ACIDOPHILUS (FLORANEX) TAB PO SCH (18:39)
[2017-07-30] MEDS: IBUPROFEN 600 MG TAB PO PRN (18:46)
--- NOTE | 2017-07-30 19:57 | Pharmacy Progress Note ---
Pharmacy Abx Initial Consult Date of Service Jul 30, 2017. Pharmacy Dosing Scope Date of Consult: 07/30/17 Consultation requested by: Dr. Ruiz Pharmacy is consulted to initiate Vancomycin IV dosing therapy, order appropriate labs and adjust drug dose/frequency. Subjective The patient is a 42 year old male admitted on Jul 30, 2017 at 16:42. Objective Height (Feet): 5 Height (Inches): 11.00 Weight (Kilograms): 111.200 Vital Signs (Past 12Hrs) Vital Signs Past 12 Hours Date Time Temp Pulse Resp B/P (MAP) Pulse Ox O2 Delivery O2 Flow Rate FiO2 07/30/17 18:03 36.8 86 100/67 96 Room Air 07/30/17 17:36 07/30/17 17:20 36.9 76 16 96/51 98 Room Air 07/30/17 16:23 37.2 92 18 94/53 98 Room Air 07/30/17 14:58 36.9 110 17 94/60 96 Room Air Lab Results (24Hrs) Laboratory Tests (24 Hours) Test 07/30/17 15:30 07/30/17 18:02 C-Reactive Protein 9.54 mg/dl (0-0.29) H White Blood Count 13.15 K/uL (4.8-10.8) H 13.24 K/uL (4.8-10.8) H Red Blood Count 4.64 M/uL (4.7-6.1) L Hemoglobin 13.5 g/dL (14.0-18.0) L Hematocrit 39.7 % (42-52) L Mean Corpuscular Volume 85.6 fL (80-100) Mean Corpuscular Hemoglobin 29.1 pg (25-34) Mean Corpuscular Hemoglobin Concent 34.0 g/dl (32-36) Platelet Count 193 K/uL (130-400) Mean Platelet Volume 12.2 fL (7.4-10.4) H Neutrophils (%) (Auto) 79.9 % Lymphocytes (%) (Auto) 11.1 % Monocytes (%) (Auto) 7.4 % Eosinophils (%) (Auto) 1.1 % Basophils (%) (Auto) 0.2 % Neutrophils # (Auto) 10.50 K/uL (1.4-6.5) H Lymphocytes # (Auto) 1.46 K/uL (1.2-3.4) Monocytes # (Auto) 0.97 K/uL (0.11-0.59) H Eosinophils # (Auto) 0.15 K/uL (0-0.5) Basophils # (Auto) 0.03 K/uL (0-0.2) Micro Results Date/Time Source Procedure Growth Status 07/30/17 16:00 Abscess Leg Gram Stain - Preliminary Resulted 07/30/17 16:00 Abscess Leg Wound Culture Pending Resulted Risk Factors for Resistance * Hospitalization for 48 hours or more within the past 90 days Assessment & Plan 07/31/17 Assessment Mr. Natarajan is a 42yo M p/w R foot cellulitis concurrently with abscess. He recently had a hospital admission for cellulitis and tenosynovitis which required surgical debridement. I&D of the abscess was done in the ED. Wound culture currently pending. He doesn't have a h/o MDRO. His renal fxn seems to be elevated compared to his baseline. Baseline population p'kinetics: t1/2=8hrs , Ke=0.0833. Vanco will be dosed on his baseline renal fxn. If renal fxn fails to improve a longer dosing interval may prove necessary. Plan Vancomycin: * Will mirror loading/maintenance dose from previous admission * Vancomycin 2500mg (23mg/kg) IV x1 to quickly to achieve a therapeutic peak * Then Vancomycin 1500mg (13.5mg/kg) q10 * Trough ordered for 08/01/17 @ 0730, this will be Css * Goal trough until c/s's result 15-20mcg/mL 08/01/17 * Trough came back supratherapeutic, 24.0mcg/mL * Will decrease dose to Vanco 1250mg (~11mg/kg) and extend dosing interval to q12 * Trough ordered for 08/03/17 @ 0730 Pharmacy will continue to follow and will adjust dose/frequency as necessary. Thank you.
[2017-07-30] MEDS ORDERED: GABA-112 PO (20:36)
[2017-07-30] MEDS ORDERED: VANCOMYCIN INJ 1,000 MG in SODIUM CHLORIDE 0.9% 250ML 250 ML IV SCH (21:00)
[2017-07-30] MEDS ORDERED: LISI-725 PO (21:29)
[2017-07-30] MEDS: HEPARIN SOD 5000 UNIT/0.5 ML CARP SQ SCH (21:46)
[2017-07-30] MEDS ORDERED: GABAPENTIN 100 MG CAP PO ONE (22:13)
[2017-07-30] MEDS ORDERED: BUPRENORPHINE/NALOXONE 8/2 MG TAB PO ONE (22:18)
[2017-07-30 22:55] VITALS: BP 105/46; PULSE 76; TEMP 37.2; O2SAT 98
[2017-07-31] MEDS: SODIUM CHLORIDE 0.9% 1000ML 1,000 ML IV SCH (00:01)
[2017-07-31] MEDS: IBUPROFEN 600 MG TAB PO PRN ×3 (00:08→21:56)
[2017-07-31 01:00] VITALS: BP 108/66
[2017-07-31] MEDS: CLINDAMYCIN IV 600 MG in DEXTROSE 5% 50ML 50 ML IV SCH ×3 (01:02→19:32)
[2017-07-31] MEDS: VANCOMYCIN INJ 1,500 MG in SODIUM CHLORIDE 0.9% 500ML 500 ML IV SCH ×3 (01:58→21:56)
[2017-07-31] MEDS: HEPARIN SOD 5000 UNIT/0.5 ML CARP SQ SCH ×2 (05:19→13:34)
[2017-07-31 06:11] LABS: HEMATOCRIT 34.8 % (42-52); HEMOGLOBIN 11.2 g/dL (14.0-18.0); MEAN CELL VOLUME 86.4 fL (80-100); MEAN CORPUSCULAR HEMOGLOBIN 27.8 pg (25-34); MEAN CORPUSCULAR HGB CONC 32.2 g/dl (32-36); MEAN PLATELET VOLUME 12.8 fL (7.4-10.4); PLATELET COUNT 141 K/uL (130-400); RED CELL DISTRIBUTION WIDTH CV 13.8 % (11.5-14.5); RED CELL DISTRIBUTION WIDTH SD 44.1 fL (36.4-46.3); WHITE BLOOD COUNT 6.96 K/uL (4.8-10.8)
[2017-07-31 06:49] LABS: CALCIUM 8.8 mg/dl (8.5-10.1); CREATININE 1.22 mg/dl (0.60-1.40)
[2017-07-31] MEDS: ACETAMINOPHEN 325 MG TAB PO PRN ×2 (07:32→11:33)
[2017-07-31 08:16] VITALS: BP 130/70; PULSE 71; TEMP 36.5; O2SAT 100
--- NOTE | 2017-07-31 08:39 | Hospitalist Progress Note ---
Hospitalist Progress Note Date of Service Jul 31, 2017. (Eda Hewitt, ALVINA) Subjective Pt evaluation today including: conversation w/ patient, physical exam, chart review, lab review, review of studies Pain: Left foot pain PO Intake: Good Voiding: no voiding problems The patient was seen and examined this morning. Pt reports doing pretty good today. He notes the cut on the inside of his R ankle started about 1 week ago, unsure how it occurred. He does wear a low riding shoe and it rubs this area. He has two cats which also have claws and may have also gotten cut accidentally. Since April he has primarily used his R leg for support as his Left was non-weight bearing since Left abscess/tenosynovitis. He reports increased pain and swelling led him to use a utility knife which he rinsed in alcohol, to "try and relieve the pressure". He denies surrounding redness prior to coming to the ER. Denies fever, chills, or sweats. No pain with ambulation, he has not been up walking yet today. Pertinent Social Hx: Pt reports hx of 3 DUIs. He has been sober from alcohol for 15 years. He does admit however after stopping alcohol he began to get into pills, oxycodone, percocets, and then a variety of benzodiazepines including ativan (which initially was prescribed), clonipin, and then xanax because he felt the others weren't working as well. He then also started using methamphetamine, cocaine and heroin both inhaled and intravenously. Hx of Incarceration: [id number], then in [facility] from Feb-Jun 2016 both "for the drugs" Pt was questioned about his most recent hospital stay in April he admits that "shady visitors" came and brought methamphetamine which he inhaled, but denies IV use at that time. Pt denies associating with these people anymore, and has not used drugs since after this most recent hospital stay. His main support system is his Mother, when he's stable/clean. When he is using drugs his family shuts off from him. He does have D&A counselors whom he talks with on a regular basis. He does not follow with a psychiatrist as an outpatient. Medications including effexor 150 mg, wellbutrin 100mg QAM, have been prescribed to him for a "long time" now. He does not feel that this medication makes a difference while on it. We discussed continuing the medication for at least 6mo-1year while remaining sober, and then he could discuss weaning off this with his PCP. Pt is in agreement with this Constitutional: No fever, No chills, No fatigue Eyes: No redness, No diplopia ENT: No nasal symptoms, No sore throat Respiratory: No cough, No shortness of breath Cardiovascular: No chest pain, No palpitations Abdomen: No pain, No nausea, No vomiting, No diarrhea, No constipation Musculoskeletal: + see HPI, + joint pain, + swelling, No calf pain Neurologic: No weakness, No numbness/tingling Psychiatric: + substance abuse Endo: No fatigue (Eda Hewitt PA-C) Objective Vital Signs Date Time Temp Pulse Resp B/P (MAP) Pulse Ox O2 Delivery O2 Flow Rate FiO2 07/31/17 08:16 36.5 71 18 130/70 (90) 100 Room Air 07/31/17 01:00 108/66 (80) 07/31/17 00:00 Room Air 07/30/17 22:55 37.2 76 16 105/46 (65) 98 Room Air 07/30/17 18:25 Room Air 07/30/17 18:03 36.8 86 100/67 96 Room Air 07/30/17 17:36 07/30/17 17:20 36.9 76 16 96/51 98 Room Air 07/30/17 16:23 37.2 92 18 94/53 98 Room Air 07/30/17 14:58 36.9 110 17 94/60 96 Room Air (Eda Hewitt PA-C) Physical Exam General Appearance: WD/WN, no apparent distress Eyes: PERRL, EOMI ENT: hearing grossly normal, pharynx normal Neck: supple, no JVD Respiratory/Chest: lungs clear, no respiratory distress, no accessory muscle use Cardiovascular: regular rate, rhythm, + systolic murmur (soft grade I/) Abdomen: normal bowel sounds, non tender, soft Extremities: non-tender, no calf tenderness, + pertinent finding (+ R dorsal foot wound 1x1cm healing well without surrounding erythema, + Left medial malleolus wound with packing into the wound, draining purulent material, + edematous, +surrounding erythema invoving the body of the foot, does not include toes, extends up above the ankle a few inches.) Neurologic/Psychiatric: alert, oriented x 3 Skin: normal color, warm/dry (Eda Hewitt PA-C) Laboratory Results Last 24 Hours Test 07/30/17 15:30 07/30/17 18:02 07/30/17 21:25 07/31/17 05:16 White Blood Count 13.15 K/uL 13.24 K/uL 6.96 K/uL Red Blood Count 4.64 M/uL 4.60 M/uL 4.03 M/uL Hemoglobin 13.5 g/dL 13.2 g/dL 11.2 g/dL Hematocrit 39.7 % 39.1 % 34.8 % Mean Corpuscular Volume 85.6 fL 85.0 fL 86.4 fL Mean Corpuscular Hemoglobin 29.1 pg 28.7 pg 27.8 pg Mean Corpuscular Hemoglobin Concent 34.0 g/dl 33.8 g/dl 32.2 g/dl Platelet Count 193 K/uL 199 K/uL 141 K/uL Mean Platelet Volume 12.2 fL 11.8 fL 12.8 fL Neutrophils (%) (Auto) 79.9 % Lymphocytes (%) (Auto) 11.1 % Monocytes (%) (Auto) 7.4 % Eosinophils (%) (Auto) 1.1 % Basophils (%) (Auto) 0.2 % Neutrophils # (Auto) 10.50 K/uL Lymphocytes # (Auto) 1.46 K/uL Monocytes # (Auto) 0.97 K/uL Eosinophils # (Auto) 0.15 K/uL Basophils # (Auto) 0.03 K/uL RDW Standard Deviation 43.3 fL 42.5 fL 44.1 fL RDW Coefficient of Variation 13.8 % 13.7 % 13.8 % Immature Granulocyte % (Auto) 0.3 % Immature Granulocyte # (Auto) 0.04 K/uL Sodium Level 135 mmol/L 137 mmol/L Potassium Level 4.3 mmol/L 4.0 mmol/L Chloride Level 103 mmol/L 105 mmol/L Carbon Dioxide Level 26 mmol/L 26 mmol/L Anion Gap 7.0 mmol/L 6.0 mmol/L Blood Urea Nitrogen 19 mg/dl 21 mg/dl Creatinine 1.42 mg/dl 1.22 mg/dl Est Creatinine Clear Calc Drug Dose 87.7 ml/min 102.0 ml/min Estimated GFR () 71.1 85.4 Estimated GFR (Non- 61.3 73.7 BUN/Creatinine Ratio 13.4 17.0 Random Glucose 123 mg/dl 108 mg/dl Calcium Level 9.3 mg/dl 8.8 mg/dl C-Reactive Protein 9.54 mg/dl Prothrombin Time 9.8 SECONDS Prothromb Time International Ratio 0.9 Urine Opiates Screen NEG Urine Methadone, Qualitative NEG Urine Barbiturates NEG Urine Phencyclidine (PCP) Level NEG Ur Amphetamine/Methamphetamine NEG MDMA (Ecstasy) Screen POS Urine Benzodiazepines Screen NEG Urine Cocaine Metabolite NEG Urine Marijuana (THC) NEG Magnesium Level 2.3 mg/dl (Eda Hewitt, ALVINA) Assessment and Plan 42 y/o M Hx IV opiate abuse, depression, HTN, recent admission for R foot cellulitis and tenosynovitis requiring extensive surgical debridement. Developed pain and swelling of the lateral malleolus of his R foot over the past 3 days. A moderate sized abscess with associated cellulitis was noted on arrival to the ER. The abscess was drained. Considering his recent history, he is admitted for IV antibiotics and ortho evaluation. He may have had a fever at home. Initial labs are notable for Leukocytosis and mild MARY. The pt denies recent IV drug use and states that he is currently on Suboxone. During a recent admission he had also denied IVDU. As it turned out, he was having relatives or friends bring drugs into the hospital for him and injecting in his room. L foot cellulitis and Abscess - placed on Vanc/Clinda pending culture results. - recent admission for R foot cellulitis and tenosynovitis requiring surgical debridement however this is now an issue of the left foot. - wound cultures in process. --if this is a cat scratch he would be covered with current antibiotics - Wound care for the R dorsal foot and the Left ankle - Ortho consulted - will obtain MRI today. MARY - mild - IVF provided - improved Cr. 1.22 this morning IVDU Depression - See HPI for specific hx - states he is on Suboxone currently 8/2mg BID - continue - Continue Effexor 150 mg, wellbutrin 100 mg QAM - Pt encouraged to seek counseling as an outpatient, will further discuss if he think he would like to see a psychiatrist as an outpatient tomorrow. HTN - BP is borderline low on admission - Clonidine and Lisinopril are held - Clonidine will be provided PRN - can restart Lisinopril when MARY resolves if BP stable. There is no evidence of sepsis to account for his low BP. DVT ppx: Heparin CODE STATUS: Full code Disposition: From home, await ortho rec/MRI, possible dc in 2 days pending improvement (Eda Hewitt, ALVINA) Reviewed: Pt Seen/Exam by Me (Eunice Nuñez, ) History Pt with ongoing pain and swelling with decreased ROM to L foot/ankle. No new issues otherwise. No chest pain or SOB. Tolerating PO without issue. Agree with HPI/ROS as noted by PA. (Eunice Nuñez, ) General Appearance: WD/WN, no apparent distress Eye Exam: bilateral eye normal inspection, bilateral eye other (nml sclera) Respiratory: normal breath sounds, no respiratory distress Cardiovascular: normal peripheral pulses, regular rate, rhythm Gastrointestinal: non tender, soft Extremities: swelling (L>R foot/ankle swelling) Neurologic/Psychiatric: alert, normal mood/affect, oriented x 3 Skin Characteristics: normal color, warm/dry, other (with the exception of b/l medial malleolus that have bandaging with drainage noted) (Eunice Nuñez DO) Assessment/Plan Agree with plan as outlined above L ankle ulceration, s/p I&D in the ED on 07/30 Ortho planning for MRI Continue abx C Suboxone use Pt with hx of having friends bring IV drugs into hospital room on last admission , which he freely admitted to PA (Eunice Nuñez, DO)
[2017-07-31] MEDS: LACTOBACILLUS ACIDOPHILUS (FLORANEX) TAB PO SCH ×3 (08:46→19:33)
[2017-07-31] MEDS: GABAPENTIN 100 MG CAP PO SCH ×3 (08:46→21:37)
[2017-07-31] MEDS: VENLAFAXINE HCL XR 150 MG CAPXR PO SCH (08:47)
[2017-07-31] MEDS ORDERED: BUPR1SUB23 SL (09:02)
[2017-07-31] MEDS: BUPRENORPHINE/NALOXONE 8/2 MG TAB PO SCH ×2 (09:15→21:37)
[2017-07-31 10:56] VITALS: O2SAT 100
--- NOTE | 2017-07-31 13:50 | Orthopedic Consultation ---
Orthopedic Consultation Date of Consultation: Jul 31, 2017. Attending Physician: Eunice Nuñez DO Reason for Consultation: Left foot pain History of Present Illness Pleasant male with a history of IV drug abuse who presented to the emergency room at Hospital with a left foot abscess admitted to the medical service. Patient currently on IV antibiotics. He states having pain in his left foot hard to ambulate hard place weight on it and denies any current fevers or chills. Denies any kind traumatic events. Patient had similar episode on the right foot about 3 months ago underwent irrigation debridement with Dr. Garcia in the past. Past Medical/Surgical History Medical Problems: (1) Abdominal pain Status: Acute (2) Anemia Status: Acute (3) Back pain Status: Acute (4) Cellulitis of foot Status: Acute (5) Cellulitis of right foot Status: Acute (6) Colitis Status: Acute (7) Colitis, acute Status: Acute (8) Constipation Status: Acute (9) Dehydration Status: Acute (10) Failure of outpatient treatment Status: Acute (11) Fungemia Status: Acute (12) Hypertension Status: Acute (13) Hypokalemia Status: Acute (14) Left-sided low back pain with sciatica Status: Acute (15) SIRS (systemic inflammatory response syndrome) Status: Acute Family History Diabetes mellitus FH: cancer Hypertension Social History Smoking Status: Current Some Day Smoker Drug Use: cocaine, heroin, other Marital Status: in relationship Housing Status: lives with significant other Occupation Status: unemployed Allergies Coded Allergies: Uncoded Nonscreenable Allergen (Verified Allergy, Unknown, WOOL CAUSES HIVES, 05/25/17) Magnesium Hydroxide (Verified Adverse Reaction, Intermediate, GI SYMPTOMS , 05/29/17) Home Medications Scheduled Buprenorphine Hcl-Naloxone Hcl (Suboxone 8-2 Mg), 1 TAB SL BID Bupropion (Wellbutrin), 100 MG PO DAILY Clonidine Hcl (Catapres), 0.3 MG PO BID Gabapentin (Neurontin), 100 MG PO TID Lisinopril (Zestril), 20 MG PO DAILY Venlafaxine Hcl (Effexor Extended Rel), 150 MG PO DAILY Current Inpatient Medications Current Inpatient Medications Medications (Trade) Dose Ordered Sig/John Route Start Time Stop Time Status Last Admin Dose Admin Bupropion HCl (Wellbutrin Tab) 100 mg DAILY PO 07/31/17 09:00 08/30/17 08:59 07/31/17 08:46 100 MG Venlafaxine HCl (effeXOR EXTENDED REL CAP) 150 mg DAILY PO 07/31/17 09:00 08/30/17 08:59 07/31/17 08:47 150 MG Miscellaneous Information (Consult) 1 ea UD PRN N/A 07/30/17 16:45 08/29/17 16:44 Clindamycin Phosphate 600 mg/ Dextrose 54 ml @ 100 mls/hr Q8H IV 07/30/17 18:00 08/09/17 17:59 07/31/17 09:16 100 MLS/HR Lactobacillus Acidophilus (Floranex Tab) 4 tab TIDM PO 07/30/17 17:45 08/29/17 17:59 07/31/17 12:39 4 TAB Heparin Sodium (Porcine) (Heparin Sq 5000 Unit/0.5ml) 5,000 unit Q8H SQ 07/30/17 22:00 07/31/17 21:59 07/31/17 13:34 5,000 UNIT Acetaminophen (Tylenol Tab) 650 mg Q4H PRN PO 07/30/17 16:45 08/29/17 16:44 07/31/17 11:33 650 MG Al Hydrox/Mg Hydrox/Simethicone (Maalox Max Susp) 15 ml Q4H PRN PO 07/30/17 16:45 08/29/17 16:44 Polyethylene (Miralax Powder Packet) 17 gm DAILY PRN PO 07/30/17 16:45 08/29/17 16:44 Ondansetron HCl (Zofran Inj) 4 mg Q6H PRN IV 07/30/17 16:45 08/29/17 16:44 Clonidine HCl (Catapres Tab) 0.1 mg Q8H PRN PO 07/30/17 17:15 08/29/17 17:14 Ibuprofen (Motrin Tab) 600 mg TID PRN PO 07/30/17 17:15 08/29/17 17:14 07/31/17 09:15 600 MG Miscellaneous (Iv Fluids Completed) 1 ea PRN PRN N/A 07/30/17 17:15 07/30/18 17:14 Vancomycin HCl 1500 mg/Sodium Chloride 530 ml @ 200 mls/hr Q10H IV 07/31/17 02:00 08/10/17 01:59 07/31/17 11:33 200 MLS/HR Buprenorphine/ Naloxone (Suboxone 8/2MG Tab) 1 tab BID PO 07/31/17 09:00 08/30/17 08:59 07/31/17 09:15 1 TAB Gabapentin (Neurontin Cap) 100 mg TID PO 07/31/17 09:00 08/30/17 08:59 07/31/17 13:31 100 MG Physical Exam Date Time Temp Pulse Resp B/P (MAP) Pulse Ox O2 Delivery O2 Flow Rate FiO2 07/31/17 10:56 100 Room Air 07/31/17 08:16 36.5 71 18 130/70 (90) 100 Room Air 07/31/17 07:20 Room Air 07/31/17 01:00 108/66 (80) 07/31/17 00:00 Room Air 07/30/17 22:55 37.2 76 16 105/46 (65) 98 Room Air 07/30/17 18:25 Room Air 07/30/17 18:03 36.8 86 100/67 96 Room Air 07/30/17 17:36 07/30/17 17:20 36.9 76 16 96/51 98 Room Air 07/30/17 16:23 37.2 92 18 94/53 98 Room Air 07/30/17 14:58 36.9 110 17 94/60 96 Room Air Extremities/Musculoskelatal: + pertinent finding (Swelling left foot minimal erythema open lesion noted on the medial foot. Packing currently in place.) Laboratory Results Last 24 Hours Test 07/30/17 15:30 07/30/17 18:02 07/30/17 21:25 07/31/17 05:16 White Blood Count 13.15 K/uL 13.24 K/uL 6.96 K/uL Red Blood Count 4.64 M/uL 4.60 M/uL 4.03 M/uL Hemoglobin 13.5 g/dL 13.2 g/dL 11.2 g/dL Hematocrit 39.7 % 39.1 % 34.8 % Mean Corpuscular Volume 85.6 fL 85.0 fL 86.4 fL Mean Corpuscular Hemoglobin 29.1 pg 28.7 pg 27.8 pg Mean Corpuscular Hemoglobin Concent 34.0 g/dl 33.8 g/dl 32.2 g/dl Platelet Count 193 K/uL 199 K/uL 141 K/uL Mean Platelet Volume 12.2 fL 11.8 fL 12.8 fL Neutrophils (%) (Auto) 79.9 % Lymphocytes (%) (Auto) 11.1 % Monocytes (%) (Auto) 7.4 % Eosinophils (%) (Auto) 1.1 % Basophils (%) (Auto) 0.2 % Neutrophils # (Auto) 10.50 K/uL Lymphocytes # (Auto) 1.46 K/uL Monocytes # (Auto) 0.97 K/uL Eosinophils # (Auto) 0.15 K/uL Basophils # (Auto) 0.03 K/uL RDW Standard Deviation 43.3 fL 42.5 fL 44.1 fL RDW Coefficient of Variation 13.8 % 13.7 % 13.8 % Immature Granulocyte % (Auto) 0.3 % Immature Granulocyte # (Auto) 0.04 K/uL Sodium Level 135 mmol/L 137 mmol/L Potassium Level 4.3 mmol/L 4.0 mmol/L Chloride Level 103 mmol/L 105 mmol/L Carbon Dioxide Level 26 mmol/L 26 mmol/L Anion Gap 7.0 mmol/L 6.0 mmol/L Blood Urea Nitrogen 19 mg/dl 21 mg/dl Creatinine 1.42 mg/dl 1.22 mg/dl Est Creatinine Clear Calc Drug Dose 87.7 ml/min 102.0 ml/min Estimated GFR () 71.1 85.4 Estimated GFR (Non- 61.3 73.7 BUN/Creatinine Ratio 13.4 17.0 Random Glucose 123 mg/dl 108 mg/dl Calcium Level 9.3 mg/dl 8.8 mg/dl C-Reactive Protein 9.54 mg/dl Prothrombin Time 9.8 SECONDS Prothromb Time International Ratio 0.9 Urine Opiates Screen NEG Urine Methadone, Qualitative NEG Urine Barbiturates NEG Urine Phencyclidine (PCP) Level NEG Ur Amphetamine/Methamphetamine NEG MDMA (Ecstasy) Screen POS Urine Benzodiazepines Screen NEG Urine Cocaine Metabolite NEG Urine Marijuana (THC) NEG Magnesium Level 2.3 mg/dl Assessment & Plan Abscess left foot at this point time patient is currently on some IV antibiotics we will order an MRI to determine the extent of the infection and then Dr. Garcia can take over the case and determine what treatment would be necessary. I discussed the patient about the plan and he was very happy and understood the plan as well.
[2017-07-31 14:05] VITALS: BP 118/74; PULSE 79; TEMP 37; O2SAT 98
[2017-07-31] MEDS ORDERED: LORAZEPAM INJ 0.5 MG in SYRINGE 0.75 ML IV ONE (15:30)
[2017-07-31] MEDS ORDERED: NURSING VERBAL MED ORDER ONE (15:30)
[2017-07-31 15:43] VITALS: BP 147/88; PULSE 58; TEMP 36.9; O2SAT 100
[2017-07-31 16:20] VITALS: Ht 180.3 cm; Wt 111.2 kg
--- NOTE | 2017-07-31 18:04 | DIAGNOSTIC IMAGING REPORT ---
L LOWER EXT JOINT WITHOUT CLINICAL HISTORY: 42 years-old Male presenting with Abscess left foot. TECHNIQUE: Multisequence, multiplanar MR imaging of the left ankle was performed without the use of intravenous contrast. IV contrast: None. COMPARISON: Plain radiographs from 07/30/2017. FINDINGS: Localizer images: Unremarkable. A marker overlies the medial ankle immediately below the medial malleolus. At this site there is irregularity of the cutis and minimal subcutaneous emphysema suggested. No focal fluid collection. This does not extend deep to the flexor retinaculum. Subcutaneous edema along the medial malleolus both proximal and distal to the ankle joint. No bony edema. Peroneal tendons intact. Medial tendons intact. Anterior tendons intact despite overlying subcutaneous edema. Deltoid ligament intact. Anterior inferior talofibular ligaments intact. Interosseous ligament intact. Anterior and posterior talofibular ligaments intact. Calcaneofibular ligament intact. No infiltration of the sinus tarsi. Achilles tendon intact. Medial and lateral bands of the plantar fascia intact. IMPRESSION: Focal irregularity of the cutis at the site of clinical concern with subjacent subcutaneous gas and infiltration. This is most consistent with phlegmonous change. No focal fluid collections suggest abscess allowing for noncontrast technique. Oblique, this does not extend deep to the flexor retinaculum. Surrounding extensive subcutaneous edema may represent cellulitis. Electronically signed by: Antwon Up M.D. 07/31/2017 6:03 PM Dictated Date/Time: 07/31/2017 5:54 PM
[2017-07-31] MEDS ORDERED: GABAPENTIN 100 MG CAP PO SCH (21:00)
[2017-07-31] MEDS ORDERED: BUPRENORPHINE/NALOXONE 8/2 MG TAB SL SCH (21:00)
[2017-07-31] MEDS: CLONIDINE HCL 0.3 MG TAB PO SCH (21:56)
[2017-07-31 23:40] VITALS: BP 138/79; PULSE 63; TEMP 37; O2SAT 97
[2017-08-01] MEDS: CLINDAMYCIN IV 600 MG in DEXTROSE 5% 50ML 50 ML IV SCH ×3 (01:45→17:36)
[2017-08-01] MEDS ORDERED: VANCOMYCIN TROUGH ONE (07:30)
[2017-08-01 08:12] VITALS: BP 118/73; PULSE 61; TEMP 36.5; O2SAT 99
[2017-08-01] MEDS: VANCOMYCIN INJ 1,500 MG in SODIUM CHLORIDE 0.9% 500ML 500 ML IV SCH (08:33)
[2017-08-01] MEDS: CLONIDINE HCL 0.3 MG TAB PO SCH ×2 (08:34→20:46)
[2017-08-01] MEDS: GABAPENTIN 100 MG CAP PO SCH ×3 (08:34→20:46)
[2017-08-01] MEDS: VENLAFAXINE HCL XR 150 MG CAPXR PO SCH (08:35)
[2017-08-01] MEDS: LISINOPRIL 20 MG TAB PO SCH (08:35)
[2017-08-01] MEDS: LACTOBACILLUS ACIDOPHILUS (FLORANEX) TAB PO SCH ×3 (08:35→17:34)
[2017-08-01] MEDS: BUPRENORPHINE/NALOXONE 8/2 MG TAB PO SCH ×2 (08:36→20:44)
[2017-08-01] MEDS: IBUPROFEN 600 MG TAB PO PRN ×3 (08:37→23:12)
--- NOTE | 2017-08-01 08:59 | Hospitalist Progress Note ---
Hospitalist Progress Note Date of Service Aug 01, 2017. Subjective Pt evaluation today including: conversation w/ patient, physical exam, chart review, lab review, review of studies Pain: Minimal left foot pain PO Intake: Good Voiding: no voiding problems The patient was seen and examined this morning. Pt reports doing well today. His pain is well controlled at baseline, but does report some pain with ambulation. The swelling and redness surrounding the L foot wound has improved since yesterday. He denies any fever, chills or sweats. Pt is hopeful for discharge soon, but understands to wait for final wound culture results. All questions and concerns were addressed. Additional Comments: Constitutional: No fever, No chills, No fatigue Eyes: No redness, No diplopia ENT: No nasal symptoms, No sore throat Respiratory: No cough, No shortness of breath Cardiovascular: No chest pain, No palpitations Abdomen: No pain, No nausea, No vomiting, No diarrhea, No constipation Musculoskeletal: + see HPI, + joint pain, + swelling, No calf pain Neurologic: No weakness, No numbness/tingling Psychiatric: + substance abuse Endo: No fatigue Objective Vital Signs Date Time Temp Pulse Resp B/P (MAP) Pulse Ox O2 Delivery O2 Flow Rate FiO2 08/01/17 08:12 36.5 61 18 118/73 (88) 99 Room Air 07/31/17 23:40 Room Air 07/31/17 23:40 37.0 63 16 138/79 (98) 97 Room Air 07/31/17 16:00 Room Air 07/31/17 15:43 36.9 58 16 147/88 (107) 100 Room Air 07/31/17 14:05 37.0 79 19 118/74 (89) 98 Room Air 07/31/17 10:56 100 Room Air Physical Exam Notes: General Appearance: WD/WN, no apparent distress Eyes: PERRL, EOMI ENT: hearing grossly normal, pharynx normal Neck: supple, no JVD Respiratory/Chest: lungs clear, no respiratory distress, no accessory muscle use Cardiovascular: regular rate, rhythm, + systolic murmur (soft grade I/) Abdomen: normal bowel sounds, non tender, soft Extremities: non-tender, no calf tenderness, + pertinent finding (+ R dorsal foot wound 1x1cm healing well without surrounding erythema, + Left medial malleolus wound with packing into the wound, draining purulent material, + edematous, +surrounding erythema involving the body of the foot, does not include toes, no longer extends up the leg. - overall improved) Neurologic/Psychiatric: alert, oriented x 3 Skin: normal color, warm/dry Laboratory Results Last 24 Hours Test 08/01/17 07:28 Vancomycin Level Trough 24.0 mcg/ml Assessment and Plan 42 y/o M Hx IV opiate abuse, depression, HTN, recent admission for R foot cellulitis and tenosynovitis requiring extensive surgical debridement. Developed pain and swelling of the medial malleolus of his L foot 3 days prior to admission. A moderate sized abscess with associated cellulitis was noted on arrival to the ER. The abscess was drained. Considering his recent history, he is admitted for IV antibiotics and ortho evaluation. L foot cellulitis - placed on Vanc/Clinda pending culture results. - WBC trended down - wound cultures in process: growing strep intermedius - will ask ID non- formally for recs - Wound care for the R dorsal foot and the Left ankle - Ortho consulted - MRI : focal irregularity of the cutis at the site of clinical concern with subjacent subcutaneous gas and infiltration. This is most consistent with phlegmonous change. No focal fluid collections suggest abscess allowing for noncontrast technique. Oblique, this does not extend deep to the flexor retinaculum. Surrounding extensive subcutaneous edema may represent cellulitis. MARY - mild - IVF provided - improved Cr. 1.22 IVDU Depression - See HPI for specific hx - states he is on Suboxone currently 8/2mg BID - continue - Continue Effexor 150 mg, wellbutrin 100 mg QAM - Pt encouraged to seek counseling as an outpatient, pt denies needs to psychiatrist at this time. - Avoid extra pain medication and benzos due to history. HTN - BP is borderline low on admission - Clonidine and Lisinopril are held - Clonidine will be provided PRN - can restart Lisinopril when MARY resolves if BP stable. - Currently his BP remains in the 120s-130s so will continue to hold. DVT ppx: Heparin CODE STATUS: Full code Disposition: From home, possible dc in 1 day
[2017-08-01] MEDS: ACETAMINOPHEN 325 MG TAB PO PRN ×2 (12:41→17:39)
[2017-08-01 15:14] VITALS: BP 110/68; PULSE 82; TEMP 36.6; O2SAT 100
--- NOTE | 2017-08-01 15:42 | Orthopedic Progress Note ---
Orthopedic Progress Note Date of Service Aug 01, 2017. Subjective Reports: feeling well Additional Notes: States his left foot feels much better today. Has notice a large decrease in redness and increase in ROM. No new complaints. Objective calves soft nontender, N/V intact Left foot dressing partially folded back. Wound edges look clean. New iodiform packing placed by wound care team. Minimal erythema. Some swelling persists. Decent ROM of the ankle and foot. States he's moving much better today. Date Time Temp Pulse Resp B/P (MAP) Pulse Ox O2 Delivery O2 Flow Rate FiO2 08/01/17 15:14 36.6 82 18 110/68 (82) 100 Room Air 08/01/17 08:12 36.5 61 18 118/73 (88) 99 Room Air 08/01/17 07:50 Room Air 07/31/17 23:40 Room Air 07/31/17 23:40 37.0 63 16 138/79 (98) 97 Room Air 07/31/17 16:00 Room Air 07/31/17 15:43 36.9 58 16 147/88 (107) 100 Room Air Additional Notes: MRI Left Foot IMPRESSION: Focal irregularity of the cutis at the site of clinical concern with subjacent subcutaneous gas and infiltration. This is most consistent with phlegmonous change. No focal fluid collections suggest abscess allowing for noncontrast technique. Oblique, this does not extend deep to the flexor retinaculum. Surrounding extensive subcutaneous edema may represent cellulitis. Cx RUN DATE: 08/01/17 [facility] LAB PAGE 1 RUN TIME: 2883 Specimen Inquiry PATIENT: LORRIE CARLOS LOC: [facility] U # : [id number] AGE/SX: 42/M ROOM: [facility] REG : 07/31/[address]: Erick Greene MD, PhD : 1975 BED: 2 DIS : STATUS: ADM IN TLOC: SPEC #: [id number] PHILIP: 07/30/17 STATUS: COMP REQ #: [id number] RECD: 07/30/[address]: Kindra Dowd, MULU C SOURCE: ABSCESS ENTR: 07/30/[address]: Markell Sandoval MD SPDESC: Boyd Forte M.D. Wiedemer, Joseph P. M.D. ORDERED: DEP ANJALI CUL/SMR COMMENTS: Has Specimen Been Obtained/Collected? Y Procedure Result Verified Site GRAM STAIN Final 07/31/17-701 RESULT MANY WBCs SEEN MODERATE GRAM POSITIVE COCCI DEEP WOUND CULTURE Final 08/01/17 Organism 1 STREPTOCOCCUS INTERMEDIUS QUANITY MODERATE SENS NO SENSITIVITY TO FOLLOW ---- Assessment & Plan Assessment: Left foot cellulitis with open wound medial aspect of foot/ankle. Plan: Dr Garcia to assess today. Possible need for I&D Left foot Continue wound care and IV antibx
[2017-08-01] MEDS ORDERED: VANCOMYCIN INJ 1,250 MG in SODIUM CHLORIDE 0.9% 250ML 250 ML IV SCH (20:00)
[2017-08-01 23:20] VITALS: BP 115/73; PULSE 49; TEMP 36.6; O2SAT 98
[2017-08-01 23:45] VITALS: O2SAT 98
[2017-08-02] MEDS: CLINDAMYCIN IV 600 MG in DEXTROSE 5% 50ML 50 ML IV SCH (02:06)
[2017-08-02 07:45] VITALS: O2SAT 99
[2017-08-02 07:47] LABS: HEMATOCRIT 39.3 % (42-52); HEMOGLOBIN 13.1 g/dL (14.0-18.0); MEAN CELL VOLUME 84.9 fL (80-100); MEAN CORPUSCULAR HEMOGLOBIN 28.3 pg (25-34); MEAN CORPUSCULAR HGB CONC 33.3 g/dl (32-36); MEAN PLATELET VOLUME 11.7 fL (7.4-10.4); PLATELET COUNT 174 K/uL (130-400); RED CELL DISTRIBUTION WIDTH CV 13.8 % (11.5-14.5); WHITE BLOOD COUNT 4.61 K/uL (4.8-10.8)
[2017-08-02 08:13] LABS: CREATININE 1.02 mg/dl (0.60-1.40)
[2017-08-02 08:44] VITALS: BP 117/73; PULSE 67; TEMP 36.9; O2SAT 99
[2017-08-02] MEDS: GABAPENTIN 100 MG CAP PO SCH ×3 (09:28→21:29)
[2017-08-02] MEDS: LACTOBACILLUS ACIDOPHILUS (FLORANEX) TAB PO SCH ×3 (09:28→18:06)
[2017-08-02] MEDS: CLONIDINE HCL 0.3 MG TAB PO SCH ×2 (09:29→21:30)
[2017-08-02] MEDS: BUPRENORPHINE/NALOXONE 8/2 MG TAB PO SCH ×2 (09:30→21:28)
[2017-08-02] MEDS: VENLAFAXINE HCL XR 150 MG CAPXR PO SCH (09:30)
[2017-08-02] MEDS: LISINOPRIL 20 MG TAB PO SCH (09:30)
[2017-08-02] MEDS: BACITRACIN OINT 15 GM TUBE EXT SCH (10:58)
[2017-08-02] MEDS: IBUPROFEN 600 MG TAB PO PRN ×2 (11:07→18:10)
--- NOTE | 2017-08-02 11:17 | Hospitalist Progress Note ---
Hospitalist Progress Note Date of Service Aug 02, 2017. Subjective Pt evaluation today including: conversation w/ patient, physical exam, chart review, lab review, review of studies Pain: None PO Intake: Good Voiding: no voiding problems The patient was seen and examined this morning. Patient reports feeling well. Patient notes that the redness and swelling of his left foot has gone down. He has been able to ambulate without any difficulty but reports that it is somewhat sore. He denies any fevers, chills, sweats. Patient has been eating and drinking without any difficulty. ROS: Constitutional: No fever, sweats or chills Eyes: No diplopia, no worsening or blurred vision ENT: normal hearing, no trouble swallowing Respiratory: No cough, sputum, dyspnea at rest or on exertion Cardiovascular: No chest pain, tightness or palpitations Abdomen: No pain, nausea, vomiting, diarrhea or constipation Musculoskeletal: See HPI Neurologic: No weakness, numbness/tingling, or balance problems Objective Vital Signs Date Time Temp Pulse Resp B/P (MAP) Pulse Ox O2 Delivery O2 Flow Rate FiO2 08/02/17 08:44 36.9 67 18 117/73 (88) 99 Room Air 08/01/17 23:45 98 Room Air 08/01/17 23:20 36.6 49 16 115/73 (87) 98 Room Air 08/01/17 15:25 Room Air 08/01/17 15:14 36.6 82 18 110/68 (82) 100 Room Air Physical Exam Notes: General Appearance: WD/WN, no apparent distress Eyes: PERRL, EOMI ENT: hearing grossly normal, pharynx normal Neck: supple, no JVD Respiratory/Chest: lungs clear, no respiratory distress, no accessory muscle use Cardiovascular: regular rate, rhythm, + systolic murmur (soft grade I/) Abdomen: normal bowel sounds, non tender, soft Extremities: non-tender, no calf tenderness, + pertinent finding (+ R dorsal foot wound 1x1cm healing well without surrounding erythema, + Left medial malleolus wound with packing into the wound, draining purulent material, + edematous but improving, + minimal surrounding erythema localized around the wound- overall improved) Neurologic/Psychiatric: alert, oriented x 3 Skin: normal color, warm/dry Laboratory Results Last 24 Hours Test 08/02/17 07:13 White Blood Count 4.61 K/uL Red Blood Count 4.63 M/uL Hemoglobin 13.1 g/dL Hematocrit 39.3 % Mean Corpuscular Volume 84.9 fL Mean Corpuscular Hemoglobin 28.3 pg Mean Corpuscular Hemoglobin Concent 33.3 g/dl RDW Standard Deviation 42.0 fL RDW Coefficient of Variation 13.8 % Platelet Count 174 K/uL Mean Platelet Volume 11.7 fL Creatinine 1.02 mg/dl Est Creatinine Clear Calc Drug Dose 122.1 ml/min Estimated GFR () 106.1 Estimated GFR (Non- 91.5 Assessment and Plan 42 y/o M Hx IV opiate abuse, depression, HTN, recent admission for R foot cellulitis and tenosynovitis requiring extensive surgical debridement. Developed pain and swelling of the medial malleolus of his L foot 3 days prior to admission. A moderate sized abscess with associated cellulitis was noted on arrival to the ER. The abscess was drained. Considering his recent history, he is admitted for IV antibiotics and ortho evaluation. L foot cellulitis - placed on Vanc/Clinda initially-wound culture is growing out strep intermedius -will transition to clindamycin PO today. Continue antibiotic course of 14d. - WBC trended down - Wound care for the R dorsal foot and the Left ankle -patient should have follow-up with wound clinic on Saturday or Saturday next week - Ortho consulted -appreciate recs - MRI reviewed per EMR. - BCx x 2 in process, likely to return tomorrow morning. MARY - mild - IVF provided - improved Cr. 1.02 IVDU Depression - See my initial progress note for specifics - states he is on Suboxone currently 8/2mg BID - continue - Continue Effexor 150 mg, wellbutrin 100 mg QAM - Pt encouraged to seek counseling as an outpatient, pt denies needs to psychiatrist at this time. - Avoid extra pain medication and benzos due to history. HTN - BP is borderline low on admission - Clonidine and Lisinopril are held - Clonidine will be provided PRN - Currently his BP remains in the 110s-120, so we will continue to hold lisinopril and clonidine. - Patient may not need these upon discharge if his blood pressure remained stable. He could seek follow-up with PCP within 1 week and determine if blood pressure medication should be resumed in an outpatient setting. DVT ppx: Heparin CODE STATUS: Full code Disposition: From home, likely discharge home tomorrow
[2017-08-02] MEDS: CLINDAMYCIN HCL 150 MG CAP PO SCH ×2 (12:58→21:29)
--- NOTE | 2017-08-02 14:52 | Orthopedic Progress Note ---
Orthopedic Progress Note Date of Service Aug 02, 2017. Objective Xeroform packing in the wound. No purulent drainage is seen. No significant surrounding erythema or swelling Date Time Temp Pulse Resp B/P (MAP) Pulse Ox O2 Delivery O2 Flow Rate FiO2 08/02/17 08:44 36.9 67 18 117/73 (88) 99 Room Air 08/02/17 07:45 99 Room Air 08/01/17 23:45 98 Room Air 08/01/17 23:20 36.6 49 16 115/73 (87) 98 Room Air 08/01/17 15:25 Room Air 08/01/17 15:14 36.6 82 18 110/68 (82) 100 Room Air Laboratory Results 24 Hours: Test 08/02/17 07:13 Hematocrit 39.3 % Hemoglobin 13.1 g/dL Assessment & Plan Assessment: Left foot cellulitis with open wound medial aspect of foot/ankle. Plan: MRI demonstrated phlegmon. Patient states that he feels much better today. Really not having any pain in his foot anymore. The wound has been cleaning up nicely with dressing changes. Currently has Xeroform packing in place. We will continue with local wound care for now.
[2017-08-02 15:31] VITALS: BP 102/63; PULSE 60; TEMP 36.6; O2SAT 95
[2017-08-02 23:40] VITALS: BP 105/64; PULSE 58; TEMP 37; O2SAT 98
[2017-08-03] MEDS ORDERED: VANCOMYCIN TROUGH ONE (07:30)
[2017-08-03 07:44] VITALS: BP 111/69; PULSE 55; TEMP 36.7; O2SAT 100
[2017-08-03 08:06] VITALS: O2SAT 100
[2017-08-03 08:33] LABS: CREATININE 1.15 mg/dl (0.60-1.40)
[2017-08-03] MEDS: LACTOBACILLUS ACIDOPHILUS (FLORANEX) TAB PO SCH ×2 (08:54→12:54)
[2017-08-03] MEDS: BACITRACIN OINT 15 GM TUBE EXT SCH (08:54)
[2017-08-03] MEDS: CLONIDINE HCL 0.3 MG TAB PO SCH (08:55)
[2017-08-03] MEDS: GABAPENTIN 100 MG CAP PO SCH ×2 (08:55→12:54)
[2017-08-03] MEDS: CLINDAMYCIN HCL 150 MG CAP PO SCH (08:55)
[2017-08-03] MEDS: LISINOPRIL 20 MG TAB PO SCH (08:56)
[2017-08-03] MEDS: IBUPROFEN 600 MG TAB PO PRN (08:57)
[2017-08-03] MEDS: BUPRENORPHINE/NALOXONE 8/2 MG TAB PO SCH (09:02)
[2017-08-03] MEDS: VENLAFAXINE HCL XR 150 MG CAPXR PO SCH (09:02)
[2017-08-03] MEDS ORDERED: BCTO EXT (12:37)
[2017-08-03] MEDS ORDERED: CLC150 PO (12:37)
--- NOTE | 2017-08-03 12:47 | Discharge Instructions ---
Discharge Instructions Date of Service Aug 03, 2017. Admission Reason for Admission: Abscess Of Foot Excluding Toes Discharge Discharge Diagnosis / Problem: Left Foot abscess Discharge Goals Goal(s): Decrease discomfort, Improve function, Increase independence Activity Recommendations Activity Limitations: resume your previous activity . Instructions / Follow-Up Instructions / Follow-Up You should not attempt to manipulate your wounds other than applying cream or dressing changes as instructed by Wound Care. You should be taking a probiotic with all of your recent antibiotic use. You should look for a brand that has both lactobacillus and bifidobacter with multiple strains of each. A good probiotic is [employer] LAINEY and you can find it online or at [facility]. Follow up with Wound Care on 08/[address] Morris on 08/07 as well Current Hospital Diet Patient's current hospital diet: AHA Diet (Heart Healthy) Discharge Diet Recommended Diet: AHA Diet (Heart Healthy) Pending Studies Studies pending at discharge: no Medical Emergencies . Who to Call and When: Medical Emergencies: If at any time you feel your situation is an emergency, please call 911 immediately. . Non-Emergent Contact Non-Emergency issues call your: Primary Care Provider . . "Provider Documentation" section prepared by Eunice Nuñez. .
--- NOTE | 2017-08-03 12:55 | Discharge Summary ---
Discharge Summary Date of Service Aug 03, 2017. Discharge Summary Admission Date: Jul 31, 2017 at 14:18 Discharge Date: Aug 03, 2017 Discharge Disposition: Home Principal Diagnosis: L LE cellulitis and abscess Problems/Secondary Diagnoses: HTN Depression Hx of IVDA R foot cellulitis/abscess with recent hospitalization for same, d/c 06/03/17 Immunizations: Have You Had Influenza Vaccine: No History of Tetanus Vaccine?: Unknown History of Pneumococcal: No History of Hepatitis B Vaccine: No Procedures: I&D 07/30 Consultations: Ortho Wound Care Medication Reconciliation New Medications: Bacitracin (Bacitracin Zinc) 45 Appln/15 Gm Oint 1 APPLN EXT DAILY for 30 Days, #1 TUBE Clindamycin HCl (Clindamycin HCl) 150 Mg Cap 600 MG PO Q12 for 10 Days, #80 CAP Continued Medications: Buprenorphine Hcl-Naloxone Hcl (Suboxone 8-2 Mg) 1 Sub Sub 1 TAB SL BID Bupropion (Wellbutrin) 100 Mg Tab 100 MG PO DAILY, TAB Clonidine Hcl (Catapres) 0.3 Mg Tab 0.3 MG PO BID, TAB Gabapentin (Neurontin) 100 Mg Cap 100 MG PO TID, CAP Lisinopril (Zestril) 20 Mg Tab 20 MG PO DAILY, TAB Venlafaxine Hcl (Effexor Extended Rel) 150 Mg Cap 150 MG PO DAILY Discharge Exam Pt is feeling overall improved. Swelling in L LE is resolved. Pain is improving. He feels his wound site is much better. Tolerating PO without issue. Pt denies fever, SOB, chest pain, abd pain, n/v/c/d. Physical Exam: General Appearance: WD/WN, no apparent distress Eyes: normal inspection, sclerae normal Respiratory/Chest: normal breath sounds, no respiratory distress Cardiovascular: regular rate, rhythm, no edema Abdomen / GI: non tender, soft Extremities: no calf tenderness, no pedal edema Neurologic/Psychiatric: alert, normal mood/affect, oriented x 3 Skin: normal color, warm/dry Hospital Course 42 y/o M Hx IV opiate abuse, depression, HTN, recent admission for R foot cellulitis and tenosynovitis requiring extensive surgical debridement. Developed pain and swelling of the medial malleolus of his L foot 3 days prior to admission. A moderate sized abscess with associated cellulitis was noted on arrival to the ER. The abscess was drained. Considering his recent history, he is admitted for IV antibiotics and ortho evaluation. L foot cellulitis: s/p I&D in the ED on 07/30 - placed on Vanc/Clinda initially-wound culture is growing out strep intermedius Transitioned to clindamycin PO on 08/02 and no issues since that time. Will complete antibiotic course of 14d as outpt - WBC trended down - Wound care for the R dorsal foot and the Left ankle - Ortho did not see pt on day of d/c, however nursing contacted Dr. aGrcia who felt that pt would be stable for d/c with ongoing conservative management - MRI neg for abscess or osteo - BC neg x2 MARY - resolved with IVF IVDU Depression Continue Suboxone as prior - Continue Effexor 150 mg, wellbutrin 100 mg QAM - Pt encouraged to seek counseling as an outpatient, declined to see inpt psych during admission HTN - BP was borderline low on admission and Clonidine and Lisinopril were initially held, however resumed with increased BP and will continue on d/c Total Time Spent: Greater than 30 minutes This includes examination of the patient, discharge planning, medication reconciliation, and communication with other providers. Discharge Instructions Please refer to the electronic Patient Visit Report (Discharge Instructions) for additional information. Follow-Up Wound Care and Dr. Morris on 08/07 as schedule prior to d/c Additional Copies To Ang Stover M.D.
[2017-08-03 14:24] VITALS: BP 111/69; PULSE 55; TEMP 36.7; O2SAT 100
== END 2017-08-03 15:00 | disposition home or self-care (01) | DRG 603 ==
LOC: C.EDB 14:53 → C.MSW 16:42 → CANRESERV 16:52 → ENRESERV 16:52 → EDBEDREQ 17:19 → ENRESERV 17:24 → OBSVTOIN 07-31 14:18
PROVIDERS: ADMIT Internal Medicine; ATTEND Family Medicine
PROC: 0J9P3ZX Drainage of Left Lower Leg Subcutaneous Tissue and Fascia, Percutaneous Approach, Diagnostic (ICD-10-PCS; principal; 2017-07-30)
DX: L03.116 Cellulitis of left lower limb (principal); L02.416 Cutaneous abscess of left lower limb; F32.9 Major depressive disorder, single episode, unspecified; F41.9 Anxiety disorder, unspecified; I10 Essential (primary) hypertension; E66.3 Overweight; F17.200 Nicotine dependence, unspecified, uncomplicated; Z51.81 Encounter for therapeutic drug level monitoring; Z79.899 Other long term (current) drug therapy; Z87.898 Personal history of other specified conditions; Z86.19 Personal history of other infectious and parasitic diseases; Z68.34 Body mass index [BMI] 34.0-34.9, adult; Z88.6 Allergy status to analgesic agent; Z88.8 Allergy status to other drugs, medicaments and biological substances; Z83.3 Family history of diabetes mellitus; Z82.49 Family history of ischemic heart disease and other diseases of the circulatory system

== ENCOUNTER 2017-10-08 17:26 | Emergency (ER) | payer OTHER ==
[~2017-10-08] VITALS: Ht 180.3 cm; Wt 102.4 kg
[~2017-10-08 17:26] MED LIST changes: +BCTO EXT; +BUPR-83 PO; +BUPR1SUB23 SL; -CEPH-571 PO; +CLC150 PO; +CLON0.3T PO; +LISI-725 PO; -RXC5 PO; -VENL75CA PO
[2017-10-08 17:33] VITALS: TEMP 36.8; Ht 180.3 cm; Wt 102.4 kg
[2017-10-08] MEDS ORDERED: VENL150C56 PO (17:41)
[2017-10-08 17:45] VITALS: O2SAT 98
--- NOTE | 2017-10-08 18:40 | DIAGNOSTIC IMAGING REPORT ---
HEAD WITHOUT CONTRAST (CT) CLINICAL HISTORY: 42 years-old Male with seizure vs syncope. Acutely altered mental status TECHNIQUE: Multiple axial CT images of the head were obtained without contrast. A dose lowering technique was utilized adhering to the principles of ALARA. CT DOSE: 614.27 mGy.cm COMPARISON: CT head 01/21/2014, brain MRI 08/14/2015. FINDINGS: No acute intracranial hemorrhage, midline shift, intracranial mass, hydrocephalus, territorial ischemia or abnormal extra-axial collection. The calvarium is intact. The paranasal sinuses, mastoid air cells, and middle ear cavities are clear. IMPRESSION: No acute intracranial abnormality. The above report was generated using voice recognition software. It may contain grammatical, syntax or spelling errors. Electronically signed by: Ganesh Noel M.D. 10/08/2017 6:38 PM Dictated Date/Time: 10/08/2017 6:36 PM
[2017-10-08] MEDS ORDERED: HYDR-389 PO (18:51)
[2017-10-08] MEDS ORDERED: BUSP15TA70 PO (18:51)
[2017-10-08] MEDS ORDERED: WLLSR150 PO (18:51)
[2017-10-08] MEDS ORDERED: LISI-729 PO (18:51)
[2017-10-08] MEDS ORDERED: GABAPENTIN 100 MG CAP PO STA ×3 (19:49→21:54)
[2017-10-08] MEDS ORDERED: CLONIDINE HCL 0.1 MG TAB PO ONE ×2 (20:00→22:00)
[2017-10-08 20:28] LABS: BASO % 0.2 %; BASO ABS # 0.02 K/uL (0-0.2); EOS % 1.7 %; EOS ABS # 0.15 K/uL (0-0.5); HEMATOCRIT 45.5 % (42-52); HEMOGLOBIN 15.5 g/dL (14.0-18.0); IG# 0.02 K/uL (0.00-0.02); LYMPH % 12.8 %; LYMPH ABS # 1.16 K/uL (1.2-3.4); MEAN CELL VOLUME 82.1 fL (80-100); MEAN CORPUSCULAR HGB CONC 34.1 g/dl (32-36); MEAN PLATELET VOLUME 11.4 fL (7.4-10.4); MONO % 5.1 %; MONO ABS # 0.46 K/uL (0.11-0.59); NEUT ABS # 7.27 K/uL (1.4-6.5); PLATELET COUNT 171 K/uL (130-400); RED CELL DISTRIBUTION WIDTH CV 14.1 % (11.5-14.5); WHITE BLOOD COUNT 9.08 K/uL (4.8-10.8)
[2017-10-08] MEDS ORDERED: GABA-112 PO (20:36)
--- NOTE | 2017-10-08 20:43 | DIAGNOSTIC IMAGING REPORT ---
CHEST ONE VIEW PORTABLE HISTORY: 42 years-old Male seizure vs syncope acute seizure COMPARISON: Chest radiograph 05/25/2017 TECHNIQUE: Portable AP view of the chest FINDINGS: Cardiomediastinal and hilar silhouettes are within normal limits. There is no pneumothorax, pleural effusion, focal airspace consolidation or overt pulmonary edema. Bones of the chest appear grossly intact. Degenerative changes of the bilateral AC joints. IMPRESSION: No acute process. The above report was generated using voice recognition software. It may contain grammatical, syntax or spelling errors. Electronically signed by: Ganesh Noel M.D. 10/08/2017 8:42 PM Dictated Date/Time: 10/08/2017 8:42 PM
[2017-10-08 21:02] LABS: ALBUMIN 4.4 gm/dl (3.4-5.0); CALCIUM 9.5 mg/dl (8.5-10.1); CREATININE 1.19 mg/dl (0.60-1.40); POTASSIUM 4.4 mmol/L (3.5-5.1)
[2017-10-08 21:07] LABS: PHOSPHORUS 1.8 mg/dl (2.5-4.9); TOTAL PROTEIN 8.7 gm/dl (6.4-8.2)
[2017-10-08] MEDS ORDERED: POT PHOSPHATE MONOBASIC W/ SOD TAB PO STA (21:33)
[2017-10-08] MEDS ORDERED: CLONIDINE HCL 0.3 MG TAB PO STA (21:54)
[2017-10-08] MEDS ORDERED: POT PHOSPHATE MONOBASIC W/ SOD TAB PO SCH (22:00)
--- NOTE | 2017-10-08 22:04 | EMERGENCY ROOM VISIT NOTE ---
History Report prepared by Mitchell: Jasmine Vega Under the Supervision of: Dr. Viridiana Walsh D.O. First contact with patient: 17:30 Chief Complaint: SEIZURE Stated Complaint: SEIZURE Nursing Triage Summary: Possible seizure like activity while at [facility] with his father. The last thing the patient remembers is standing in line at the check out. Patient's father said he fell to the ground. Patient at this time presents AAOX4. Noted to be diaphoretic at this time. Patient notes that he is on gapapentin and clonidine routinely, but has been out for the past 2-3 days. Patient also takes suboxone and did receive his dose today. PMH: IV drug use (currently on History of Present Illness The patient is a 42 year old male who presents to the Emergency Room with complaints of an episode of seizure [facility]. The patient was checking out at [facility] when he fell to the ground. He does not remember falling. The next thing he remembers is his father telling him he needs to go to the hospital. States he immediately recognized his father and where he was. The patient felt nauseous prior to the episode, but denies feeling lightheaded or dizzy. Denies any prodromal headache. He is still feeling nauseous. He currently has some headache and lightheadedness. He denies any change in vision, vomiting, chest pain, palpitations, tongue bite, or incontinence. He notes that he ran out of his clonidine and gabapentin 2-3 days ago. 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 He was in rehab for heroin 1 month ago. He is currently on Suboxone. He denies any history of seizures in himself or his family. He denies any other drug use. States he drinks plenty of soda and does not have a good diet, but otherwise has been eating and drinking what he considers normal. No additional family or witnesses present to give any additional history regarding what happened at [facility]. Source of History: patient Onset: [facility] Position: head Quality: other (seizure) Timing: other (episodic) Associated Symptoms: + headache, + nausea, No chest pain, No vomiting Note: Pt reports lightheadedness. Review of Systems See HPI for pertinent positives & negatives. A total of 10 systems reviewed and were otherwise negative. Past Medical & Surgical Medical Problems: (1) Abscess of foot excluding toes (2) ADH disorder (3) Anxiety (4) Drug Mental Disorder Nec (5) Drug Withdrawal (6) H/O drug abuse Surgical Problems: (1) No significant past surgical history Family History Diabetes mellitus FH: cancer Hypertension Social History Smoking Status: Former Smoker Occupation Status: unemployed Current/Historical Medications Scheduled Buprenorphine Hcl-Naloxone Hcl (Suboxone 8-2 Mg), 1 TAB SL BID Bupropion HCl (Bupropion HCl Sr), 150 MG PO BID Buspirone Hcl (Buspar), 15 MG PO BID Clonidine Hcl (Catapres), 0.3 MG PO BID Clonidine Hcl (Catapres), 0.3 MG PO BID Gabapentin (Neurontin), 100 MG PO TID Gabapentin (Gabapentin), 1 CAP PO TID Lisinopril (Zestril), 5 MG PO DAILY Pot Phosphate Monobasic W/ Sod (Phospho-Alondra 250 Neutral 155-852-130 mg), 1 TAB PO TID Venlafaxine Hcl (Effexor Extended Rel), 150 MG PO DAILY Scheduled PRN Hydroxyzine Hcl (Atarax), 10 MG PO TID PRN for Anxiety Allergies Coded Allergies: Uncoded Nonscreenable Allergen (Verified Allergy, Unknown, WOOL CAUSES HIVES, 05/25/17) Magnesium Hydroxide (Verified Adverse Reaction, Intermediate, GI SYMPTOMS , 05/29/17) Physical Exam Vital Signs Date Time Temp Pulse Resp B/P (MAP) Pulse Ox O2 Delivery O2 Flow Rate FiO2 10/08/17 22:17 82 20 111/74 98 Room Air 10/08/17 21:36 91 10/08/17 20:17 93 20 102/75 99 Room Air 10/08/17 18:52 103 16 158/91 100 Room Air 10/08/17 17:45 98 Room Air 10/08/17 17:35 117 10/08/17 17:33 36.8 118 22 149/80 98 Room Air Physical Exam GENERAL: alert, well appearing, well nourished, no distress, non-toxic EYE EXAM: normal conjunctiva, PERRL and EOM's grossly intact OROPHARYNX: no exudate, no erythema, lips, buccal mucosa, and tongue normal and mucous membranes are moist NECK: supple, no nuchal rigidity, no adenopathy, non-tender LUNGS: Clear to auscultation. Normal chest wall mechanics HEART: no murmurs, S1 normal and S2 normal ABDOMEN: abdomen soft, non-tender, normo-active bowel sounds, no masses, no rebound or guarding. BACK: Back is symmetrical on inspection and there is no deformity, no midline tenderness, no CVA tenderness. SKIN: no rashes and no bruising UPPER EXTREMITIES: upper extremities are grossly normal. LOWER EXTREMITIES: No pitting edema. NEURO EXAM: Normal sensorium, cranial nerves II-XII grossly intact, normal speech, no gross weakness of arms, no gross weakness of legs. Medical Decision & Procedures ER Provider Diagnostic Interpretation: Radiology results have been interpreted by the radiologist and reviewed by me. CHEST ONE VIEW PORTABLE HISTORY: 42 years-old Male seizure vs syncope acute seizure COMPARISON: Chest radiograph 05/25/2017 TECHNIQUE: Portable AP view of the chest FINDINGS: Cardiomediastinal and hilar silhouettes are within normal limits. There is no pneumothorax, pleural effusion, focal airspace consolidation or overt pulmonary edema. Bones of the chest appear grossly intact. Degenerative changes of the bilateral AC joints. IMPRESSION: No acute process. The above report was generated using voice recognition software. It may contain grammatical, syntax or spelling errors. Electronically signed by: Ganesh Noel M.D. 10/08/2017 8:42 PM Dictated Date/Time: 10/08/2017 8:42 PM HEAD WITHOUT CONTRAST (CT) CLINICAL HISTORY: 42 years-old Male with seizure vs syncope. Acutely altered mental status TECHNIQUE: Multiple axial CT images of the head were obtained without contrast. A dose lowering technique was utilized adhering to the principles of ALARA. CT DOSE: 614.27 mGy.cm COMPARISON: CT head 01/21/2014, brain MRI 08/14/2015. FINDINGS: No acute intracranial hemorrhage, midline shift, intracranial mass, hydrocephalus, territorial ischemia or abnormal extra-axial collection. The calvarium is intact. The paranasal sinuses, mastoid air cells, and middle ear cavities are clear. IMPRESSION: No acute intracranial abnormality. The above report was generated using voice recognition software. It may contain grammatical, syntax or spelling errors. Electronically signed by: Ganesh Noel M.D. 10/08/2017 6:38 PM Dictated Date/Time: 10/08/2017 6:36 PM Laboratory Results 10/08/17 20:14 Red Blood Count 5.54, Mean Corpuscular Volume 82.1, Mean Corpuscular Hemoglobin 28.0, Mean Corpuscular Hemoglobin Concent 34.1, Mean Platelet Volume 11.4, Neutrophils (%) (Auto) 80.0, Lymphocytes (%) (Auto) 12.8, Monocytes (%) (Auto) 5.1, Eosinophils (%) (Auto) 1.7, Basophils (%) (Auto) 0.2, Neutrophils # (Auto) 7.27, Lymphocytes # (Auto) 1.16, Monocytes # (Auto) 0.46, Eosinophils # (Auto) 0.15, Basophils # (Auto) 0.02 10/08/17 20:14 Test 10/08/17 20:14 10/08/17 20:15 White Blood Count 9.08 K/uL (4.8-10.8) Red Blood Count 5.54 M/uL (4.7-6.1) Hemoglobin 15.5 g/dL (14.0-18.0) Hematocrit 45.5 % (42-52) Mean Corpuscular Volume 82.1 fL (80-100) Mean Corpuscular Hemoglobin 28.0 pg (25-34) Mean Corpuscular Hemoglobin Concent 34.1 g/dl (32-36) Platelet Count 171 K/uL (130-400) Mean Platelet Volume 11.4 fL (7.4-10.4) Neutrophils (%) (Auto) 80.0 % Lymphocytes (%) (Auto) 12.8 % Monocytes (%) (Auto) 5.1 % Eosinophils (%) (Auto) 1.7 % Basophils (%) (Auto) 0.2 % Neutrophils # (Auto) 7.27 K/uL (1.4-6.5) Lymphocytes # (Auto) 1.16 K/uL (1.2-3.4) Monocytes # (Auto) 0.46 K/uL (0.11-0.59) Eosinophils # (Auto) 0.15 K/uL (0-0.5) Basophils # (Auto) 0.02 K/uL (0-0.2) RDW Standard Deviation 42.0 fL (36.4-46.3) RDW Coefficient of Variation 14.1 % (11.5-14.5) Immature Granulocyte % (Auto) 0.2 % Immature Granulocyte # (Auto) 0.02 K/uL (0.00-0.02) Anion Gap 4.0 mmol/L (3-11) Est Creatinine Clear Calc Drug Dose 100.5 ml/min Estimated GFR () 88.0 Estimated GFR (Non- 76.0 BUN/Creatinine Ratio 14.8 (10-20) Calcium Level 9.5 mg/dl (8.5-10.1) Phosphorus Level 1.8 mg/dl (2.5-4.9) Magnesium Level 2.6 mg/dl (1.8-2.4) Total Bilirubin 0.4 mg/dl (0.2-1) Aspartate Amino Transf (AST/SGOT) 30 U/L (15-37) Alanine Aminotransferase (ALT/SGPT) 47 U/L (12-78) Alkaline Phosphatase 116 U/L (45-117) Pro-B-Type Natriuretic Peptide 142 pg/ml (0-450) Total Protein 8.7 gm/dl (6.4-8.2) Albumin 4.4 gm/dl (3.4-5.0) Globulin 4.3 gm/dl (2.5-4.0) Albumin/Globulin Ratio 1.0 (0.9-2) Lipase 81 U/L (73-393) Ethyl Alcohol mg/dL < 3.0 mg/dl (0-3) Urine Opiates Screen NEG (NEG) Urine Methadone, Qualitative NEG (NEG) Urine Barbiturates NEG (NEG) Urine Phencyclidine (PCP) Level NEG (NEG) Ur Amphetamine/Methamphetamine NEG (NEG) MDMA (Ecstasy) Screen POS (NEG) Urine Benzodiazepines Screen NEG (NEG) Urine Cocaine Metabolite NEG (NEG) Urine Marijuana (THC) NEG (NEG) Laboratory results per my review. Medications Administered Medications (Trade) Dose Ordered Sig/John Route Start Time Stop Time Status Last Admin Dose Admin Gabapentin (Neurontin Cap) 100 mg NOW STAT PO 10/08/17 19:49 10/08/17 19:50 DC 10/08/17 20:09 100 MG Clonidine HCl (Catapres Tab) 0.2 mg NOW ONCE PO 10/08/17 20:00 10/08/17 20:01 DC 10/08/17 20:09 0.2 MG Potassium/ Phosphorus/Sodium (Phospha 250 Neutral 155-852-130 Mg) 1 tab Q4H PO 10/08/17 22:00 10/08/17 23:06 DC 10/08/17 22:17 1 TAB Clonidine HCl (Catapres Tab) 0.1 mg NOW ONCE PO 10/08/17 22:00 10/08/17 22:01 DC 10/08/17 22:17 0.1 MG Gabapentin (Neurontin Cap) 100 mg NOW STAT PO 10/08/17 21:52 10/08/17 21:54 DC 10/08/17 22:17 100 MG ECG Per My Interpretation Indication: syncope Rate (beats per minute): 97 Rhythm: sinus rhythm Findings: no acute ischemic change, no ectopy, other (normal axis, normal intervals) ED Course 1758: The patient was evaluated in room C4. A complete history and physical exam was performed. 1948: Gabapentin 100 mg PO. 1999: Clonidine HCl 0.2 mg PO. 2139: I reevaluated the patient. He has had no further episodes and was able to ambulate to the bathroom without difficulty. He reports that he currently does not drive. Mother has arrived to take him home. I discussed the need for close follow up with him. He verbalized agreement of the treatment plan. He was discharged home. 2151: Gabapentin 100 mg PO. 2153: Gabapentin 100 mg PO, Clonidine HCl 0.3 mg PO. 2199: Clonidine HCl 0.1 mg PO, Potassium/Phosphorus/Sodium 1 tab PO. Medical Decision Differential diagnosis includes etiologies such as infection, hypoglycemia, electrolyte abnormalities, cardiac sources, intracerebral event, trauma, toxicologic, neurologic, as well as others were entertained. Patient with no seizure-like activity noted throughout his observation time here. No other recurrent symptoms of lightheadedness, dizziness, or nausea. Patient with no evidence of trauma related to events today. No dysrhythmia noted on telemetry, patient hemodynamically stable throughout. Labs and imaging otherwise reassuring. It is unclear if this was a syncopal event which I lean more towards instead of a seizure. Patient did have some mild prodromal symptoms, although not classic story for orthostatic or vasovagal syncope. Patient with no incontinence or evidence of tongue contusion. No family history of seizures. I did discuss with him that he is at risk of a seizure due to his abrupt withdrawal of 2 of his medications. Discussed with patient his low phosphorus level and possible etiology of this. Discussed need for repletion and recheck of this. No evidence of any other electrolyte abnormality or renal dysfunction. Patient restarted on his clonidine and gabapentin here. Patient ambulated here with a steady gait. Patient states he does not drive. Patient was cautioned to follow closely with his family doctor , to take all medications as prescribed, to avoid any relapse into recreational drug use, to avoid alcohol. Discussed symptoms to watch and return here for, he verbalized understanding was agreeable with plan. All questions were answered at bedside. Mother is at bedside now and will take the patient home. I do not suspect ACS, CVA, cerebellar infarct/mass/bleed, VBI, perforation, GI bleed, bacteremia/sepsis, dissection, leaking AAA, dysrhythmia, congestive heart failure, tamponade. Patient encouraged to eat a healthier diet and makes motor food choices, and to drink more water. HEART score 1 SF syncope rules low risk Medication Reconcilliation Current Medication List: was personally reviewed by me Blood Pressure Screening Patient's blood pressure: Normal blood pressure Blood pressure disposition: Did not require urgent referral Impression Primary Impression: Syncope Additional Impressions: Hypophosphatemia H/O drug abuse Anxiety Scribe Attestation The scribe's documentation has been prepared under my direction and personally reviewed by me in its entirety. I confirm that the note above accurately reflects all work, treatment, procedures, and medical decision making performed by me. Departure Information Dispostion Home / Self-Care Prescriptions Clonidine Hcl (CATAPRES) 0.3 Mg Tab 0.3 MG PO BID for 3 Days, #6 TAB Prov: Viridiana Walsh, DO 10/08/17 Gabapentin (Gabapentin) 100 Mg Cap 1 CAP PO TID for 3 Days, #9 CAP Prov: Viridiana Walsh, DO 10/08/17 Pot Phosphate Monobasic W/ Sod (Phospho-Alondra 250 Neutral 155-852-130 mg) 1 Tab Tab 1 TAB PO TID, #30 TABS Prov: Viridiana Walsh, DO 10/08/17 Referrals Ang Stover M.D. (PCP) Patient Instructions My [facility] Additional Instructions Please call and follow-up closely with your family doctor. They need to recheck your potassium level next week. Please take the phosphorus supplements that you were sent home with every 4 hours. Then begin taking the prescribed phosphate supplement 3 times a day with meals. Please begin drinking more water. Please begin to make better dietary decisions and eat healthier. Please do not drive. Please follow-up with your family doctor as you may require additional testing and evaluation. If you have any recurrent episodes of lightheadedness or dizziness, passed out again, develop weakness, fevers, vomiting, chest pain, palpitations, vision changes, headaches, you have any other new concerns, please return the emergency room. It is not clear exactly what caused the episode the day, and this is the reason for close follow-up is required. If you have any new or concerning symptoms we encourage you to come to the ER right away. Problem Qualifiers Primary Impression: Syncope Syncope type: unspecified Qualified Codes: R55 - Syncope and collapse
[2017-10-08] MEDS ORDERED: POT1TAB PO (22:14)
[2017-10-08] MEDS ORDERED: CLON0.3T PO (22:16)
[2017-10-08] MEDS ORDERED: NRN100 PO (22:16)
[2017-10-08 22:17] VITALS: BP 111/74; PULSE 82; O2SAT 98
== END 2017-10-08 22:33 | disposition home or self-care (01) ==
LOC: EDBD 17:26 → C.EDC 17:28
DX: R55 Syncope and collapse (principal); E83.39 Other disorders of phosphorus metabolism; Z87.898 Personal history of other specified conditions; F41.9 Anxiety disorder, unspecified; Z87.891 Personal history of nicotine dependence; Z83.3 Family history of diabetes mellitus; Z82.49 Family history of ischemic heart disease and other diseases of the circulatory system; Z91.09 Other allergy status, other than to drugs and biological substances; Z88.8 Allergy status to other drugs, medicaments and biological substances; Z79.899 Other long term (current) drug therapy